=== PATIENT | female | born 1985 | race Caucasian/White ===

== ENCOUNTER 2017-09-11 09:59 | Emergency (ER) | payer OTHER, SELFPAY | END 2017-09-11 10:56 | disposition home or self-care (01) | PROVIDERS: Emergency Provider Nurse Practitioner; Family Provider Family Medicine; Visit Provider Nurse Practitioner | DX: J06.9 Acute upper respiratory infection, unspecified (principal); Z79.01 Long term (current) use of anticoagulants; Z86.718 Personal history of other venous thrombosis and embolism | CPT/HCPCS: 87804; 87880; 99201 ==

== ENCOUNTER → 2018-01-26 10:13 | Outpatient (CLI) | payer OTHER, SELFPAY ==
--- NOTE | 2018-01-26 10:18 | XR_ITS ---
XR tibia fibula RT 2V CLINICAL INDICATION: ITS.REASON: ELIZABETH FAN PAIN ORDERING PHYSICIAN: RASHAAD Guillaume PATIENT AGE: 32 years FINDINGS: No fracture or dislocation evident. No abnormal periosteal thickening/reaction. No radio opaque foreign bodies or soft tissue gas. IMPRESSION: Negative right tib-fib. Consider MRI for further evaluation for the workup of shinsplints/medial tibial stress syndrome
--- NOTE | 2018-01-26 10:18 | XR_ITS ---
XR tibia fibula LT 2V CLINICAL INDICATION: ITS.REASON: ELIZABETH FAN PAIN ORDERING PHYSICIAN: RASHAAD Guillaume PATIENT AGE: 32 years FINDINGS: No fracture or dislocation evident. No abnormal periosteal thickening/reaction. No radio opaque foreign bodies or soft tissue gas. Surgical clips are present along the medial upper and posterior aspect of the leg IMPRESSION: Negative left tib-fib. Consider MRI for further evaluation for the workup of shinsplints/medial tibial stress syndrome
== END ==
PROVIDERS: PCP Family Medicine; Visit Provider Physician Assistant
DX: M79.662 Pain in left lower leg (principal); M79.661 Pain in right lower leg
CPT/HCPCS: 73590

== ENCOUNTER → 2018-02-09 09:20 | Outpatient (CLI) | payer OTHER, SELFPAY ==
--- NOTE | 2018-02-09 09:26 | MR_ITS ---
MR lower leg LT wo con HISTORY: ITS.REASON: PAIN IN LEFT FAN ORDERING PHYSICIAN: Loyd Virgen MD PATIENT AGE: 33 years Comparison: 01/26/2018 TECHNIQUE: Standard multiplanar multiecho sequences are performed without contrast. FINDINGS: There is a thin area of increased T2 signal along the anteromedial aspect of the tibia consistent with a mild amount of periosteal edema. No abnormal bone marrow or cortical signal is evident. No soft tissue mass or abnormal fluid collection.. IMPRESSION: The findings are consistent with medial tibial stress syndrome grade 1 of the left tibia
--- NOTE | 2018-02-09 09:26 | MR_ITS ---
MR lower leg RT wo con HISTORY: Chronic right medial tibial pain. History of bilateral fasciotomy ITS.REASON: PAIN IN RIGHT FAN ORDERING PHYSICIAN: Loyd Virgen MD PATIENT AGE: 33 years Comparison: 01/26/2018 TECHNIQUE: Standard multiplanar multiecho sequences are performed without contrast. FINDINGS: There is a thin area of increased T2 signal along the anteromedial aspect of the tibia consistent with a mild amount of periosteal edema. No abnormal bone marrow or cortical signal is evident. No soft tissue mass or abnormal fluid collection.. IMPRESSION: The findings are consistent with medial tibial stress syndrome grade 1 of the right tibia
== END ==
PROVIDERS: Family Provider Family Medicine; PCP Family Medicine; Visit Provider Family Medicine
DX: M79.661 Pain in right lower leg (principal); M79.662 Pain in left lower leg
CPT/HCPCS: 73718

== ENCOUNTER → 2018-03-24 17:10 | Outpatient (CLI) | payer OTHER, SELFPAY ==
--- NOTE | 2018-03-24 17:16 | XR_ITS ---
XR abdomen min 2V HISTORY: ITS.REASON: FOLLOW UP STENT PLACEMENT 03/22 ORDERING PHYSICIAN: Referral Provider, PATIENT AGE: 33 years COMPARISON: None FINDINGS: There is a left ureteral stent in place in good position with the proximal aspect overlying the left upper quadrant in the region of the renal pelvis and the distal aspect overlying the region of the urinary bladder on the left. Previously there was a 5 mm stone in the left distal ureter not readily apparent. IMPRESSION: Interval removal of left ureteral stone with stent placement
== END ==
DX: N20.0 Calculus of kidney (principal)
CPT/HCPCS: 74019

== ENCOUNTER → 2018-10-20 07:50 | Outpatient (CLI) | payer OTHER, SELFPAY ==
--- NOTE | 2018-10-20 07:52 | US_ITS ---
US Arterial Ankle Brachial Ind History: ITS.REASON: claudication, rest pain ORDERING PHYSICIAN: Charles Chemea MD PATIENT AGE: 33 years TECHNIQUE: Segmental pressures obtained of both right and left leg. These are compared to brachial blood pressure to yield index at each level sampled including summary JOSEPH. The data sheets from the procedure are available in PACS FINDINGS Rest study only performed today No prior studies available for comparison. Blood pressures reported are in millimeters mercury. RIGHT LEG JOSEPH = 1.2. RIGHT LEG TBI=0.7 Brachial BP: 126 Thigh BP: 154 Calf BP: 141 Ankle PT: 155 Ankle DP : 141 Digit =89 LEFT LEG JOSEPH = 1.1 LEFT LEG TBI= 0.6 Brachial BPD: 120 Thigh BP: 154 Calf BP: 154 Ankle PT:145 Ankle DP: 143 Digit = 83 Pulses and waveforms: Normal IMPRESSION: The ABIs as reported above are within normal limits. Waveforms and pulses are also unremarkable. The TBI's are slightly low which may indicate small vessel disease
--- NOTE | 2018-10-20 07:52 | CA_ITS ---
PROCEDURE: 2-D M-mode and color Doppler study INDICATIONS FOR THE TEST: Chest pain+ COPD Heart Murmur Tobacco Smoking Palpitations Fatigue Syncope Edema+ Hypertension Diabetes Mellitus Rheumatic Fever SOB+RUSSO+Obesity Hyperlipidemia Family History HD+ Additional History PATIENT INFORMATION HEIGHT: 69 WEIGHT: 235 GENDER: Female B/P: 136/77 2-D/M-MODE INTERPRETATION: 2-D MEASUREMENTS OBSERVED VALUES IN CMS Right Ventricular Dimension (RVDd) 2.4 Interventricular Septum (Thickness)(IVsd) 0.7 Left Ventricular Internal Dimensions(LVIDd) 4.9 Left Ventricular Posterior Wall (Thickness)(LVPWd) 0.8 Aortic Root 2.7 Aortic Cusp Separation 2.1 Left Atrial Dimensions (LAD) 3.8 2D 1. Left atrium is normal size, left ventricle is normal size, there is no concentric left ventricular hypertrophy, visually estimated ejection fraction 55% with no regional wall motion abnormality. 2. The right atrium and right ventricle are normal size and contractility. 3. The aortic, mitral and tricuspid valvular grossly normal. 4. The pulmonic valve is poorly visualized. 5. No significant pericardial effusion noted. DOPPLER INTERROGATION: Doppler interrogation of the aortic, mitral and tricuspid valvular presence of mild mitral and tricuspid regurgitation, tricuspid regurgitation jet velocity is inadequate for calculation of the right ventricular systolic pressure, diastolic parameters are within normal range. CONCLUSION: 1. Normal left ventricular size, visually estimated ejection fraction 55% with no regional wall motion abnormality, [parameters are within normal range. 2. Mild mitral and tricuspid regurgitation 3. No significant pericardial effusion noted.
--- NOTE | 2018-10-20 07:52 | US_ITS ---
US abd. aorta screening HISTORY: ITS.REASON: History of aorta repair ORDERING PHYSICIAN: Charles Cheema MD PATIENT AGE: 33 years Comparison: None FINDINGS: The abdominal aorta has an unremarkable appearance. No evidence of aortic aneurysm. Common iliacs proximally are unremarkable. IMPRESSION: No evidence of abdominal aortic aneurysm
== END ==
PROVIDERS: PCP Family Medicine; Visit Provider Internal Medicine
DX: I73.9 Peripheral vascular disease, unspecified (principal); R06.09 Other forms of dyspnea; R07.9 Chest pain, unspecified; R60.9 Edema, unspecified; Z86.718 Personal history of other venous thrombosis and embolism
CPT/HCPCS: 76705; 93306; 93922

== ENCOUNTER → 2019-06-08 08:38 | Outpatient (CLI) | payer OTHER, SELFPAY ==
[2019-06-08 10:25] LABS: Free Thyroxine Index 1.8 ug/dL (5.93-13.13); T4 (Thyroxine) 4.9 ug/dl (4.7-13.3); Thyroid Stimulating Hormone 1.09 uIU/ml (0.358-3.740); Triiodothryronine (T3) Uptake 37 % (31-39)
[2019-06-12 10:10] LABS: Triiodothyronine (T3) Free 2.9 pg/mL (2.0-4.4)
== END ==
PROVIDERS: Visit Provider Nurse Practitioner Obstetrics & Gynecology
DX: R53.83 Other fatigue (principal)
CPT/HCPCS: 36415; 84436; 84443; 84479; 84481

== ENCOUNTER → 2019-07-23 13:35 | Outpatient (CLI) | payer OTHER, SELFPAY ==
[2019-07-23 15:14] LABS: Free Thyroxine Index 1.9 ug/dL (5.93-13.13); T4 (Thyroxine) 5.1 ug/dl (4.7-13.3); Thyroid Stimulating Hormone 0.89 uIU/ml (0.358-3.740); Triiodothryronine (T3) Uptake 38 % (31-39)
== END ==
PROVIDERS: Visit Provider Nurse Practitioner Obstetrics & Gynecology
DX: R94.6 Abnormal results of thyroid function studies (principal); R53.83 Other fatigue
CPT/HCPCS: 36415; 84436; 84443; 84479

== ENCOUNTER → 2019-10-15 13:28 | Outpatient (CLI) | payer OTHER, SELFPAY ==
[2019-10-15 14:03] LABS: Basophils % 0.4 % (0.1-2.0); Eosinophils # 0.1 K/mm3 (0.0-0.4); Eosinophils % 1.4 % (0.1-12.0); Hematocrit 39.3 % (37.0-47.0); Lymphocytes # 1.9 K/mm3 (0.7-4.5); Lymphocytes % 23.1 % (10-50); Mean Corpuscular HGB Conc 33.1 g/dL (31.8-35.4); Mean Corpuscular Hemoglobin 28.7 pg (27.0-31.2); Mean Corpuscular Volume 86.6 fl (81-99); Mean Platelet Volume 6.9 fl (7.4-10.4); Monocytes # 0.3 K/mm3 (0.1-1.0); Monocytes % 3.6 % (1.7-9.3); Neutrophils # 5.7 K/mm3 (1.8-7.8); Neutrophils % 71.5 % (37.0-80.0); Platelet Count 315 K/mm3 (142-424); Red Blood Count 4.54 M/mm3 (4.20-5.40); Red Cell Distribution Width 12.5 % (11.5-17.5)
[2019-10-15 15:07] LABS: Free Thyroxine Index 2.9 ug/dL (5.93-13.13); T4 (Thyroxine) 7.2 ug/dl (4.7-13.3); Thyroid Stimulating Hormone 0.52 uIU/ml (0.358-3.740); Triiodothryronine (T3) Uptake 40 % (31-39)
[2019-10-17 18:16] LABS: Vitamin B12 465 pg/mL (232-1245); Vitamin D 25 Hydroxy 28.9 ng/mL (30.0-100.0)
== END ==
PROVIDERS: Visit Provider Nurse Practitioner Obstetrics & Gynecology
DX: R53.82 Chronic fatigue, unspecified (principal); E55.9 Vitamin D deficiency, unspecified
CPT/HCPCS: 36415; 82607; 82652; 84436; 84443; 84479; 85025

== ENCOUNTER → 2019-10-18 07:53 | Outpatient (CLI) | payer OTHER, SELFPAY ==
[2019-10-18 08:45] LABS: Basophils % 0.4 % (0.1-2.0); Eosinophils # 0.1 K/mm3 (0.0-0.4); Eosinophils % 1.8 % (0.1-12.0); Hematocrit 41.6 % (37.0-47.0); Hemoglobin 13.8 g/dL (12.2-16.2); Lymphocytes # 1.8 K/mm3 (0.7-4.5); Lymphocytes % 28.4 % (10-50); Mean Corpuscular HGB Conc 33.3 g/dL (31.8-35.4); Mean Corpuscular Hemoglobin 29.5 pg (27.0-31.2); Mean Corpuscular Volume 88.7 fl (81-99); Mean Platelet Volume 7.4 fl (7.4-10.4); Monocytes # 0.2 K/mm3 (0.1-1.0); Monocytes % 3.8 % (1.7-9.3); Neutrophils # 4.1 K/mm3 (1.8-7.8); Neutrophils % 65.6 % (37.0-80.0); Platelet Count 326 K/mm3 (142-424); Red Blood Count 4.68 M/mm3 (4.20-5.40); Red Cell Distribution Width 12.7 % (11.5-17.5); White Blood Count 6.3 K/mm3 (4.8-10.8)
[2019-10-18 09:58] LABS: Alanine Aminotransferase 22 U/L (12-78); Albumin Level 3.8 gm/dL (3.4-5.0); Albumin/Globulin Ratio 1.3 (1.1-1.8); Alkaline Phosphatase 105 U/L (46-116); Anion Gap 15.5 mEq/L (5-15); Aspartate Amino Transferase 17 U/L (15-37); Bilirubin,Total 0.4 mg/dL (0.2-1.0); Blood Urea Nitrogen 17 mg/dL (7-18); Calcium 8.8 mg/dL (8.5-10.1); Carbon Dioxide 24 mmol/L (21.0-32.0); Chloride 105 mmol/L (98-107); Chol/HDL Ratio 4.2 (1-3.5); Cholesterol 150 mg/dL (140-200); Creatinine,Serum 1.08 mg/dL (0.55-1.02); Estimated Glomerular Filt Rate 57 ml/min (>60); GFR (African American) 69 ML/MIN (>60); Globulin 2.9 gm/dl (1.3-3.2); Glucose 104 mg/dL (74-106); HDL Cholesterol 36 mg/dL (29-89); LDL Cholesterol 100 mg/dL (0-130); Potassium 4.5 mmoL/L (3.5-5.1); Sodium 140 mmol/L (136-145); Total Protein,Serum 6.7 gm/dL (6.4-8.2); Triglycerides 68 mg/dL (30-200); VLDL Cholesterol 14 mg/dL (0-40)
== END ==
PROVIDERS: Visit Provider Student in an Organized Health Care Education/Training Program
DX: Z71.89 Other specified counseling (principal); R53.83 Other fatigue
CPT/HCPCS: 36415; 80053; 80061; 85025

== ENCOUNTER → 2019-11-22 09:27 | Outpatient (POV) | payer OTHER, SELFPAY ==
[2019-11-22 11:35] LABS: Chloride 102 mmol/L (98-107); Potassium 3.6 mmoL/L (3.5-5.1); Sodium 137 mmol/L (136-145)
[2019-11-22 11:37] LABS: Blood Urea Nitrogen 16 mg/dl (7-17); Creatine Kinase 49 U/L (30-135); Estimated Glomerular Filt Rate 46 ml/min (>60); GFR (African American) 56 ML/MIN (>60)
[2019-11-22 11:38] LABS: Anion Gap 14.6 mEq/L (5-15); Calcium 8.6 mg/dl (8.4-10.2); Carbon Dioxide 24 mmol/L (22.0-30.0); Glucose 86 mg/dl (74-100)
[2019-11-22 11:54] LABS: Free T4 (Free Thyroxine) 1.03 ng/dl (0.78-2.19)
[2019-11-22 12:07] LABS: Thyroid Stimulating Hormone 0.55 uIU/mL (0.465-4.68)
[2019-11-22 12:10] LABS: Erythrocyte Sedimentation Rate 11 mm/hr (0-20)
[2019-11-23 11:21] LABS: RA Latex Turbid. <10.0 IU/mL (0.0-13.9)
[2019-11-23 18:32] LABS: Antinuclear Antibodies, IFA Positive (.)
== END ==
PROVIDERS: Visit Provider Physician Assistant
DX: M25.50 Pain in unspecified joint (principal); E03.9 Hypothyroidism, unspecified; N28.9 Disorder of kidney and ureter, unspecified; M79.10 Myalgia, unspecified site
CPT/HCPCS: 36415; 80048; 82550; 83735; 84439; 84443; 84550; 85651; 86038; 86431

== ENCOUNTER → 2019-12-27 16:30 | Outpatient (CLI) | payer OTHER, SELFPAY ==
[2019-12-27 16:53] LABS: Anion Gap 11.9 mEq/L (5-15); Blood Urea Nitrogen 18 mg/dl (7-17); Calcium 9.9 mg/dl (8.4-10.2); Carbon Dioxide 26 mmol/L (22.0-30.0); Chloride 102 mmol/L (98-107); Estimated Glomerular Filt Rate 71 ml/min (>60); GFR (African American) 86 ML/MIN (>60); Glucose 91 mg/dl (74-100); Potassium 3.9 mmoL/L (3.5-5.1); Sodium 136 mmol/L (136-145)
== END ==
PROVIDERS: Visit Provider Physician Assistant
DX: N28.9 Disorder of kidney and ureter, unspecified (principal)
CPT/HCPCS: 36415; 80048

== ENCOUNTER → 2020-02-27 08:37 | Outpatient (CLI) | payer OTHER, SELFPAY ==
[2020-02-27 10:40] LABS: Thyroid Stimulating Hormone 0.93 uIU/mL (0.465-4.68)
[2020-02-28 08:14] LABS: Triiodothyronine (T3) Total 96 ng/dL (71-180)
[2020-02-28 10:01] LABS: Thyroid Peroxidase Antibodies 10 IU/mL (0-34)
== END ==
PROVIDERS: Visit Provider Internal Medicine Endocrinology, Diabetes & Metabolism
DX: E06.3 Autoimmune thyroiditis (principal)
CPT/HCPCS: 36415; 84439; 84443; 84480; 86376

== ENCOUNTER → 2020-03-04 07:57 | Outpatient (CLI) | payer OTHER, SELFPAY ==
--- NOTE | 2020-03-04 08:01 | CA_ITS ---
APPROVED REPORT Bilateral Lower Extremity Venous Study for Production Statistical Clerk: LIANNE Indications Lower Extremity Pain: Right Vein Imaging CFV (R): compressive, spontaneous, phasic, augmentation FEM (R): compressive, spontaneous, phasic, augmentation POP (R): compressive, spontaneous, phasic, augmentation PTV (R): Compressible GSV (R): Compressible Peroneals (R):Compressible GAS (R): Compressible Findings No evidence of DVT or superficial thrombophlebitis in the veins scanned of the right lower extremity. Reported to Shanae at [facility]'s office Conclusion No evidence of DVT or superficial thrombophlebitis in the veins scanned of the right lower extremity. Electronically signed by : William Colvin MD 03/04/2020 17:56:45
== END ==
PROVIDERS: PCP Family Medicine; Visit Provider Family Medicine
DX: M79.604 Pain in right leg (principal)
CPT/HCPCS: 93971

== ENCOUNTER → 2020-05-06 16:13 | Outpatient (POV) | payer OTHER, SELFPAY | PROVIDERS: PCP Family Medicine; Visit Provider Dermatology | DX: Z00.00 Encounter for general adult medical examination without abnormal findings (principal) ==

== ENCOUNTER → 2020-05-13 11:01 | Outpatient (CLI) | payer OTHER, SELFPAY ==
[2020-05-13 11:30] LABS: Basophils # 0.1 K/mm3 (0-0.2); Basophils % 0.8 % (0.1-2.0); Eosinophils # 0.3 K/mm3 (0.0-0.4); Eosinophils % 4.2 % (0.1-12.0); Hematocrit 40.7 % (37.0-47.0); Hemoglobin 13.7 g/dL (12.2-16.2); Lymphocytes # 1.8 K/mm3 (0.7-4.5); Lymphocytes % 26.7 % (10-50); Mean Corpuscular HGB Conc 33.7 g/dL (31.8-35.4); Mean Corpuscular Hemoglobin 29.8 pg (27.0-31.2); Mean Corpuscular Volume 88.4 fl (81-99); Mean Platelet Volume 6.7 fl (7.4-10.4); Monocytes # 0.2 K/mm3 (0.1-1.0); Neutrophils # 4.3 K/mm3 (1.8-7.8); Neutrophils % 65.3 % (37.0-80.0); Platelet Count 277 K/mm3 (142-424); Red Cell Distribution Width 12.5 % (11.5-17.5); White Blood Count 6.5 K/mm3 (4.8-10.8)
[2020-05-13 11:55] LABS: Erythrocyte Sedimentation Rate 18 mm/hr (0-20)
[2020-05-14 13:03] LABS: RA Latex Turbid. <10.0 IU/mL (0.0-13.9)
[2020-05-14 14:13] LABS: Sjogren's Anti-SS-A <0.2 AI (0.0-0.9)
[2020-05-14 15:30] LABS: IgG, Subclass 1 571 mg/dL (248-810); IgG, Subclass 2 339 mg/dL (130-555); IgG, Subclass 3 57 mg/dL (15-102); IgG, Subclass 4 36 mg/dL (2-96); Immunoglobulin G, Qn 962 mg/dL (586-1602)
[2020-05-14 22:52] LABS: Angiotensin Converting Enzyme 57 U/L (14-82); Antinuclear Antibodies, IFA Negative (.); Sjogren's Anti-SS-B <0.2 AI (0.0-0.9)
[2020-05-15 09:29] LABS: PTT-LA 43.5 sec (0.0-51.9); dRVVT 88.2 sec (0.0-47.0); dRVVT Confirm 1.4 ratio (0.8-1.2); dRVVT Mix 60.8 sec (0.0-47.0)
[2020-05-15 12:24] LABS: Lupus Reflex Interpretation Comment: (.)
== END ==
PROVIDERS: Visit Provider Internal Medicine Rheumatology
DX: M35.00 Sjogren syndrome, unspecified (principal); M25.50 Pain in unspecified joint; R76.8 Other specified abnormal immunological findings in serum; Z86.718 Personal history of other venous thrombosis and embolism
CPT/HCPCS: 36415; 82164; 82784; 82787; 85025; 85613; 85651; 86038; 86161; 86235; 86431

== ENCOUNTER → 2020-05-14 16:15 | Outpatient (CLI) | payer OTHER, SELFPAY ==
--- NOTE | 2020-05-14 16:17 | CT_ITS ---
PROCEDURE: CT ABDOMEN PELVIS WO/W CON CLINICAL INDICATION: Severe Pain Left flank pain with nausea vomiting and diarrhea COMPARISON: CT ABDPELWO CT abdomen pelvis wo con from 03/18/2018 TECHNIQUE: IV Contrast: 75ML OPTIRAY 350 Oral Contrast None Axial images obtained with sagittal and coronal reformats. All CT scans at the facility use one or more dose reduction, viz: automated exposure control, ma/kV adjustment per patient size (including targeted exams where dose is matched to indication, i.e. head), or iterative reconstruction technique. FINDINGS: LOWER THORAX: No acute finding ABDOMEN & PELVIS: There has been a prior cholecystectomy. The liver, spleen, adrenal glands, and pancreas have an unremarkable appearance. There is nonobstructing 2 mm stone in the mid aspect of the left kidney. No ureteral calculi. Prior appendectomy. No intestinal obstruction or free air. There is an IUD in place. No acute bony anomaly. IMPRESSION: No acute finding. Nonobstructing left nephrolithiasis. Dictated by: William Colvin MD 05/15/2020 08:53 William Colvin MD in [facility] 05/15/2020 08:53
== END ==
PROVIDERS: PCP Family Medicine; Visit Provider Nurse Practitioner Obstetrics & Gynecology
DX: R10.2 Pelvic and perineal pain (principal); R10.9 Unspecified abdominal pain
CPT/HCPCS: 74178; Q9967

== ENCOUNTER → 2020-05-19 17:10 | Outpatient (CLI) | payer OTHER, SELFPAY | PROVIDERS: Visit Provider Nurse Practitioner Obstetrics & Gynecology | DX: N39.0 Urinary tract infection, site not specified (principal) | CPT/HCPCS: 87086 ==

== ENCOUNTER → 2020-09-02 11:00 | Outpatient (CLI) | payer OTHER, SELFPAY ==
[2020-09-02 12:39] LABS: 25-OH Vitamin D, Total 79.1 ng/mL (30-100)
[2020-09-02 12:55] LABS: Thyroid Stimulating Hormone 1.05 uIU/mL (0.465-4.68)
[2020-09-03 09:49] LABS: Free T4 (Free Thyroxine) 0.81 ng/dl (0.78-2.19)
[2020-09-03 11:53] LABS: Triiodothyronine (T3) Total 109 ng/dL (71-180)
== END ==
PROVIDERS: Visit Provider Internal Medicine Endocrinology, Diabetes & Metabolism
DX: E03.9 Hypothyroidism, unspecified (principal); E55.9 Vitamin D deficiency, unspecified
CPT/HCPCS: 36415; 82306; 84436; 84439; 84443; 84480

== ENCOUNTER → 2020-09-09 11:33 | Outpatient (CLI) | payer OTHER, SELFPAY ==
[2020-09-12 15:29] LABS: Miscellaneous Test NEGATIVE
[2020-09-22 13:06] LABS: APTT 27.4 sec (.); Anti-Cardiolipin Antibody IgG <10 GPL (.); Anti-Cardiolipin Antibody IgM <10 MPL (.); Beta-2 Glycoprotein I Ab, IgA <10 SAU (.); Beta-2 Glycoprotein I Ab, IgG <10 SGU (.); Beta-2 Glycoprotein I Ab, IgM <10 SMU (.); Hexagonal Phase Phospholipid 3 sec (.); INR 1.1 ratio (.); Prothrombin Time 11.7 sec (.); Thrombin Time 16.4 sec (.)
== END ==
PROVIDERS: Visit Provider Internal Medicine Rheumatology
DX: D68.61 Antiphospholipid syndrome (principal)
CPT/HCPCS: 36415; 85597; 85598; 85610; 85613; 85670; 85730; 86146; 86147

== ENCOUNTER → 2021-04-15 15:53 | Outpatient (CLI) | payer OTHER, SELFPAY ==
--- NOTE | 2021-04-15 15:56 | CT_ITS ---
PROCEDURE: CT ABDOMEN PELVIS WO CON CLINICAL INDICATION: ABD PAIN, RT LOWER QUAD COMPARISON: CT CT ABDOMEN PELVIS WO/W CON from 05/14/2020 TECHNIQUE: Axial images obtained with sagittal and coronal reformats. All CT scans at the facility use one or more dose reduction, viz: automated exposure control, ma/kV adjustment per patient size (including targeted exams where dose is matched to indication, i.e. head), or iterative reconstruction technique. FINDINGS: Lower thorax: No acute finding ABDOMEN: Liver: No masses or biliary dilatation. Gallbladder: Nondistended. No radio opaque stones. Pancreas: No masses or peripancreatic fluid collections. Spleen: unremarkable Adrenals: unremarkable Kidneys/ureters: The kidneys are normal in size. Again noted is a small nonobstructing calculus midpole left kidney 3-4 mm in size. There is no obstructive uropathy of either kidney. ABDOMEN & PELVIS: Stomach bowel: Nondistended. No obvious mass or thickening. The small bowel appears normal. There has been a previous appendectomy. There is scattered stool and gas seen throughout the colon. Peritoneum: No abnormal fluid collections. No obvious inflammatory changes. No free air. There is mild diastasis recti mid abdomen. Lymph nodes: No enlarged lymph nodes apparent. Vasculature: No evidence of abdominal aortic aneurysm. No retroperitoneal hemorrhage evident. Bones: No acute fracture PELVIS: Reproductive: The uterus is normal in size with an IUD present. Bladder: Bladder is partially decompressed but otherwise appears normal, there is no free fluid in the pelvis. Appendix: Post appendectomy IMPRESSION: 1. Stable nonobstructing calculus midpole left kidney 1. Mild diastasis recti midline of the abdomen without evidence of ventral hernia. No other significant abnormality noted Dictated by: Dr. Marky Luis MD 04/15/2021 16:28 Dr. Marky Luis MD in [facility] 04/15/2021 16:28
== END ==
PROVIDERS: PCP Physician Assistant; Visit Provider Physician Assistant
DX: R10.31 Right lower quadrant pain (principal)
CPT/HCPCS: 74176

== ENCOUNTER → 2021-04-17 09:07 | Outpatient (CLI) | payer OTHER, SELFPAY ==
--- NOTE | 2021-04-17 09:11 | US_ITS ---
PROCEDURE: US TRANSVAGINAL CLINICAL INDICATION: PELVIC PAIN COMPARISON: US PTV US PELVIS-TRANSVAGINAL ONLY from 08/25/2015 FINDINGS: UTERUS: 8.1 cm x 5cmx 4cm. Homogeneous echotexture of the uterus is noted with. Posterior acoustic shadowing is noted at the endometrium, secondary to the presence of intrauterine device. Minor heterogeneous echotexture of the endometrium is noted. LEFT OVARY: 3cmxx1.7cm RIGHT OVARY: 4cmx 4xsi5za with a volume of 17.5ml. Right ovarian cyst is noted measuring 2.7 x 2 centimeters. Otherwise normal follicular pattern of the ovaries are noted with evidence of normal vascularity. IMPRESSION: Intrauterine device noted within the endometrium. Minor heterogeneous echotexture of the endometrium. Close follow-up is recommended. Dictated by: Malu Rapp 04/17/2021 13:16 Malu Rapp in [facility] 04/17/2021 13:16
== END ==
PROVIDERS: PCP Physician Assistant; Visit Provider Physician Assistant
DX: R10.2 Pelvic and perineal pain (principal)
CPT/HCPCS: 76830

== ENCOUNTER → 2021-06-25 15:17 | Outpatient (CLI) | payer OTHER, SELFPAY ==
--- NOTE | 2021-06-25 15:18 | MM_ITS ---
PROCEDURE INFORMATION: Exam: MG Bilateral Screening 3D Mammography Exam date and time: 06/25/2021 3:18 PM Age: 36 years old Clinical indication: Encounter for screening mammogram for malignant neoplasm of breast; Additional info: Baseline mammogram screening-family HX breast CA TECHNIQUE: Imaging protocol: Bilateral screening tomosynthesis and 2D mammography including computer-aided detection (CAD) when performed. COMPARISON: No relevant prior studies available. FINDINGS: MAMMOGRAPHY: Breast composition: The breast tissue is composed of scattered areas of fibroglandular density. Mass: 0.5 cm lobulated mass in the posterior third of the right upper outer quadrant. 0.5 cm partially visualized mass best seen on tomographic images in the posterior third of the right lateral breast only well seen in the craniocaudal projection. Architectural distortion: None. Calcifications: Calcifications in the posterior third of the right 9 o'clock axis Asymmetric density: None. Skin thickening: None. Axillary adenopathy: Both masses likely represent benign intramammary lymph nodes. IMPRESSION: 1. Patient to be recalled for spot compression views of the right breast in the CC, exaggerated lateral cc, MLO projections and right breast ultrasound for further evaluation of 2 probably benign right breast masses. A 90 degree lateral view of the right breast is also recommended. 2. Patient to be recalled for spot magnification views of the right breast in the CC and MLO projections for further evaluation of right breast calcifications. ASSESSMENT: BI-RADS Category 0: Incomplete- Need Additional Imaging Evaluation and/or Prior Mammograms for Comparison
== END ==
PROVIDERS: PCP Physician Assistant; Visit Provider Nurse Practitioner Obstetrics & Gynecology
DX: Z12.31 Encounter for screening mammogram for malignant neoplasm of breast (principal); Z80.3 Family history of malignant neoplasm of breast
CPT/HCPCS: 77063; 77067

== ENCOUNTER → 2021-07-20 13:58 | Outpatient (CLI) | payer OTHER, SELFPAY ==
--- NOTE | 2021-07-20 13:59 | US_ITS ---
PROCEDURE: US BREAST RT COMPLETE CLINICAL INDICATION: abnormal mammogram COMPARISON: No exams were available for comparison FINDINGS: Ultrasound scanning of the right breast with particular attention to the outer quadrant shows no abnormal cystic or solid lesion. There is no evidence of architectural distortion. There is a normal appearing node in the axilla. IMPRESSION: Unremarkable ultrasound right breast with no ultrasound correlation to the 2 benign-appearing nodular densities seen on the recent screening mammogram and follow-up spot views. Recommend the patient return for six-month follow-up right mammogram and ultrasound to evaluate for interval stability Dictated by: Dr. Marky Luis MD 07/24/2021 08:50 Dr. Marky Luis MD in [facility] 07/24/2021 08:50
--- NOTE | 2021-07-20 14:39 | MM_ITS ---
PROCEDURE: MM DIG MAMM DX UNILAT RT CAD Digital Breast Tomosynthesis Included CLINICAL INDICATION: ABNORMAL SCREENING COMPARISON: MG MM DIG SCREENING MAMM BI W/CAD from 06/25/2021 TECHNIQUE: Standard CC and MLO images and 3D Tomosynthesis was obtained. R2 CAD reviewed. FINDINGS: Additional views of the right breast show that the nodular lesions right breast described on the recent screening mammogram do not press out. Again there is no architectural distortion associated with with either lesion. There are few scattered benign-appearing microcalcifications in the right breast. Ultrasound performed the same date showed no ultrasound correlation to the 2 small nodular lesions. IMPRESSION: Benign-appearing nodular densities right breast without ultrasound correlation, recommend patient return for six-month follow-up right mammogram and ultrasound for continuing evaluation BI-RAD Category: 3 Probably Benign Finding Short Term Follow-up FOLLOW-UP: 6M 6Month Follow-up (A letter has been sent to the patient regarding results of the study.) Dictated by: Dr. Marky Luis MD 07/24/2021 08:47 Dr. Marky Luis MD in [facility] 07/24/2021 08:47
== END ==
PROVIDERS: PCP Physician Assistant; Visit Provider Nurse Practitioner Obstetrics & Gynecology
DX: R92.8 Other abnormal and inconclusive findings on diagnostic imaging of breast (principal)
CPT/HCPCS: 76641; 77061; 77065; G0279

== ENCOUNTER → 2021-08-05 10:39 | Outpatient (CLI) | payer OTHER, SELFPAY ==
[2021-08-05 10:44] LABS: Microscopic, Urine URINE MICROSCOPIC (MICROSCOPIC)
[2021-08-05 11:08] LABS: Appearance,Urine CLEAR (Clear); Bilirubin,Urine Negative (Negative); Blood, Urine 3+ (Negative); Color,Urine YELLOW (Yellow); Glucose,Urine (UA) Negative (Negative); Ketones,Urine Negative (Negative); Leukocyte Esterase,Urine Negative (Negative); Nitrate,Urine Negative (Negative); Protein,Urine Negative (Negative); Specific Gravity, Urine >= 1.030 (1.005-1.030); Urobilinogen,Urine 0.2 EU/dl (0.2)
[2021-08-05 11:20] LABS: RBC,Urine 20-50 #/hpf (0-3)
== END ==
PROVIDERS: Visit Provider Family Medicine
DX: R30.0 Dysuria (principal)
CPT/HCPCS: 81001; 87086

== ENCOUNTER → 2021-08-10 10:56 | Outpatient (CLI) | payer OTHER, SELFPAY ==
[2021-08-10 10:58] LABS: Microscopic, Urine URINE MICROSCOPIC (MICROSCOPIC)
[2021-08-10 11:28] LABS: Appearance,Urine CLEAR (Clear); Bilirubin,Urine Negative (Negative); Blood, Urine Negative (Negative); Color,Urine YELLOW (Yellow); Glucose,Urine (UA) Negative (Negative); Ketones,Urine Negative (Negative); Leukocyte Esterase,Urine TRACE (Negative); Nitrate,Urine Negative (Negative); Protein,Urine Negative (Negative)
[2021-08-10 12:22] LABS: Amorphous Sediment,Urine 1+ /lpf; Bacteria,Urine 1+ /lpf
== END ==
PROVIDERS: Physician Assistant; Visit Provider Orthopaedic Surgery
DX: M96.89 Other intraoperative and postprocedural complications and disorders of the musculoskeletal system (principal); M79.A21 Nontraumatic compartment syndrome of right lower extremity; M79.A22 Nontraumatic compartment syndrome of left lower extremity; R31.9 Hematuria, unspecified; Z11.52 Encounter for screening for COVID-19
CPT/HCPCS: 81001; C9803; U0003; U0005

== ENCOUNTER → 2021-08-21 13:07 | Outpatient (CLI) | payer OTHER, SELFPAY | PROVIDERS: Visit Provider Physician Assistant | DX: L03.116 Cellulitis of left lower limb (principal); B95.7 Other staphylococcus as the cause of diseases classified elsewhere | CPT/HCPCS: 87070; 87077; 87186; 87205 ==

== ENCOUNTER 2021-10-07 11:00 | Outpatient (RCR) | payer OTHER, SELFPAY | END 2021-10-07 11:05 | disposition home or self-care (01) | LOC: PT 11:00 | PROVIDERS: PCP Physician Assistant; Visit Provider Orthopaedic Surgery | DX: M79.A21 Nontraumatic compartment syndrome of right lower extremity (principal); M79.A22 Nontraumatic compartment syndrome of left lower extremity | CPT/HCPCS: 97010; 97110; 97140; 97163 ==

== ENCOUNTER 2022-08-24 09:46 | Emergency (ER) | payer BC, SELFPAY ==
[2022-08-24 09:47] VITALS: BP 141/81; PULSE 86; RESP 16; TEMP 36.8; O2SAT 99; BMI 35.9
--- NOTE | 2022-08-24 10:00 | HMH.EDGENADL ---
Discharge Plan Disposition Patient Disposition: Home, Self-Care Condition: Fair Prescriptions Prescriptions: New sulfamethoxazole-trimethoprim 800-160 mg tablet 1 tab PO Q12H Qty: 20 0RF phenazopyridine [Pyridium] 200 mg tablet 200 mg PO TID PRN (Reason: pain) Qty: 6 0RF hydrocodone-acetaminophen 5-325 mg tablet 1 tab PO Q6H PRN (Reason: pain, severe) Qty: 6 0RF No Action rivaroxaban [Xarelto] 20 mg tablet 20 mg PO ONCE multivitamin tablet 1 tab PO DAILY cholecalciferol (vitamin D3) 75 mcg (3,000 unit) tablet 75 mcg PO DAILY Referrals Follow up/Referrals: Kartik Russo MD [Primary Care Provider] - See instructions Activity Restrictions/Add. Instructions Additional Instructions/Restrictions: You have been evaluated for lower abdominal pain, diagnosed with a 2 mm left-sided kidney stone. You urine appears infected. Please take antibiotics as prescribed, Bactrim. Take ibuprofen for moderate pain. [place] for severe pain. Follow-up with your primary care doctor in 1 to 2 days for symptom recheck. Return to the emergency department at once for any new or worsening symptoms, pain, vomiting, other concerns. Clinical Impressions Clinical Impression: Renal stone, UTI (urinary tract infection) Instructions Patient Instructions: DI for Kidney Stones, DI for Urinary Tract Infection (UTI) Discharge ED Provider: Nelda House Adult HPI General Chief complaint: Abdominal Pain Stated complaint: Physician Referral, Abdominal/Pelvic pain Time Seen by Provider: 08/24/22 09:52 History of Present Illness HPI narrative: 37-year-old female presenting to the emergency department with suprapubic, pelvic pain. Symptoms started about 3 weeks ago. She had cramping lower abdominal pain. Located in the center. No radiation. Over the last 2 days the pain is gotten worse. Now described as spasms, bladder spasms. She possibly had dark urine, blood. No fevers, chills, nausea, vomiting. No vaginal bleeding or discharge. History of kidney stones. Also history of ovarian cysts. Has an IUD. . Denies concern for today. She has been taking Tylenol and Azo. Related Data Home Medications Medication Instructions Recorded Confirmed rivaroxaban 20 mg tablet (Xarelto) 20 mg PO ONCE UTI 12/05/17 08/24/22 multivitamin 1 tab PO DAILY 10/09/18 08/24/22 cholecalciferol (vitamin D3) 75 75 mcg PO DAILY 05/14/20 08/24/22 mcg (3,000 unit) tablet Previous Rx's Medication Instructions Recorded hydrocodone 5 mg-acetaminophen 325 1 tab PO Q6H PRN pain, severe #6 08/24/22 mg tablet tabs phenazopyridine 200 mg tablet 200 mg PO TID PRN pain 6 doses #6 08/24/22 (Pyridium) tabs sulfamethoxazole 800 1 tab PO Q12H #20 tabs 08/24/22 mg-trimethoprim 160 mg tablet Allergies Allergy/AdvReac Type Severity Reaction Status Date / Time cefazolin [CEFAZOLIN] Allergy Unknown Verified 08/24/22 08:51 ceftriaxone [CEFTRIAXONE] Allergy Unknown Verified 08/24/22 08:51 penicillin V [PENICILLIN V] Allergy Unknown Verified 08/24/22 08:51 Penicillins [PENICILLINS] Allergy Unknown Verified 08/24/22 08:51 PFSH PFSH Surgical History (Updated 08/24/22 @ 08:54 by SAM Palacios) H/O aortic valve repair History of fasciotomy Hx of appendectomy Hx of section Hx of cholecystectomy Social History Smoking Status: Never smoker alcohol intake: current substance use type: denies use current occupational status: employed Travel in the last 8 weeks: None ROS Obtained: Yes All systems reviewed & no additional complaints except as documented Constitutional Constitutional: Denies body ache, Denies chills, Denies fever(s) and Denies headache(s) ENT Ears, Nose, Mouth, and Throat: Denies headache(s) Cardiovascular Cardiovascular: Denies chest pain, Denies edema and Denies palpitations Gastrointestinal Gastrointestingal: Reports abdominal pain and cramping; Denies blo
--- NOTE | 2022-08-24 10:03 | CT_ITS ---
FINAL REPORT TECHNIQUE: Noncontrast exam CLINICAL HISTORY: flank pain, stone suspected, hx of stones COMPARISON: March 2021 FINDINGS: Abdomen: Lung bases are clear. Prior cholecystectomy. Liver, spleen, pancreas and adrenal glands have a normal CT appearance in their limited unenhanced state. Diastasis recti with presumed central abdominal wall hernia repair. Minimal right hydronephrosis and hydroureter secondary to a 2 mm right UVJ stone on image 115. Multiple nonobstructing left renal stones, largest up to 4 mm. No obvious renal mass is present. Pelvis: Appendix not identified. Retroverted uterus with an IUD. Bladder is unremarkable. No fluid collection or adenopathy is seen. IMPRESSION: 2 mm right UVJ stone causing mild obstruction. Left nephrolithiasis. Reviewed, Interpreted and Dictated by Loyd Rm MD Transcribed by Lincoln Villanueva Authenticated and [facility]
[2022-08-24 10:11] LABS: Microscopic, Urine URINE MICROSCOPIC (MICROSCOPIC)
[2022-08-24 10:13] LABS: Appearance,Urine SL CLOUDY (Clear); Basophils # 0.1 K/mm3 (0-0.2); Basophils % 0.8 % (0.1-2.0); Blood, Urine 3+ (Negative); Eosinophils # 0.2 K/mm3 (0.0-0.4); Eosinophils % 1.9 % (0.1-12.0); Glucose,Urine (UA) TRACE (Negative); Hematocrit 44.1 % (37.0-47.0); Ketones,Urine TRACE (Negative); Leukocyte Esterase,Urine 1+ (Negative); Lymphocytes # 2.2 K/mm3 (0.7-4.5); Lymphocytes % 26.2 % (10-50); Mean Corpuscular HGB Conc 31.8 g/dL (31.8-35.4); Mean Corpuscular Hemoglobin 29.1 pg (27.0-31.2); Mean Corpuscular Volume 91.5 fl (81-99); Mean Platelet Volume 7.1 fl (7.4-10.4); Monocytes # 0.3 K/mm3 (0.1-1.0); Monocytes % 3.7 % (1.7-9.3); Neutrophils # 5.7 K/mm3 (1.8-7.8); Neutrophils % 67.4 % (37.0-80.0); Nitrate,Urine POSITIVE (Negative); Platelet Count 408 K/mm3 (142-424); Protein,Urine 2+ (Negative); Red Blood Count 4.82 M/mm3 (4.20-5.40); Red Cell Distribution Width 12.9 % (11.5-17.5); White Blood Count 8.4 K/mm3 (4.8-10.8)
[2022-08-24 10:14] LABS: Urine Pregnancy, HCG Qual. Negative (Negative)
[2022-08-24 10:17] LABS: Bilirubin,Urine 2+ (Negative); Chloride 104 mmol/L (98-107); Color,Urine ORANGE (Yellow); Potassium 4.3 mmoL/L (3.5-5.1); Sodium 138 mmol/L (136-145)
[2022-08-24 10:19] LABS: Blood Urea Nitrogen 15 mg/dl (7-17); Creatinine Clearance Estimated 146 mL/min (50-200); Estimated Glomerular Filt Rate 70 ml/min (>60); GFR (African American) 84 ML/MIN (>60)
[2022-08-24 10:20] LABS: Alanine Aminotransferase 29 U/L (12-78); Albumin Level 4.6 g/dl (3.5-5.0); Albumin/Globulin Ratio 1.5 (1.1-1.8); Alkaline Phosphatase 123 U/L (38-126); Anion Gap 12.3 mEq/L (5-15); Aspartate Amino Transferase 32 U/L (14-36); Bilirubin,Total 0.2 mg/dl (0.2-1.3); Calcium 9.6 mg/dl (8.4-10.2); Carbon Dioxide 26 mmol/L (22.0-30.0); Globulin 3.1 g/dL (1.3-3.2); Glucose 94 mg/dl (74-100); Total Protein,Serum 7.7 g/dl (6.3-8.2)
--- NOTE | 2022-08-24 10:21 | PC.NURSE ---
pt to CT
[2022-08-24 10:26] LABS: Bacteria,Urine 1+ /lpf; RBC,Urine TNTC #/hpf (0-3)
--- NOTE | 2022-08-24 11:15 | PC.NURSE ---
contacted rad to check on status of CT result, spoke with Moshe, states the images are in lock states that means they should be reading it now.
--- NOTE | 2022-08-24 11:28 | PC.NURSE ---
assisted ER MD with pelvic exam at this time
[2022-08-24 11:35] VITALS: BP 138/73; PULSE 74; O2SAT 95
--- NOTE | 2022-08-24 11:41 | PC.NURSE ---
pt resting in bed, given warm blanket, call light within reach. pt states no needs at this time
[2022-08-24 12:06] VITALS: BP 135/78; PULSE 74; RESP 16; TEMP 36.8; O2SAT 95
== END 2022-08-24 12:06 | disposition home or self-care (01) ==
PROVIDERS: Emergency Provider Emergency Medicine; PCP Family Medicine
DX: N13.2 Hydronephrosis with renal and ureteral calculous obstruction (principal); R31.9 Hematuria, unspecified; Z79.01 Long term (current) use of anticoagulants; Z79.1 Long term (current) use of non-steroidal anti-inflammatories (NSAID); Z79.899 Other long term (current) drug therapy; Z88.0 Allergy status to penicillin; Z88.8 Allergy status to other drugs, medicaments and biological substances
CPT/HCPCS: 74176; 80053; 81001; 81025; 85025; 87086; 87210; 99285

== ENCOUNTER → 2023-02-11 17:44 | Outpatient (CLI) | payer BC, SELFPAY | PROVIDERS: PCP Family Medicine; Visit Provider Nurse Practitioner Family | DX: G47.30 Sleep apnea, unspecified (principal); G47.00 Insomnia, unspecified; G43.109 Migraine with aura, not intractable, without status migrainosus; R06.89 Other abnormalities of breathing; R06.83 Snoring; E66.9 Obesity, unspecified; Z68.36 Body mass index [BMI] 36.0-36.9, adult | CPT/HCPCS: G0399 ==

== ENCOUNTER → 2023-02-23 16:30 | Outpatient (CLI) | payer BC, SELFPAY ==
--- NOTE | 2023-02-23 | CA_ITS ---
FINAL REPORT TECHNIQUE: Ultrasound images of the deep venous system were obtained from the left groin to the calf veins. CLINICAL HISTORY: lt calf pain, hx- lt calf fasciotomy FINDINGS: The deep venous system is normally compressible. Normal flow is identified. IMPRESSION: No evidence of left lower extremity DVT. Reviewed, Interpreted and Dictated by Woody Hernandez MD Transcribed by Sue Gallegos Authenticated and [facility]
== END ==
PROVIDERS: PCP Family Medicine; Visit Provider Physician Assistant
DX: M79.605 Pain in left leg (principal)
CPT/HCPCS: 93971

== ENCOUNTER → 2023-02-25 07:08 | Outpatient (CLI) | payer BC, SELFPAY ==
[2023-02-25 08:45] LABS: Basophils % 0.1 % (0.1-2.0); Eosinophils # 0.1 K/mm3 (0.0-0.4); Eosinophils % 0.5 % (0.1-12.0); Hematocrit 46.1 % (37.0-47.0); Hemoglobin 14.6 g/dL (12.2-16.2); Lymphocytes # 1.1 K/mm3 (0.7-4.5); Lymphocytes % 6.7 % (10-50); Mean Corpuscular HGB Conc 31.7 g/dL (31.8-35.4); Mean Corpuscular Hemoglobin 28.8 pg (27.0-31.2); Mean Corpuscular Volume 90.8 fl (81-99); Mean Platelet Volume 7.9 fl (7.4-10.4); Monocytes # 0.3 K/mm3 (0.1-1.0); Monocytes % 1.6 % (1.7-9.3); Neutrophils # 14.5 K/mm3 (1.8-7.8); Neutrophils % 91.1 % (37.0-80.0); Platelet Count 425 K/mm3 (142-424); Red Blood Count 5.08 M/mm3 (4.20-5.40); Red Cell Distribution Width 13.1 % (11.5-17.5)
[2023-02-25 08:51] LABS: MANUAL DIFFERENTIAL MANUAL DIFFERENTIAL (MANUAL DIFF)
[2023-02-25 09:26] LABS: Chloride 101 mmol/L (98-107); Sodium 138 mmol/L (136-145)
[2023-02-25 09:27] LABS: Potassium 5.1 mmoL/L (3.5-5.1)
[2023-02-25 09:29] LABS: Alanine Aminotransferase 28 U/L (12-78); Albumin Level 4.5 g/dl (3.5-5.0); Albumin/Globulin Ratio 1.3 (1.1-1.8); Alkaline Phosphatase 98 U/L (38-126); Anion Gap 20.1 mEq/L (5-15); Aspartate Amino Transferase 26 U/L (14-36); Bilirubin,Total 0.3 mg/dl (0.2-1.3); Blood Urea Nitrogen 16 mg/dl (7-17); Carbon Dioxide 22 mmol/L (22.0-30.0); Estimated Glomerular Filt Rate 79 ml/min (>60); GFR (African American) 96 ML/MIN (>60); Globulin 3.4 g/dL (1.3-3.2); Total Protein,Serum 7.9 g/dl (6.3-8.2)
[2023-02-25 09:30] LABS: Cholesterol 220 mg/dl (140-200); Glucose 157 mg/dl (74-100); HDL Cholesterol 44 mg/dl (40-60); Triglycerides 117 mg/dl (30-150); VLDL Cholesterol 23 mg/dL (0-40)
[2023-02-25 09:42] LABS: Direct LDL Cholesterol 132.19 mg/dL (100-129)
[2023-02-25 09:46] LABS: 25-OH Vitamin D, Total 52.4 ng/mL (30-100)
[2023-02-25 09:47] LABS: Triiodothryronine (T3) Uptake 27 % (23.5-40.5)
[2023-02-25 09:48] LABS: Free Thyroxine Index 1.5 ug/dL (5.93-13.13); T4 (Thyroxine) 5.5 ug/dl (5.53-11.0)
[2023-02-25 10:01] LABS: Thyroid Stimulating Hormone 0.67 uIU/mL (0.465-4.68)
[2023-02-25 11:07] LABS: Lymphocytes % 13 % (10-50); Neutrophils % 87 % (42-76); Platelet Estimate Normal; RBC Morphology Normal; Total Cells Counted 100
[2023-02-26 11:14] LABS: Estradiol 92.6 pg/mL (.); FSH 2.3 mIU/mL (.); LH 4.5 mIU/mL (.)
== END ==
PROVIDERS: PCP Physician Assistant; Visit Provider Nurse Practitioner Obstetrics & Gynecology
DX: R53.83 Other fatigue (principal); E66.9 Obesity, unspecified; Z68.36 Body mass index [BMI] 36.0-36.9, adult
CPT/HCPCS: 36415; 80053; 80061; 82306; 82670; 83001; 83002; 84436; 84443; 84479; 85007; 85025

== ENCOUNTER 2023-03-20 12:10 | Emergency (ER) | payer BC, SELFPAY ==
[2023-03-20 12:20] VITALS: BP 134/79; PULSE 88; RESP 18; TEMP 36.7; O2SAT 97; BMI 36.1
[2023-03-20 12:22] LABS: Apearance,Urine Clear (Clear); Color,Urine Dark Yellow (Yellow); PH,Urine 5.5 (5.0-8.5)
[2023-03-20 12:23] LABS: Bilirubin,Urine Negative (Negative); Blood, Urine 1+ (Negative); Glucose,Urine (UA) Negative (Negative); Ketones,Urine Negative (Negative); Protein,Urine Trace (Negative); UTC Leukocyte Esterase,Urine Negative (Negative); UTC Nitrate,Urine Positive (Negative); Urobilinogen,Urine 0.2 EU/dl (0.2)
--- NOTE | 2023-03-20 12:27 | EXP.UTC ---
Discharge Plan Disposition Patient Disposition: Home, Self-Care Condition: Good Prescriptions Prescriptions: New sulfamethoxazole-trimethoprim [Bactrim DS] 800-160 mg tablet 1 tab PO BID Qty: 20 0RF phenazopyridine [Pyridium] 200 mg tablet 200 mg PO Q8H 2 Days Qty: 6 0RF No Action rivaroxaban [Xarelto] 20 mg tablet 20 mg PO DAILY amitriptyline 10 mg tablet 10 mg PO HS Qty: 30 2RF levothyroxine 25 mcg tablet 25 mcg PO DAILY Referrals Follow up/Referrals: Kartik Russo MD [Primary Care Provider] - See instructions Activity Restrictions/Add. Instructions Additional Instructions/Restrictions: *Increase fluids. Water not Soda or Tea *Start antibiotic immediately and be sure to take as ordered for the FULL length of time although you should start to see improvement over the next 48 hours *Pyridium as needed Remember this medication will turn your urine . This is normal but it will stain what ever it gets on *You should not use Pyridium for more than 48 hours. If so , follow up with your primary physician to review urine culture and ensure that antibiotic is adequate for infection *Be SURE to follow up anytime for new or worsening symptoms with your family doctor. AND in 48 hours for urine culture results with your family doctor, if you do not have a doctor then you may call back to the [facility] for urine culture results and further treatment. We do recommend that you choose and establish care with a Primary Care Physician. ?AND follow up with them ?in 10-14 days to repeat UA to ensure infection is resolved and blood no longer present *Be sure to let your PCP know that we sent urine cultures from the [facility] so they can follow up to ensure that you area the on the correct antibiotic Call your doctor office and make appointment for 48 hours (2 days from today) ?to follow up and get the results of your urine culture and further treatment Clinical Impressions Clinical Impression: UTI (urinary tract infection) Instructions Patient Instructions: DI for Urinary Tract Infection (UTI), Urinary Tract Infection Discharge ED Provider: Madeleine Nichols [facility] [place] HPI General Stated complaint: bladder spasms,pain and frequest urinating Mode of Arrival: Ambulatory Source of Information: Patient Limitations: No Limitations Time Seen by Provider: 03/20/23 12:27 Description of Symptoms (Recalled from Triage Doc. by RN): PATIENT C/O BLADDER SPASMS, PELVIC PAIN/PRESSURE, AND SOME HEMATURIA X 3 DAYS HEENT Symptoms (Recalled from RN notes): No Resp Symptoms (Recalled from RN notes): No Skin Symptoms (Recalled from RN notes): No MS Symptoms (Recalled from RN notes): No Functional Status (Recalled from RN notes): WNL History of Present Illness Provider Complaint: Patient states that she has been having burning, pressure and spasms with urination for the last several days States that she did notice some blood in her urine earlier in the week States that she feels like she may have a UTI States that she has had Kidney stones in the past but this doesnt feel like it did then States that she has had frequency and urgency like she has had in the past with UTI Related Data Home Medications Medication Instructions Recorded Confirmed rivaroxaban 20 mg tablet (Xarelto) 20 mg PO DAILY Blood thinner 12/05/17 03/20/23 levothyroxine 25 mcg tablet 25 mcg PO DAILY Supplement 03/20/23 03/20/23 Previous Rx's Medication Instructions Recorded amitriptyline 10 mg tablet 10 mg PO HS chronic migraine #30 01/31/23 tabs phenazopyridine 200 mg tablet 200 mg PO Q8H pain 2 days #6 tabs 03/20/23 (Pyridium) sulfamethoxazole 800 1 tab PO BID #20 tabs 03/20/23 mg-trimethoprim 160 mg tablet (Bactrim DS) Allergies Allergy/AdvReac Type Severity Reaction Status Date / Time cefazolin [CEFAZOLIN] Allergy Unknown Verified 02/24/23 14:48 ceftriaxone [CEFTRIAXONE] Allergy Unknown Verified 02/24/23 14:48 penicillin V [PENICILLIN V] Allergy Unknown
[2023-03-20 12:28] VITALS: BP 134/79; PULSE 88; RESP 18; TEMP 36.7; O2SAT 97
== END 2023-03-20 12:41 | disposition home or self-care (01) ==
PROVIDERS: Emergency Provider Nurse Practitioner; PCP Family Medicine
DX: N39.0 Urinary tract infection, site not specified (principal); Z87.442 Personal history of urinary calculi
CPT/HCPCS: 81003; 87086; 99204; 99212; G0463

== ENCOUNTER → 2023-04-25 09:24 | Outpatient (CLI) | payer BC, SELFPAY | PROVIDERS: PCP Family Medicine; Visit Provider Nurse Practitioner Family | DX: I49.9 Cardiac arrhythmia, unspecified (principal); G47.33 Obstructive sleep apnea (adult) (pediatric); Z86.718 Personal history of other venous thrombosis and embolism | CPT/HCPCS: 93270 ==

== ENCOUNTER → 2023-06-20 07:51 | Outpatient (CLI) | payer BC, SELFPAY ==
--- NOTE | 2023-06-20 07:56 | CA_ITS ---
APPROVED REPORT EXAM: Comprehensive 2D, Doppler, and color-flow Echocardiogram Router Operator: Josselyn Redding CRT Ht: 5 ft 9 in Wt: 237lbs BSA: 2.22 BP: 123/63 mmHg Indications: AV REPAIR 2001, HX of dvts, SVT on home sleep study 2D Dimensions LVOT 1.82 cm (M/F) 1.5-2.5 LA Volume 36.30 mL LA Volume Index 16.00 mL/m2 (M/F) 16-34 M-Mode Dimensions RVDd 2.79 cm (0.9-2.6) LA Diam 3.44 cm (1.9-4.0) LVDd 4.79 cm (3.5-5.7) Ao Diam 3.16 cm (2.0-3.7) LVDs 2.97 cm (3.5-5.7) IVSd 1.04 cm (0.6-1.1) PWd 0.54 cm (0.6-1.1) EF (Teich) 68.00% FS 38.00% EDV (Teich) 107.00 mL TAPSE 2.14 (<1.7) ESV (Teich) 34.20 mL LV Diastology E Decel Time 250.00 (160-240 msec) E/A Ratio 1.48 MED E' 11.00 (< 7 cm/sec) MED A' 12.10 cm/s E'/MED E' Ratio 7.85 (>14) LAT E' 15.20 (<10 cm/sec) LAT A' 11.50 cm/s E/LAT E' Ratio 5.68 (>14) Aortic Valve LVOT Max 140.00 (70-110 cm/s) LVOT VTI 28.53 cm AoV Peak Ricki. 149.00 (50-130 cm/s) AO Peak GR. 8.80 mmHg AO Mean GR. 4.90 (<5 mmHg) AO VTI 29.46 (18-25 cm) GLENN (VTI) 2.52 (2.5-4.5 cm2) Mitral Valve MV A Velocity 58.00 (40-130 cm/s) E/A Ratio 1.48 MV Decel. Time 250.00 (160-240 ms) Pulmonary Valve PV Peak Velocity 110.00 (50-150 cm/s) Tricuspid Valve TR P. Velocity 172.00 cm/s RAP Estimate 10.00 mmHg RVSP 21.80 mmHg Left Ventricle The left ventricle is normal size. The left ventricular systolic function is normal. The left ventricular ejection fraction is within the normal range. There is normal left ventricular wall thickness. There is normal LV segmental wall motion. The left ventricular diastolic function is normal. LVEF is 55%. Right Ventricle The right ventricle is normal size. The right ventricular systolic function is normal. Atria The left atrium size is normal. The right atrium size is normal. There is no Doppler evidence of interatrial shunt. Aortic Valve The aortic valve is normal in structure. There is no aortic valvular stenosis. No aortic regurgitation is present. Mitral Valve The mitral valve is normal in structure. Trace mitral valve regurgitation. Tricuspid Valve The tricuspid valve leaflets are thin and pliable. Trace tricuspid regurgitation. RVSP is normal. Pulmonic Valve The pulmonary valve is normal in structure. Trace pulmonic regurgitation. Great Vessels The aortic root is normal in size. The ascending aorta is normal in size. IVC is normal in size and collapses >50% with inspiration. Pericardium There is no pericardial effusion. Other Information Study Quality: Adequate Conclusion Normal biventricular systolic function. There is no significant valvular regurgitation or stenosis. Electronically signed by : Sierra Palomares MD 06/21/2023 18:44:25
== END ==
PROVIDERS: PCP Family Medicine; Visit Provider Nurse Practitioner Family
DX: I49.9 Cardiac arrhythmia, unspecified (principal); G47.33 Obstructive sleep apnea (adult) (pediatric); Z86.718 Personal history of other venous thrombosis and embolism
CPT/HCPCS: 93306

== ENCOUNTER → 2023-09-02 06:14 | Outpatient (CLI) | payer BC, SELFPAY ==
--- NOTE | 2023-09-02 06:27 | CT_ITS ---
FINAL REPORT TECHNIQUE: Axial images through the abdomen and pelvis were performed without contrast. This study was performed with techniques to keep radiation doses as low as reasonably achievable, (ALARA). Individualized dose reduction techniques using automated exposure control or adjustment of mA and/or kV according to the patient's size were employed. CLINICAL HISTORY: HEMATURIA COMPARISON: 08/24/2022 FINDINGS: ABDOMEN: The lung bases are clear. There are postoperative changes in the bilateral axilla. The heart size is normal. Limited images of the liver are unremarkable. The patient is status post cholecystectomy. The spleen is normal. No adrenal mass is identified. The aorta is normal in caliber. There is no significant free fluid or adenopathy. There are multiple nonobstructing left renal stones measuring up to 4 mm. There is no left hydronephrosis. There is mild right hydronephrosis and hydroureter. PELVIS: The appendix is not identified. There is a 2 mm right UVJ stone. An IUD seen in the uterus. The urinary bladder is unremarkable. There is no significant free fluid or adenopathy. IMPRESSION: Right hydronephrosis and hydroureter secondary to a 2 mm UVJ stone. Left nephrolithiasis. Reviewed, Interpreted and Dictated by Mario Cedillo III, MD Transcribed by Sue Gallegos Authenticated and [facility]
== END ==
PROVIDERS: PCP Family Medicine; Visit Provider Physician Assistant
DX: R31.9 Hematuria, unspecified (principal)
CPT/HCPCS: 74176

== ENCOUNTER 2023-12-10 09:31 | Outpatient (CLI) | payer BC, SELFPAY ==
[2023-12-10 09:56] LABS: Basophils # 0.1 K/mm3 (0-0.2); Basophils % 1.1 % (0.1-2.0); Eosinophils # 0.1 K/mm3 (0.0-0.4); Eosinophils % 1.9 % (0.1-12.0); Hematocrit 41.5 % (37.0-47.0); Hemoglobin 13.6 g/dL (12.2-16.2); Lymphocytes # 1.7 K/mm3 (0.7-4.5); Lymphocytes % 27.3 % (10-50); Mean Corpuscular HGB Conc 32.9 g/dL (31.8-35.4); Mean Corpuscular Volume 94.1 fl (81-99); Mean Platelet Volume 7.5 fl (7.4-10.4); Monocytes # 0.3 K/mm3 (0.1-1.0); Neutrophils % 64.8 % (37.0-80.0); Platelet Count 330 K/mm3 (142-424); Red Cell Distribution Width 13.4 % (11.5-17.5); White Blood Count 6.1 K/mm3 (4.8-10.8)
[2023-12-10 10:06] LABS: Hemoglobin A1C 5.2 % (4.0-6.0)
[2023-12-10 10:20] LABS: Alanine Aminotransferase 24 U/L (12-78); Albumin Level 4.2 g/dl (3.5-5.0); Albumin/Globulin Ratio 1.6 (1.1-1.8); Alkaline Phosphatase 87 U/L (38-126); Anion Gap 11.3 mEq/L (5-15); Aspartate Amino Transferase 28 U/L (14-36); Bilirubin,Total 0.5 mg/dl (0.2-1.3); Blood Urea Nitrogen 14 mg/dl (7-17); Calcium 9.1 mg/dl (8.4-10.2); Carbon Dioxide 24 mmol/L (22.0-30.0); Chloride 108 mmol/L (98-107); Chol/HDL Ratio 4.9 (1-3.5); Cholesterol 151 mg/dl (140-200); Estimated Glomerular Filt Rate 69 ml/min (>60); GFR (African American) 84 ML/MIN (>60); Globulin 2.7 g/dL (1.3-3.2); Glucose 102 mg/dl (74-100); HDL Cholesterol 31 mg/dl (40-60); Potassium 4.3 mmoL/L (3.5-5.1); Sodium 139 mmol/L (136-145); Total Protein,Serum 6.9 g/dl (6.3-8.2); Triglycerides 129 mg/dl (30-150); VLDL Cholesterol 26 mg/dL (0-40)
[2023-12-10 10:32] LABS: Direct LDL Cholesterol 90.71 mg/dL (100-129)
[2023-12-10 10:37] LABS: Free T4 (Free Thyroxine) 0.67 ng/dl (0.78-2.19)
[2023-12-10 10:38] LABS: 25-OH Vitamin D, Total 63.4 ng/mL (30-100)
[2023-12-10 10:51] LABS: Thyroid Stimulating Hormone 0.84 uIU/mL (0.465-4.68)
[2023-12-10 11:10] LABS: Vitamin B12 794 pg/mL (239-931)
[2023-12-11 08:14] LABS: FSH 2.3 mIU/mL (.); LH 3.5 mIU/mL (.); Progesterone 6.1 ng/mL (.)
[2023-12-15 14:13] LABS: Estrogen 283 pg/mL (.)
== END 2023-12-10 23:59 ==
LOC: LAB 09:32
PROVIDERS: PCP Physician Assistant; Visit Provider Physician Assistant
DX: R73.01 Impaired fasting glucose (principal); R61 Generalized hyperhidrosis; E03.9 Hypothyroidism, unspecified; R53.83 Other fatigue; E55.9 Vitamin D deficiency, unspecified; Z13.220 Encounter for screening for lipoid disorders; Z79.899 Other long term (current) drug therapy
CPT/HCPCS: 36415; 80053; 80061; 82306; 82607; 82672; 83001; 83002; 83036; 84144; 84439; 84443; 85025

== ENCOUNTER 2024-02-14 07:21 | Outpatient (CLI) | payer BC, SELFPAY ==
--- NOTE | 2024-02-14 07:28 | US_ITS ---
FINAL REPORT TECHNIQUE: Limited sonographic images of the thyroid. CLINICAL HISTORY: HYPOTHYROIDISM,DYSPHAGIA FINDINGS: The right lobe of the thyroid measures 4.8 x 1.3 x 1.3 cm. There is a solid, hypoechoic nodule measuring 9 mm in the medial right lower pole consistent with TI-RADS category 4. The left lobe of the thyroid measures 4.6 x 1.1 x 1.3 cm. The isthmus measures 3 mm. IMPRESSION: Right thyroid lobe nodule. No follow-up is required as per TI-RADS criteria. Reviewed, Interpreted and Dictated by Woody Hernandez MD Transcribed by Sue Gallegos Authenticated and [facility]
[2024-02-14 09:20] LABS: Free T4 (Free Thyroxine) 0.91 ng/dl (0.78-2.19)
[2024-02-14 09:34] LABS: Thyroid Stimulating Hormone 0.95 uIU/mL (0.465-4.68)
== END 2024-02-14 23:59 | disposition home or self-care (01) ==
LOC: RAD 07:22
PROVIDERS: Physician Assistant; PCP Family Medicine; Visit Provider Family Medicine
DX: E03.9 Hypothyroidism, unspecified (principal); R13.10 Dysphagia, unspecified
CPT/HCPCS: 36415; 76536; 84439; 84443

== ENCOUNTER 2024-07-01 11:49 | Emergency (ER) | payer BC, SELFPAY ==
--- NOTE | 2024-07-01 12:02 | ED_ITS ---
Discharge Plan Disposition Patient Disposition: Home, Self-Care Condition: Good Prescriptions Prescriptions: New phenazopyridine [Pyridium] 200 mg tablet 200 mg PO Q8H 2 Days Qty: 6 0RF ciprofloxacin HCl [Cipro] 500 mg tablet 500 mg PO BID 7 Days Qty: 14 0RF No Action amitriptyline 25 mg tablet 25 mg PO DAILY Patient Comments: TAKE ONE TABLET BY MOUTH AT BEDTIME levothyroxine 50 mcg tablet 50 mcg PO DAILY Patient Comments: TAKE ONE TABLET BY MOUTH EVERY DAY IN THE MORNING ON EMPTY STOMACH pantoprazole 40 mg tablet,delayed release (DR/EC) 40 mg PO DAILY Patient Comments: TAKE 1 TABLET BY MOUTH ONCE DAILY Xarelto 20 mg tablet 20 mg PO DAILY Patient Comments: TAKE ONE TABLET BY MOUTH ONCE DAILY IN THE EVENING Wegovy 1.7 mg/0.75 mL pen injector 1.7 mg SQ WEEKLY Patient Comments: INJECT 1 SYRINGE SUBCUTANEOUSLY ONCE A WEEK Referrals Follow up/Referrals: Kartik Russo MD [Primary Care Provider] - See instructions Activity Restrictions/Add. Instructions Additional Instructions/Restrictions: Drink plenty of fluids. Take tylenol or ibuprofen for pain or fever. Take the medications as directed. Follow up with your regular doctor. GO TO THE ER FOR ANY WORSENING SYMPTOMS The pyridium will make your urine turn orange, this is an expected side effect. It will stain your clothes if it comes into contact with them. We will culture the urine. That will tell what bacteria is causing your infection and which antibiotics will treat it best.This test takes 3 days to complete. Clinical Impressions Clinical Impression: UTI (urinary tract infection), Hematuria Stand Alone Forms Stand Alone Forms: Work/School Release Instructions Patient Instructions: Urine Culture, DI for Urinary Tract Infection (UTI), Phenazopyridine, Ciprofloxacin Print Language Print Language: Urdu Discharge ED Provider: Samy Sanderson [facility] General Stated complaint: blood in urine Time Seen by Provider: 07/01/24 12:02 History of Present Illness Provider Complaint: She states that for the past 2 days she has had mild low back pain, urinary frequency, and hematuria. She has had uti's and a kidney sto ne in the past. She states that when she had the kidney stone her pain was worse than it has been with this episode. She has a history of dvt, so she take xarelto. In the past she has had hematuria when she had the kidney stone and when she had a uti. Related Data Home Medications ?Medication ?Instructions ?Recorded ?Confirmed amitriptyline 25 mg tablet 25 mg PO DAILY 07/01/24 07/01/24 levothyroxine 50 mcg tablet 50 mcg PO DAILY 07/01/24 07/01/24 pantoprazole 40 mg tablet,delayed 40 mg PO DAILY 07/01/24 07/01/24 release rivaroxaban 20 mg tablet (Xarelto) 20 mg PO DAILY 07/01/24 07/01/24 semaglutide (weight loss) 1.7 1.7 mg SQ WEEKLY 07/01/24 07/01/24 mg/0.75 mL subcutaneous pen injector (Wegovy) Previous Rx's ?Medication ?Instructions ?Recorded ciprofloxacin HCl 500 mg tablet 500 mg PO BID 7 days #14 tabs 07/01/24 (Cipro) phenazopyridine 200 mg tablet 200 mg PO Q8H 2 days #6 tabs 07/01/24 (Pyridium) Allergies Allergy/AdvReac Type Severity Reaction Status Date / Time cefazolin [CEFAZOLIN] Allergy Unknown Verified 10/24/23 15:41 ceftriaxone [CEFTRIAXONE] Allergy Unknown Verified 10/24/23 15:41 penicillin V [PENICILLIN V] Allergy Unknown Verified 10/24/23 15:41 Penicillins [PENICILLINS] Allergy Unknown Verified 10/24/23 15:41 PFSH PFS Disclaimer: The information contained in this section may have been updated after the patient was seen, as this information can be updated by other users. Medical History Urinary tract infection NICK (obstructive sleep apnea) Mild NICK, did not meet CPAP compliance although denies intolerance, waiting to receive oral appliance through dentistry Deep vein thrombosis History of migraine History of kidney stones Surgical History History of fasciotomy Hx of section Hx of appendectomy Hx of cholecystectomy H/O aortic valve repair Family History Other Aneurysm Cancer Dementia Hypertension Stroke Social History Smoking Status: Never smoker alcohol intake: current alcohol intake frequency: holidays/special occasions only substance use type: denies use current occupational status: employed Travel in the last 8 weeks: None ROS Obtained: Yes All systems reviewed & no additional complaints except as documented Constitutional Constitutional: Reports system reviewed and no additional complaints, except as documented, Denies chills and Denies fever(s) Eyes Eyes: Denies eye discharge ENT Ears, Nose, Mouth, and Throat: Denies dysphagia, Denies sore throat and Denies throat swelling Cardiovascular Cardiovascular: Denies chest pain and Denies dyspnea Respiratory Respiratory: Denies chest congestion, Denies cough and Denies dyspnea Gastrointestinal Gastrointestingal: Denies abdominal pain, constipation, diarrhea, dysphagia, nausea or vomiting Genitourinary Female Genitourinary: Reports as per HPI, Reports dysuria, Reports hematuria, Reports urinary frequency, Denies urinary incontinence, Reports urinary hesitancy and Reports urinary urgency Musculoskeletal Musculoskeletal: Denies arthralgias and Reports back pain Integumentary/Breasts Skin/Breast: Denies rash Neurologic Neurologic: Denies paresthesias Allergic/Immunologic Allergic/Immunologic: Denies throat swelling Physical Exam General General appearance: alert and in no apparent distress Head Head exam: atraumatic and normocephalic Eye Eye exam: Present normal appearance, PERRL and EOMI ENT ENT exam: Present normal exam, mucous membranes moist, TM's normal bilaterally and normal external ear exam Neck Neck exam: Present normal inspection, full ROM and trachea midline; Absent tend erness, meningismus or lymphadenopathy Chest Chest inspection: Present normal inspection and symmetric chest wall rise; Absent tenderness Respiratory Respiratory exam: Present normal lung sounds bilaterally; Absent respiratory distress, wheezes or stridor Cardiovascular Cardiovascular exam: Present regular rate, normal rhythm and normal heart sounds Abdominal Exam Abdominal exam: Present soft and normal bowel sounds; Absent distention, tenderness, guarding, rebound, rigidity, incision, psoas sign, obturator sign, heel tap sign, Paige's sign, Rovsing's sign or tenderness at McBurney's Point Extremities Exam Extremities exam: Present normal inspection, full ROM and normal capillary refill; Absent tenderness, edema, joint swelling, calf tenderness or cyanosis Back Exam Back exam: Present normal inspection and full ROM; Absent tenderness, CVA tenderness (R) or CVA tenderness (L) Neurological Exam Neurological exam: Present alert, oriented X3 and normal gait Psychiatric Psychiatric exam: Present normal affect and normal mood Skin Skin exam: Present warm, dry, intact and normal color Lymphatic Lymphatic Findings: no adenopathy Medical Decision Making Medical Records Medical records reviewed: No I reviewed the patient's medical records. Screening: Per USPSTF and CDC recommendations, given the prevalence of disease in our region, it is our hospital?s policy to screen for HIV and viral Hepatitis for all patients aged 18 and over and those with ongoing risk factors. Remi Inquiry Pt receiving controlled substance: No Lab Data Lab results reviewed: Yes I reviewed the patient's lab results. Medical Decision Narrative: She refused transfer to the er for further evaluation for kidney stone.
[2024-07-01 12:04] VITALS: BP 144/77; PULSE 92; RESP 20; TEMP 36.8; O2SAT 97; BMI 27.7
[2024-07-01 12:12] LABS: Microscopic, Urine URINE MICROSCOPIC (MICROSCOPIC)
[2024-07-01 12:14] LABS: Appearance,Urine CLOUDY (Clear); Bilirubin,Urine Negative (Negative); Blood, Urine 3+ (Negative); Color,Urine RED (Yellow); Glucose,Urine (UA) TRACE (Negative); Ketones,Urine TRACE (Negative); Leukocyte Esterase,Urine 2+ (Negative); Nitrate,Urine POSITIVE (Negative); PH,Urine 6.5 (5.0-8.5); Protein,Urine 3+ (Negative); Specific Gravity, Urine 1.025 (1.005-1.030)
[2024-07-01 12:31] LABS: Bacteria,Urine 1+ /lpf; RBC,Urine TNTC #/hpf (0-3); WBC,Urine 20-50 #/hpf (0-3)
[2024-07-01 12:50] VITALS: BP 144/77; PULSE 91; RESP 20; TEMP 36.8
== END 2024-07-01 12:51 | disposition home or self-care (01) ==
PROVIDERS: Emergency Provider Nurse Practitioner Family; PCP Family Medicine
DX: N30.01 Acute cystitis with hematuria (principal)
CPT/HCPCS: 81001; 87086; 99213; G0381

== ENCOUNTER 2024-07-25 09:14 | Emergency (ER) | payer BC, SELFPAY ==
[2024-07-25 09:14] VITALS: BP 124/88; PULSE 86; RESP 18; TEMP 36.7; O2SAT 100; BMI 28.8
--- NOTE | 2024-07-25 09:15 | ECG_ITS ---
APPROVED REPORT Exam: Resting ECG HR:88 bpm ECG Measurements Heart Rate 88 AXES SD 148 P 68 QRSd 92 QRS 85 QT 353 T 62 QTc 398 Conclusion SINUS RHYTHM WITH SINUS ARRHYTHMIA NONSPECIFIC T-WAVE ABNORMALITY BORDERLINE ECG UNCONFIRMED REPORT Electronically signed by : RANDOLPH MCCLURE, 07/26/2024 06:49:20
[2024-07-25 09:27] LABS: Microscopic, Urine URINE MICROSCOPIC (MICROSCOPIC)
[2024-07-25 09:27] LABS: Basophils # 0.1 K/mm3 (0-0.2); Eosinophils # 0.2 K/mm3 (0.0-0.4); Eosinophils % 3.3 % (0.1-12.0); Hematocrit 42.1 % (37.0-47.0); Hemoglobin 14.3 g/dL (12.2-16.2); Lymphocytes # 2.2 K/mm3 (0.7-4.5); Lymphocytes % 32.7 % (10-50); Mean Corpuscular HGB Conc 34.1 g/dL (31.8-35.4); Mean Corpuscular Hemoglobin 29.7 pg (27.0-31.2); Mean Corpuscular Volume 87.2 fl (81-99); Mean Platelet Volume 6.7 fl (7.4-10.4); Monocytes # 0.3 K/mm3 (0.1-1.0); Monocytes % 4.5 % (1.7-9.3); Neutrophils # 3.9 K/mm3 (1.8-7.8); Neutrophils % 58.5 % (37.0-80.0); Platelet Count 362 K/mm3 (142-424); Red Blood Count 4.83 M/mm3 (4.20-5.40); Red Cell Distribution Width 13.2 % (11.5-17.5); White Blood Count 6.6 K/mm3 (4.8-10.8)
[2024-07-25 09:31] LABS: Appearance,Urine CLEAR (Clear); Bilirubin,Urine Negative (Negative); Blood, Urine Negative (Negative); Color,Urine YELLOW (Yellow); Glucose,Urine (UA) Negative (Negative); Ketones,Urine Negative (Negative); Leukocyte Esterase,Urine Negative (Negative); Nitrate,Urine Negative (Negative); PH,Urine 6.5 (5.0-8.5); Protein,Urine Negative (Negative); Specific Gravity, Urine 1.025 (1.005-1.030); Urobilinogen,Urine 0.2 EU/dl (0.2)
--- NOTE | 2024-07-25 09:33 | PC.NURSE ---
DR GREGORIO AT BEDSIDE
[2024-07-25 09:38] LABS: Albumin Level 4.5 g/dl (3.5-5.0); Chloride 102 mmol/L (98-107); Sodium 139 mmol/L (136-145)
[2024-07-25 09:39] LABS: Potassium 3.9 mmoL/L (3.5-5.1)
[2024-07-25 09:41] LABS: Alanine Aminotransferase 154 U/L (12-78); Albumin/Globulin Ratio 1.5 (1.1-1.8); Alkaline Phosphatase 108 U/L (38-126); Anion Gap 10.9 mEq/L (5-15); Aspartate Amino Transferase 80 U/L (14-36); Bilirubin,Total 0.7 mg/dl (0.2-1.3); Blood Urea Nitrogen 14 mg/dl (7-17); Carbon Dioxide 30 mmol/L (22.0-30.0); Creatinine Clearance Estimated 86 mL/min (50-200); Estimated Glomerular Filt Rate 50 ml/min (>60); GFR (African American) 60 ML/MIN (>60); Globulin 3.1 g/dL (1.3-3.2); Lactic Acid 0.8 mmol/L (0.7-2.1); Lipase 85 U/L (23-300); Total Protein,Serum 7.6 g/dl (6.3-8.2)
[2024-07-25 09:42] LABS: Calcium 9.4 mg/dl (8.4-10.2); Glucose 109 mg/dl (74-100)
[2024-07-25 10:00] VITALS: BP 118/70; PULSE 86; RESP 12; O2SAT 96
--- NOTE | 2024-07-25 10:03 | HMH.EDGENADL ---
Discharge Plan Disposition Patient Disposition: Home, Self-Care Chief Complaint: PAIN Prescriptions Prescriptions: No Action Nurtec ODT 75 mg tablet,disintegrating 75 mg PO PRN tramadol 50 mg tablet 50 mg PO PRN Patient Comments: TAKE 1 TABLET BY MOUTH EVERY 6 HOURS NEEDED FOR MODERATE PAIN 4-6 PAIN SCALE ondansetron 4 mg tablet,disintegrating 4 mg PO PRN Patient Comments: DISSOLVE 1 TABLET IN MOUTH EVERY 6 TO 8 HOURS NEEDED tamsulosin 0.4 mg capsule PO Patient Comments: TAKE 1 CAPSULE BY MOUTH EVERY 24 HOURS amitriptyline 25 mg tablet 25 mg PO DAILY Patient Comments: TAKE ONE TABLET BY MOUTH AT BEDTIME levothyroxine 50 mcg tablet 50 mcg PO DAILY Patient Comments: TAKE ONE TABLET BY MOUTH EVERY DAY IN THE MORNING ON EMPTY STOMACH pantoprazole 40 mg tablet,delayed release (DR/EC) 40 mg PO DAILY Patient Comments: TAKE 1 TABLET BY MOUTH ONCE DAILY Xarelto 20 mg tablet 20 mg PO DAILY Patient Comments: TAKE ONE TABLET BY MOUTH ONCE DAILY IN THE EVENING Referrals Follow up/Referrals: Kartik Russo MD [Primary Care Provider] - See instructions Activity Restrictions/Add. Instructions Additional Instructions/Restrictions: Call your family doctor to establish care for this visit to the emergency department and schedule follow-up within 48 hours to ensure improvement. If you have any worsening of your condition or any other concerning signs or symptoms, return to the emergency department or your primary care doctor for further evaluation. Clinical Impressions Clinical Impression: Chest pain, Renal colic Print Language Print Language: Filipino Discharge ED Provider: Denilson Altman General Adult HPI General Chief complaint: PAIN Stated complaint: Chest Pain Time Seen by Provider: 07/25/24 09:20 Mode of Arrival: Ambulatory Source of Information: Patient Limitations: No Limitations Description of Symptoms (Recalled from ER Triage Doc. by RN): PT SENT FROM NEUROLOGY CLINIC FOR EVALUATION OF CHEST PAIN. PT REPORTS ONGOING LEFT SHOULDER AND BACK PAIN. PT RECENTLY TREATED FOR HYDRONEPHROSIS WITH STENT AND STONE REMOVAL. PT HAS HAD CONTINUED PAIN. PT DENIES URINARY SYMPTOMS, POSSIBLY INCOMPLETE EMPTYING OF BLADDER. PT UNSURE IF ANY FEVERS History of Present Illness HPI narrative: Please note that above description of symptoms, in this electronic medical record under categorization of recalled from ER triage doctor by RN are reflective of an initial nursing assessment, however, is not reflective of my full history and physical exam that was personally taken and clarified. Consequentially, this preceding description of symptoms, which may include the patient's categorized chief complaint in the EMR, do not reflect my personal clinical impression, and the ultimate description of history of present illness and patient stated complaints should be deferred to this section of the note. Unless stated otherwise or congruent with this section of the note, additional signs, symptoms, or incongruence should be interpreted as inaccurate with my clinical impression. Related Data Home Medications ?Medication ?Instructions ?Recorded ?Confirmed amitriptyline 25 mg tablet 25 mg PO DAILY 07/01/24 07/25/24 levothyroxine 50 mcg tablet 50 mcg PO DAILY 07/01/24 07/25/24 pantoprazole 40 mg tablet,delayed 40 mg PO DAILY 07/01/24 07/25/24 release rivaroxaban 20 mg tablet (Xarelto) 20 mg PO DAILY 07/01/24 07/25/24 ondansetron 4 mg disintegrating 4 mg PO PRN 07/11/24 07/25/24 tablet rimegepant 75 mg disintegrating 75 mg PO PRN 07/11/24 07/25/24 tablet (Nurtec ODT) tamsulosin 0.4 mg capsule mg PO 07/11/24 07/25/24 tramadol 50 mg tablet 50 mg PO PRN 07/11/24 07/25/24 Allergies Allergy/AdvReac Type Severity Reaction Status Date / Time cefazolin [CEFAZOLIN] Allergy Unknown Verified 07/25/24 08:31 ceftriaxone [CEFTRIAXONE] Allergy Unknown Verified 07/25/24 08:31 penicillin V [PENICILLIN V] Allergy Unknown Verified 07/25/24 08:31 Penicillins [PENICILLINS] Allergy Unknown Verified 07/25/24 08:31 [facility] Disclaimer: The information contained in this section may have been updated after the patient was seen, as this information can be updated by other users. Medical History (Updated 07/25/24 @ 11:00 by Denilson Altman MD) Hemorrhagic cyst of left ovary Ureteral stent present Abdominal pain Urinary tract infection NICK (obstructive sleep apnea) Deep vein thrombosis History of migraine History of kidney stones Surgical History History of fasciotomy Hx of section Hx of appendectomy Hx of cholecystectomy H/O aortic valve repair Family History Other Aneurysm Cancer Dementia Hypertension Stroke Social History Smoking Status: Never smoker alcohol intake: current alcohol intake frequency: holidays/special occasions only substance use type: denies use current occupational status: employed Travel in the last 8 weeks: None Other Medical History Have you received the Flu Vaccine for this season: No Have you received the Pneumonia Vaccine: No ROS Obtained: Yes All systems reviewed & no additional complaints except as documented Physical Exam General General appearance: alert Head Head exam: atraumatic and normocephalic Eye Eye exam: Present normal appearance, PERRL and EOMI Neck Neck exam: Present normal inspection, full ROM and trachea midline Respiratory Respiratory exam: Absent respiratory distress, wheezes, stridor, accessory muscle use or prolonged expiratory phase Cardiovascular Cardiovascular exam: Present regular rate, normal rhythm, normal heart sounds and other (Pulses equal symmetric in upper and lower extremities) Abdominal Exam Abdominal exam: Present soft; Absent distention, tenderness or pulsatile mass Extremities Exam Extremities exam: Absent edema Neurological Exam Neurological exam: Present alert, oriented X3 and CN II-XII intact; Absent motor sensory deficit Skin Skin exam: Present warm and dry; Absent diaphoresis or erythema Medical Decision Making Medical Records Medical records reviewed: Yes I reviewed the patient's medical records. Screening: Per USPSTF and CDC recommendations, given the prevalence of disease in our region, it is our hospital?s policy to screen for HIV and viral Hepatitis for all patients aged 18 and over and those with ongoing risk factors. Remi Inquiry Pt receiving controlled substance: No Remi was queried for this patient: No Vital Signs: 07/25/24 09:14 07/25/24 10:00 Temperature 98.0 F Temperature Source Oral Pulse Rate 86 Pulse Rate [Apical] 86 Respiratory Rate 18 12 Blood Pressure 118/70 Blood Pressure [Right Arm] 124/88 Blood Pressure Mean [Right Arm] 100 Blood Pressure Source [Right Arm] Automatic Cuff Blood Pressure Position [Right Arm] Sitting 02 Sat by Pulse Oximetry 100 96 Oxygen Delivery Method Room Air Lab Data Lab Results 07/25/24 09:18: WBC 6.6, RBC 4.83, Hgb 14.3, Hct 42.1, MCV 87.2, MCH 29.7, MCHC 34.1, RDW 13.2, Plt Count 362, MPV 6.7 L, Neut % (Auto) 58.5, Lymph % (Auto) 32.7, [place] % (Auto) 4.5, Eos % (Auto) 3.3, Baso % (Auto) 1.0, Neut # (Auto) 3.9, Lymph # (Auto) 2.2, [place] # (Auto) 0.3, Eos # (Auto) 0.2, Baso # (Auto) 0.1, Sodium 139, Potassium 3.9, Chloride 102, Carbon Dioxide 30, Anion Gap 10.9, BUN 14, Creatinine 1.20 H, Estimated Creat Clear 86, Estimated GFR 50 L, Est GFR ( Amer) 60, Glucose 109 H, Lactate 0.8, Calcium 9.4, Total Bilirubin 0.7, AST 80 H, ALT 154 H, Alkaline Phosphatase 108, Troponin I < 0.01, Total Protein 7.6, Albumin 4.5, Globulin 3.1, Albumin/Globulin Ratio 1.5, Lipase 85 07/25/24 09:25: Urine Color Yellow, Urine Appearance Clear, Urine pH 6.5, Ur Specific [place] 1.025, Urine Protein Negative, Urine Glucose (UA) Negative, Urine Ketones Negative, Urine Blood Negative, Urine Nitrate Negative, Urine Bilirubin Negative, Urine Urobilinogen 0.2, Ur Leukocyte Esterase Negative, Urine RBC None, Urine WBC Occasional, Ur Squamous Epith Cells 3-5, Urine Bacteria 1+ 07/25/24 09:18 07/25/24 09:18 Orders (Tests/Meds): ED MEDICATIONS Discontinued Medications Generic Name Dose Route Start Last Admin Trade Name Aliyah PRN Reason Stop Dose Admin Ketorolac Tromethamine 15 mg 07/25/24 09:38 07/25/24 10:10 Ketorolac 30mg/Ml Vial IV 07/25/24 09:39 15 mg ONCE ONE Administration ORDERS Category Date Time Status CXR --portable [XR chest portable] Stat Exams 07/25/24 10:07 Completed POCUS Point of Care (ER Only) Stat Exams 07/25/24 09:38 Completed CBC w/Auto Diff [Complete Blood Count Auto Diff] Stat Lab 07/25/24 09:18 Completed CMP [Comprehensive Metabolic Panel] Stat Lab 07/25/24 09:18 Completed HIV (1&2) Antibody Rapid Stat Lab 07/25/24 09:18 Received Hep C Ab with Reflex to RNA Stat Lab 07/25/24 09:18 Received Lactic Acid Stat Lab 07/25/24 09:18 Completed Lipase Stat Lab 07/25/24 09:18 Completed Trop I [Troponin I] Stat Lab 07/25/24 09:18 Completed Troponin I Q3H Lab 07/25/24 12:30 Ordered Troponin I Q3H Lab 07/25/24 15:30 Ordered UA [Urinalysis and Microscopic] Stat Lab 07/25/24 09:25 Completed Medical Decision Narrative: 39-year-old female 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 Patient states that she recently went through process of numerous kidney stones being stented. Was seen at [facility] for all of this. Stents were placed over a week ago, removed Friday 07/20, states she has been feeling all right since then. Today, she is being seen by neurologist for migraine disorder. Was complaining of left upper outer chest wall pain that radiates around/through to her left shoulder and shoulder blade, as well as left flank pain. Does not radiate down the extremity, no jaw tenderness, tingling, symptoms, substernal chest pain, shortness of breath, nausea, vomiting, sick contacts, sick symptoms, cough, or any other concerns. Patient thinks this is probably related to referred pain given persistent hydronephrosis in the setting of stent removal. Came in for further evaluation. Has been intermittently taking her opiate pain medication at home for severe pain refractory to NSAIDs and acetaminophen history was obtained via conversation with patient. On arrival, patient hemodynamically stable, alert, oriented x4, appropriate, GCS 15, moving all extremities spontaneously, pupils equal and reactive to light. Full physical exam performed and significant for very well-appearing female no acute distress. No tensive, nontachycardic. Abdomen soft, nontender, nondistended. Cardiopulmonary exam within normal limits. No murmurs gallops rubs. No lower extremity edema. Pulses equal and symmetric. Differential includes referred pain, hydronephrosis, perinephric abscess, nephrolithiasis, renal colic, ACS, KS, less likely to be dissection, PE, pneumothorax, among others. Patient placed on continuous cardiac monitoring and continuous pulse ox with initial blood pressure 124/88, heart rate 86, saturation under percent on room air. Independent interpretation of EKG shows sinus rhythm 88 beats a minute without ST or T wave changes concerning for acute ischemia. [place] 148, QRS 92, QTc 398. Normal axis. Patient was given Toradol IV for symptomatic management and correction of underlying abnormalities. Workup independently interpreted and significant for nonactionable CBC. Chemistry with mild JESSICA creatinine 1.2, normal BUN. Kidney function normal, troponin negative. Lipase negative. Urinalysis without concern for UTI, no evidence of blood. On independent interpretation of imaging, no pneumothorax or other acute intrathoracic process. See radiology read for full review of final results. Heart score 0. On reevaluation, patient states the Toradol helped moderatelyns. Bedside [id number] ultrasound was performed, no evidence of hydronephrosis or obvious large occlusive stone. Normal-appearing kidney. CT scan of the abdomen and pelvis was discussed with patient. After shared decision-making, patient opted out of CT scan and I feel this is reasonable given largely normal workup and close follow-up with her family doctor as well as urology over the next couple days. Patient presentation, workup, history, this most likely represents left-sided chest pain, renal colic in the setting of recent stenting. Equipment Driver disclaimer Much of this encounter note is an electronic shuttle inspector spoken language to printed text. Electronic shuttle inspector of the spoken language may permit errors. Although I have reviewed the note, some errors may still exist. Procedures Limited Ultrasound Indication:: Limited renal ultrasound Indication: A focused ultrasound of the kidneys was performed to evaluate for hydronephrosis and nephrolithiasis. The ultrasound was performed with the following indications, as noted in the H&P: Left-sided chest/shoulder pain, left renal colic Identified structures: Left kidney Findings: Normal left kidney, nonocclusive left renal stone Impression: Normal left kidney without evidence of hydronephrosis. Small intrarenal left calculus Images were saved to permanent archive The study was technically adequate CPT: 02047-29 This study was performed by me, and I personally interpreted all images/videos. Based on my clinical judgement, these images were adequateand did not necessitate further imaging. Critical Care Critical Care Time Critical Care Time: No
--- NOTE | 2024-07-25 10:07 | XR_ITS ---
PROCEDURE INFORMATION: Exam: XR Chest Exam date and time: 07/25/2024 10:14 AM Age: 39 years old Clinical indication: Pain; Left-sided; Additional info: L sided cp TECHNIQUE: Imaging protocol: Radiologic exam of the chest. Views: 1 view. COMPARISON: CT ABDOMEN PELVIS WO CON 09/02/2023 6:28 AM FINDINGS: Tubes, catheters and devices: Surgical clips overlie the right abdomen. Lungs: The lungs appear clear. Pleural spaces: No pleural effusion. No pneumothorax. Heart/Mediastinum: Mediastinum and lj appear unremarkable. Bones/joints: No acute bony abnormality identified. IMPRESSION: No evidence for acute abnormality identified in the chest.
[2024-07-25] MEDS: KETOROLAC 30MG/ML VIAL 15 MG IV (10:10)
[2024-07-25 10:11] LABS: Troponin I < 0.01 ng/ml (0.00-0.034)
--- NOTE | 2024-07-25 10:20 | PC.NURSE ---
XR AT BEDSIDE
[2024-07-25 10:27] LABS: Bacteria,Urine 1+ /lpf; WBC,Urine Occasional #/hpf (0-3)
[2024-07-25 11:06] VITALS: BP 126/74; PULSE 84; RESP 18; TEMP 36.7; O2SAT 99
[2024-07-25 15:55] LABS: HIV (1&2) Antibody Rapid NONREACTIVE (NONREACTIVE)
[2024-07-26 06:14] LABS: HCV Ab Non Reactive (Non Reactive)
== END 2024-07-25 11:08 | disposition home or self-care (01) ==
PROVIDERS: Emergency Provider Emergency Medicine; PCP Family Medicine
DX: N23 Unspecified renal colic (principal); R07.9 Chest pain, unspecified; M25.512 Pain in left shoulder; M54.9 Dorsalgia, unspecified
CPT/HCPCS: 71045; 80053; 81001; 83605; 83690; 84484; 85025; 86803; 87040; 87389; 93005; 96374; 99284; J1885

== ENCOUNTER 2025-03-08 08:39 | Outpatient (CLI) | payer BC, SELFPAY ==
--- OUTSIDE RECORDS SUMMARY | 2024-10-31 10:15 | XMS_ITS ---
Author Organization [facility] Address [address] [place] [id number] Care Team Providers Care Radio Division Officer Name Role Phone RafaelaKartik Primary Care Provider [phone] Titus Virgen Unavailable [phone] Lisa Wagner Unavailable [phone] Allergies Allergen (clinical drug ingredient) Drug/Non Drug [...] mg TAKE ONE TABLET BY MOUTH AT BEDTIME for 30 Active Vitamin D3 50 MCG (1999 UT) as directed orally once a day for 30 day(s) Not-Taking Pantoprazole Sodium 40 MG 1 tablet Orall y Once a day for 30 day(s) Active Promethazine HCl 25 MG 1 tablet Orally e very 6 hrs, prn 10/31/2024 Active Tamsulosin HCl 0.4 mg TAKE ONE CAPSULE B Y MOUTH EVERY DAY for 30 Not-Takin g Wegovy 1.7 MG/0.75ML 0.75 mL Subcutaneou s for 30 day(s) Not-Taking Xarelto 20 mg TAKE ONE TABLET BY MOUTH ONCE DAILY IN THE EVENING for 90 Active Levothyroxine Sodium 50 mcg TAKE ONE TABLET BY MOUTH EVERY DAY IN THE MORNING ON EMPTY STOMACH for 90 days Active Vital Signs Blood pressure systolic 120 mm Hg 10/31/19 25 Blood pressure diastolic 80 mm Hg 025 Heart Rate 85 /min 10/31/2024 Height 68 in 10/31/2024 Weight 208.2 lbs 10/31/2024 BMI 31.65 kg/m2 10/31/2024 Encounters Encounter Location Date Provider Diagnosis [facility] [address] [facility] [address] [place] [address], [place] [id number] 10/31/2024 Lisa Wagner Gastroenteritis K52. 9 Assessments [...] * Manisha ARROYO RDOB:[birth year] (40 yo F)Acc No.[id number]:10/31/2024 Progress Notes Patient: Manisha MANDUJANO Provider: RASHAAD Mccullough :1985 A ge:39 Y S ex:Female Date:10/31/2024 Address:[address] [place], [place] [address] [id number] Pcp:Kartik Russo Subjective: * Chief Complaints: * [...] 2001, 08/11/2009, 06/29/2012, Kidney Stone Removal - [place] 02/2018, EGD and Esopogeal Stretching 03/06/2024. * Hospitalization/Major Diagno stic Procedure: P neumonia , Appendicitis , Shoulder 02/03/2011, RT Leg Pain- [facility] ER 11/03/2014, LT Knee Abcess- [facility] 08/25-08/26, [facility] ER - Hematuria 07/01/2024. * Family [...] Subcutaneous , Not-Taking Vitamin D3 50 MCG (2000 UT) Tablet as directed orally once a day , Not-Taking Tamsulosin HCl 0.4 mg Capsule TAKE ONE CAPSULE BY MOUTH EVERY DAY , Medication List reviewed and reconciled with the patient * Allergies: P enicillins, Tape, Cephalosporins, Vancomycin. Objective: * Vitals: W t:208.2, Temp:98.6, BP:120/80, HR:85, Nurse:BANDAR, Ht: 68, BMI:31.65. * Examination: G astroenterology: General Appearance: p leasant, NAD. Oral cavity: mucous membranes dry. Heart sounds: r egular, normal S1 S2, no murmurs. Lungs: c lear, no rales or wheezes. Abdomen: B S present, soft, nontender, no guarding [...] Procedure Codes: 3 6416 CAPILLARY BLOOD DRAW, 08484 CBC WITH AUTO DIFF, 17857 Flu Test- Nasal Swab, Modifiers: QW , 3074F SYST BP LT 130 MM HG, 3078F DIAST BP < 80 MM HG * Follow Up: p rn * Billing Information: * Visit Code: 54782 Office Visit, Est Pt., Level 3. * Procedure Codes: 36074 CAPILLARY BLOOD DRAW. 38028 CBC WITH AUTO DIFF. 16921 Flu Test- Nasal Swab. Modifiers: QW 3074F SYST BP LT 130 MM HG. 3078F DIAST BP < 80 MM HG. * Electronic signature of RASHAAD Mosley on 03/08/2025 at 08:41 AM EDT Sign off status: Pending * Provider: RASHAAD Mccullough Date: 0 10/31/2024 Generated for Helene quispe/Simran/eTransmitting on: 0 03/08/2025 08:41 AM EDT History and Physical Notes * HPI [...]
--- OUTSIDE RECORDS SUMMARY | 2025-02-20 12:00 | XMS_ITS ---
Author Organization [facility] Address [address] [facility] [address] [place] [phone] Care Team Providers Care Behavioral Services Tech Name Role Phone Kartik Russo Primary Care Provider Titus Virgen Unavailable [phone] Allergies Allergen (clinical drug ingredient) Drug/Non Drug [...] Normal Performing Lab: Notes/Report: Test performed by [facility] [address] [place] [address] , [address], [place] [address] Mohit Hendrix MD, Salesperson Parts CLIA: [id number] Thyroxine Free (free T4) 1.27 0.86-1.76 ng/dL P-TSH Reviewed date:02/22/2025 09:46:57 AM Interpretation: Normal Performing Lab: Notes/Report: Test performed by [facility] [address] [place] [address] , [address], [place] [address] Mohit Hendrix MD, Salesperson Parts CLIA: [id number] TSH 0.86 0.43-5.25 mU/L P-Vitamin D 25-Hydroxy Reviewed date:02/22/2025 09:46:57 AM Interpretation:25.8 Performing Lab: Notes/Report: Test performed by [facility] [address] [place] [address] , [address], [place] [address] Mohit Hendrix MD, Salesperson [employer] CLIA: [id number] Vitamin D 25-Hydroxy 25.8 30.0-100.0 ng/mL Interpretation [...] BY M OUTH ONCE DAILY IN THE EVENING for 90 Active Zithromax Z-Jose Antonio 250 MG as directed Orall y once daily for 5 days 02/20/2025 Active Clindamycin HCl 300 MG 1 capsule Orally every 12 hrs for 7 days 02/20/2025 Active Amitriptyline HCl 25 mg TAKE ONE TABLET BY MOUTH EVERY DAY AT BEDTIME for 30 Active Levothyroxine Sodium 50 mcg TAKE ONE TAB LET BY MOUTH EVERY MORNING ON an EMPTY stomach for 30 Active Vital Signs Blood pressure systolic 120 mm Hg 02/21/20 25 Blood pressure diastolic 82 mm Hg 025 Heart Rate 105 /min 02/20/2025 Height 68 in 02/20/2025 Weight 207 lbs 02/20/2025 BMI 31.47 kg/m2 02/20/2025 Encounters Encounter Location Date Provider Diagnosis [facility] [address] [place] [phone] 02/20/2025 Kartik Russo Acute URI J06.9 ; [...] 250 MG as directed Orall y once daily for 5 days 02/20/2025 Clindamycin HCl 300 MG 1 capsule Orally every 12 hrs for 7 days 02/20/2025 Next Appt Details Follow Up: via phone to repo rt progress, Reason: Progress Notes * Manisha ARROYO RDOB:[birth year] (40 yo F)Acc No.[id number]:02/20/2025 Progress Notes Patient: Manisha MANDUJANO Provider: Neisha Russo M.D. :1985 A ge:40 Y S ex:Female Date:02/20/2025 Address:[address] [place], [place] [id number] Subjective: * Chief Complaints: * 1 . [...] 2001, 08/11/2009, 06/29/2012, Kidney Stone Removal - [place] 02/2018, EGD and Esopogeal Stretching 03/06/2024. * Hospitalization/Major Diagno stic Procedure: P neumonia , Appendicitis , Shoulder 02/03/2011, RT Leg Pain- [facility] ER 11/03/2014, LT Knee Abcess- [facility] 08/25-08/26, [facility] ER - Hematuria 07/01/2024. * [...] Examination: E NT/Respiratory: General Appearance: N AD. Oral cavity : e rythema without exudate on pharynx. Neck : S hotty, nontender adenopathy. Heart : R RR, normal S1 S2. Lungs: c lear to auscultation bilaterally. Skin : l eft axilla has a 3 [...] v ia phone to report progress * Billing Information: * Visit Code: 14991 Office Visit, Est Pt., Level 4. * Procedure Codes: 13132 CBC WITH AUTO DIFF. G8950 PREHTN/HTN BP DOC INDCD F/U DOC. G8752 MOST RECENT SYSTOLIC BP < 140MM HG. G8754 MOST RECENT DIASTOLIC BP < 90MM HG. * Electronic signature of Yudy Russo MD on 03/08/2025 at 08:42 AM EDT Sign off status: Pending * Provider: Neisha Russo M.D. Date: 0 02/20/2025 Generated for Helene quispe/Raveng/eTransmitting on: 0 03/08/2025 08:42 AM EDT History and Physical Notes * [...]
--- OUTSIDE RECORDS SUMMARY | 2025-02-26 06:30 | XMS_ITS ---
Author Organization [facility] Address [address] [place] [id number] Care Team Providers Care Brush Loader And Handle Attacher Name Role Phone RafaelaKartik Primary Care Provider Titus Virgen Unavailable [phone] Harleen Collazo Unavailable [phone] Allergies Allergen (clinical drug ingredient) Drug/Non Drug Allergy documented on EMR Reaction Allergy Type Onset Date Status Medicinal cephalosporin and acting as antibacterial agent (FN) Cephalosporins Unknown Drug Allergy Active Substance with penicillin structure and antibacterial mechanism of action (substance) Penicillins Unknown Drug Allergy Active Tape Unknown Allergy Active vancomycin Vancomycin Unknown Drug Allergy Activ e Results Component Value Reference Range Notes CBC Fingerstick (in house) Reviewed date:02/27/2025 07:01:52 AM Interpretation: Performing Lab: Notes/Report: wbc 8.5 3.5 - 10 lym 24.3% 15 - 50 mid 5.9% 2 - 15 gran 69.8% 35 - 80 rbc 4.73 3.5 - 5.5 hgb 13.7 11.5 - 16.5 hct 40.1 35 - 55 mcv 84.9 75 - 100 mch 29.0 25 - 35 mchc 34.2 31 - 38 plat 264 100 - 400 REASON FOR VISIT still not any better Medications Medication SIG (Take, Route, Frequency, Duration) Notes Start Date End Date Status Amitriptyline HCl 25 mg TAKE ONE TABLET BY MOUTH EVERY DAY AT BEDTIME for 30 Active Levothyroxine Sodium 50 mcg TAKE ONE TAB LET BY MOUTH EVERY MORNING ON an EMPTY stomach for 30 Active Doxycycline Hyclate 100 MG 1 tablet Oral ly twice a day for 10 days 02/26/2025 Active Clindamycin HCl 300 MG 1 capsule Orally every 12 hrs for 7 days 02/20/2025 Active Xarelto 20 mg TAKE ONE TABLET BY M OUTH ONCE DAILY IN THE EVENING for 90 Active Problems Problem Type SNOMED Code ICD Code Onset Dates Problem Status W/U Status Risk Notes Problem Thyroid nodule (805629841) Thyroid nodule (E04.1) Active confirmed Vital Signs Blood pressure systolic 102 mm Hg 02/27/20 25 Blood pressure diastolic 80 mm Hg 025 Heart Rate 93 /min 02/26/2025 Height 68 in 02/26/2025 Weight 199.2 lbs 02/26/2025 BMI 30.28 kg/m2 02/26/2025 Encounters Encounter Location Date Provider Diagnosis [facility] [address] [place], [place] [id number] 02/26/2025 Harleen Collazo Acute pansinusitis, unspecified J01.40 and Thyroid nodule E04.1 Assessments Encounter Date Diagnosis (ICD Code) Assessment Notes Treatment Notes Treatment Clinical Notes Section Notes 02/26/2025 Acute pansinusitis, unspecified (ICD-10 - J01.40) Failed zpack x2, on Clindamycin for nodule in L axilla and has 2 days left. Symptoms persist so we will try Doxycyline x10 days. Instructed to get some ZyrtecD or ClaritinD to help dry things up and Flonase. If this does not work may need ENT referral 02/26/2025 Thyroid nodule (ICD-10 - E04.1) scheduling another thyroid ultrasound to monitor the nodule. Plan Of Treatment Medication Medication Name Sig Start Date Stop Date Notes Doxycycline Hyclate 100 MG 1 tablet Oral ly twice a day for 10 days 02/26/2025 Treatment Notes Assessment Notes Acute pansinusitis, unspecified Failed z pack x2, on Clindamycin for nodule in L axilla and has 2 days left. Symptoms persist so we will try Doxycyline x10 days. Instructed to get some ZyrtecD or ClaritinD to help dry things up and Flonase. If this does not work may need ENT referral Thyroid nodule scheduling another t hyroid ultrasound to monitor the nodule. Pending Test Test Name Order Date ultrasound : thyroid 02/26/2025 Next Appt Details Follow Up: prn, Reason: Progress Notes * Manisha ARROYO RDOB:[birth year] (40 yo F)Acc No.[id number]:02/26/2025 Progress Notes Patient: Manisha MANDUJANO Provider: JACI Strong :1985 A ge:40 Y S ex:Female Date:02/26/2025 Address:[facility] [address] [id number] Pcp:Kartik Russo Subjective: * Chief Complaints: * 1 . Still not any better. * HPI: E NT/respiratory: 40 year old female presents with c/o sore throat. c/o cough T he pt is here today with c/o continued cough, sore throat, sinus drainage and pressure. Pt states she saw Dr Russo on Tuesday and has finshed and will finish the clindamycin tomorrow. Pt states she is not feeling much better. c/o facial pain/pressure. Denies : Fever. H PI: The left axilla nodule has decreased in size; it is no longer tender. * ROS: D ERMATOLOGY: no R jules. [...] 2001, 08/11/2009, 06/29/2012, Kidney Stone Removal - [place] 02/2018, EGD and Esopogeal Stretching 03/06/2024. * Hospitalization/Major Diagno stic Procedure: P neumonia , Appendicitis , Shoulder 02/03/2011, RT Leg Pain- [facility] 11/03/2014, LT Knee Abcess- [facility] 08/25-08/26, [facility] - Hematuria 07/01/2024. * Family [...] EVERY MORNING ON an EMPTY stomach , Taking Clindamycin HCl 300 MG Capsule 1 capsule Orally every 12 hrs , Discontinued Zithromax Z-Jose Antonio 250 MG Tablet as directed Orally once daily * Allergies: P enicillins, Tape, Cephalosporins, Vancomycin. Objective: * Vitals: W t: 199.2, Temp: 98.2, BP: 102/80, HR: 93, Nurse: BANDAR, Ht: 68, BMI:30.28. * Examination: E NT/Respiratory: General Appearance: a lert, NAD. Eyes: P ERRLA, sclera clear. Ears: L TM red. Nose : c ongested. Sinuses : t oleg maxillary sinuses bilaterally, frontal sinuses tender. Oral cavity : e rythema. Neck : n o cervical lymphadenopathy. G eneral Examination: General Appearance: a lert, pleasant. Heart: R RR. Lungs: c lear to auscultation, normal. Neurologic Exam: a lert and oriented. Peripheral pulses: n ormal (2+) bilaterally. ? E ndocrinology: Neck, Thyroid : n o lymphadenopathy. Thyroid exam: n o enlargement. n odule Left axilla, pt notes it is smaller than before. Assessment: * Assessment: 1. A cute pansinusitis, unspecified - J01.40 (Primary) 2 . T hyroid nodule - E04.1 Plan: * Treatment: 2. T hyroid nodule I maging: ultrasound : thyroid Notes: scheduling another thyroid ultrasound to monitor the nodule.?? * Labs: * L ab: CBC Fingerstick (in house) (Collection Date & Time - 02/26/2025) Value Reference Range w bc 8.5 3.5 - 10 * l ym 24.3% 15 - 50 * m id 5.9% 2 - 15 * g ran 69.8% 35 - 80 * r bc 4.73 3.5 - 5.5 * h gb 13.7 11.5 - 16.5 * h ct 40.1 35 - 55 * m cv 84.9 75 - 100 * m ch 29.0 25 - 35 * m chc 34.2 31 - 38 * p lat 264 100 - 400 * Rochelle Piedra 02/26/2025 11:50:0 6 AM EDT > Provider reviewed results while patient in office.Harleen Collazo 02/27/2025 07:01:48 AM EDT > * Procedure Codes: 3 6416 CAPILLARY BLOOD DRAW, 63509 CBC WITH AUTO DIFF * Follow Up: p rn * Billing Information: * Visit Code: 36901 Office Visit, Est Pt., Level 3. * Procedure Codes: 95270 CAPILLARY BLOOD DRAW. 41456 CBC WITH AUTO DIFF. * Electronic signature of Bijal Collazo APRN on 03/08/2025 at 08:42 AM EDT Sign off status: Pending * Provider: JACI Strong Date: 0 02/26/2025 Generated for Helene quispe/Simran/Latonya on: 0 03/08/2025 08:42 AM EDT History and Physical Notes * HPI (History of Present Illness) Category Sub-Category Detail Notes Category Not es ENT/respiratory sore throat facial pain/pressure cough The pt is here today with c/o continued cough, sore throat, sinus drainage and pressure. Pt states she saw Dr Russo on Tuesday and has finshed and will finish the clindamycin tomorrow. Pt states she is not feeling much better Fever Examination Category Sub-Category Detail Notes Category Not es ENT/Respiratory Oral cavity : erythema Sinuses : tender maxillary sin uses bilaterally, frontal sinuses tender Ears: L TM red Neck : no cervical lymphade nopathy General Appearance: alert, NAD Nose : congested Eyes: PERRLA, sclera clear General Examination Heart: RRR Lungs: clear to auscultatio n, normal General Appearance: alert, pleasant Neurologic Exam: alert and oriented Peripheral pulses: normal (2+) bilatera lly Endocrinology Neck, Thyroid : no lymphadenopathy nodu le Left axilla, pt notes it is smaller than before Thyroid exam: no enlargement
--- OUTSIDE RECORDS SUMMARY | 2025-03-08 08:42 | XMS_ITS | Data Portability ---
Author Organization [facility] [place] & CAITLYN Mckeon ADMIN Address [address] [place] [id number] Care Team Providers Care Print Line Operator Name Role Phone AMBER BLACK Primary Care Provider [phone] Assessment Encounter Date Assessment Date Assessment LastModified by Organization Details LastModified Time 03/22/2024 03/22/2024 39-year-old female with recent dysphagia, found to have an esophageal stricture on EGD. Her symptoms resolved with dilation and initiation of a daily PPI. -Continue PPI. Plan for repeat dilation as needed. f/u 6 months. Not available 03/23/2024 14:00:16 Plan of Treatment Reminders Order Date Submit Date Provider Last Modified By Organization Details Last Modified Time Details Appointments None recorded. Lab urinalysis, dipstick [address] [facility], [address] [facility] [address], [place], [address], 4 11:34:55 CMP, serum or plasma 2023 024 [facility] (Registration ), [address] [facility], [place], [address], 12:03:56 urinalysis, dipstick [address] [facility], [address] [facility] [address], [place], [address], 09:07:25 culture, urine 2023 024 [email or web address] [facility], [address] [place], [place] [address], [place], [address], 4 09:17:00 culture, urine + sensitivity 2023 024 [email or web address] Not available 08:49:47 urinalysis, dipstick 2023 [email or web address] [facility] [address] [facility], [place], [address], 13:43:43 culture, urine 2023 024 [email or web address] [place] [address], [address] [facility], [place], [address], 08:49:47 Referral None recorded. Procedures None recorded. Surgeries ureteroscop y with stone basket extraction, holmium laser fragmentati on (SURG) 2023 024 [email or web address] Not available 09:30:12 cystoscopy, with insertion of ureteral stent (SURG) 2023 024 [email or web address] Not available 14:14:41 Imaging US, renal 2023 024 [email or web address] [facility], [address] [facility], [place], [address], 4 14:38:34 Medication Orders None recorded. Patient TargetsNo targets recorded. Patient InstructionsNo instructions recorded. Reason for Referral None Reported. Results Created Date Observation Date Name Description Value Unit Range Abnormal Flag Note LastModifiedBy Organization Detail LastModifiedTime 03/06/2003/15/2024 PATHO LOGY SPECI MEN pathology specimen SEE SINDY LEE Not Available [facility] ([facility]) [address] [facility] [facility], [place], [address], 03/15/2024 16:25:45 07/05/2007/05/2024 urina lysis , dipst ick Leukocytes (reference range) large Not Available [facility] [place] [address], [place], [address], 07/05/2024 13:30:27 07/05/20 24 07/05/2024 urina lysis , dipst ick Nitrite (reference range:) positi ve Not Available [place] [address] [address], [place], [address], 07/05/2024 13:30:27 07/05/20 24 07/05/2024 urina lysis , dipst ick Protein (reference range) 300 Not Available [place] [address] [address] [facility], [place], [address], 07/05/2024 13:30:27 07/05/20 24 07/05/2024 urina lysis , dipst ick pH (reference range 5-8.5) 5.0 Not Available [facility] [place] [address], [place], [address], 07/05/2024 13:30:27 07/05/20 24 07/05/2024 urina lysis , dipst ick Blood (reference range:) large Not Available [place] [address] [address] [facility], [place], [address], 07/05/2024 13:30:27 07/05/20 24 07/05/2024 urina lysis , dipst ick Specific [place] (reference range) 1.020 Not Available [place] [address] [address] [facility], [place], [address], 07/05/2024 13:30:27 07/05/20 24 07/05/2024 urina lysis , dipst ick Ketone (reference range) trace Not Available [place] [address] [address] [facility], [place], [address], 07/05/2024 13:30:27 07/05/2007/05/2024 urina lysis , dipst ick Glucose (reference range) 250 Not Available [place] [address] [address] [facility], [place], [address], 07/05/2024 13:30:27 07/05/2007/05/2024 urina lysis , dipst ick Color (reference range: yellow-brown ) Red Not Available [place] [address] [address] [facility], [place], [address], 07/05/2024 13:30:27 07/19/2007/19/2024 urina lysis , dipst ick Leukocytes (reference range) negati ve Not Available [place] [address] [address] [facility], [place], [address], 07/19/2024 08:59:55 07/19/2007/19/2024 urina lysis , dipst ick Nitrite (reference range:) negati ve Not Available [place] [address] [address] [facility], [place], [address], 07/19/2024 08:59:55 07/19/2007/19/2024 urina lysis , dipst ick Protein (reference range) 30 Not Available [place] [address] [address] [facility], [place], [address], 07/19/2024 08:59:55 07/19/2007/19/2024 urina lysis , dipst ick pH (reference range 5-8.5) 6.0 Not Available [place] [address] [address] [facility], [place], [address], 07/19/2024 08:59:55 07/19/2007/19/2024 urina lysis , dipst ick Blood (reference range:) large Not Available [place] [address] [address] [facility], [place], [address], 07/19/2024 08:59:55 07/19/2007/19/2024 urina lysis , dipst ick Specific [place] (reference range) 1.030 Not Available [place] [address] [address] [facility], [place], [address], 07/19/2024 08:59:55 07/19/2007/19/2024 urina lysis , dipst ick Ketone (reference range) negati ve Not Available [place] [address] [address] [facility], [place], [address], 07/19/2024 08:59:55 07/19/2007/19/2024 urina lysis , dipst ick Glucose (reference range) negati ve Not Available [place] [address] [address] [facility], [place], [address], 07/19/2024 08:59:55 07/19/2007/19/2024 urina lysis , dipst ick Color (reference range: yellow-brown ) Brown Not Available [place] [address] [address] [facility], [place], [address], 07/19/2024 08:59:55 07/20/2007/26/2024 CALCU JESSICA UR (STON E LIGIA SIS) source Commen t . Left Urete r Not Available [facility] ([facility]) [address] [place], [address], 07/26/2024 17:11:18 07/20/2007/26/2024 CALCU JESSICA UR (STON E LIGIA SIS) color Brown Not Available [facility] ([facility]) [address] [facility], [place], [address], 07/26/2024 17:11:18 07/20/20 24 07/26/2024 CALCU LI, UR (STON E LIGIA SIS) size 3x3 mm Multi ple piece s recei darien. Dimen sions of the large st piece repor alli. Not Available [facility] ([facility]) [address] [facility], [place], [address], 07/26/2024 17:11:18 07/20/20 24 07/26/2024 CALCU LI, UR (STON E LIGIA SIS) weight 16 mg Not Available [facility] ([facility]) [address] [facility] [facility], [place], [address], 07/26/2024 17:11:18 07/20/2007/26/2024 CALCU LI, UR (STON E LIGIA SIS) composition Commkerri t Traci Perce ntage (Repr esent s the % compo sitio n) Not Available [facility] ([facility]) [address] [facility], [place], [address], 07/26/2024 17:11:18 07/20/20 24 07/26/2024 CALCU LI, UR (STON E LIGIA SIS) Ca oxalate dihydrate 20 % Not Available [facility] ([facility]) [address] [facility] [facility], [place], [address], 07/26/2024 17:11:18 07/20/20 24 07/26/2024 CALCU LI, UR (STON E LIGIA SIS) Ca oxalate monohydrate 80 % Not Available [facility] ([facility]) [address] [facility] [facility], [place], [address], 07/26/2024 17:11:18 07/20/20 24 07/26/2024 CALCU LI, UR (STON E LIGIA SIS) comment: Cristiane Aviles Physi prachi quest ions regar ding Calcu li Ligia sis conta ct [facility] rp at: [phone]. Not Available [facility] ([facility]) [address] , [place], [address], 07/26/2024 17:11:18 07/20/2007/26/2024 MORIAH PECK (STON E LIGIA SIS) please note: Cristiane mota . Sultana naranjo repor t will follo w via compu ter, mail or couri er suleiman aguilar. Not Available [facility] ([facility]) [address], [place], [address], 07/26/2024 17:11:18 07/20/2007/26/2024 MORIAH PECK (STON E LIGIA SIS) photo Cristiane mota . Photo graph will follo w under a separ ate cover Not Available [facility] ([facility]) [address], [place], [address], 07/26/2024 17:11:18 07/20/2007/26/2024 MORIAH PECK (STON E LIGIA SIS) pdf image . Perfo rmed at: [facility] [address] [place] [id number] Lab Direc tor: Anayeli valerio PhD, Phone : [phone] Not Available [facility] ([facility]) [address] , [place], [address], 07/26/2024 17:11:18 07/20/2007/26/2024 MORIAH PECK (STON E LIGIA SIS) disclaimer: Cristiane mota . This test was devel oped and its perfo rmanc e agustina cteri stics deter mined by [facility] rp. It has not been clear ed or appro darien by the Food and Drug Admin istra tion. Not Available [facility] ([facility]) [address], [place], [address], 07/26/2024 17:11:18 07/27/2007/27/2024 COMP METAB OLIC PANEL sodium 141 mmol/ L 136-14 5 Not Available [facility] ([facility]) [address] , [place], [address], 07/27/2024 12:03:56 07/27/20 24 07/27/2024 COMP METAB OLIC PANEL potassium 4.5 mmol/ L 3.6-5. 0 Not Available [facility] ([facility]) [address] , [place], [address], 07/27/2024 12:03:56 07/27/2007/27/2024 COMP METAB OLIC PANEL chloride 104 mmol/ L 98-107 Not Available [facility] ([facility]) [address] , [place], [address], 07/27/2024 12:03:56 07/27/20 24 07/27/2024 COMP METAB OLIC PANEL carbon dioxide 29.6 mmol/ L 21.0-3 2.0 Not Available [facility] ([facility]) [address] [place], [address], 07/27/2024 12:03:56 07/27/20 24 07/27/2024 COMP METAB OLIC PANEL anion gap 11.9 Not Available [facility] ([facility]) [address] [place], [address], 07/27/2024 12:03:56 07/27/20 24 07/27/2024 COMP METAB OLIC PANEL glucose 106 mg/dL 70-120 Not Available [facility] ([facility]) [address] [place], [address], 07/27/2024 12:03:56 07/27/20 24 07/27/2024 COMP METAB OLIC PANEL BUN 12 mg/dL 7-18 Not Available [facility] ([facility]) [address] [place], [address], 07/27/2024 12:03:56 07/27/20 24 07/27/2024 COMP METAB OLIC PANEL creatinine 0.9 mg/dL 0.6-1. 3 Not Available [facility] ([facility]) [address], [place], [address], 07/27/2024 12:03:56 07/27/20 24 07/27/2024 COMP METAB OLIC PANEL glomerular filtration rate 82 mlper min 60- GFR LIMIT ATION : The eGFR equat ion CKD-E PI 2020 is not appli cable for pedia tric patie nts or great er than 90 years of age. The follo wing condi tions may alter the GFR resul t: extre mes in body size, malnu triti on or obesi ty, skele seema muscl e disea se, parap legia or quadr ipleg ia, veget preethi diet or rapid ly sumner ing kiney funct ion. Not Available [facility] ([facility]) [address], [place], [address], 07/27/2024 12:03:56 07/27/20 24 07/27/2024 COMP METAB OLIC PANEL total protein 7.8 g/dL 6.4-8. 2 Not Available [facility] ([facility]) [address], [place], [address], 07/27/2024 12:03:56 07/27/20 24 07/27/2024 COMP METAB OLIC PANEL albumin 3.7 g/dL 3.4-5. 0 Not Available [facility] ([facility]) [address], [place], [address], 07/27/2024 12:03:56 07/27/20 24 07/27/2024 COMP METAB OLIC PANEL globulin 4.1 Not Available [facility] ([facility]) [address], [place], [address], 07/27/2024 12:03:56 11/01/07/27/2024 COMP METAB OLIC PANEL alb/glob ratio 0.9 0.7-2 Not Available [facility] ([facility]) [address], [place], [address], 07/27/2024 12:03:56 07/27/20 24 07/27/2024 COMP METAB OLIC PANEL calcium 9.6 mg/dL 8.5-10 .5 Not Available [facility] ([facility]) [address] , [place], [address], 07/27/2024 12:03:56 07/27/20 24 07/27/2024 COMP METAB OLIC PANEL bilirubin total 0.50 mg/dL 0.10-1 .00 Not Available [facility] ([facility]) [address], [place], [address], 07/27/2024 12:03:56 07/27/20 24 07/27/2024 COMP METAB OLIC PANEL AST (SGOT) 34 U/L 0-37 Not Available [facility] ([facility]) [address] , [place], [address], 07/27/2024 12:03:56 07/27/20 24 07/27/2024 COMP METAB OLIC PANEL ALT (SGPT) 114 U/L 0-65 high Not Available [facility] ([facility]) [address] , [place], [address], 07/27/2024 12:03:56 07/27/2007/27/2024 COMP METAB OLIC PANEL alk phosphatase 111 U/L 46-116 Not Available [facility] ([facility]) [address] , [place], [address], 07/27/2024 12:03:56 07/27/20 24 07/27/2024 urina lysis , dipst ick Leukocytes (reference range) negati ve Not Available [facility] [address], [place], [address], 07/27/2024 10:17:05 07/27/20 24 07/27/2024 urina lysis , dipst ick Nitrite (reference range:) negati ve Not Available [place] [address] [address] [facility] [address], [place], [address], 07/27/2024 10:17:05 07/27/20 24 07/27/2024 urina lysis , dipst ick Protein (reference range) negati ve Not Available [place] [address] [address] [facility] [address], [place], [address], 07/27/2024 10:17:05 07/27/20 24 07/27/2024 urina lysis , dipst ick pH (reference range 5-8.5) 5.0 Not Available [facility] [address] [address] [facility], [place], [address], 07/27/2024 10:17:05 07/27/20 24 07/27/2024 urina lysis , dipst ick Blood (reference range:) negati ve Not Available [place] [address] [address] [facility] [address], [place], [address], 07/27/2024 10:17:05 07/27/20 24 07/27/2024 urina lysis , dipst ick Specific [place] (reference range) 1.000 Not Available [facility] [place] [address] [address] [facility] [facility], [place], [address], 07/27/2024 10:17:05 07/27/20 24 07/27/2024 urina lysis , dipst ick Ketone (reference range) negati ve Not Available [place] [address] [address] [facility] [facility] [address], [place], [address], 07/27/2024 10:17:05 07/27/20 24 07/27/2024 urina lysis , dipst ick Bilirubin (reference range) negati ve Not Available [place] [address] [address] [facility] [facility] [address], [place], [address], 07/27/2024 10:17:05 07/27/20 24 07/27/2024 urina lysis , dipst ick Glucose (reference range) negati ve Not Available [place] [address] [address] [facility] [address], [place], [address], 07/27/2024 10:17:05 07/27/20 24 07/27/2024 urina lysis , dipst ick Color (reference range: yellow-brown ) Yellow Not Available [facility] [address] [address] [facility], [place], [address], 07/27/2024 10:17:05 07/09/20 24 07/06/2024 fluor o less than 1 HR [facility] Hospit al [address] [place] [address] Phone: Fax: Name: ROSITA VALDOVINOS Exam Date: 2023 : [birth year] Age 39 years Gender : F Access ion: [id number] 1562 Physic jagjit: WILLIAM JOHNSON Facili ty: [facility] Facili ty HSV: Outpat ient Exam: FLUORO LESS THAN 1 HR EXAMIN ATION: FL LESS THAN 1 HOUR HISTOR Y: Female , 39 years old. ft=5.1 s. TECHNI QUE: 1 images . Fluoro scopy Time: 5.1 second s. Peak skin dose (PSD): 1.73 mGy. COMPAR TATE: None. FINDIN GS: Single view of the left abdome n left ureter al stent in place. IMPRES BOSSMAN: No unexpe cted findin gs. Please see clinic jagjit's report for full proced ure detail s. Electr onical ly signed by:Angi mota MD06/26 02:36 AM EDT RP Workst ation: [id number] Dictat ed By: Shahab Duke rd Transc ribed By: Transc ribed On: 2023 3:04 PM Electr onical ly signed by: Shahab Duke rd 2023 Thank you for referr ROSITA Wilcox R to [facility] al. Legall y authen ticate d by MAMIE MANNING RD S 2023-09 15:04: 36 CC'ed Logic: Orderi ng Provid er: ART WILLIAM Attend ing Provid er: ART WILLIAM Admitt ing Provid er: ART WILLIAM [email or web address] [facility] [address] [place] [address], [address], 07/09/2024 08:54:48 07/23/20 24 07/20/2024 fluor o less than 1 HR [facility] [address] [place] [address] Phone: Fax: Name: ROSITA VALDOVINOS Exam Date: 2023 : [birth year] Age 39 years Gender : F Access ion: [id number] 1562 Physic jagjit: WILLIAM JOHNSON Facili ty: [facility] Facili ty HSV: Outpat ient Exam: FLUORO LESS THAN 1 HR EXAM DESCRI PTION: FLUORO LESS THAN 1 HR CLINIC AL HISTOR Y: 39 years Female , intra op COMPAR TATE: None. FINDIN GS: Spot intrao perati ve view of the abdome n demons trates an IUD in place. Accumu lative radiat ion dose of 0.54 mGy. IMPRES BOSSMAN: Intrao perati ve view. Electr onical ly signed by:Zelalem Ulrich MD06/27 01:06 PM EDT RP Workst ation: [id number] Dictat ed By: Jaden Ulrich Transc ribed By: Transc ribed On: 2023 5:08 PM Electr onical ly signed by: Jaden Ulrich 2023 Thank you for referr umair PAT ON, HEATVALERIA R to [facility] Hospit al. Legall y authen ticate d by DEBBIE Etienne 2023-09 17:08: 54 CC'ed Logic: Orderi ng Provid er: ALEX THOMAS Attend ing Provid er: ALEX THOMAS Admitt ing Provid er: ALEX THOMAS [email or web address] [facility] [address] [facility], [place], [address], 07/23/2024 16:38:53 07/27/20 24 07/27/2024 renal ,bila teral US [facility] it Hospit al [address] [place] [address] Phone: Fax: Name: ROSITA VALDOVINOS R Exam Date: 024 : [birth year] Age 39 years Gender : F Access ion: [id number] 1562 Physic jagjit: WILLIAM JOHNSON Facili ty: [facility] Facili ty HSV: Outpat ient Exam: RENAL, BILATE RAL US EXAMIN ATION: RENAL, BILATE RAL US CLINIC AL INDICA TION: Female , 39 years old. abd pain TECHNI QUE: Bilate ral renal ultras ound was perfor med with graysc maciel and color duplex Dopple r imagin g. COMPAR TATE: CT abdome n and pelvis 2023 FINDIN GS: KIDNEY : There is normal renal cortic al echoge nicity .The right kidney measur es 11 cm. The left kidney measur es 11 cm. No suspic ious renal mass noted. There is echoge jennifer focus upper pole right kidney which most likely is a interl obar vessel . There is 3 mm echoge jennifer left renal calcul us. There is new mild right pelvic caliec tasis. The left hydron ephros is has resolv ed when compar ed to CT. There is no left hydron ephros is. . IMPRES BOSSMAN: Left nephro lithia sis no hydron ephros is New mild right pelvoc aliect asis Electr onical ly signed by:Rigo Wick MD09/2023 02:00 PM EDT RP Workst ation: [id number] Dictat ed By: Maynor Wick Transc ribed By: Transc ribed On: 1:31 PM Electr onical ly signed by: Maynor Wick Thank you for referr umair PAT ON, HEATHE R to [facility] Hospit al. Legall y authen ticate d by LAYLA LUCAS 2023-09 13:31: 56 CC'ed Logic: Orderi ng Provid er: ALEX THOMAS Attend ing Provid er: ALEX THOMAS Referr ing Provid er: ALEX THOMAS Admitt ing Provid er: ALEX THOMAS [email or web address] [facility] [address] , [place], [address], 07/30/2024 10:08:31 Result Notes None recorded. Problems Name Problem SNOMED Code Status Onset Date Resolution Date Notes Provider Name and Address Organization Details Recorded Time Left flank pain 394952758 Active 2023 WILLIAM JOHNSON MD [address], [place], [address] , [place] - [facility] [place] 4 11:08:49 Abdominal pain 50738319 Active 2023 WILLIAM JOHNSON MD [address] , [place], [address] , [place] [facility] [place] 4 11:09:01 Liver enzymes level above reference range 256299836 Active 2023 WILLIAM JOHNSON MD [address] , [place], [address] , [place] [facility] [place] 4 11:34:54 Stricture of esophagus 55593102 Active 2023 Mundo Sánchez PA-C [address], [place], [address] , [place] [facility] [place] 4 09:21:55 Gastroesophag eal reflux disease without esophagitis 241105549 Active 2023 Mundo Sánchez PA-C [address], [place], [address] , [place] [facility] [place] 4 09:21:59 Dysphagia 91884692 Active 2023 Mundo Sánchez PA-C [address], [place], [address] , [place] [facility] [place] 4 09:23:54 Ureteric stone 34113851 Active 2023 WILLIAM JOHNSON MD [address], [place], [address] , [place] [facility] [place] 13:29:25 Abnormal urinalysis 049921627 Active 2023 WILLIAM JOHNSON MD [address] , [place], [address] , [place] [facility] [place] 13:29:35 Problem Notes None recorded. Procedures Surgical History None recorded. Imaging Results None recorded. Procedure Notes Documentation Provider Name and Address Organization Details Recorded Time Operative/Procedure Note [facility] Name Manisha Gallagher Date of Service 1453 [id number] ([id number]) Attending ALEX RADER Admitted [id number] Discharged Primary MIRA CLARK - Pre-Procedure Diagnosis Left ureteral stone, UTI Post- Procedure Diagnosis same Procedure / Surgery None 1. Cystoscopy ( CPT 64375) 2. Left ureteral stent placement ( CPT 89368) 3. Fluoroscopy time less than 1 hour with intraoperative interpretation ( CPT 25629) Anesthesia Type General anesthesia Estimated Blood Loss none Complications None Procedure Description / Findings after informed consent was obtained from the patient, she was taken the operating room where she was placed in a comfortable supine position on the procedure table. Time-out was performed confirming correct patient, correct procedure, and correct operative site. General anesthesia was induced and preoperative IV antibiotics were administered. She was then placed in dorsal lithotomy position and genitals were prepped and draped in the usual sterile fashion. We began the procedure by inserting the rigid cystoscope into the bladder and performing a careful and thorough inspection of the entire bladder mucosa (CPT 98116). No abnormalities were noted. At this time we identified the left ureteral orifice. A sensor tip guidewire was then advanced in a retrograde fashion under fluoroscopic guidance to the left kidney ( CPT 64013). Once the wire was then position, we advanced a 6 [place] by 24 cm double-J ureteral stent over the wire ( CPT 57480). The wire was then withdrawn and we visualized the proximal coil in the left renal pelvis with the distal coil directly visualized in the bladder lumen. The bladder was then drained through the cystoscope sheath and viscous lidocaine 2% gel was instilled in urethra. At this point the procedure was terminated, the patient was awoken and transferred to the PACU in stable condition. Specimens None Tubes/Drains None Implants Left ureteral stent Disposition of Patient stable to PACU 1 of 2 Operative/Procedure Note [facility] Name Manisha Gallagher Date of Service 145 [id number] ([id number]) Attending ALEX RADER Admitted [id number] Discharged Primary MIRA CLARK - Electronically signed by LAEX RADER on 1455 2 of 2 CC'ed Logic: Ordering Provider: ALEX THOMAS Attending Provider: ALEX THOMAS Admitting Provider: PETER Robertson [facility] & [place] 07/12/2024 13:42:16 Medical Equipment None Reported. Allergies Allergen ID Allergen Name Allergen Category Reaction Reaction Severity Criticality Documentation Date Start Date Code Code System Note Provider Name and Address Organization Details Recorded Time 122855 Product containin g penicilli n (product) medicatio n Not available Not available Not available 03/22/2024 15060 8001 SNOMED Tracey PETER Roca [facility] & [place] 08:35:46 Medications Name Sig Start Date Stop Date Status Note LastModified by Organization Details LastModified Time hydrocodone 5 mg-acetamino phen 325 mg tablet TAKE 1 TABLET BY MOUTH EVERY 6 HOURS NEEDED FOR PAIN active Not Available Not Available No t Available ondansetron HCl 4 mg tablet active Not Available Not Available Not Available ciprofloxaci n 500 mg tablet TAKE 1 TABLET BY MOUTH TWICE DAILY FOR 7 DAYS active Not Available Not Available No t Available sulfamethoxa zole 800 mg-trimethop rim 160 mg tablet TAKE 1 TABLET BY MOUTH TWICE DAILY active Not Available Not Available No t Available tramadol 50 mg tablet TAKE 1 TABLET BY MOUTH EVERY 6 HOURS NEEDED FOR MODERATE PAIN (4-6) active Not Available Not Available N ot Available ketorolac 10 mg tablet TAKE 1 TABLET BY MOUTH EVERY 4 HOURS NEEDED NOT TO EXCEED 4 TABLETS IN 24 HOURS FOR UP TO 5 DAYS TOTAL USE active Not Available Not Available No t Available oxycodone-ac etaminophen 5 mg-325 mg tablet TAKE 1 TABLET BY MOUTH EVERY 4 HOURS NEEDED FOR PAIN active Not Available Not Available No t Available amitriptylin e 25 mg tablet TAKE ONE TABLET BY MOUTH AT BEDTIME active Not Available Not Available No t Available tamsulosin 0.4 mg capsule TAKE 1 CAPSULE BY MOUTH EVERY 24 HOURS active Not Available Not Available No t Available levothyroxin e 50 mcg tablet TAKE ONE TABLET BY MOUTH EVERY DAY IN THE MORNING ON EMPTY STOMACH active Not Available Not Available No t Available pantoprazole 40 mg tablet,delay ed release Take 1 tablet by mouth once daily active Not Available Not Available No t Available ondansetron 4 mg disintegrati ng tablet DISSOLVE 1 TABLET IN MOUTH EVERY 6 TO 8 HOURS NEEDED active Not Available Not Available No t Available Xarelto 20 mg tablet TAKE ONE TABLET BY MOUTH ONCE DAILY IN THE EVENING active Not Available Not Available Not Available [facility] ODT 75 mg disintegrati ng tablet DISSOLVE ONE TABLET UNDER THE TONGUE NEEDED FOR MIGRAINE HEADACHE; MAX DOSE 75MG IN 24 HOURS active Not Available Not Available No t Available Wegovy 1.7 mg/0.75 mL subcutaneous pen injector INJECT 1 SYRINGE SUBCUTANEOU SLY ONCE A WEEK active Not Available Not Available No t Available Vitals Date Recorded Body weight Body mass index (BMI) Body height Body temperature Oxygen saturation Oxygen saturation in Arterial blood by Pulse oximetry Heart rate Heart rate Systolic blood pressure Diastolic blood pressure Provider Name and Address Organization Details Last Updated DateTime 4 34716.4 g 29.5 kg/m2 175.26 cm 97.9 [degF] 98 % 98 % 84 /min 76 /min 122 mm[Hg] 62 mm[Hg] Tracey Fofana MD - NT [facility] & [place] 4 08:35:52 Date Recorded Body height Body mass index (BMI) Body weight Oxygen saturation Oxygen saturation in Arterial blood by Pulse oximetry Heart rate Systolic blood pressure Diastolic blood pressure Provider Name and Address Organization Details Last Updated DateTime 4 175.26 cm 29.3 kg/m2 80369.7 3 g 98 % 98 % 97 /min 130 mm[Hg] 71 mm[Hg] [facility] [place] 4 13:30:12 Date Recorded Body height Body mass index (BMI) Body weight Oxygen saturation Oxygen saturation in Arterial blood by Pulse oximetry Heart rate Systolic blood pressure Diastolic blood pressure Provider Name and Address Organization Details Last Updated DateTime 4 175.26 cm 29.4 kg/m2 44388.8 8 g 96.98 % 96.98 % 116 /min 135 mm[Hg] 75 mm[Hg] [facility] [place] 4 08:59:43 Date Recorded Body height Body mass index (BMI) Body weight Oxygen saturation Oxygen saturation in Arterial blood by Pulse oximetry Heart rate Systolic blood pressure Diastolic blood pressure Provider Name and Address Organization Details Last Updated DateTime 4 175.26 cm 29.4 kg/m2 18848.8 8 g 99 % 99 % 75 /min 105 mm[Hg] 75 mm[Hg] [facility] [place] [place] 4 10:16:33 Social History None recorded. 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 Family History Nothing Reported. Medical History No medical history recorded. Gynecological HistoryNo gynecological history recorded. Obstetrics History GPAL:G 0 P 0 0 0 0 Past Encounters Encounter ID Performer Location Encounter Start Date Encounter Closed Date Diagnosis/Indication Diagnosis SNOMED-CT Code Diagnosis ICD10 Code Diagnosis Note [id number] Mundo Sánchez PA-C [facility] [address] [place] [address] 03/22/2024 08:15:29 03/22/2024 11:05:00 Stricture of esophagus 22541879 K22.2 Gastroesop hageal reflux disease without esophagitis 044439448 K21.9 Dysphagia 67958399 R13.1 0 [id number] WILLIAM JOHNSON MD [facility] Urology-1 00 [address] [facility] [address] [place] [address] 07/05/2024 13:04:46 07/05/2024 13:47:43 Ureteric stone 02038686 N20.1 In the setting of nitrite positive urine with an obstructin g distal stone, I have recommende d cystoscopy with left stent placement for decompress ion of the obstructed system. I explained that stone manipulati on in the setting of likely infection increases the risk of morbidity and mortality. I reviewed surgery in depth as well as its risks of bleeding, infection, inability to place the stent in a retrograde fashion, and the risk of anesthesia . we would wait approximat brandon 2 weeks after stent placement and clearance of any current infection before proceeding with definitive stone management (left ureterosco py with laser lithotrips y and stent placement) [facility] Abnormal urinalysis 1672 91167 R82.90 patient is currently on Cipro but urine remains nitrite positive with leukocytes and blood. We will check culture today, Though this may be false negative due to current antibiotic therapy. [id number] WILL[facility] [address] [facility] [address] [place] [address] 07/19/2024 08:21:09 07/19/2024 09:09:33 Ureteric stone 25755674 N20.1 I reviewed the procedure in depth with the patient today including the risks of surgery. These included, but are not limited to: Bleeding, infection, injury to the tract, inability to reach the stone, and the potential for the necessity of staged procedures . I explained the temporary nature of the stent. Failure to exchange or remove the stent when indicated could lead to infection, urosepsis, stent encrustati on, kidney injury, loss of kidney, and even . [id number] WILLIAM JOHNSON MD [facility] [address] [facility] [address] [place] [address] 07/27/2024 09:49:21 07/27/2024 11:10:19 Left flank pain 266033954 R10.9 Hydronephr osis noted in the ER on the same day as the stent was removed ( 07/20/2024 ), which would be expected. Patient reports she presented to an outside hospital on 07/25/2024 and at bed side ultrasound reportedly showed no hydronephr osis. Without this documentat ion, it would be prudent to check a stat renal ultrasound today. I have personally reached out to the head of radiology and confirmed that this will be done at 1:00 p.m.. I will follow up on this study and contact the patient. Liver enzy mes level above reference range 185675276 R74.01 Patient had notable creatinine of 1.5 on 07/20/2024 . Liver enzymes were elevated as well. We will repeat CMP today. Health Concerns Section Related Observation LastModified by Organization Detai ls LastModified Time None Recorded Concern Status LastModified by Organization Details LastModified Time None Recorded Advance Directives Directive None Recorded Payers Insurance Date Sequence Insurance Name Policy Number Policy Lamar Covered Member ID Lamar Member ID Guarantor Name 09/08/2024 1 [id number] [id number] John Gallagher [id number] Manisha Gallagher Notes Date Note Type Note Provider Name and Address Organization Details Recorded Time 4 text/html Ms. Gallagher presents to the office today for procedure follow-up. She underwent EGD by Dr. Spicer on 03/06/24 in evaluation of dysphagia. She was noted to have a distal esophageal stricture, which was dilated. Pathology was c/w reflux related changes of the distal esophagus, mild chronic inactive gastritis. She was started on Pantoprazole 40 mg p.o. once daily. She is feeling well at this time and reports resolution of dysphagia. Mundo Sánchez PA-C [address], [place], [address], [facility] - [place] & [place] 03/23/2024 14:00:32 4 text/html 07/05/24 39-year-old female referred by Dr. Amber black for gross hematuria and left flank pain. CT scan performed on 07/03/2024 showed a5 mm stone at the left UVJwith moderate left hydronephrosis. She also had a nonobstructing stone in the left kidney measuring up to 2 mm. Patient was seen at urgent Care on 07/01/2024 at which timeurine was nitrite positivewith leukocytes. She was experiencing gross hematuria at that time. She was started on Cipro which she was still taking. Urine culture on that date showed no growth however. Patientdenies fevers She is continuing to have left flank pain as of today and has not yet passed the stone to her knowledge. She does report a past history of5 prior stoneswith [address] Cornejo in [place] approximately 5 years ago. Patient has not had a metabolic evaluation that she is aware of. Finally, patient is on chronicXarelto therapy for history of DVTs. 07/03/24 CT ([facility]): IMPRESSION:1. 5 mm obstructing calculus at the left vesicoureteral junction resulting in moderate left hydroureteronephrosis.2. Nonobstructive left renal stones measuring up to 2 mm.3. Asymmetrically enlarged appearance of the right ovary with multiple internal cystic lesions which may representfollicular activity. Recommend further evaluation with pelvic ultrasound for better characterization. WILLIAM JOHNSON MD [address] [facility], [place], [address], [facility] [place] & [place] 07/05/2024 13:44:29 4 text/html 07/19/24 Patient returns for follow up. She underwent cystoscopy withleftstent placement on 07/06/2024 due to a 5 mm stone at the left UVJ in the setting of UTI. patient denies dysuria but has had poor tolerance of the indwelling stent. ---------07/05/[age]-year -old female referred by Dr. Amber black for gross hematuria and left flank pain. CT scan performed on 07/03/2024 showed a 5 mm stone at the left UVJ with moderate left hydronephrosis. She also had a nonobstructing stone in the left kidney measuring up to 2 mm.Patient was seen at urgent Care on 07/01/2024 at which time urine was nitrite positive with leukocytes. She was experiencing gross hematuria at that time. She was started on Cipro which she was still taking. Urine culture on that date showed no growth however. Patient denies feversShe is continuing to have left flank pain as of today and has not yet passed the stone to her knowledge. She does report a past history of 5 prior stones with [address] Cornejo in [place] approximately 5 years ago. 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 07/06/24 L stent [id number]/08/24 CT ([facility]): IMPRESSION:1. 5 mm obstructing calculus at the left vesicoureteral junction resulting in moderate left hydroureteronephrosis.2. Nonobstructive left renal stones measuring up to 2 mm.3. Asymmetrically enlarged appearance of the right ovary with multiple internal cystic lesions which may representfollicular activity. Recommend further evaluation with pelvic ultrasound for better characterization. WILLIAM JOHNSON MD [address] [facility], [place], [address], [facility] 07/19/2024 09:07:43 4 text/plai n Operative/Procedure Note [facility] Name Manisha Gallagher Date of Service 1327 [id number] (F) Attending ALEX Payton BEATRICEY Admitted [id number] Discharged Primary MIRA CLARK - Pre-Procedure Diagnosis Ureteric stone Post- Procedure Diagnosis Ureteric stone Procedure / Surgery None 1. Cystoscopy with left stent removal ( CPT 99530) 2. Left ureteroscopy with stone basket ( CPT 57292) 3. Fluoroscopy time less than 1 hour with intraoperative interpretation ( CPT 58202) Anesthesia Type General anesthesia Estimated Blood Loss none Complications None Procedure Description / Findings after informed consent was obtained from the patient, she was taken to the operating room where she was placed in a comfortable supine position on the procedure table. Time-out was performed confirming correct patient, correct procedure, and correct operative site. General anesthesia was induced and preoperative IV antibiotics were administered. She was then placed in dorsal lithotomy position and genitals were prepped and draped in the usual sterile fashion. We inserted the rigid cystoscope in the bladder and visualized left ureteral stent. This was grasped and brought out fully intact under fluoroscopic guidance ( CPT 19663, CPT 01142). We then advanced a sensor tip guidewire under fluoroscopic guidance up to the left kidney. Once this was then position, we introduced the semi-rigid ureteroscope into the distal left ureter. As we advanced the scope to a level just distal to the iliac vessels, we encountered a small stone fragment. This was grasped with a ZeroTip Nitinol basket and passed off the field ( CPT 31958). At this time, we switched out the semi-rigid ureteroscope for the flexible ureteroscope. This was advanced in the left ureter and guided up to the kidney. We then performed a careful thorough inspection of each calyx. We identified a 2-3 mm stone fixed to a lower pole papilla. This was grasped with a ZeroTip Nitinol basket as well and brought out fully intact. The left ureter was widely patent due to the previous indwelling stent and therefore the decision was made not to replace the stent. The bladder was drained through the cystoscope sheath and viscous lidocaine 2% gel was instilled in urethra. At this point the procedure was terminated, the patient was awoken and transferred to the PACU in stable condition. Specimens Left ureteral stone Tubes/Drains None Implants None 1 of 2 Operative/Procedure Note [facility] Name Manisha Gallagher Date of Service 1327 [id number] (F) Attending ALEX RADER Admitted [id number] Discharged Primary MIRA AMBER - Disposition of Patient stable to PACU Electronically signed by ALEX RADER on 1330 2 of 2 CC'ed Logic: Ordering Provider: ALEX THOMAS Attending Provider: ALEX THOMAS Admitting Provider: ALEX Durant NP, [address] , [place], [address], [facility] [place] 07/23/2024 16:41:55 4 text/html 07/27/24 Patient returns for follow up. She underwent left ureteroscopy with laser lithotripsy and stent removal on 07/20/24 for left UVJ stone. She previously had the stent placed on 07/06/2024 as she had presented at that time width UTI. She returned to the ED on the evening of 07/20/2024 with complaints of ongoing pain. CT scan showed persistent hydronephrosis though the stone was no longer present. No other abnormalities were seen within the abdomen or pelvis. Lab work during that visit showed creatinine of 1.5 with elevated LFTs. Urinalysis was nitrite negative. Patient states that she returned to the ER at [facility] on 07/25/2024 and states that they did a bedside ultrasound and told her that the left kidney looked okay . She was able to pull up the records on her phone in office today, but there was no indication/documentation that an ultrasound was performed. She is still complaining of 4/10 pain. She denies fevers or dysuria. 1 Patient returns for follow up. She underwent cystoscopy with left stent placement on 07/06/2024 due to a 5 mm stone at the left UVJ in the setting of UTI.patient denies dysuria but has had poor tolerance of the indwelling stent. ---------07/05/2439-year -old female referred by Dr. Amber Black for gross hematuria and left flank pain. CT scan performed on 07/03/2024 showed a 5 mm stone at the left UVJ with moderate left hydronephrosis. She also had a non-obstructing stone in the left kidney measuring up to 2 mm.Patient was seen at urgent Care on 07/01/2024 at which time urine was nitrite positive with leukocytes. She was experiencing gross hematuria at that time. She was started on Cipro which she was still taking. Urine culture on that date showed no growth however. Patient denies feversShe is continuing to have left flank pain as of today and has not yet passed the stone to her knowledge. She does report a past history of 5 prior stones with [address] Cornejo in [place] approximately 5 years ago. 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 07/20/24:lactate 3.7, Cr 1.5, GFR 45, WBC 10.7, UA nitrite negative, AST 117, ALT 172, Alk phos [id number]/20/24 CT ([facility] ED): Previously described calculus at the left ureterovesical junction is no longer seen. However, there is no significant change in the moderate left hydronephrosis and hydroureter. No new ureteral calculus. No new intra-abdominal abnormality. 07/20/24 L URS, laser, stent uknjvmz33/11/24 L stent gdcaytfsl21/08/24 CT ([facility]): IMPRESSION:1. 5 mm obstructing calculus at the left vesicoureteral junction resulting in moderate left hydroureteronephrosis.2. Nonobstructive left renal stones measuring up to 2 mm.3. Asymmetrically enlarged appearance of the right ovary with multiple internal cystic lesions which may representfollicular activity. Recommend further evaluation with pelvic ultrasound for better characterization. WILLIAM JOHNSON MD [address], [place], [address], [facility] [place] & [place] 07/27/2024 11:35:28 OBGyn Episode No OBEpisode recorded.
--- OUTSIDE RECORDS SUMMARY | 2025-03-08 08:42 | XMS_ITS | Clinical Summary ---
Author Organization [facility] Address [address] [place] [address] Care Team Providers Care Waiter/Waitress Cafeteria Name Role Phone Kartik Russo MD Primary Care Provider + [phone] Allergies Active Allergy Reactions Criticality Noted Date Comments Ceftriaxone Unknown - Patient st ates they do not know rxn details,Hives Medium 03/22/2018 Penicillins Unknown - Patient st ates they do not know rxn details,Hives Medium 03/22/2018 Medications rivaroxaban (Xarelto) 20 MG tablet Xarelto 20 mg tablet 07/06/2018 Active thyroid ([place]) 30 MG tablet Take 30 mg by mouth 1 (one) time each day. Active cholecalciferol (Vitamin D-3) 25 MCG (1000 UT) capsule Take 2,000 Units by mouth. Active thyroid ([employer] Thyroid) 30 MG tablet Take 30 mg by mouth 1 (one) time each day. 09/02/2020 Active enoxaparin (Lovenox) 30 MG/0.3ML solution Inject 30 mg under the skin 2 (two) times a day. Active zinc gluconate 50 MG tablet Take 50 mg by mouth 1 (one) time each day. Active ascorbic acid (vitamin C) 100 MG tablet Take 100 mg by mouth 1 (one) time each day. Active oxyCODONE (Roxicodone) 5 MG immediate release tablet Take 1 tablet (5 mg total) by mouth every 6 (six) hours if needed for severe pain. 25 tablet 08/13/2021 Active methocarbamol (Robaxin) 500 MG tablet Take 1 tablet (500 mg total) by mouth 4 (four) times a day. 120 tablet 08/28/2021 Active amitriptyline (Elavil) 10 MG tablet 2 tablets (20 mg). 08/22/2023 Active ciprofloxacin (Cipro) 500 MG tablet TAKE ONE TABLET BY MOUTH EVERY TWELVE HOURS -- FINISH ALL MEDICINE -- 09/01/2023 Active levothyroxine (Synthroid, Levoxyl) 25 MCG tablet Take 20 mcg by mouth 1 (one) time each day. 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 03/13/2021 [place] injury 07/06/2018 Stress reaction of tibia 07/06/2018 Family History Medical History Relation Name Comments Hypertension Father Conversions - Other Mother Prediabe arleen Relation Name Status Comments Father Mother Social History Tobacco Use Types Packs/Day Years Used Date Smoking Tobacco: Never Smokeless Tobacco: Never PHQ-2 Answer Date Recorded Patient Health Questionnaire-2 Score 0 12/03/2022 PHQ-2A Answer Date Recorded Patient Health Questionnaire-2 Score 0 12/03/2022 Comments No Sex and Gender Information Value Date Recorded Sex Assigned at Not on file Legal Sex Female 7:36 PM EDT Gender Identity Not on file Sexual Orientation Not on file Last Filed Vital Signs Vital Sign Reading Time Taken Comments Blood Pressure 116/75 12/07/2023 11:44 AM EDT Pulse 86 12/07/2023 11:44 AM EDT Temperature 36.8 C (98.2 F) 12/07/2023 11:44 AM EDT Respiratory Rate 17 08/13/2021 1:20 PM EST Oxygen Saturation 97% 12/07/2023 11:44 AM EDT Inhaled Oxygen Concentration - - Weight 97 kg (213 lb 12.8 oz) 12/07/2023 11:44 A M EDT Height 175.3 cm (5' 9 ) 12/07/2023 11:44 AM EDT Body Mass Index 31.57 12/07/2023 11:44 AM EDT Plan of Treatment Health Maintenance Due Date Last Done Comments Dental Oral Exam 1983 Dental Prophylaxis 1983 Dental X-Ray: Bitewings 1983 Dental X-Ray: Full Mouth 1983 [facility]-HIV Screening 1983 [facility]-Hepatitis C Screening 1983 [facility]-/Child/Adol SDOH Screenings 1983 [facility]-Varicella Vaccines (1 of 2 - 13+ 2-dose series) 01/31/1996 HPV Vaccines (1 - 3-dose series) 1998 [facility]- SDOH Screenings 2001 [facility]-Adult SDOH Screenings 2001 [facility]-DTaP,Tdap,and Td Vaccines (1 - Tdap) 2002 [facility]-Hepatitis B Vaccines (1 of 3 - 19+ 3-dose series) 2002 [facility]-Pap Smear 01/31/2004 [facility]-Cervical Cancer Screening 2013 [facility]-HPV/Cotest 2013 [facility]-Depression Screening 12/04/2023 12/03/2022 [id number] Vaccine (1 - 2023- season) 2024 [facility]-Influenza Vaccine (Season Ended) 2025 [facility]-Zoster Vaccines (1 of 2) 2033 [facility]-Obesity Intervention Completed 024, 11/18/2023, 09/05/2023, Additional history exists [facility]-HIB Vaccines Aged Out No longer e ligible based on patient's age to complete this topic [facility]-Hepatitis A Vaccines Aged Out No longer eligible based on patient's age to complete this topic [facility]-IPV Vaccines Aged Out No longer e ligible based on patient's age to complete this topic [facility]-Pneumococcal Vaccine: Pediatrics (0 to 5 Years) and At-Risk Patients (6 to 49 Years) Aged Out No longer eligible based on patient's age to complete this topic [facility]-Rotavirus Vaccines Aged Out No lo nger eligible based on patient's age to complete this topic Additional Health Concerns Infection Onset Date Last Indicated MRSA 02/14/2021 02/14/2021 Insurance ANTHEM Care Teams Waiter/Waitress Cafeteria Relationship Specialty Start Date End Date Kartik Russo MD [address] [facility] [address] [place] [address] PCP - General 02/06/21
--- OUTSIDE RECORDS SUMMARY | 2025-03-08 08:42 | XMS_ITS | Data Portability ---
Author Organization [facility] GABRIELA Jesus [place] [facility] Address [address] [place] [address] Care Team Providers Care Operations Specialists Name Role Phone AMBER MEYERS Primary Care Provider Assessment Encounter Date Assessment Date Assessment LastModified by Organization Details LastModified Time 09/23/2022 09/23/2022 37-year-old female with history of urolithiasis and UTI. Her first stone episode occurred in 2008 shortly after giving to her son. She had another stone episode in 2018. She underwent left ureteroscopy and stone extraction with Dr. Michael. Most recently, 09/2021 she had acute flank pain and gross hematuria for [address] scan from the ER showed a 2 mm stone at the right UVJ with mild hydronephrosis and hydroureter as well as multiple non obstructing left renal stones with the largest measuring 4 mm. She was able to pass the right ureteral stone one week later. She is feeling well currently. I recommend KUB for evaluation of non-obstructing renal stones. We discussed that depending on KUB results a left ESWL could be considered if she wants to be proactive. We will discuss further once results are received. Plan: Check KUB. Follow-up in one year. [email or web address] Not available 09/23/2022 11:01:40 Plan of Treatment Reminders Order Date Submit Date Provider Last Modified By Organization Details Last Modified Time Details Appointments None recorded. Lab urinalysis, microscopic 2021 022 [facility], [address] [place] [address], [address], 14:48:53 urinalysis, dipstick 2021 022 evickers Not available 10:59:41 culture, urine 2017 018 [facility], [address] [place], [address], 8 08:51:18 urinalysis panel, auto 2017 018 [facility], [address] [facility], [place], [address], 8 12:53:16 urinalysis, dipstick, auto 2017 018 [facility], [address] [facility], [place], [address], 8 12:55:42 urinalysis, dipstick, auto 2017 018 [facility], [address] [facility], [place], [address], 8 12:54:48 Referral None recorded. Procedures None recorded. Surgeries None recorded. Imaging XR, abdomen, 1 view 2021 022 [email or web address] 3 [facility], [address] [place], [address], 2 16:29:19 XR, abdomen, 1 view 2017 018 [facility], [address] [facility], [place], [address], 8 12:10:09 Medication Orders Bactrim DS 800 mg-160 mg tablet 2017 018 [facility], [address] [place] [address] [address] [address], [place], [place], [id number], 8 11:35:18 Percocet 5 mg-325 mg tablet 2017 018 [facility], [address] [place] [address] [place], [id number], 8 10:17:09 Patient TargetsNo targets recorded. Patient Instructions Encounter Date Encounter Id Patient Instructions Last Modified By Organization Details Last Modified Time 03/21/2018 [id number] kidney stone: care instructions Not available 03/21/2018 12:54:48 I offered both MET and operative extraction via ureteroscopy with basket or laser and stent insertion . She understands and agrees to proceed. Not available 03/21/2018 12:54:19 03/27/2018 [id number] kidney stone: care instructions Not available 03/27/2018 12:55:42 04/28/2018 [id number] eating healthy foods: care instructions Not available 04/28/2018 12:53:16 kidney stone: care instructions Not available 04/28/2018 12:53:16 learning about diet for kidney stone prevention Not available 04/28/2018 12:53:16 high blood pressure: care instructions Not available 04/28/2018 12:53:16 Not available 2017 16:49:18 Possibly her symptoms are from a mild UTI. Not available 04/28/2018 16:49:30 Reason for Referral None Reported. Results Created Date Observation Date Name Description Value Unit Range Abnormal Flag Note LastModifiedBy Organization Detail LastModifiedTime 04/28/20 18 04/28/2018 urina lysis panel , auto Unknown Analyte Clean Catch Not Available [facility] [address], [place], [address], 04/28/2018 10:19:36 04/28/20 18 04/28/2018 urina lysis panel , auto Unknown Analyte Yellow Not Available [facility] [address], [place], [address], 04/28/2018 10:19:36 04/28/20 18 04/28/2018 urina lysis panel , auto Unknown Analyte Slight ly Hazy Not Available [facility] [address] [facility], [place], [address], 04/28/2018 10:19:36 04/28/20 18 04/28/2018 urina lysis panel , auto Unknown Analyte 1.005 Not Available [facility] [address] [facility], [place], [address], 04/28/2018 10:19:36 04/28/20 18 04/28/2018 urina lysis panel , auto Unknown Analyte 6.0 Not Available [facility] [address] [facility], [place], [address], 04/28/2018 10:19:36 04/28/20 18 04/28/2018 urina lysis panel , auto Unknown Analyte 75 Omayra/ul (+) Not Available [facility] [address] [facility], [place], [address], 04/28/2018 10:19:36 04/28/20 18 04/28/2018 urina lysis panel , auto Unknown Analyte Negati ve Not Available [facility] [address] [place], [address], 04/28/2018 10:19:36 04/28/20 18 04/28/2018 urina lysis panel , auto Unknown Analyte Negati ve Not Available [facility] [address] [place], [address], 04/28/2018 10:19:36 04/28/20 18 04/28/2018 urina lysis panel , auto Unknown Analyte Normal Not Available [facility] [address] [place], [address], 04/28/2018 10:19:36 04/28/20 18 04/28/2018 urina lysis panel , auto Unknown Analyte Negati ve Not Available [facility] [address] [facility], [place], [address], 04/28/2018 10:19:36 04/28/20 18 04/28/2018 urina lysis panel , auto Unknown Analyte Normal Not Available [facility] [address] [facility], [place], [address], 04/28/2018 10:19:36 04/28/20 18 04/28/2018 urina lysis panel , auto Unknown Analyte Negati ve Not Available [facility] [address] [facility], [place], [address], 04/28/2018 10:19:36 04/28/20 18 04/28/2018 urina lysis panel , auto Unknown Analyte 250 Daniel/ul Not Available [facility] [address] [facility], [place], [address], 04/28/2018 10:19:36 04/28/20 18 04/28/2018 urina lysis panel , auto Unknown Analyte Automa alli Not Available [facility] [address] [place], [address], 04/28/2018 10:19:36 04/28/20 18 04/28/2018 urina lysis panel , auto Unknown Analyte Occ Not Available [facility] [address] [place], [address], 04/28/2018 10:19:36 04/28/20 18 04/28/2018 urina lysis panel , auto Unknown Analyte TNTC Not Available [facility] [address] [place], [address], 04/28/2018 10:19:36 04/28/20 18 04/28/2018 urina lysis panel , auto Unknown Analyte 0 - 5 Not Available [facility] [address] [facility], [place], [address], 04/28/2018 10:19:36 04/28/20 18 04/28/2018 urina lysis panel , auto Unknown Analyte 1+ Not Available [facility] [address] [place], [address], 04/28/2018 10:19:36 03/27/20 18 03/27/2018 urina lysis , dipst ick, auto Unknown Analyte Yellow Not Available [facility] [address], [place], [address], 03/27/2018 09:59:04 03/27/20 18 03/27/2018 urina lysis , dipst ick, auto Unknown Analyte Clear Not Available [facility] [address], [address], 03/27/2018 09:59:04 03/27/20 18 03/27/2018 urina lysis , dipst ick, auto Unknown Analyte 1.020 Not Available [facility] [address] [place] [address], [place], [address], 03/27/2018 09:59:04 03/27/20 18 03/27/2018 urina lysis , dipst ick, auto Unknown Analyte 5.0 Not Available [facility] [address] [place], [address], 03/27/2018 09:59:04 03/27/20 18 03/27/2018 urina lysis , dipst ick, auto Unknown Analyte 75 Omayra/ul (+) Not Available [facility] [address] [place], [address], 03/27/2018 09:59:04 03/27/20 18 03/27/2018 urina lysis , dipst ick, auto Unknown Analyte Negati ve Not Available [facility] [address] [facility], [place], [address], 03/27/2018 09:59:04 03/27/20 18 03/27/2018 urina lysis , dipst ick, auto Unknown Analyte 100 mg/dl (++) Not Available [facility] [address] [facility], [place], [address], 03/27/2018 09:59:04 03/27/20 18 03/27/2018 urina lysis , dipst ick, auto Unknown Analyte Normal Not Available [facility] [address] [facility], [place], [address], 03/27/2018 09:59:04 03/27/20 18 03/27/2018 urina lysis , dipst ick, auto Unknown Analyte Negati ve Not Available [facility] [address] [facility], [place], [address], 03/27/2018 09:59:04 03/27/20 18 03/27/2018 urina lysis , dipst ick, auto Unknown Analyte Normal Not Available [facility] [address] [place], [address], 03/27/2018 09:59:04 03/27/20 18 03/27/2018 urina lysis , dipst ick, auto Unknown Analyte Negati ve Not Available [facility] [address] [facility], [place], [address], 03/27/2018 09:59:04 03/27/20 18 03/27/2018 urina lysis , dipst ick, auto Unknown Analyte 250 Daniel/ul Not Available [facility] [address] [place], [address], 03/27/2018 09:59:04 03/27/20 18 03/27/2018 urina lysis , dipst ick, auto Unknown Analyte Clean Catch Not Available [facility] [address] [place], [address], 03/27/2018 09:59:04 03/27/20 18 03/27/2018 urina lysis , dipst ick, auto Unknown Analyte Automa alli Not Available [facility] [address] [facility], [place], [address], 03/27/2018 09:59:04 03/21/20 18 03/21/2018 urina lysis , dipst ick, auto Unknown Analyte Yellow Not Available [facility] [address] [place], [address], 03/21/2018 09:54:32 03/21/20 18 03/21/2018 urina lysis , dipst ick, auto Unknown Analyte Clear Not Available [facility] [address] [place], [address], 03/21/2018 09:54:32 03/21/20 18 03/21/2018 urina lysis , dipst ick, auto Unknown Analyte 1.020 Not Available [facility] [address] [place], [address], 03/21/2018 09:54:32 03/21/20 18 03/21/2018 urina lysis , dipst ick, auto Unknown Analyte 5.0 Not Available [facility] [address] [place], [address], 03/21/2018 09:54:32 03/21/20 18 03/21/2018 urina lysis , dipst ick, auto Unknown Analyte Negati ve Not Available [facility] [address] [place], [address], 03/21/2018 09:54:32 03/21/20 18 03/21/2018 urina lysis , dipst ick, auto Unknown Analyte Negati ve Not Available [facility] [address] [facility], [place], [address], 03/21/2018 09:54:32 03/21/20 18 03/21/2018 urina lysis , dipst ick, auto Unknown Analyte Negtiv e Not Available [facility] [address] [place], [address], 03/21/2018 09:54:32 03/21/20 18 03/21/2018 urina lysis , dipst ick, auto Unknown Analyte Normal Not Available [facility] [address] [place], [address], 03/21/2018 09:54:32 03/21/20 18 03/21/2018 urina lysis , dipst ick, auto Unknown Analyte Negati ve Not Available [facility] [address] [facility], [place], [address], 03/21/2018 09:54:32 03/21/20 18 03/21/2018 urina lysis , dipst ick, auto Unknown Analyte Normal Not Available [facility] [address] [place], [address], 03/21/2018 09:54:32 03/21/20 18 03/21/2018 urina lysis , dipst ick, auto Unknown Analyte 1 mg/dl (+) Not Available [facility] [address] [place], [address], 03/21/2018 09:54:32 03/21/20 18 03/21/2018 urina lysis , dipst ick, auto Unknown Analyte 50 Daniel/ul Not Available [facility] [address] [facility] [place], [address], 03/21/2018 09:54:32 03/21/20 18 03/21/2018 urina lysis , dipst ick, auto Unknown Analyte Clean Catch Not Available [facility] [address] [facility], [place], [address], 03/21/2018 09:54:32 03/21/20 18 03/21/2018 urina lysis , dipst ick, auto Unknown Analyte Automa alli Not Available [facility] [address] [facility], [place], [address], 03/21/2018 09:54:32 04/28/20 18 04/28/2018 cultu re, urine results Sourc e: CCUR Colle cted: 04/28 12:30 Site: Recei darien : 04/28 13:05 URINE SCREE N(CUL TURE) FINAL 05/01 11:20 04/29 ISOLA TE #1 COLON Y COUNT : 1,000 CFU/M Yeast . 05/01 COLON Y COUNT : 10,00 0 - 100,0 00 CFU/M L Three or more isola sergo; mixed skin dani . ISOLA TE #1 Yeast ISOLA SERGO AND SENSI TIVIT Y RESUL TS Corona te 01 Yeast speci es Not Available [facility] [address] [place] [address], [address], 05/01/2018 11:20:52 09/23/20 22 09/23/2022 UA MICRO SCOPI C, CULTU RE IF INDIC ATED WBC, urine 5-10 0-5/hp f abnormal Not Available [facility] [place], [address], 09/23/2022 14:48:53 09/23/20 22 09/23/2022 UA MICRO SCOPI C, CULTU RE IF INDIC ATED squamous epi. cells 0-5 0-5/hp f normal Not Available [facility] [address] [place] [address], [address], 09/23/2022 14:48:53 09/23/20 22 09/23/2022 UA MICRO SCOPI C, CULTU RE IF INDIC ATED bacteria 1+ /hpf abnormal Not Available [facility] [address] [place] [address], [address], 09/23/2022 14:48:53 09/23/20 22 09/23/2022 UA MICRO SCOPI C, CULTU RE IF INDIC ATED crystals Trace negati ve normal Calci um Oxala te Not Available [facility] [address] [place] [address], [address], 09/23/2022 14:48:53 09/23/20 22 09/23/2022 UA MICRO SCOPI C, CULTU RE IF INDIC ATED reflex culture see below normal UA resul ts do not meet cultu re crite dimitri. Not Available [facility] [address] [place] [address], [address], 09/23/2022 14:48:53 09/23/20 22 09/23/2022 urina lysis , dipst ick Unknown Analyte Yellow Not Available [facility] [address] [place] [address], [address], 09/23/2022 10:25:05 09/23/20 22 09/23/2022 urina lysis , dipst ick Unknown Analyte Clear Not Available [facility] [place] [address] [place] [address], [address], 09/23/2022 10:25:05 09/23/20 22 09/23/2022 urina lysis , dipst ick Unknown Analyte 1.020 Not Available [facility] [address] [place] [address], [address], 09/23/2022 10:25:05 09/23/20 22 09/23/2022 urina lysis , dipst ick Unknown Analyte 5.0 Not Available [facility] [address] [place], [address], 09/23/2022 10:25:05 09/23/20 22 09/23/2022 urina lysis , dipst ick Unknown Analyte 500 Omayra/ul (++) Not Available [facility] [address] [place] [address], [address], 09/23/2022 10:25:05 09/23/20 22 09/23/2022 urina lysis , dipst ick Unknown Analyte Negati ve Not Available [facility] [address] [place] [address], [address], 09/23/2022 10:25:05 09/23/20 22 09/23/2022 urina lysis , dipst ick Unknown Analyte Trace Not Available [facility] [address], [address], 09/23/2022 10:25:05 09/23/20 22 09/23/2022 urina lysis , dipst ick Unknown Analyte Normal Not Available [facility] [address], [address], 09/23/2022 10:25:05 09/23/20 22 09/23/2022 urina lysis , dipst ick Unknown Analyte Negati ve Not Available [facility] [address], [address], 09/23/2022 10:25:05 09/23/20 22 09/23/2022 urina lysis , dipst ick Unknown Analyte Normal Not Available [facility] [address], [address], 09/23/2022 10:25:05 09/23/20 22 09/23/2022 urina lysis , dipst ick Unknown Analyte Negati ve Not Available [facility] [address], [address], 09/23/2022 10:25:05 09/23/20 22 09/23/2022 urina lysis , dipst ick Unknown Analyte 50 Daniel/ul Not Available [facility] [address] [place] [address], [address], 09/23/2022 10:25:05 09/23/20 22 09/23/2022 urina lysis , dipst ick Unknown Analyte Clean Catch Not Available [facility] [address] [place], [address], 09/23/2022 10:25:05 09/23/20 22 09/23/2022 urina lysis , dipst ick Unknown Analyte Visual Not Available [facility] [address] [place], [address], 09/23/2022 10:25:05 03/22/20 18 03/22/2018 fluor oscop y (PROC ) No observ ation record ed. [email or web address] Alma Michael MD [address] [facility], [place], [address], 03/23/2018 08:35:30 03/23/20 18 03/18/2018 CT, abdom en + pelvi s, w/o contr ast No observ ation record ed. BARCODE Not Available 2017 11:45:34 03/25/20 18 03/24/2018 XR, abdom en No observ ation record ed. [email or web address] Not Available 2017 06:46:28 04/28/20 18 04/28/2018 XR, abdom en [facility] [address] [place] [address] Patien t Name: ROSITA PAT ON Patien t : [birth year] Patien t Orderi ng Provid er: ALEXANDRE MICHAEL EXAM DATE: 2017 EXAM: XR CU ABDOME N [facility] INFORM ATION: Abdomi nal pain. Urolit hiasis IMAGES PROVID ED: KUB AP radiog raphic images of the abdome n. COMPAR TATE: None. FINDIN GS: No abnorm al intest inal gas patter n. No abnorm al calcif icatio ns are seen. No radiog raphic eviden ce of free intrap eriton eal air. IMPRES BOSSMAN: Normal x-ray abdome n KUB. Interp reted By: Brian Vazquez MD Electr onical ly Signed By: Brian Vazquez MD on 04/28/20 18 12:05 PM [facility] [address] [place], [address], 04/28/2018 17:45:05 09/23/20 22 09/23/2022 XR, abdom en, [address] [address] Patien t Name: ROSITA PAT ON Patien t : [birth year] Patien t Orderi ng Provid er: SHERLY Payton EXAM DATE: 2021 EXAM: XR ABDOME N [facility] INFORM ATION: Histor y of urinar y tract stones . IMAGES PROVID ED: KUB AP radiog raphic images of the abdome n. COMPAR TATE: 018 FINDIN GS AND IMPRES BOSSMAN: No stones or calcif icatio ns are seen in the expect ed locati on of the kidney s, ureter s or urinar y bladde r. IUD is seen in the pelvis . No other signif icant abnorm ality. Interp reted By: Dottie Alvarenga MD Electr onical ly Signed By: Dottie Alvarenga MD on 2021 12:20 PM [email or web address] [facility] [address] [place] [address], [address], 09/24/2022 17:10:45 Result Notes Documentation Provider Name and Address Organization Details Recorded Time Xr, Abdomen : [facility] [address] [place] [address] Patient Name: PADMA GALLAGHER Patient : 1985 Patient Ordering Provider: ALMA MICHAEL EXAM DATE: 04/28/2018 EXAM: XR CU ABDOMEN KUB CLINICAL INFORMATION: Abdominal pain. Urolithiasis IMAGES PROVIDED: KUB AP radiographic images of the abdomen. COMPARISON: None. FINDINGS: No abnormal intestinal gas pattern. No abnormal calcifications are seen. No radiographic evidence of free intraperitoneal air. IMPRESSION: Normal x-ray abdomen KUB. Interpreted By: Brian Vazquez MD MICHAEL MD [address] [place] [address], [address] 04/28/2018 17:45:05 Xr, Abdomen, 1 View : [place] [address] Patient Name: PADMA GALLAGHER Patient : 1985 Patient Ordering Provider: BERNARDINO BLACKMON EXAM DATE: 09/23/2022 EXAM: XR ABDOMEN KUB CLINICAL INFORMATION: History of urinary tract stones. IMAGES PROVIDED: KUB AP radiographic images of the abdomen. COMPARISON: 05/15/2018 FINDINGS AND IMPRESSION: No stones or calcifications are seen in the expected location of the kidneys, ureters or urinary bladder. IUD is seen in the pelvis. No other significant abnormality. Interpreted By: Vince Al[facility]renga [facility] 09/[facility] 17:10:45 Problems No Known Problems Procedures Surgical History Date Name Laterality Status Provider Name and Address Organization Details Recorded Time 03/22/20 18 Other completed ALMA MICHAEL MD [address] [place] [address], [address], [facility] 03/27/2018 12:54:47 Cholecystectomy completed [facility] 03/21/2018 09:56:03 Appendectomy completed [facility] 03/21/2018 09:56:07 Heart Surgery completed [facility] 03/21/2018 09:56:20 delivery completed CARINA MICHAEL MD [address] [place] [address], [address], [facility] 03/21/2018 12:51:52 Imaging Results None recorded. Procedure Notes None recorded. Medical Equipment None Reported. Allergies Allergen ID Allergen Name Allergen Category Reaction Reaction Severity Criticality Documentation Date Start Date Code Code System Note Provider Name and Address Organization Details Recorded Time 335801 Rocephin medicatio n Not available Not available Not available 03/21/2018 9449 RxNorm [facility] 8 09:54:33 427533 Product containin g penicilli n (product) medicatio n Not available Not available Not available 03/21/2018 60578 8001 SNOMED [facility] 8 09:54:38 Medications Name Sig Start Date Stop Date Status Note LastModified by Organization Details LastModified Time azithromyci n 250 mg tablet 03/21 completed Not Available Not Available Not Available hydrocodone 5 mg-acetamin ophen 325 mg tablet TAKE ONE TABLET BY MOUTH EVERY 6 HOURS NEEDED FOR SEVERE pain MAY CAUSE DROWSINES S active Not Available Not Available No t Available phenazopyri dine 200 mg tablet TAKE ONE TABLET BY MOUTH THREE TIMES DAILY NEEDED FOR urinary pain active Not Available Not Available No t Available levofloxaci n 250 mg tablet 04/28 completed Not Available Not Available Not Available sulfamethox azole 800 mg-trimetho prim 160 mg tablet TAKE ONE TABLET BY MOUTH EVERY TWELVE HOURS -- FINISH ALL MEDICINE -- active Not Available Not Available No t Available oxycodone-a cetaminophe n 5 mg-325 mg tablet Take 1 tablet every 6 hours by oral route. 04/28 completed Not Available Not Available Not Available tamsulosin 0.4 mg capsule TAKE ONE CAPSULE BY MOUTH EVERY DAY active Not Available Not Available No t Available phenazopyri dine 100 mg tablet TAKE ONE TABLET BY MOUTH THREE TIMES DAILY NEEDED FOR PAIN active Not Available Not Available No t Available levofloxaci n 500 mg tablet TAKE ONE TABLET BY MOUTH EVERY DAY FOR 10 DAYS -- FINISH ALL MEDICINE -- active Not Available Not Available No t Available methylpredn isolone 4 mg tablets in a dose pack 03/21 completed Not Available Not Available Not Available bromphenira mine-pseudo ephedrine-D M 2 mg-30 mg-10 mg/5 mL oral syrup active Not Available Not Available Not Available ondansetron 4 mg disintegrat ing tablet 04/28 completed Not Available Not Available Not Available fluticasone propionate 50 mcg/actuati on nasal spray,suspe nsion 03/21 completed Not Available Not Available Not Available nitrofurant oin monohydrate /macrocryst als 100 mg capsule TAKE ONE CAPSULE BY MOUTH TWICE DAILY -- FINISH ALL MEDICINE -- active Not Available Not Available No t Available Xarelto 20 mg tablet TAKE ONE TABLET BY MOUTH ONCE DAILY IN THE EVENING active Not Available Not Available No t Available Linzess 290 mcg capsule active Not Available Not Available Not Available Vitals Date Recorded Body height Body mass index (BMI) Body weight Provider Name and Address Organization Details Last Updated DateTime 03/21/2018 175.26 cm 32.9 kg/m2 736597.1 g [facility] 03/21/2018 09:54:13 Date Recorded Body height Body mass index (BMI) Body weight Systolic blood pressure Diastolic blood pressure Provider Name and Address Organization Details Last Updated DateTime 03/27/2018 175.26 cm 32.9 kg/m2 171087.1 g 120 mm[Hg] 82 mm[Hg] [facility] 8 09:54:06 Date Recorded Body height Body mass index (BMI) Body weight Systolic blood pressure Diastolic blood pressure Provider Name and Address Organization Details Last Updated DateTime 04/28/2018 175.26 cm 32.5 kg/m2 49754.32 g 110 mm[Hg] 85 mm[Hg] [facility] 8 10:16:53 Social History Question Answer Notes LastModified by Organizat ion Details LastModified Time Tobacco Smoking Status Never Smoker [facility] 03/21/2018 09:55:38 Marital Status [email or web address] Informatio n not available 03/21/2018 What Was The Date Of Your Most Recent Tobacco Screening? 04/28/2018 Information n ot available 11/13/2019 Sex: Unknown Functional Status Question Answer Note LastModified by Organizat ion Details LastModified Time What is your level of alcohol consumption? 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 Family History Relationship Description Onset Age of this Age Resolved Age Notes LastModified by Organization Details LastModified Time Mother Diabetes mellitus [email or web address] Not available 2017 09:55:27 Medical History Condition Response Allergies/Hayfever Y Anemia Y Kidney Stones Y Heart Arrhythmia Gynecological HistoryNo gynecological history recorded. Obstetrics History GPAL:G 2 P 2 0 0 0 Type Value Full Term 2 Total 2 Past Encounters Encounter ID Performer Location Encounter Start Date Encounter Closed Date Diagnosis/Indication Diagnosis SNOMED-CT Code Diagnosis ICD10 Code Diagnosis Note [id number] ALMA MICHAEL MD UROLOGY [facility] [address] [place] [address] 03/21/2018 09:16:04 03/21/2018 15:04:44 Ureteric stone 69203664 N20.1 [id number] ALMA MICHAEL MD UROLOGY [facility] [address] [place] [address] 03/27/2018 09:25:17 03/27/2018 14:05:17 Ureteric stone 04817382 N20.1 doing well post-op [id number] ALMA MICHAEL MD UROLOGY [facility] [address] [place] [id number] 04/28/2018 09:10:48 04/30/2018 17:44:54 Kidney stone 41305445 N20.0 tiny. Acute urin avinash tract infection 390997142 N39.0 [id number] BERNARDINO BLACKMON APRN UROLOGY [facility] [address] [place] [address] 09/23/2022 09:37:37 09/23/2022 16:29:19 Kidney stone 32640525 N20.0 History of urinary tract infection 2887906459 107 Z87.440 Leukocytes in urine 2757 [address]4431 R82.79 Health Concerns Section Related Observation LastModified by Organization Detai ls LastModified Time None Recorded Concern Status LastModified by Organization Details LastModified Time None Recorded Advance Directives Directive None Recorded Payers Insurance Date Sequence Insurance Name Policy Number Policy Lamar Covered Member ID Lamar Member ID Guarantor Name 09/23/2022 1 [facility] [facility] [id number] John Gallagher [id number] Padma Gallagher 09/22/2022 1 [employer] [id number] Padma Gallagher [id number] Padma Gallagher 09/22/2022 1 [facility] [id number] Padma Gallagher [id number] Padma Gallagher Notes Date Note Type Note Provider Name and Address Organization Details Recorded Time 03/21/2018 text/html Padma is a 33 yo new female who presents today s/p ER visit at [facility] for kidney stones. Her pain started 6 days ago, last Tuesday in the left flank , hematuria, n/v, and fever. She initially was seen by her ironer hand who prescribed macrobid. Then 3 days ago her pain increased and she trini to the [facility] ER, where a CT scan showed 5mm stone in the distal UVJ with high grade obstruction. She continues with pain and discomfort. She has no other complaints or concerns today. ALMA MICHAEL MD [address] [place] [address], [phone], [facility] 03/21/2018 12:55:03 03/27/2018 text/html 33 y/o female he re today for a f/u after having cystoscopy with left ureteroscopy, laser lithotripsy, basket stone extraction, and stent insertion 03/22/18. She denies any current gross hematuria. She did mention she has had an intermittent low grade fever. She denies any other urinary complaints/concerns today. ALMA MICHAEL MD [address] [place] [address], [phone], [facility] 03/27/2018 12:56:11 04/28/2018 text/html Padma is a 33 yo female who returns after one month s/p left ureteroscopic laser lithotripsy with basket extraction in February. She has had no further passage of stone fragments and no flank pain. She continues to complain of bladder spasm/discomfort, occasional dysuria and constant urge to void. Symptoms are worse with physical exertion, exercise and sexual activity. She gets transient relief with pyridium. She also has intermittent gross hematuria. ALMA MICHAEL MD [address] [place] [address], [phone], [facility] 04/28/2018 16:49:50 09/23/2022 text/html 37 year old laura peace with history of kidney stones. She has a history of urolithiasis. She passed her first stone in 2008 after giving . She was seen by Dr. Michael in 2017 and underwent a left ureteroscopy and stone extraction. In 07/2022, she had 2 weeks of gross hematuria and right flank pain. She went to the ER at [facility] on 08/24/22. A CT scan showed a 2 mm stone at the right UVJ with mild hydronephrosis and hydroureter as well as multiple non obstructing left renal stones with the largest measuring 4 mm. She was able to pass the right ureteral stone one week later. She denies any flank pain or dysuria today. She has some urgency occasionally. She denies frequency. She has occasional stress incontinence. She has never been a smoker. BERNARDINO BLACKMON, DITCH INSPECTOR [address] [place], [address], [facility] 09/23/2022 11:02:41 OBGyn Episode No OBEpisode recorded.
--- OUTSIDE RECORDS SUMMARY | 2025-03-08 08:42 | XMS_ITS | Patient Health Record ---
[facility] [address] [facility] [address] [place] [id number] Care Team Providers Care Squeak Rattle And Leak Repairer Name Role Phone Kartik Russo Primary Care Provider Titus Virgen Unavailable [phone] Sofi Reddy Unavailable [phone] Harleen Collazo Unavailable [phone] Lisa Wagner Unavailable [phone] Allergies Allergen (clinical drug ingredient) Drug/Non Drug [...] - 38 plat 266 100 - 400 CBC Venipuncture (in house) Reviewed date:02/20/2025 05:05:13 [...] Normal Performing Lab: Notes/Report: Test performed by [facility] [address] [place] [address] , [address], [place] [address] Mohit Hendrix MD, [employer] CLIA: [id number] Thyroxine Free (free T4) 1.27 0.86-1.76 ng/dL P-TSH Reviewed date:02/22/2025 09:46:57 AM Interpretation: Normal Performing Lab: Notes/Report: Test performed by [facility] [address] , [address], [place] [address] Moiht Hendrix MD, [employer] CLIA: [id number] TSH 0.86 0.43-5.25 mU/L P-Vitamin D 25-Hydroxy Reviewed date:02/22/2025 09:46:57 AM Interpretation:25.8 Performing Lab: Notes/Report: Test performed by [facility] [address] , [place] [address] Mohit Hendrix MD, [employer] CLIA: [id number] Vitamin D 25-Hydroxy 25.8 30.0-100.0 ng/mL Interpretation of Vitamin D 25 OH: < 20 ng/mL - Deficiency 20 - 29 ng/mL - Insufficiency 30 - 100 ng/mL - Sufficiency > 100 ng/mL - Super-therapeutic- toxicity may occur above this level. Clinical correlation required. CBC Fingerstick (in house) Reviewed date:02/27/2025 07:01:52 [...] - 38 plat 264 100 - 400 TEN-UTI panel Reviewed date:05/03/2024 12:15:10 PM Interpretation:Negative Performing Lab: Notes/Report: Negative Urinalysis - Inhouse Reviewed date:04/26/2024 04:45:41 PM Interpretation: Performing Lab: Notes/Report: Color/Clarity straw Leuk neg Nitrite neg Urobili 16 Protein neg pH 6.0 Blood 3+ Sp. Gr. >=1.030 Ketone neg Bili 1+ Gluc neg Mammogram Reviewed date:09/28/2024 07:55:55 AM Interpretation: Performing Lab: Notes/Report: Urinalysis - Inhouse Reviewed date:07/26/2024 02:47:48 PM Interpretation: Performing Lab: Notes/Report: Color/Clarity yellow Leuk neg Nitrite neg Urobili 3.2 Protein neg pH 7 Blood neg Sp. Gr. 1.015 Ketone neg Bili neg Gluc neg Urinalysis - Inhouse Reviewed date:08/01/2024 12:56:24 PM Interpretation: Performing Lab: Notes/Report: Color/Clarity malika/cloudy Leuk Neg Nitrite Neg Urobili 3.2 Protein Trace pH 6.0 Blood Trace-intact Sp. Gr. 1.025 Ketone Trace Bili 1+ Gluc Neg CBC Venipuncture (in house) Reviewed date:08/01/2024 12:56:38 PM Interpretation: Performing Lab: Notes/Report: wbc 7.5 3.5 - 10 lymph 22.1% 15 - 50 mid 6.3% 2 - 15 gran 71.6% 35 - 80 rbc 4.43 3.5 - 5.5 hgb 12.9 11.5 - 16.5 hct 38.8 35 - 55 mcv 87.7 75 - 100 mch 29.2 25 - 35 mchc 33.3 31 - 38 platlet 354 100 - 400 P-Comprehensive Metabolic Pa veronica (CMP) Reviewed date:08/09/2024 09:07:30 AM Interpretation: Performing Lab: Notes/Report: Test performed by [facility] [facility] [employer] [address] [place] [address] , [address], [place] [address] Mohit Hendrix MD, [employer] CLIA: [id number] Sodium 138 135-145 mmol/L Potassium 4.3 3.5-5.3 mmol/L Chloride 103 97-108 mmol/L CO2 25 22-32 mmol/L Glucose 82 65-99 mg/dL BUN 10 6-20 mg/dL Creatinine 0.90 0.50-1.00 mg/dL Calcium 9.5 8.6-10.4 mg/dL eGFR by Creatinine 82 >59 mL/min/1.73m2 Protein 6.9 6.0-8.3 g/dL Albumin 4.4 3.5-5.3 g/dL Alkaline Phosphatase 99 35-121 IU/L ALT (SGPT) 30 <5-47 IU/L AST (SGOT) 17 <5-40 IU/L Bilirubin, Total 0.4 <0.2-1.2 mg/dL A/G Ratio 1.8 1.1-2.5 P-Culture, Urine Reviewed date:08/03/2024 10:06:52 AM Interpretation: Performing Lab: Notes/Report: Test performed by [facility] [address] [place] [address] , [place] [address] Mohit Hendrix MD, [employer] CLIA: [id number] Specimen Source Urine - Void Culture, Urine See Below Final Report : No growth Urinalysis - Inhouse Reviewed date:07/13/2024 04:38:53 PM Interpretation: Performing Lab: Notes/Report: Leuk neg Nitrite neg Urobili 3.2 Protein 1+ pH 7.0 Blood 3+ Sp. Gr. 1.025 Ketone neg Bili neg Gluc neg P-Culture, Urine Reviewed date:07/16/2024 10:26:27 AM Interpretation:No growth Performing Lab: Notes/Report: Test performed by [facility] [address] [place] [address] , [place] [address] Mohit Hendrix MD, [employer] CLIA: [id number] Specimen Source Urine - Void Culture, Urine See Below Final Report : No growth Medications Medication SIG (Take, Route, Frequency, Duration) Notes Start Date End Date Status Amitriptyline HCl 25 mg TAKE ONE TABLET BY MOUTH EVERY DAY AT BEDTIME for 30 Active Levothyroxine Sodium 50 mcg TAKE ONE TAB LET BY MOUTH EVERY MORNING ON an EMPTY stomach for 30 Active Xarelto 20 mg TAKE ONE TABLET BY M OUTH ONCE DAILY IN THE EVENING for 90 Active Doxycycline Hyclate 100 MG 1 tablet Oral ly twice a day for 10 days 02/26/2025 Active Clindamycin HCl 300 MG 1 capsule Orally every 12 hrs for 7 days 02/20/2025 Active Immunizations Vaccine Route Administration Date Status Comme nts Hepatitis A (adult) IM Intramuscular 09/15/2018 Administer ed Problems Problem Type SNOMED Code ICD Code Onset Dates Problem Status W/U Status Risk Notes Problem 46000766 Vitamin D deficiency (E55.9) Active confirmed Problem Dysphagia (R13.10) Active confirmed Problem Thyroid nodule (718866906) Thyroid nodule (E04.1) Active confirmed Problem 698132023 Acquired hypothyroidism (E03.9) Active confirmed Problem 559501673 Non morbid obesity, unspecified obesity type (E66.9) Active confirmed Problem 66282292 Kidney stone on right side (N20.0) Active confirmed Problem 60879701 Renal stone (N20.0) Active confirmed Problem 833089171 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) Active confirmed Problem 647439737 Intractable migraine without status migrainosus, unspecified migraine type (G43.919) Active confirmed Problem 112214182 History of deep vein thrombosis (DVT) of lower extremity (Z86.718) Active confirmed Problem 11972565 Facial paresthes ia (R20.2) Active confirmed Vital Signs Heart Rate 93 /min 02/26/2025 Blood pressure diastolic 80 mm Hg 02/26/2025 Height 68 in 02/26/2025 Blood pressure systolic 102 mm Hg 02/26/2025 Weight 199.2 lbs 02/26/2025 BMI 30.28 kg/m2 02/26/2025 Encounters Encounter Location Date Provider Diagnosis [facility] [address] [facility] [address] [facility] [address] [place], [place] [id number] 04/26/2024 R Jey Reddy Renal colic N23 and Hematuria R31.9 [facility] [address] [facility] [address] [place], [place] [id number] 07/02/2024 Kartik Cadogan Left flank pain R10. 9 ; Gross hematuria R31.0 and Acute UTI N39.0 [facility] [address] [facility] [address] [place], [place] [id number] 07/13/2024 Lisa Crowdy Left flank pain R10. 9 ; Gross hematuria R31.0 ; Acute UTI N39.0 and Renal stone N20.0 [facility] [address] [facility] [address] [place], [place] [id number] 07/19/2024 Lisa Crowdy Left flank pain R10. 9 ; Gross hematuria R31.0 ; Acute UTI N39.0 and Renal stone N20.0 [facility] [address] [facility] [address] [place], [place] [id number] 07/26/2024 Lisa Crowdy Left flank pain R10. 9 ; Renal stone N20.0 ; Status post cystoscopy Z98.890 ; Hydronephrosis, left N13.30 and Renal insufficiency N28.9 [facility] [address] [facility] [address] [place], [place] [id number] 08/01/2024 Lisa Crowdy Left flank pain R10. 9 ; Renal stone N20.0 ; Status post cystoscopy Z98.890 ; Hydronephrosis, left N13.30 ; Renal insufficiency N28.9 and Elevated LFTs R79.89 [facility] [address] [facility] [address] [place], [place] [id number] 10/31/2024 Lisa Crowdy Gastroenteritis K52. 9 [facility] [address] [facility] [address] [place], [place] [id number] 02/20/2025 Kartik Cadogan Acute URI J06.9 ; 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 ; Vitamin D deficiency E55.9 and Acquired hypothyroidism E03.9 [facility] [address] [facility] [address] [place], [place] [id number] 02/26/2025 Harleen Collazo Acute pansinusitis, unspecified J01.40 and Thyroid nodule E04.1 [facility] [address] [facility] [address] [place], [place] [id number] 07/03/2024 Kartik Cadogan [facility] [address] [facility] [address] [place], [place] [id number] 09/17/2024 Kartik Cadogan [facility] [address] [facility] [address] [place], [place] [id number] 02/22/2025 Kartik Cadogan Assessments Encounter Date Diagnosis (ICD Code) Assessment Notes Treatment Notes Treatment Clinical Notes Section Notes 04/26/2024 Hematuria (ICD-10 - R31.9) 04/26/2024 Renal colic (ICD-10 - N23) Call for fever or worsening pain 07/02/2024 Gross hematuria (ICD-10 - R31.0) 07/02/2024 Left flank pain (ICD-10 - R10.9) 07/13/2024 Gross hematuria (ICD-10 - R31.0) 07/13/2024 Left flank pain (ICD-10 - R10.9) 07/19/2024 Gross hematuria (ICD-10 - R31.0) 07/19/2024 Left flank pain (ICD-10 - R10.9) 07/26/2024 Left flank pain (ICD-10 - R10.9) I spoke with the urology office today. They state the patient still has a stent in place. The patient was unaware of this. They are going to see her tomorrow. Her renal function as well as her LFT's were elevated. She will f/u next Tue and we will recheck these labs. Awaiting records from [facility]. 07/26/2024 Renal stone (ICD-10 - N20.0) Will have surgery tomorrow for kidney stones. May need a stent after procedure to pass remaining stones. Will need to continue to remain off work and will f/u next Tuesday. Will keep surgery date with urology tomorrow. 08/01/2024 Left flank pain (ICD-10 - R10.9) Patient saw urology and was told everything was normal. There was no stent left in place. She is now feeling better. There is still blood in the urine. Will recheck in a few weeks. Okay to return to work. 08/01/2024 Renal stone (ICD-10 - N20.0) 02/20/2025 Acute URI (ICD-10 - J06.9) 02/20/2025 Neoplasm of uncertain behavior of soft tissues of axilla (ICD-10 - D48.19) 02/26/2025 Acute pansinusitis, unspecified (ICD-10 - J01.40) [...] another thyroid ultrasound to monitor the nodule. 10/31/2024 Gastroenteritis (ICD-10 - K52.9) Nausea and vomiting are a little better today. Will orally rehydrate. Diarrhea has resolved. 02/20/2025 Vitamin D deficiency (ICD-10 - E55.9) 08/01/2024 Status post cystoscopy (ICD-10 - Z98.890) 07/26/2024 Status post cystoscopy (ICD-10 - Z98.890) 07/19/2024 Acute UTI (ICD-10 - N39.0) Resolved. A U/A was checked at the urology office yesterday and patient states it was normal. 07/13/2024 Acute UTI (ICD-10 - N39.0) U/A does look better. Will culture before starting more abx. 07/02/2024 Acute UTI (ICD-10 - N39.0) 07/13/2024 Renal stone (ICD-10 - N20.0) Needs to be off work from 07/05/24 - 07/20/24. Will keep f/u with urology. 07/19/2024 Renal stone (ICD-10 - N20.0) Will have surgery tomorrow for kidney stones. May need a stent after procedure to pass remaining stones. Will need to continue to remain off work and will f/u next Tuesday. Will keep surgery date with urology tomorrow. 07/26/2024 Hydronephrosis, left (ICD-10 - N13.30) 08/01/2024 Hydronephrosis, left (ICD-10 - N13.30) Resolved. 02/20/2025 Acquired hypothyroidism (ICD-10 - E03.9) 08/01/2024 Renal insufficiency (ICD-10 - N28.9) 07/26/2024 Renal insufficiency (ICD-10 - N28.9) 08/01/2024 Elevated LFTs (ICD-10 - R79.89) Plan Of Treatment Pending Test Test Name Order Date CT Scan : Abd & Pelvis stone protocol (w ithout contrast) 07/02/2024 ultrasound : thyroid 02/26/2025 Insurance Providers Payer Name Payer Address Payer Phone Subscriber Number Group Number Insured Name Patient Relationship to Insured Coverage Start Date Coverage End Date [employer] [address] [place] [address] [id number] Manisha Gallagher Self - patient is the insured Medications Administered Medication Instructions Date of Administration Dosage Notes Zofran 05/08/2020 4 mg Medical (General) History Medical History History ICD Code Irritable Bowel Syndrome DVT, s/p bilateral compartme nt syndrome due to intraoperatine aortic injury during cholecystectomy LT Leg DVT, 10/2014 kidney stones Esophageal reflux Vitamin D deficiency Surgical History Surgery Date(Month/Year) Cholecystecomy 2002 Intra Operative Aorta Injury 2002 Fasciotmy Both Legs 2002 08/11/2009 06/29/2012 Kidney Stone Removal - Maikol 02/2018 EGD and Esopogeal Stretching 03/06/2024 Hospitalization History Reason Date(Month/Year) [facility] - Hematuria 07/01/2024 LT Knee Abcess- [facility] 08/25-08/26 RT Leg Pain- [facility] 11/03/2014 Shoulder 02/03/2011 Appendicitis Pneumonia
--- OUTSIDE RECORDS SUMMARY | 2025-03-08 08:42 | XMS_ITS | Encounter Summary ---
Author Organization [facility] Address [address] [place] [address] Care Team Providers Care Cabinetmaker Maintenance Name Role Phone Kartik Russo MD Primary Care Provider + [phone] Reason for Referral * Consultation (Routine) - Closed Specialty Diagnoses / Procedures Referred By Kieran mota Referred To Contact Dentist / Pain Medicine Diagnoses Obstructive sleep apnea (adult) (pediatric) Minerva Parr APRN [address] [place] [address] Phone: tel: fax: [place] [facility] [address] [place] [address] Phone: tel: fax: Referral ID Status Reason Start Date Expiration Date Visits Re quested Visits Authorized [id number] Closed 06/23/2023 12/22/2024 1 1 Encounter Details Date Type Department Care Team (Late st Contact Info) Description 06/23/2023 Community [facility] [address] [place] [address] Minerva Parr APRN [address] [place] [id number] Obstructive sleep apnea (adult) (pediatric) (Primary Dx) Social History Tobacco Use Types Packs/Day Years [...] on file Sexual Orientation Not on file documented as of this encounter Plan of Treatment Scheduled Referrals Name Type Priority Associated Diagnoses Order Schedule Ambulatory Referral to [facility] Outpatient Referral Routine Obstructive sleep apnea (adult) (pediatric) Expected: 06/23/2023 (Approximate), Expires: 12/21/2024 documented as of this encounter Visit Diagnoses Diagnosis Obstructive sleep apnea (adult) (pediatric)- Primary documented in this encounter Additional Health Concerns Infection Onset Date Last Indicated Resolved Time MRSA 02/14/2021 02/14/2021 Assessment Noted Time A fall risk assessment has been complete d for the patient 12/03/2022 7:34 AM EST A Body Mass Index follow-up plan has been documented for the patient 12/03/2022 12:30 PM EST documented as of this encounter Care Teams Cabinetmaker Maintenance Relationship Specialty Start Date End Date Kartik Russo MD [facility] [place] [address] PCP - General 02/06/21 documented as of this encounter
--- NOTE | 2025-03-08 08:43 | US_ITS ---
FINAL REPORT TECHNIQUE: Real-time grayscale and color ultrasound of the thyroid was performed. CLINICAL HISTORY: NODULE; hypothyroidism COMPARISON: 02/14/2024 FINDINGS: The thyroid gland measures 49 x 12 x 10 mm on the right and 51 x 8 x 14 mm on the left. The isthmus measures 3 mm. The parenchyma is unremarkable . Nodules: Again noted is a solid hypoechoic TR 4 nodule on the right measuring 8 mm. IMPRESSION: Right TR 4 nodule measuring less than 1 cm. Per TI-RADS criteria, no follow-up required. Reviewed, Interpreted and Dictated by Woody Hernandez MD Transcribed by Merry Branham Authenticated and [facility]
--- OUTSIDE RECORDS SUMMARY | 2025-03-08 08:43 | XMS_ITS | Data Portability ---
Author Organization [facility] [employer] [place] [facility] Address [address] [place] [address] Assessment No assessment recorded. Plan of Treatment Reminders Order Date Submit Date Provider Last Modified By Organization Details Last Modified Time Details Appointments None recorded. Lab rapid flu (A+B) [address], [address], 4 17:40:59 rapid SARS CoV 2 Ag, QL, [place], upper respiratory specimen [address], [address], 4 17:40:59 rapid flu (A+B) [address], [address], 2 10:19:15 rapid SARS CoV 2 Ag, QL, [place], upper respiratory specimen [address], [address], 2 10:19:15 Referral museum specialist referral - Needs a early or late Tuesday appt. 2024 025 [facility], [address], [address], [place], [address], 5 19:04:22 Procedures None recorded. Surgeries None recorded. Imaging None recorded. Medication Orders Bromfed DM 2 mg-30 mg-10 mg/5 mL oral syrup 2021 022 [email or web address] 1 [facility], [address] [place], [address], 4 14:39:36 Patient TargetsNo targets recorded. Patient InstructionsNo instructions recorded. 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 Referring Physician: Chelsey Mendoza, Family Medicine, Encounter Date: 10/26/2024 Results Created Date Observation Date Name Description Value Unit Range Abnormal Flag Note LastModifiedBy Organization Detail LastModifiedTime 09/06/20 22 09/06/2022 rapid SARS CoV 2 Ag, QL, [place], upper respi rator y speci men SARS CoV Ag positi ve Not Available [address], [address], 09/06/2022 09:59:08 09/06/20 22 09/06/2022 rapid flu (A+B) Flu A negati ve Not Available [address], [address], 09/06/2022 09:59:06 09/06/20 22 09/06/2022 rapid flu (A+B) Flu B negati ve Not Available [address], [address], 09/06/2022 09:59:06 10/11/19 24 10/11/2023 rapid flu (A+B) Flu A negati ve Not Available [address], [address], 10/11/2023 10:35:48 10/11/19 24 10/11/2023 rapid flu (A+B) Flu B positi ve Not Available [address], [address], 10/11/2023 10:35:48 10/11/19 24 10/11/2023 rapid SARS CoV 2 Ag, QL, [place], upper respi rator y speci men SARS CoV Ag negati ve Not Available [address], [address], 10/11/2023 10:35:49 Result Notes None recorded. Problems Name Problem SNOMED Code Status Onset Date Resolution Date Notes Provider Name and Address Organization Details Recorded Time Cough 21135421 Completed 202009/06/2022 Problem Code: R05; Problem Code Type: ICD-10; HEIDI MARTELL null, [employer] 09:57:13 Pyrexia of unknown origin 2377514 Active 2020 Problem Code: R50.9; Problem Code Type: ICD-10; Not Available [facility] 22:24:44 Myositis 00648170 Active 2020 Problem Code: M60.9; Problem Code Type: ICD-10; Not Available [facility] 22:24:44 COVID-19 814549590 Completed 202009/06/2022 Problem Code: U07.1; Problem Code Type: ICD-10; HEIDI MARTELL null, [employer] 09:57:13 Problem Notes None recorded. Procedures Surgical History Date Name Laterality Status Provider Name and Address Organization Details Recorded Time 08/26/20 24 Most Recent Mammogram completed HEIDI MARTELL [employer] 10/26/2024 16:22:50 04/30/20 21 section completed Not Available [facility] 06/01/2022 22:56:15 04/30/20 21 cholecystectomy completed Not Available [facility] 06/01/2022 22:56:16 04/30/20 21 appendectomy completed Not Available [facility] 06/01/2022 22:56:18 Incise thigh tendon & fascia completed Chelsey Mendoza APRN [address] [place], [address], [facility] [employer] 10/28/2024 14:17:06 Imaging Results None recorded. Procedure Notes None recorded. Medical Equipment None Reported. Allergies Allergen ID Allergen Name Allergen Category Reaction Reaction Severity Criticality Documentation Date Start Date Code Code System Note Provider Name and Address Organization Details Recorded Time 83197 Product containin g penicilli n (product) medicatio n Not available Not available Not available 06/01/2022 94958 8001 SNOMED Aller gyCod e: ''; Aller gyNam e: 'Peni cilli ns'; Aller gyCon ceptT ype: ''; Not Available [facility] 2 22:55:00 66469 Rocephin medicatio n Not available Not available Not available 06/01/2022 9449 RxNorm Not Available [facility] 2 22:55:09 Medications Name Sig Start Date Stop Date Status Note LastModified by Organization Details LastModified Time Bromfed DM 2 mg-30 mg-10 mg/5 mL oral syrup Take 10 mL every 4 hours by oral route as needed. 10/11 completed Not Available Not Available Not Available azithromyci n 250 mg tablet TAKE 2 TABLETS BY MOUTH ON DAY 1, THEN TAKE 1 TABLET DAILY ON DAYS 2-5 10/11 completed Not Available Not Available Not Available fluconazole 150 mg tablet TAKE ONE TABLET BY MOUTH EVERY 3 DAYS FOR 2 doses 10/11 completed Not Available Not Available Not Available hydrocodone 5 mg-acetamin ophen 325 mg tablet TAKE 1 TABLET BY MOUTH EVERY 6 HOURS NEEDED FOR PAIN 10/26 completed Not Available Not Available Not Available ondansetron HCl 4 mg tablet 10/11 completed Not Available Not Available Not Available terconazole 0.8 % vaginal cream INSERT ONE APPLICATO RFUL VAGINALLY EVERY DAY AT BEDTIME FOR 3 DAYS 10/11 completed Not Available Not Available Not Available ciprofloxac in 500 mg tablet TAKE 1 TABLET BY MOUTH TWICE DAILY FOR 7 DAYS 10/26 completed Not Available Not Available Not Available sulfamethox azole 800 mg-trimetho prim 160 mg tablet TAKE 1 TABLET BY MOUTH TWICE DAILY 10/26 completed Not Available Not Available Not Available tramadol 50 mg tablet TAKE 1 TABLET BY MOUTH EVERY 6 HOURS NEEDED FOR MODERATE PAIN (4-6) 10/26 completed Not Available Not Available Not Available levothyroxi ne 25 mcg tablet TAKE ONE TABLET BY MOUTH EVERY DAY 10/26 completed Not Available Not Available Not Available ketorolac 10 mg tablet TAKE 1 TABLET BY MOUTH EVERY 4 HOURS NEEDED NOT TO EXCEED 4 TABLETS IN 24 HOURS FOR UP TO 5 DAYS TOTAL USE 10/26 completed Not Available Not Available Not Available oxycodone-a cetaminophe n 5 mg-325 mg tablet TAKE 1 TABLET BY MOUTH EVERY 4 HOURS NEEDED FOR PAIN 10/26 completed Not Available Not Available Not Available propranolol 40 mg tablet TAKE ONE TABLET BY MOUTH TWICE DAILY 10/11 completed Not Available Not Available Not Available amitriptyli ne 25 mg tablet TAKE ONE TABLET BY MOUTH AT BEDTIME active Not Available Not Available No t Available tamsulosin 0.4 mg capsule TAKE ONE CAPSULE BY MOUTH EVERY DAY 10/26 completed Not Available Not Available Not Available amitriptyli ne 10 mg tablet TAKE TWO TABLETS BY MOUTH EVERY DAY AT BEDTIME FOR chronic migraine 10/26 completed Not Available Not Available Not Available doxycycline monohydrate 100 mg capsule TAKE ONE CAPSULE BY MOUTH TWICE DAILY FOR 7 DAYS -- FINISH ALL MEDICINE -- 10/11 completed Not Available Not Available Not Available levothyroxi ne 50 mcg tablet TAKE ONE TABLET BY MOUTH EVERY DAY IN THE MORNING ON EMPTY STOMACH active Not Available Not Available No t Available pantoprazol e 40 mg tablet,fidel yed release TAKE 1 TABLET BY MOUTH ONCE DAILY active Not Available Not Available No t Available neomycin-po lymyxin-dex ameth 3.5 mg/mL-10,00 0 unit/mL-0.1 % eye drops INSTILL ONE DROP IN THE LEFT EYE FOUR TIMES DAILY FOR FOUR DAYS 10/26 completed Not Available Not Available Not Available promethazin e 25 mg tablet take 1/2 - 1 tablet (25 mg) by oral route every 6 hours as needed prn N/V 09/06 completed Not Available Not Available Not Available hydroxychlo roquine 200 mg tablet TAKE ONE TABLET BY MOUTH TWICE DAILY --TAKE WITH FOOD-- 10/11 completed Not Available Not Available Not Available methylpredn isolone 4 mg tablets in a dose pack TAKE ACCORDING TO PACKAGE INSTRUCTI ONS --TAKE WITH FOOD-- -- FINISH ALL MEDICINE -- 10/26 completed Not Available Not Available Not Available ondansetron 4 mg disintegrat ing tablet DISSOLVE 1 TABLET IN MOUTH EVERY 6 TO 8 HOURS NEEDED 10/26 completed Not Available Not Available Not Available [employer] Thyroid 30 mg tablet TAKE ONE TABLET BY MOUTH EVERY DAY 10/11 completed Not Available Not Available Not Available Xarelto 20 mg tablet TAKE ONE TABLET BY MOUTH ONCE DAILY IN THE EVENING active Not Available Not Available No t Available Ubrelvy 100 mg tablet FOR MIGRAINE; TAKE 1 TABLET BY MOUTH AT ONSET OF SYMPTOMS. MAY REPEAT AFTER TWO HOURS IF SYMPTOMS PERSIST. MAX 2 TABLETS IN 24 HOURS. MAX 4 TABLETS PER WEEK. 10/11 completed Not Available Not Available Not Available [facility] ODT 75 mg disintegrat ing tablet DISSOLVE ONE TABLET UNDER THE TONGUE NEEDED FOR MIGRAINE HEADACHE; MAX DOSE 75MG IN 24 HOURS active Not Available Not Available No t Available Wegovy 1.7 mg/0.75 mL subcutaneou s pen injector INJECT 1 SYRINGE SUBCUTANE OUSLY ONCE A WEEK 10/26 completed Not Available Not Available Not Available Vitals Date Recorded Body weight Body mass index (BMI) Body height Body temperature Heart rate Oxygen saturation Oxygen saturation in Arterial blood by Pulse oximetry Systolic blood pressure Diastolic blood pressure Provider Name and Address Organization Details Last Updated DateTime 4 37353.3 3 g 28.5 kg/m2 175.26 cm 97.5 [degF] 83 /min 99 % 99 % 95 mm[Hg] 64 mm[Hg] Cass R[facility] LOC&ALL [facility]. 4 14:41:58 Date Recorded Body height Body mass index (BMI) Body weight Body temperature Heart rate Oxygen saturation Oxygen saturation in Arterial blood by Pulse oximetry Systolic blood pressure Diastolic blood pressure Provider Name and Address Organization Details Last Updated DateTime 5 175.26 cm 32.4 kg/m2 36679.1 7 g 98 [degF] 101 /min 99 % 99 % 125 mm[Hg] 76 mm[Hg] [employer]IDI [employer] 5 16:20:37 Date Recorded Body weight Body temperature Heart rate Oxygen saturation Oxygen saturation in Arterial blood by Pulse oximetry Provider Name and Address Organization Details Last Updated DateTime 2 927520. 17 g 100 [degF] 106 /min 98 % 98 % HEIDI [employer]. 2 09:56:32 Social History Question Answer Notes LastModified by Organizat ion Details LastModified Time Tobacco Smoking Status Never Smoker [employer] ion: 'Tobacco/ Alcohol/S upplement s'; SocialHis toryRespo nse: 'Never Smoker'; Not Available [facility] 06/01/2022 22:55:35 Do You Have An Advance Directive? No Information not available 09/06/2022 Is Your Home Air Conditioned? Yes Information not available 09/06/2022 In The 14 Days Before Symptom Onset, Have You Had Close Contact With A Laboratory-confir med COVID-19 While That Case Was Ill? No Information not available 09/06/2022 In The 14 Days Before Symptom Onset, Have You Had Close Contact With A Person Who Is Under Investigation For COVID-19 While That Person Was Ill? No Information not available 09/06/2022 Have You Been To An Area Known To Be High Risk For COVID-19? No Information not available 09/06/2022 What Type Of Diet Are You Following? REGULAR Information not available 09/06/2022 Who Is Your Employer? [employer] Information not available 09/06/2022 Have There Been Any Changes To Your Family Or Social Situation? No Information no t available 09/06/2022 Are There Any Guns Present In Your Home? No Information not available 09/06/2022 Do You Have A Medical Power Of Electrician Manager? No Information not available 09/06/2022 What Was The Date Of Your Most Recent Tobacco Screening? 10/11/2023 [email or web address] Information not available 10/11/2023 What Is Your Relationship Status? Information not available 09/06/2022 Do You Use Your Seat Belt Or Car Seat Routinely? Yes Information not available 09/06/2022 Do You Have Smoke And Carbon Monoxide Detectors In Your Home? Yes Information not available 09/06/2022 Are You Passively Exposed To Smoke? No Information no t available 09/06/2022 Are There Any Smokers In Your House? No Information not available 09/06/2022 Do You Use Sunscreen Routinely? No Information not available 09/06/2022 Has Tobacco Cessation Counseling Been Provided? No Information not available 09/06/2022 Have You Recently Traveled Abroad? No Information not available 09/06/2022 Are You Currently In School? No Information not available 09/06/2022 Do You Have Any Dietary Restrictions? No Information not available 09/06/2022 Sex: Female Functional Status Question Answer Note LastModified by [employer] Details LastModified Time Do you use any illicit or recreational drugs? No Information not available 09/06/2022 Do you or have you ever used any other forms of tobacco or nicotine? No Information not available 09/06/2022 What is your level of alcohol consumption? None Information not available 09/06/2022 Are you currently employed? Yes Information not available 09/06/2022 Do you have transportation difficulties? No Information not available 09/06/2022 Are you able to care for yourself? Yes Information not available 09/06/2022 Mental Status None recorded. Family History Relationship Description Onset Age of this Age Resolved Age Notes LastModified by Organization Details LastModified Time Unspecified Relation Family history of Hypertension Relati ve: ''; [email or web address] Not available 06/01/2022 22:56:56 Unspecified Relation Family history of breast cancer Relati ve: ''; [email or web address] Not available 06/01/2022 22:56:56 Notes:*Procedure Description : Documented family medical history in mother*Relative: Mother *Procedure Description: Documented family medical history in father*Relative: Father Medical History Condition Response Hypothyroidism Y Gynecological History Statement/Question Response Most Recent Mammogram 08/26/2024 Obstetrics History GPAL:G 0 P 0 0 0 0 Past Encounters Encounter ID Performer Location Encounter Start Date Encounter Closed Date Diagnosis/Indication Diagnosis SNOMED-CT Code Diagnosis ICD10 Code Diagnosis Note [id number] Chelsey Mendoza[address] [address] 09/06/2022 09:42:40 09/06/2022 10:26:46 Acute upper respiratory infection 66042304 J06.9 COVID-19 265198774 U07.1 Patient presented with symptoms of upper respirator y infection. Advised to drink plenty of fluids, run a cool-mist humidifier in room at night, gargle salt water for sore throat, and get plenty of rest. Patient should avoid over-exert ion and reduce exposure to irritants such as smoke, cold, dry air, and dust. Treatment currently involves symptomati c relief. Patient may take acetaminop hen or ibuprofen as directed to reduce fever and body aches. Antihistam ine and decongesta nt usage was discussed and recommenda tions made. Patient understood these instructio ns and will follow up in the office in 10 days to 2 weeks if symptoms not improving. [id number] Desiree Arceo [place] [phone] 10/11/2023 14:11:23 10/11/2023 15:08:22 Cough 72263287 R05.9 Influenza caused by Influenza B virus 73965325 J10.1 Body mass index 25-29 - overweight 556918457 Z68.28 [id number] Chel[address] Mendoza[address] [address] 10/26/2024 16:09:12 10/26/2024 16:54:46 Call[place] - lesion [id number] L84 We will refer Manisha to podiatry for treatment of her corns, considerat ion of new custom molded orthotics, possibly an ASO. Acquired p es planus of left foot [id number] 52213 M21.42 Body mass index 30+ - obesity 786256981 Z68.32 Health Concerns Section Related Observation LastModified by Organization Detai ls LastModified Time None Recorded Concern Status LastModified by Organization Details LastModified Time None Recorded Advance Directives Directive N: Payers Insurance Date Sequence Insurance Name Policy Number Policy Lamar Covered Member ID Lamar Member ID Guarantor Name 12/08/2023 1 [employer] (PPO) [id number] Manisha Gallagher [id number] Manisha Gallagher 10/29/2024 1 [place] [id number] John Gallagher [id number] Manisha Gallagher Notes Date Note Type Note Provider Name and Address Organization Details Recorded Time 09/06/2022 text/html Upper Respirator y SymptomsReported bypatient.Location:hea d; throat; nasal Quality:congested;dry cough Severity:mild Duration:symptoms lasting less than 2 weeks Onset/Timing:date of onset:; 09/04/22 Context:sick contact; Spouse has covid, she is unvaccinated Alleviating Factors:analgesics; decongestant Associated Symptoms:no chest pain; no sputum production; no shortness of breath; no wheezing; no cyanosis; no change in number of pillows needed to sleep at night; no sweats; no diarrhea; no rash; no nausea; no conjunctivitis;fatigue ;fever;morning cough;sore throat;headache;chills ;malaise Chelsey Mendoza APRN [address] [place], [address], [employer] 09/06/2022 10:37:57 10/11/2023 text/html pt here today wi th c/o cough and fatigue x5 days with worsening symptoms today. rapid flu b positive. pt to rest x3 days, increase fluids, tylenol/ibuprofen for pain/fever. return for worsening symptoms. Desiree Arceo APRN [address] [place], [address], [employer] 10/11/2023 17:30:10 10/26/2024 text/html Manisha has hx bilateral fasciotomy bilateral lower legs. She has chronic muscle atrophy and weakness in both legs. Complains of two painful corns on sole of left foot for 2 months. She is wearing a custom orthotic but it is old. She has poor arch in left foot. Pressure distribution of left foot is uneven. Chelsey Mendoza APRN [address] [facility]3], [place], [address], [facility] [employer] 10/28/2024 14:17:46 OBGyn Episode No OBEpisode recorded.
== END 2025-03-08 23:59 | disposition home or self-care (01) ==
LOC: RAD 08:40
PROVIDERS: PCP Family Medicine; Visit Provider Nurse Practitioner Family
DX: E04.1 Nontoxic single thyroid nodule (principal); E03.9 Hypothyroidism, unspecified
CPT/HCPCS: 76536

== ENCOUNTER 2025-03-23 11:30 | Outpatient (CLI) | payer BC, SELFPAY ==
--- OUTSIDE RECORDS SUMMARY | 2024-10-31 10:15 | XMS_ITS ---
Author Organization [facility] Address [address] [place] [id number] Care Team Providers Care Angiography Nurse Name Role Phone RafaelaKartik Primary Care Provider [phone] Titus Virgen Unavailable [phone] Lisa Wagner Unavailable [phone] Allergies Allergen (clinical drug ingredient) Drug/Non Drug [...] 10/31/2024 Encounters Encounter Location Date Provider Diagnosis [facility] [address] [place], [place] [address] [id number] 10/31/2024 Lisa Wagner Gastroenteritis K52. 9 Assessments [...] * Manisha ARROYO RDOB:[birth year] (40 yo F)Acc No.[id number]:10/31/2024 Progress Notes Patient: Manisha MANDUJANO Provider: RASHAAD Mccullough :1985 A ge:39 Y S ex:Female Date:10/31/2024 Address:[address] [place], [place] [id number] Pcp:Kartik Russo Subjective: * Chief Complaints: * [...] 2001, 08/11/2009, 06/29/2012, Kidney Stone Removal - [place] 02/2018, EGD and Esopogeal Stretching 03/06/2024. * Hospitalization/Major Diagno stic Procedure: P neumonia , Appendicitis , Shoulder 02/03/2011, RT Leg Pain- [facility] ER 11/03/2014, LT Knee Abcess- [facility] 08/25-08/26, [facility] ER - Hematuria 07/01/2024. * Family [...] Procedure Codes: 3 6416 CAPILLARY BLOOD DRAW, 43819 CBC WITH AUTO DIFF, 84121 Flu Test- Nasal Swab, Modifiers: QW , 3074F SYST BP LT 130 MM HG, 3078F DIAST BP < 80 MM HG * Follow Up: p rn * Images: Billing Information: * Visit Code: 39562 Office Visit, Est Pt., Level 3. * Procedure Codes: 00267 CAPILLARY BLOOD DRAW. 42315 CBC WITH AUTO DIFF. 34197 Flu Test- Nasal Swab. Modifiers: QW 3074F SYST BP LT 130 MM HG. 3078F DIAST BP < 80 MM HG. * Electronic signature of RASHAAD Mosley on 03/23/2025 at 11:32 AM EDT Sign off status: Pending * Provider: RASHAAD Mccullough Date: 0 10/31/2024 Generated for Helene quispe/Simran/eTransmitting on: 0 03/23/2025 11:32 AM EDT History and Physical Notes * [...]
--- OUTSIDE RECORDS SUMMARY | 2025-02-20 12:00 | XMS_ITS ---
Author Organization [facility] Address [address] [facility] [address] [place] [phone] Care Team Providers Care Geology Professor Name Role Phone Kartik Russo Primary Care Provider Titus Virgen Unavailable [phone] Allergies Allergen (clinical drug ingredient) Drug/Non Drug Allergy documented on EMR Reaction Allergy Type Onset Date Status Medicinal cephalosporin and acting as antibacterial agent (FN) Cephalosporins Unknown Drug Allergy Active Substance with penicillin structure and antibacterial mechanism of action (substance) Penicillins Unknown Drug Allergy Active Tape Unknown Allergy Active vancomycin Vancomycin Unknown Drug Allergy Activ e Results Component Value Reference Range Notes CBC Venipuncture (in house) Reviewed date:02/20/2025 05:05:13 PM Interpretation: Performing Lab: Notes/Report: wbc 7.9 3.5 - 10 lymph 24.8% 15 - 50 mid 6.2% 2 - 15 gran 69.0% 35 - 80 rbc 4.19 3.5 - 5.5 hgb 12.2 11.5 - 16.5 hct 35.7 35 - 55 mcv 85.2 75 - 100 mch 29.1 25 - 35 mchc 34.1 31 - 38 platlet 312 100 - 400 P-T4 Free (thyroxine) Reviewed date:02/22/2025 09:46:57 AM Interpretation: Normal Performing Lab: Notes/Report: Test performed by [facility] [address] [place] [address] , [address], [place] [address] Mohit Hendrix MD, Broadcast Operations Technician CLIA: [id number] Thyroxine Free (free T4) 1.27 0.86-1.76 ng/dL P-TSH Reviewed date:02/22/2025 09:46:57 AM Interpretation: Normal Performing Lab: Notes/Report: Test performed by [facility] [address] [place] [address] , [address], [place] [address] Mohit Hendrix MD, Broadcast Operations Technician CLIA: [id number] TSH 0.86 0.43-5.25 mU/L P-Vitamin D 25-Hydroxy Reviewed date:02/22/2025 09:46:57 AM Interpretation:25.8 Performing Lab: Notes/Report: Test performed by [facility] [address] [place] [address] , [address], [place] [address] Mohit Hendrix MD, Broadcast Operations Technician CLIA: [id number] Vitamin D 25-Hydroxy 25.8 30.0-100.0 ng/mL Interpretation of Vitamin D 25 OH: < 20 ng/mL - Deficiency 20 - 29 ng/mL - Insufficiency 30 - 100 ng/mL - Sufficiency > 100 ng/mL - Super-therapeutic- toxicity may occur above this level. Clinical correlation required. REASON FOR VISIT knot under left armpit Medications Medication SIG (Take, Route, Frequency, Duration) Notes Start Date End Date Status Xarelto 20 mg TAKE ONE TABLET BY M OUTH ONCE DAILY IN THE EVENING; Duration: 90 Active Zithromax Z-Jose Antonio 250 MG as directed Orall y once daily; Duration: 5 days 02/20/2025 Active Clindamycin HCl 300 MG 1 capsule Orally every 12 hrs; Duration: 7 days 02/20/2025 Active Amitriptyline HCl 25 mg TAKE ONE TABLET BY MOUTH EVERY DAY AT BEDTIME; Duration: 30 Active Levothyroxine Sodium 50 mcg TAKE ONE TAB LET BY MOUTH EVERY MORNING ON an EMPTY stomach; Duration: 30 Active Vital Signs Blood pressure systolic 120 mm Hg 02/21/20 25 Blood pressure diastolic 82 mm Hg 025 Heart Rate 105 /min 02/20/2025 Height 68 in 02/20/2025 Weight 207 lbs 02/20/2025 BMI 31.47 kg/m2 02/20/2025 Encounters Encounter Location Date Provider Diagnosis [facility] [address] [place], [place] [phone] 02/20/2025 Kartik Russo Acute URI J06.9 ; 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 ; Vitamin D deficiency E55.9 and Acquired hypothyroidism E03.9 Assessments Encounter Date Diagnosis (ICD Code) Assessment Notes Treatment Notes Treatment Clinical Notes Section Notes 02/20/2025 Acute URI (ICD-10 - J06.9) 02/20/2025 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 :1985 A ge:40 Y S ex:Female Date:02/20/2025 Address:[address] [place] [address] [id number] Subjective: * Chief Complaints: * 1 . Knot under left armpit. * HPI: D ermatology: 40 year old female presents with c/o knot P t complains of knot in lt axilla that she noticed on Tuesday. Pt states she does not any pain, redness or drainage in the area of the knot . * ROS: C ARDIOLOGY: no D izziness. n o C hest pain. G ASTROENTEROLOGY: no N ausea. n o V omiting. U ROLOGY: no D ifficulty urinating. n o B lood in urine. * Medical History: I rritable Bowel Syndrome, DVT, s/p bilateral compartment syndrome due to intraoperatine aortic injury during cholecystectomy, LT Leg DVT, 10/2014, Kidney stones, Esophageal reflux, Vitamin D deficiency. * Surgical History: C holecystecomy 2001, Intra Operative Aorta Injury 2001, Fasciotmy Both Legs 2001, 08/11/2009, 06/29/2012, Kidney Stone Removal - [place] 02/2018, EGD and Esopogeal Stretching 03/06/2024. * Hospitalization/Major Diagno stic Procedure: P neumonia , Appendicitis , Shoulder 02/03/2011, RT Leg Pain- [facility] ER 11/03/2014, LT Knee Abcess- [facility] 08/25-08/26, [facility] ER - Hematuria 07/01/2024. * Family History: [...] no. Alcohol: no. * Medications: T aking Xarelto 20 mg Tablet TAKE ONE TABLET BY MOUTH ONCE DAILY IN THE EVENING , Taking Amitriptyline HCl 25 mg Tablet TAKE ONE TABLET BY MOUTH EVERY DAY AT BEDTIME , Taking Levothyroxine Sodium 50 mcg Tablet TAKE ONE TABLET BY MOUTH EVERY MORNING ON an EMPTY stomach , Discontinued Pantoprazole Sodium 40 MG Tablet Delayed Release 1 tablet Orally Once a day , Discontinued Promethazine HCl 25 MG Tablet 1 tablet Orally every 6 hrs, prn , Discontinued Wegovy 1.7 MG/0.75ML Solution Auto-injector 0.75 mL Subcutaneous , Discontinued Vitamin D3 50 MCG (2000 UT) Tablet as directed orally once a day , Discontinued Tamsulosin HCl 0.4 mg Capsule TAKE ONE CAPSULE BY MOUTH EVERY DAY * Allergies: P enicillins, Tape, Cephalosporins, Vancomycin. Objective: * Vitals: W t: 207, Temp: 98.2, BP: 120/82, HR: 105, Nurse: clemente, Ht: 68, BMI:31.47. * Examination: E NT/Respiratory: General Appearance: N AD. O ral cavity : e rythema without exudate on pharynx. N leroy : S hotty, nontender adenopathy. H eart : R RR, normal S1 S2. L ungs: c lear to auscultation bilaterally. S kin : l eft axilla has a 3 cm wide indurated area of skin, no fluctuance or overlying skin changes. Assessment: * Assessment: 1. A cute URI - J06.9 (Primary) 2 . N eoplasm of uncertain behavior of soft tissues of axilla - D48.19 3 . V itamin D deficiency - E55.9 4 . A cquired hypothyroidism - E03.9 Plan: * Treatment: Value Reference Range w bc 7.9 3.5 - 10 * l ymph 24.8% 15 - 50 * m id 6.2% 2 - 15 * g ran 69.0% 35 - 80 * r bc 4.19 3.5 - 5.5 * h gb 12.2 11.5 - 16.5 * h ct 35.7 35 - 55 * m cv 85.2 75 - 100 * m ch 29.1 25 - 35 * m chc 34.1 31 - 38 * p latlet 312 100 - 400 * Rochelle Piedra 02/20/2025 04:38: 54 PM > Provider reviewed results while patient in office. 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 Start Clindamycin HCl Capsule, 300 MG, 1 capsule, Orally, every 12 hrs, 7 days, 14, Refills 0.??3.?Vitamin D deficiency?LAB: P-Vitamin D 25-Hydroxy (Collection Date & Time - 02/20/2025 03:35 PM)? 25.8* Value Reference Range V itamin D 25-Hydroxy 25.8 L 30.0-100.0 - ng/mL * Tamiko Guerra 02/22/2025 09:4 6:52 AM > See phone encounter 4.?Acquired hypothyroidism?LAB: P-T4 Free (thyroxine) (Collection Date & Time - 02/20/2025 03:35 PM)? Normal* Value Reference Range T hyroxine Free (free T4) 1.27 0.86-1.76 - ng/d L * Tamiko Guerra 02/22/2025 09:4 6:52 AM > See phone encounter ?LAB: P-TSH (Collection Date & Time - 02/20/2025 03:35 PM)?Normal* Value Reference Range T SH 0.86 0.43-5.25 - mU/L * Tamiko Guerra 02/22/2025 09:4 6:52 AM > See phone encounter * Procedure Codes: 8 5025 CBC WITH AUTO DIFF, G8950 PREHTN/HTN BP DOC INDCD F/U DOC, G8752 MOST RECENT SYSTOLIC BP < 140MM HG, G8754 MOST RECENT DIASTOLIC BP < 90MM HG * Follow Up: v ia phone to report progress * Images: Billing Information: * Visit Code: 00571 Office Visit, Est Pt., Level 4. * Procedure Codes: 64713 CBC WITH AUTO DIFF. G8950 PREHTN/HTN BP DOC INDCD F/U DOC. G8752 MOST RECENT SYSTOLIC BP < 140MM HG. G8754 MOST RECENT DIASTOLIC BP < 90MM HG. * Electronic signature of Yudy Russo MD on 03/23/2025 at 11:32 AM EDT Sign off status: Pending * Provider: Neisha Russo M.D. Date: 0 02/20/2025 Generated for Helnee quispe/Simran/eTransmitting on: 0 03/23/2025 11:32 AM EDT History and Physical Notes * HPI (History of Present Illness) Category Sub-Category Detail Notes Category Not es Dermatology knot Pt complains of knot in lt axilla that she noticed on Tuesday. Pt states she does not any pain, redness or drainage in the area of the knot Examination Category Sub-Category Detail Notes Category Not es ENT/Respiratory Oral cavity : erythema without exudate on pharynx Neck : Shotty, nontender ad enopathy Heart : RRR, normal S1 S2 Lungs: clear to auscultatio n bilaterally General Appearance: NAD Skin : left axilla has a 3 cm wide indurated area of skin, no fluctuance or overlying skin changes
--- OUTSIDE RECORDS SUMMARY | 2025-02-26 06:30 | XMS_ITS ---
Author Organization [facility] Address [address] [place] [id number] Care Team Providers Care Information Systems Supervisor Name Role Phone RafaelaKartik Primary Care Provider [phone] Titus Virgen Unavailable [phone] Harleen Collazo Unavailable [phone] Allergies Allergen (clinical drug ingredient) Drug/Non Drug [...] - 38 plat 264 100 - 400 ultrasound : thyroid (Not ye t reviewed by provider) Interpretation: Performing Lab: Notes/Report: REASON FOR VISIT still not any better Medications Medication SIG (Take, Route, Frequency, Duration) Notes Start Date End Date Status Amitriptyline HCl 25 mg TAKE ONE TABLET BY MOUTH EVERY DAY AT BEDTIME; Duration: 30 Active Levothyroxine Sodium 50 mcg TAKE ONE TAB LET BY MOUTH EVERY MORNING ON an EMPTY stomach; Duration: 30 Active Doxycycline Hyclate 100 MG 1 tablet Oral ly twice a day; Duration: 10 days 02/26/2025 Active Clindamycin HCl 300 MG 1 capsule Orally every 12 hrs; Duration: 7 days 02/20/2025 Active Xarelto 20 mg TAKE ONE TABLET BY M OUTH ONCE DAILY IN THE EVENING; Duration: 90 Active Problems Problem Type SNOMED Code ICD Code Onset Dates Problem Status W/U Status Risk Notes Problem Thyroid nodule (070648396) Thyroid nodule (E04.1) Active confirmed Vital Signs Blood pressure systolic 102 mm Hg 02/27/20 25 Blood pressure diastolic 80 mm Hg 025 Heart Rate 93 /min 02/26/2025 Height 68 in 02/26/2025 Weight 199.2 lbs 02/26/2025 BMI 30.28 kg/m2 02/26/2025 Encounters Encounter Location Date Provider Diagnosis [facility] [address] [place] [id number] 02/26/2025 Harleen Partidaond Acute pansinusitis, unspecified J01.40 and Thyroid nodule [...] MG 1 tablet Oral ly twice a day; Duration: 10 days 02/26/2025 Treatment Notes Assessment Notes [...] * Manisha ARROYO RDOB:[birth year] (40 yo F)Acc No.[id number]:02/26/2025 Progress Notes Patient: Manisha MANDUJANO Provider: JACI Strong :1985 A ge:40 Y S ex:Female Date:02/26/2025 Address:[address] [place] [address], [place], [id number] Pcp:Kartik Russo Subjective: * Chief Complaints: * 1 . Still not any better. * HPI: E NT/respiratory: 40 year old female presents with c/o sore throat. c/o cough T he pt is here today with c/o continued cough, sore throat, sinus drainage and pressure. Pt states she saw Dr Russo on Tuesday and has finshed th Zpak and will finish the clindamycin tomorrow. Pt [...] 2001, 08/11/2009, 06/29/2012, Kidney Stone Removal - [place] 02/2018, EGD and Esopogeal Stretching 03/06/2024. * Hospitalization/Major Diagno stic Procedure: P neumonia , Appendicitis , Shoulder 02/03/2011, RT Leg Pain- [facility] 11/03/2014, LT Knee Abcess- [facility] 08/25-08/26, [facility] - Hematuria 07/01/2024. * Family [...] E NT/Respiratory: General Appearance: a lert, NAD. E yes: P ERRLA, sclera clear. E ars: L TM red. N ose : c ongested. S inuses : t oleg maxillary sinuses bilaterally, frontal sinuses tender. O ral cavity : e rythema. N leroy : n o cervical lymphadenopathy. G eneral Examination: General Appearance: a lert, pleasant. H eart: R RR.?Lungs: c lear to auscultation, normal. N eurologic Exam: a lert and oriented. P eripheral pulses: n ormal (2+) bilaterally. E ndocrinology: Neck, Thyroid : n o lymphadenopathy. T hyroid exam:?no enlargement. n odule Left axilla, pt notes it is smaller than before. Assessment: * Assessment: 1. A cute pansinusitis, unspecified - J01.40 (Primary) 2 . T hyroid nodule - E04.1 Plan: * Treatment: 2. T hyroid nodule I maging: ultrasound : thyroid (Performed Date - 03/08/2025) Notes: scheduling another thyroid ultrasound to monitor [...] Procedure Codes: 3 6416 CAPILLARY BLOOD DRAW, 03056 CBC WITH AUTO DIFF, 1036F TOBACCO NON-USER, G8783 BP SCR PRFRM RCMDD DEFIND SCR INTVL, G8752 MOST RECENT SYSTOLIC BP < 140MM HG, G8754 MOST RECENT DIASTOLIC BP < 90MM HG * Follow Up: p rn * Images: Billing Information: * Visit Code: 50519 Office Visit, Est Pt., Level 3. * Procedure Codes: 11861 CAPILLARY BLOOD DRAW. 03438 CBC WITH AUTO DIFF. 1036F TOBACCO NON-USER. G8783 BP SCR PRFRM RCMDD DEFIND SCR INTVL. G8752 MOST RECENT SYSTOLIC BP < 140MM HG. G8754 MOST RECENT DIASTOLIC BP < 90MM HG. * Electronic signature of Bijal Collazo APRN on 03/23/2025 at 11:33 AM EDT Sign off status: Pending * Provider: JACI Strong Date: 0 02/26/2025 Generated for Helene quispe/Simran/Latonya on: 0 03/23/2025 11:33 AM EDT History and Physical Notes * HPI (History of Present Illness) Category Sub-Category Detail Notes Category Not es ENT/respiratory sore throat facial pain/pressure cough The pt is here today with c/o continued cough, sore throat, sinus drainage and pressure. Pt states she saw Dr Russo on Tuesday and has finshed k and will finish the clindamycin tomorrow. Pt [...]
--- OUTSIDE RECORDS SUMMARY | 2025-03-23 11:33 | XMS_ITS | Patient Health Record ---
[facility] Address [address] [facility] [address] [place] [id number] Care Team Providers Care Chemist Organic Name Role Phone Kartik Russo Primary Care Provider Titus Virgen Unavailable [phone] Sofi Reddy Unavailable [phone] Harleen Collazo Unavailable [phone] Lisa Wagner Unavailable [phone] Allergies Allergen (clinical drug ingredient) Drug/Non Drug [...] Normal Performing Lab: Notes/Report: Test performed by [facility] [address] [place] [address] , [address], [place] [address] Mohit Hendrix MD, Planner Intern[employer] CLIA: [id number] Thyroxine Free (free T4) 1.27 0.86-1.76 ng/dL P-TSH Reviewed date:02/22/2025 09:46:57 AM Interpretation: Normal Performing Lab: Notes/Report: Test performed by [facility] [address] , [address], [place] [address] Mohit Hendrix MD, Planner Internship CLIA: [id number] TSH 0.86 0.43-5.25 mU/L P-Vitamin D 25-Hydroxy Reviewed date:02/22/2025 09:46:57 AM Interpretation:25.8 Performing Lab: Notes/Report: Test performed by [facility] [address] [place] [address] , [facility] [address], [place] [address] Mohit Hendrix MD, [employer] CLIA: [id number] Vitamin D 25-Hydroxy 25.8 30.0-100.0 ng/mL Interpretation of Vitamin D 25 OH: < 20 ng/mL - Deficiency 20 - 29 ng/mL - Insufficiency 30 - 100 ng/mL - Sufficiency > 100 ng/mL - Super-therapeutic- toxicity may occur above this level. Clinical correlation required. Mammogram Reviewed date:09/28/2024 07:55:55 AM Interpretation: Performing Lab: Notes/Report: ultrasound : thyroid (Not ye t reviewed by provider) Interpretation: Performing Lab: Notes/Report: CBC Fingerstick (in house) Reviewed date:02/27/2025 07:01:52 [...] - 38 plat 264 100 - 400 P-Culture, Urine Reviewed date:08/03/2024 10:06:52 AM Interpretation: Performing Lab: Notes/Report: Test performed by [facility] [address] [place] [address] , [address], [place] [address] Mohit Hendrix MD, [employer] CLIA: [id number] Specimen Source Urine - Void Culture, Urine See Below Final Report : No growth P-Comprehensive Metabolic Pa veronica (CMP) Reviewed date:08/09/2024 09:07:30 AM Interpretation: Performing Lab: Notes/Report: Test performed by [facility] [address] [place] [address] , [address], [place] [address] Mohit Hendrix MD, [employer] CLIA: [id number] Sodium 138 135-145 mmol/L Potassium 4.3 3.5-5.3 [...] 0.4 <0.2-1.2 mg/dL A/G Ratio 1.8 1.1-2.5 CBC Venipuncture (in house) Reviewed date:08/01/2024 12:56:38 [...] - 38 platlet 354 100 - 400 Urinalysis - Inhouse Reviewed date:08/01/2024 12:56:24 PM Interpretation: Performing Lab: Notes/Report: Color/Clarity malika/cloudy Leuk Neg Nitrite Neg Urobili 3.2 Protein Trace pH 6.0 Blood Trace-intact Sp. Gr. 1.025 Ketone Trace Bili 1+ Gluc Neg Urinalysis - Inhouse Reviewed date:07/26/2024 02:47:48 PM Interpretation: Performing Lab: Notes/Report: Color/Clarity yellow Leuk neg Nitrite neg Urobili 3.2 Protein neg pH 7 Blood neg Sp. Gr. 1.015 Ketone neg Bili neg Gluc neg P-Culture, Urine Reviewed date:07/16/2024 10:26:27 AM Interpretation:No growth Performing Lab: Notes/Report: Test performed by [facility] [address] [place] [address] , [address], [place] [address] Mohit Hendrix MD, [employer] CLIA: [id number] Specimen Source Urine - Void Culture, Urine See Below Final Report : No growth Urinalysis - Inhouse Reviewed date:04/26/2024 04:45:41 PM Interpretation: Performing Lab: Notes/Report: Color/Clarity straw Leuk neg Nitrite neg Urobili 16 Protein neg pH 6.0 Blood 3+ Sp. Gr. >=1.030 Ketone neg Bili 1+ Gluc neg Urinalysis - Inhouse Reviewed date:07/13/2024 04:38:53 PM Interpretation: Performing Lab: Notes/Report: Leuk neg Nitrite neg Urobili 3.2 Protein 1+ pH 7.0 Blood 3+ Sp. Gr. 1.025 Ketone neg Bili neg Gluc neg TEN-UTI panel Reviewed date:05/03/2024 12:15:10 PM Interpretation:Negative Performing Lab: Notes/Report: Negative Medications Medication SIG (Take, Route, Frequency, Duration) Notes Start Date End Date Status Amitriptyline HCl 25 mg TAKE ONE TABLET BY MOUTH EVERY DAY AT BEDTIME; Duration: 30 Active Levothyroxine Sodium 50 mcg TAKE ONE TAB LET BY MOUTH EVERY MORNING ON an EMPTY stomach; Duration: 30 Active Xarelto 20 mg 1 tablet orally once a day in the evening; Duration: 90 days Active Doxycycline Hyclate 100 MG 1 tablet Oral ly twice a day; Duration: 10 days 02/26/2025 Active Clindamycin HCl 300 MG 1 capsule Orally every 12 hrs; Duration: 7 days 02/20/2025 Active Immunizations Vaccine Route Administration Date Status Comme nts Hepatitis A (adult) IM Intramuscular 09/15/2018 Administer ed Problems Problem Type SNOMED Code ICD Code Onset Dates Problem Status W/U Status Risk Notes Problem Vitamin D deficiency (05721909) Vitamin D deficiency (E55.9) Active confirmed Problem Dysphagia (21515641) Dysphagia (R13.10) Active confirmed Problem Thyroid nodule (998670706) Thyroid nodule (E04.1) Active confirmed Problem Acquired hypothyroidism (125313295) Acquired hypothyroidism (E03.9) Active confirmed Problem Obesity (973385076) Non morbid obesity, unspecified obesity type (E66.9) Active confirmed Problem Kidney stone (08434792) Kidney stone on right side (N20.0) Active confirmed Problem Renal stone (49544754) Renal stone (N20.0) Active confirmed Problem History of methicillin resistant Staphylococcus aureus infection (978861432) 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) Active confirmed Problem Refractory migraine (183689467) Intractable migraine without status migrainosus, unspecified migraine type (G43.919) Active confirmed Problem History of thromboembolism of vein (123513795) History of deep vein thrombosis (DVT) of lower extremity (Z86.718) Active confirmed Problem Facial paresthesia (88578593) Facial paresthesia (R20.2) Active confirmed Vital Signs Heart Rate 93 /min 02/26/2025 Blood pressure diastolic 80 mm Hg 02/26/2025 Height 68 in 02/26/2025 Blood pressure systolic 102 mm Hg 02/26/2025 Weight 199.2 lbs 02/26/2025 BMI 30.28 kg/m2 02/26/2025 Encounters Encounter Location Date Provider Diagnosis [facility] [address] [facility] [address] [facility] [address] [place] [id number] 04/26/2024 R Jey Reddy Renal colic N23 and Hematuria R31.9 [facility] [address] [facility] [address] [facility] [address] [place] [id number] 07/02/2024 Kartik Bath Left flank pain R10. 9 ; Gross hematuria R31.0 and Acute UTI N39.0 [facility] [address] [facility] [address] [place] [id number] 07/13/2024 Lisa Crowdy Left flank pain R10. 9 ; Gross hematuria R31.0 ; Acute UTI N39.0 and Renal stone N20.0 [facility] [address] [facility] [address] [place] [id number] 07/19/2024 Lisa Crowdy Left flank pain R10. 9 ; Gross hematuria R31.0 ; Acute UTI N39.0 and Renal stone N20.0 [facility] [address] [facility] [address] [place] [id number] 07/26/2024 Lisa Crowdy Left flank pain R10. 9 ; Renal stone N20.0 ; Status post cystoscopy Z98.890 ; Hydronephrosis, left N13.30 and Renal insufficiency N28.[address] [facility] [address] [facility] [address] [place], [place] [id number] 08/01/2024 Lisa Crowdy Left flank pain R10. 9 ; Renal stone N20.0 ; Status post cystoscopy Z98.890 ; Hydronephrosis, left N13.30 ; Renal insufficiency N28.9 and Elevated LFTs R79.89 [facility] [address] [facility], [place] [id number] 10/31/2024 Lisa Crowdy Gastroenteritis K52. [address] [facility] [address] [facility] [address] [place], [place] [id number] 02/20/2025 Kartik Bath Acute URI J06.9 ; 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 ; Vitamin D deficiency E55.9 and Acquired hypothyroidism E03.[address] [facility] [address] [facility] [address] [place], [place] [id number] 02/26/2025 Harleen Collazo Acute pansinusitis, unspecified J01.40 and Thyroid nodule E04.[address] [facility] [address] [facility] [address] [place] [id number] 07/03/2024 Kartik Russo [facility] [address] [facility] [address] [place] [id number] 09/17/2024 Kartik Russo [facility] [address] [facility] [address] [place] [id number] 02/22/2025 Kartki Russo Assessments Encounter Date Diagnosis (ICD Code) Assessment [...] will recheck these labs. Awaiting records from [facility]. 07/26/2024 Renal stone (ICD-10 - N20.0) Will [...] Insured Coverage Start Date Coverage End Date [employer] [address] [place] [address] [id number] Manisha Gallagher Self - patient is the [...] Date(Month/Year) Cholecystecomy 2002 Intra Operative Aorta Injury 2001 Fasciotmy Both Legs 2002 08/11/2009 06/29/2012 Kidney Stone Removal - [place] 02/2018 EGD and Esopogeal Stretching 03/06/2024 Hospitalization History Reason Date(Month/Year) [facility] ER - Hematuria 07/01/2024 LT Knee Abcess- [facility] 08/25-08/26 RT Leg Pain- [facility] ER 11/03/2014 Shoulder 02/03/2011 Appendicitis Pneumonia
--- OUTSIDE RECORDS SUMMARY | 2025-03-23 11:33 | XMS_ITS | Clinical Summary ---
Author Organization [facility] Address [address] [place] [address] Care Team Providers Care Salon Manager Name Role Phone Kartik Russo MD Primary Care Provider + [phone] Allergies Active Allergy Reactions Criticality Noted Date Comments Ceftriaxone Unknown - Patient st ates they do not know rxn details,Hives Medium 03/22/2018 Penicillins Unknown - Patient st ates they do not know rxn details,Hives Medium 03/22/2018 Medications rivaroxaban (Xarelto) 20 MG tablet Xarelto 20 mg tablet 07/06/2018 Active thyroid ([place]) 30 MG tablet Take 30 mg by mouth 1 (one) time each day. Active cholecalciferol (Vitamin D-3) 25 MCG (1000 UT) capsule Take 2,000 Units by mouth. Active thyroid ([employer] Thyroid) 30 MG tablet Take 30 mg [...] C Screening 1983 [facility]-/Child/Adol SDOH Screenings 1983 [id number] Vaccine (#1) 01/31/1988 [facility]-Varicella Vaccines (1 of 2 - 13+ 2-dose series) 01/31/1996 HPV Vaccines (1 - 3-dose series) 1998 [facility]- SDOH Screenings 2001 [facility]-Adult SDOH Screenings 2001 [facility]-DTaP,Tdap,and Td Vaccines (1 - Tdap) 2002 [facility]-Hepatitis B Vaccines (1 of 3 - 19+ 3-dose series) 2002 [facility]-Pap Smear 01/31/2004 [facility]-Cervical Cancer Screening 2013 [facility]-HPV/Cotest 2013 [facility]-Depression Screening 12/04/2023 12/03/2022 [facility]-Influenza Vaccine (Season Ended) 2025 [facility]-Zoster Vaccines [...] MRSA 02/14/2021 02/14/2021 Insurance ANTHEM Care Teams Salon Manager Relationship Specialty Start Date End Date Kartik Russo MD [address] [place] [address] PCP - General 02/06/21
--- OUTSIDE RECORDS SUMMARY | 2025-03-23 11:33 | XMS_ITS | Data Portability ---
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 Her symptoms resolved with dilation and initiation of a daily PPI. -Continue PPI. Plan for repeat dilation as needed. f/u 6 months. [email or web address] Not available 03/23/2024 14:00:16 Plan of Treatment Reminders Order Date Submit Date Provider Last Modified By Organization Details Last Modified Time Details Appointments None recorded. Lab urinalysis, dipstick [address] [facility], [address], [place], [address], 11:34:55 CMP, serum or plasma 2023 024 [facility] (Registration ), [address] [facility], [place], [address], 4 12:03:56 urinalysis, dipstick [address] [facility], [address], [place], [address], 09:07:25 culture, urine 2023 024 [email or web address] [facility], [address] [facility], [place], [address], 09:17:00 culture, urine + sensitivity 2023 024 [email or web address] Not available 08:49:47 urinalysis, dipstick 2023 024 [email or web address] [facility], [address] [facility] [address], [place], [address], 13:43:43 culture, urine 2023 024 [email or web address] [facility], [address] [facility] [address], [place], [address], 08:49:47 Referral None recorded. Procedures None recorded. Surgeries ureteroscop y with stone basket extraction, holmium laser fragmentati on (SURG) 2023 024 [email or web address] Not available 09:30:12 cystoscopy, with insertion of ureteral stent (SURG) 2023 024 [email or web address] Not available 14:14:41 Imaging US, renal 2023 024 [email or web address] [facility], [address] [facility], [place], [address], 14:38:34 Medication Orders None recorded. Patient TargetsNo targets recorded. Patient InstructionsNo instructions recorded. Reason for Referral None Reported. Results Created Date Observation Date Name Description Value Unit Range Abnormal Flag Note LastModifiedBy Organization Detail LastModifiedTime 03/06/2003/15/2024 PATHO LOGY SPECI MEN pathology specimen SEE SINDY LEE Not Available [facility] ([facility]) [address] [facility], [place], [address], 03/15/2024 16:25:45 07/05/2007/05/2024 urina lysis , dipst ick Leukocytes (reference range) large Not Available [place] [address] [address] [facility] [address], [place], [address], 07/05/2024 13:30:27 07/05/20 24 07/05/2024 urina lysis , dipst ick Nitrite (reference range:) positi ve Not Available [place] [address] [address] [facility] [address], [place], [address], 07/05/2024 13:30:27 07/05/20 24 07/05/2024 urina lysis , dipst ick Protein (reference range) 300 Not Available [place] [address] [address] [facility] [address], [place], [address], 07/05/2024 13:30:27 07/05/20 24 07/05/2024 urina lysis , dipst ick pH (reference range 5-8.5) 5.0 Not Available [facility] [place] [address] [address] [facility] [address], [place], [address], 07/05/2024 13:30:27 07/05/20 24 07/05/2024 urina lysis , dipst ick Blood (reference range:) large Not Available [place] [address] [address] [facility] [address], [place], [address], 07/05/2024 13:30:27 07/05/20 24 07/05/2024 urina lysis , dipst ick Specific [place] (reference range) 1.020 Not Available [place] [address] [address] [facility] [address], [place], [address], 07/05/2024 13:30:27 07/05/20 24 07/05/2024 urina lysis , dipst ick Ketone (reference range) trace Not Available [place] [address] [address] [facility] [address], [place], [address], 07/05/2024 13:30:27 07/05/2007/05/2024 urina lysis , dipst ick Glucose (reference range) 250 Not Available [place] [address] [address] [facility] [address], [place], [address], 07/05/2024 13:30:27 07/05/2007/05/2024 urina lysis , dipst ick Color (reference range: yellow-brown ) Red Not Available [place] [address] [address] [facility] [address], [place], [address], 07/05/2024 13:30:27 07/19/2007/19/2024 urina lysis , dipst ick Leukocytes (reference range) negati ve Not Available [place] [address] [address] [facility] [address], [place], [address], 07/19/2024 08:59:55 07/19/2007/19/2024 urina lysis , dipst ick Nitrite (reference range:) negati ve Not Available [place] [address] [address] [facility] [address], [place], [address], 07/19/2024 08:59:55 07/19/2007/19/2024 urina lysis , dipst ick Protein (reference range) 30 Not Available [place] [address] [address] [facility] [address], [place], [address], 07/19/2024 08:59:55 07/19/2007/19/2024 urina lysis , dipst ick pH (reference range 5-8.5) 6.0 Not Available [place] [address] [address] [facility] [address], [place], [address], 07/19/2024 08:59:55 07/19/2007/19/2024 urina lysis , dipst ick Blood (reference range:) large Not Available [place] [address] [address] [facility] [address], [place], [address], 07/19/2024 08:59:55 07/19/2007/19/2024 urina lysis , dipst ick Specific [place] (reference range) 1.030 Not Available [place] [address] [address] [facility] [address], [place], [address], 07/19/2024 08:59:55 07/19/2007/19/2024 urina lysis , dipst ick Ketone (reference range) negati ve Not Available [place] [address] [address] [facility] [address], [place], [address], 07/19/2024 08:59:55 07/19/2007/19/2024 urina lysis , dipst ick Glucose (reference range) negati ve Not Available [place] [address] [address] [facility] [address], [place], [address], 07/19/2024 08:59:55 07/19/2007/19/2024 urina lysis , dipst ick Color (reference range: yellow-brown ) Brown Not Available [place] [address] [address] [facility] [address], [place], [address], 07/19/2024 08:59:55 07/20/2007/26/2024 CALCU JESSICA UR (STON E LIGIA SIS) source Commen t . Left Urete r Not Available [facility] ([facility]) [address] [facility], [place], [address], 07/26/2024 17:11:18 07/20/2007/26/2024 CALCU JESSICA UR (STON E LIGIA SIS) color Brown Not Available [facility] ([facility]) [address] [facility], [place], [address], 07/26/2024 17:11:18 07/20/2007/26/2024 CALCU LI, UR (STON E LIGIA SIS) size 3x3 mm Multi ple piece s recei darien. Elaine richter of the large st piece repor alli. Not Available [facility] ([facility]) [address] [facility], [place], [address], 07/26/2024 17:11:18 07/20/20 24 07/26/2024 CALCU LI, UR (STON E LIGIA SIS) weight 16 mg Not Available [facility] ([facility]) [address] [facility], [place], [address], 07/26/2024 17:11:18 07/20/2007/26/2024 CALCU LI, UR (STON E LIGIA SIS) composition Commkerri t . Perce ntage (Repr esent s the % compo sitio n) Not Available [facility] ([facility]) [address] [facility], [place], [address], 07/26/2024 17:11:18 07/20/20 24 07/26/2024 CALCU LI, UR (STON E LIGIA SIS) Ca oxalate dihydrate 20 % Not Available [facility] ([facility]) [address] [facility], [place], [address], 07/26/2024 17:11:18 07/20/20 24 07/26/2024 CALCU LI, UR (STON E LIGIA SIS) Ca oxalate monohydrate 80 % Not Available [facility] ([facility]) [address] [facility], [place], [address], 07/26/2024 17:11:18 07/20/20 24 07/26/2024 CALCU LI, UR (STON E LIGIA SIS) comment: Commkerri t . Physi prachi quest ions regar ding Calcu li Ligia sis conta ct [facility] rp at: [phone]. Not Available [facility] ([facility]) [address], [place], [address], 07/26/2024 17:11:18 07/20/2007/26/2024 SULTANA LOPEZ UR (STON E LIGIA SIS) please note: Cristiane mota . Sultana caro t will follo w via compu ter, mail or couri er suleiman aguilar. Not Available [facility] ([facility]) [address], [place], [address], 07/26/2024 17:11:18 07/20/2007/26/2024 SULTANA LOPEZ UR (STON E LIGIA SIS) photo Cristiane mota . Photo graph will follo w under a separ ate cover Not Available [facility] ([facility]) [address], [place], [address], 07/26/2024 17:11:18 07/20/2007/26/2024 SULTANA LOPEZ UR (STON E LIGIA SIS) pdf image . Perfo rmed at: [facility] [address] [place] [address] 209 Lab Direc tor: Anayeli valerio PhD, Phone : [phone] Not Available [facility] ([facility]) [address], [place], [address], 07/26/2024 17:11:18 07/20/2007/26/2024 CALCNacho LOPEZ UR (STON E LIGIA SIS) disclaimer: Cristiane Aviles This test was devnirali mendozaed and its perfo rmanc e agustina cteri stics deter mined by [facility] rp. It has not been clear ed or appro darien by the Food and Drug Admin istra tion. Not Available [facility] ([facility]) [address], [place], [address], 07/26/2024 17:11:18 07/27/20 24 07/27/2024 COMP METAB OLIC PANEL sodium 141 mmol/ L 136-14 5 Not Available [facility] ([facility]) [address] , [place], [address], 07/27/2024 12:03:56 07/27/20 24 07/27/2024 COMP METAB OLIC PANEL potassium 4.5 mmol/ L 3.6-5. 0 Not Available [facility] ([facility]) [address] , [place], [address], 07/27/2024 12:03:56 07/27/2007/27/2024 COMP METAB OLIC PANEL chloride 104 mmol/ L 98-107 Not Available [facility] ([facility]) [address] , [place], [address], 07/27/2024 12:03:56 07/27/20 24 07/27/2024 COMP METAB OLIC PANEL carbon dioxide 29.6 mmol/ L 21.0-3 2.0 Not Available [facility] ([facility]) [address] , [place], [address], 07/27/2024 12:03:56 07/27/20 24 07/27/2024 COMP METAB OLIC PANEL anion gap 11.9 Not Available [facility] ([facility]) [address] , [place], [address], 07/27/2024 12:03:56 07/27/2007/27/2024 COMP METAB OLIC PANEL glucose 106 mg/dL 70-120 Not Available [facility] ([facility]) [address] [place], [address], 07/27/2024 12:03:56 07/27/20 24 07/27/2024 COMP METAB OLIC PANEL BUN 12 mg/dL 7-18 Not Available [facility] ([facility]) [address] [place], [address], 07/27/2024 12:03:56 07/27/20 24 07/27/2024 COMP METAB OLIC PANEL creatinine 0.9 mg/dL 0.6-1. 3 Not Available [facility] ([facility]) [address], [place], [address], 07/27/2024 12:03:56 07/27/20 24 07/27/2024 COMP METAB [...] sumner ing kiney funct ion. Not Available [facility] ([facility]) [address] , [place], [address], 07/27/2024 12:03:56 07/27/2007/27/2024 COMP METAB OLIC PANEL total protein 7.8 g/dL 6.4-8. 2 Not Available [facility] ([facility]) [address] , [place], [address], 07/27/2024 12:03:56 07/27/20 24 07/27/2024 COMP METAB OLIC PANEL albumin 3.7 g/dL 3.4-5. 0 Not Available [facility] ([facility]) [address], [place], [address], 07/27/2024 12:03:56 07/27/20 24 07/27/2024 COMP METAB OLIC PANEL globulin 4.1 Not Available [facility] ([facility]) [address] , [place], [address], 07/27/2024 12:03:56 07/27/2007/27/2024 COMP METAB OLIC PANEL alb/glob ratio 0.9 0.7-2 Not Available [facility] ([facility]) [address] , [place], [address], 07/27/2024 12:03:56 07/27/20 24 07/27/2024 COMP METAB OLIC PANEL calcium 9.6 mg/dL 8.5-10 .5 Not Available [facility] ([facility]) [address] , [place], [address], 07/27/2024 12:03:56 07/27/20 24 07/27/2024 COMP METAB OLIC PANEL bilirubin total 0.50 mg/dL 0.10-1 .00 Not Available [facility] ([facility]) [address], [place], [address], 07/27/2024 12:03:56 07/27/20 24 07/27/2024 COMP METAB OLIC PANEL AST (SGOT) 34 U/L 0-37 Not Available [facility] ([facility]) [address], [place], [address], 07/27/2024 12:03:56 07/27/20 24 07/27/2024 COMP METAB OLIC PANEL ALT (SGPT) 114 U/L 0-65 high Not Available [facility] ([facility]) [address] , [place], [address], 07/27/2024 12:03:56 07/27/20 24 07/27/2024 COMP METAB OLIC PANEL alk phosphatase 111 U/L 46-116 Not Available [facility] ([facility]) [address] , [place], [address], 07/27/2024 12:03:56 07/27/20 24 07/27/2024 urina lysis , dipst ick Leukocytes (reference range) negati ve Not Available [facility], [place], [address], 07/27/2024 10:17:05 07/27/20 24 07/27/2024 urina lysis , dipst ick Nitrite (reference range:) negati ve Not Available [place] [address] [address], [place], [address], 07/27/2024 10:17:05 07/27/20 24 07/27/2024 urina lysis , dipst ick Protein (reference range) negati ve Not Available [place] [address] [address], [place], [address], 07/27/2024 10:17:05 07/27/20 24 07/27/2024 urina lysis , dipst ick pH (reference range 5-8.5) 5.0 Not Available [place] [address], [place], [address], 07/27/2024 10:17:05 07/27/20 24 07/27/2024 urina lysis , dipst ick Blood (reference range:) negati ve Not Available [place] [address], [place], [address], 07/27/2024 10:17:05 07/27/20 24 07/27/2024 urina lysis , dipst ick Specific [place] (reference range) 1.000 Not Available [facility] [place] [address] [address], [place], [address], 07/27/2024 10:17:05 07/27/20 24 07/27/2024 urina lysis , dipst ick Ketone (reference range) negati ve Not Available [place] [address] [address], [place], [address], 07/27/2024 10:17:05 07/27/20 24 07/27/2024 urina lysis , dipst ick Bilirubin (reference range) negati ve Not Available [facility] [place] [address] [address] [facility] [address], [place], [address], 07/27/2024 10:17:05 07/27/20 24 07/27/2024 urina lysis , dipst ick Glucose (reference range) negati ve Not Available [facility] [place] [address] [address] [facility] [address], [place], [address], 07/27/2024 10:17:05 07/27/20 24 07/27/2024 urina lysis , dipst ick Color (reference range: yellow-brown ) Yellow Not Available [place] [address] [address] [facility] [address], [place], [address], 07/27/2024 10:17:05 07/09/20 24 07/06/2024 fluor o less than 1 HR [facility] [address] [place] [address] Phone: Fax: Name: ROSITA VALDOVINOS Exam Date: 2023 : [birth year] Age 39 years Gender : F Access ion: [id number] 1562 Physic jagjit: WILLIAM JOHNSON Facili ty: [facility] Facili ty HSV: Outpat ient Exam: [...] 02:36 AM EDT RP Workst ation: [id number] Dictat ed By: Shahab Duke rd Transc ribed By: Transc ribed On: 2023 3:04 PM Electr onical ly signed by: Shahab Duke rd 2023 Thank you for referr umair PAT ON, ROSITA R to [facility] al. Legall y authen ticate d by MAMIE MANNING RD S 2023-09 15:04: 36 CC'ed Logic: Orderi ng Provid er: ART WILLIAM Attend ing Provid er: ART WILLIAM Admitt ing Provid er: ART WILLIAM [email or web address] [facility] [address] [facility], [place], [address], 07/09/2024 08:54:48 07/23/20 24 07/20/2024 fluor o less than 1 HR [facility] [address] [place] [address] Phone: Fax: Name: ROSITA VALDOVINOS Exam Date: 2023 : [birth year] Age 39 years Gender : F Access ion: [id number] 1562 Physic jagjit: WILLIAM JOHNSON Facili ty: [facility] Facili ty HSV: Outpat ient Exam: [...] Thank you for referr umair PAT ON, [facility] Legall y authen ticate d by DEBBIE Etienne 2023-09 17:08: 54 CC'ed Logic: Orderi ng Provid er: ALEX THOMAS Attend ing Provid er: ALEX THOMAS Admitt ing Provid er: ALEX THOMAS [email or web address] [facility] [address] [facility], [place], [address], 07/23/2024 16:38:53 07/27/20 24 07/27/2024 renal ,bila teral [facility] [address] [place] [address] Phone: Fax: Name: ROSITA VALDOVINOS R Exam Date: 024 : [birth year] Age 39 years Gender : F Access ion: [id number] 1562 Physic jagjit: WILLIAM JOHNSON Facili ty: [facility] Facili ty HSV: Outpat ient Exam: [...] referr umair PAT ON, HEATHE R to [facility] Legall y authen ticate d by LAYLA LUCAS 2023-09 13:31: 56 CC'ed Logic: Orderi ng Provid er: ALEX THOMAS Attend ing Provid er: ART WILLIAM Referr ing Provid er: ALEX THOMAS Admitt ing Provid er: ALEX THOMAS [email or web address] [facility] [address] , [place], [address], 07/30/2024 10:08:31 Result Notes None recorded. Problems Name Problem SNOMED Code Status Onset Date Resolution Date Notes Provider Name and Address Organization Details Recorded Time Left flank pain 653418744 Active 2023 WILLIAM JOHNSON MD [address], [place], [address] , [place] [facility] [place] [facility] [place] 4 11:08:49 Abdominal pain 58795192 Active 2023 WILLIAM JOHNSON MD [address], [place], [address] , [place] [facility] [place] 4 11:09:01 Liver enzymes level above reference range 125146007 Active 2023 WILLIAM JOHNSON MD [address], [place], [address] , [place] [facility] [place] 4 11:34:54 Stricture of esophagus 67136675 Active 2023 Mundo Sánchez PA-C [address], [place], [address] , [place] [facility] [place] 4 09:21:55 Gastroesophag eal reflux disease without esophagitis 116667092 Active 2023 Mundo Sánchez PA-C [address], [place], [address] , [place] [facility] [place] 4 09:21:59 Dysphagia 06835401 Active 2023 Mundo Sánchez PA-C [address], [place], [address] , [place] [facility] [place] 4 09:23:54 Ureteric stone 31178960 Active 2023 WILLIAM JOHNSON MD [address], [place], [address] , [place] [facility] [place] 4 13:29:25 Abnormal urinalysis 594525574 Active 2023 WILLIAM JOHNSON MD [address], [place], [address] , [place] [facility] [place] 13:29:35 Problem Notes None recorded. Procedures Surgical History None recorded. Imaging Results None recorded. Procedure Notes Documentation Provider Name and Address Organization Details Recorded Time Operative/Procedure Note [facility] Name Manisha Gallagher Date of Service 1453 [id number] (F) Attending ALEX aPyton BEATRICEY Admitted [id number] Discharged Primary MULBERRY AMBER - Pre-Procedure Diagnosis Left ureteral stone, UTI Post- Procedure Diagnosis same Procedure / Surgery None 1. Cystoscopy ( CPT 77581) 2. Left ureteral stent placement ( CPT 51685) 3. Fluoroscopy time less than 1 hour with intraoperative interpretation ( CPT 37607) Anesthesia Type General anesthesia Estimated Blood Loss [...] inspection of the entire bladder mucosa (CPT 14527). No abnormalities were noted. At this time we identified the left ureteral orifice. A sensor tip guidewire was then advanced in a retrograde fashion under fluoroscopic guidance to the left kidney ( CPT 23531). Once the wire was then position, we advanced a 6 Lithuanian by 24 cm double-J ureteral stent over the wire ( CPT 24368). The wire was then withdrawn and we [...] to PACU 1 of 2 Operative/Procedure Note [facility] Name Manisha Gallagher Date of Service 145 [id number] (F) Attending ALEX RADER Admitted [id number] Discharged Primary MIRA CLARK - Electronically signed by ALEX RADER on 1455 2 of 2 CC'ed Logic: Ordering Provider: ALEX THOMAS Attending Provider: ALEX THOMAS Admitting Provider: PETER Robertson [facility] [place] 07/12/2024 13:42:16 Medical Equipment None Reported. Allergies Allergen ID Allergen Name Allergen Category Reaction Reaction Severity Criticality Documentation Date Start Date Code Code System Note Provider Name and Address Organization Details Recorded Time 883173 Product containin g penicilli n (product) medicatio n Not available Not available Not available 03/22/2024 58428 8001 SNOMED Tracey PETER Roca [facility] [place] 08:35:46 Medications Name Sig Start Date Stop [...] Take 1 tablet by mouth once daily 2024 active Not Available Not Available Not Avai lable ondansetron 4 mg disintegrati ng tablet DISSOLVE 1 TABLET IN MOUTH EVERY 6 TO 8 HOURS NEEDED active Not Available Not Available No t Available Xarelto 20 mg tablet TAKE ONE TABLET BY MOUTH ONCE DAILY IN THE EVENING active Not Available Not Available Not Available [facility] ODT 75 mg disintegrati ng tablet DISSOLVE [...] Address Organization Details Last Updated DateTime 4 16314.4 g 29.5 kg/m2 175.26 cm 97.9 [degF] 98 % 98 % 84 /min 76 /min 122 mm[Hg] 62 mm[Hg] [facility] [place] 4 08:35:52 Date Recorded Body height Body mass index (BMI) Body weight Oxygen saturation Oxygen saturation in Arterial blood by Pulse oximetry Heart rate Systolic blood pressure Diastolic blood pressure Provider Name and Address Organization Details Last Updated DateTime 4 175.26 cm 29.3 kg/m2 98021.7 3 g 98 % 98 % 97 /min 130 mm[Hg] 71 mm[Hg] Liz [facility]ree [facility] [place] [facility] [place] 4 13:30:12 Date Recorded Body height Body mass index (BMI) Body weight Oxygen saturation Oxygen saturation in Arterial blood by Pulse oximetry Heart rate Systolic blood pressure Diastolic blood pressure Provider Name and Address Organization Details Last Updated DateTime 4 175.26 cm 29.4 kg/m2 90045.8 8 g 96.98 % 96.98 % 116 /min 135 mm[Hg] 75 mm[Hg] [facility] [place] 4 08:59:43 Date Recorded Body height Body mass index (BMI) Body weight Oxygen saturation Oxygen saturation in Arterial blood by Pulse oximetry Heart rate Systolic blood pressure Diastolic blood pressure Provider Name and Address Organization Details Last Updated DateTime 4 175.26 cm 29.4 kg/m2 65825.8 8 g 99 % 99 % 75 /min 105 mm[Hg] 75 mm[Hg] Liz [facility] [place] [facility] [place] 4 10:16:33 Social History None recorded. Functional [...] SNOMED-CT Code Diagnosis ICD10 Code Diagnosis Note [id number] Mundo Sánchez PA-C [facility] [address] [place] [address] 03/22/2024 08:15:29 03/22/2024 11:05:00 Stricture of esophagus 23324651 K22.2 Gastroesop hageal reflux disease without esophagitis [id number] K21.9 Dysphagia [id number] R13.1 0 [id number] WILLIAM JOHNSON MD [facility]-1 00 [address] [facility] [address] [place] [address] 07/05/2024 13:04:46 07/05/2024 13:47:43 Ureteric stone [id number] N20.1 In the setting of nitrite positive [...] laser lithotrips y and stent placement) in [facility] Abnormal urinalysis [id number] R82.90 patient is currently on Cipro but urine remains nitrite positive with leukocytes and blood. We will check culture today, Though this may be false negative due to current antibiotic therapy. [id number] WILLIAM JOHNSON MD [facility]-1 00 [address] [facility] [address] [place] [address] 07/19/2024 08:21:09 07/19/2024 09:09:33 Ureteric stone [id number] N20.1 I reviewed the procedure in depth [...] injury, loss of kidney, and even . [id number] WILLIAM JOHNSON MD [facility]-1 00 [address] [facility] [address] [place] [address] 07/27/2024 09:49:21 07/27/2024 11:10:19 Left flank pain [id number] R10.9 Hydronephr osis noted in the ER [...] Liver enzy mes level above reference range [id number] R74.01 Patient had notable creatinine of 1.5 [...] Member ID Guarantor Name 09/08/2024 1 [id number] [id number] John Gallagher [id number] Manisha Gallagher Notes Date Note Type Note [...] reports resolution of dysphagia. Mundo Sánchez PA-C [address], [place], [address], [facility] - [place] - [place] & [place] 03/23/2024 14:00:32 4 text/html 07/05/24 39-year-old female [...] [address] Cornejo in [place] approximately 5 years ago. Patient has not had a metabolic evaluation that she is aware of. Finally, patient is on chronicXarelto therapy for history of DVTs. 07/03/24 CT ([facility]): IMPRESSION:1. 5 mm obstructing calculus at the left vesicoureteral junction resulting in moderate left hydroureteronephrosis.2. Nonobstructive left renal stones measuring up to 2 mm.3. Asymmetrically enlarged appearance of the right ovary with multiple internal cystic lesions which may representfollicular activity. Recommend further evaluation with pelvic ultrasound for better characterization. WILLIAM JOHNSON MD [address] [facility], [place], [address], [facility] [place] [facility] [place] 07/05/2024 13:44:29 4 text/html 07/19/24 Patient returns [...] [address] Cornejo in [place] approximately 5 years ago. 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 07/06/24 L stent igdlowjan37/08/24 CT ([facility]): IMPRESSION:1. 5 mm obstructing calculus at the left vesicoureteral junction resulting in moderate left hydroureteronephrosis.2. Nonobstructive left renal stones measuring up to 2 mm.3. Asymmetrically enlarged appearance of the right ovary with multiple internal cystic lesions which may representfollicular activity. Recommend further evaluation with pelvic ultrasound for better characterization. WILLIAM JOHNSON MD [address] [facility], [place], [address], [facility] & [place] 07/19/2024 09:07:43 4 text/plai n Operative/Procedure Note [facility] Name Manisha Gallagher Date of Service 1327 [id number] ([id number]) Attending ALEX Payton BEATRICEY Admitted [id number] Discharged Primary MIRA CLARK - Pre-Procedure Diagnosis Ureteric stone Post- Procedure Diagnosis Ureteric stone Procedure / Surgery None 1. Cystoscopy with left stent removal ( CPT 22265) 2. Left ureteroscopy with stone basket ( CPT 59651) 3. Fluoroscopy time less than 1 hour with intraoperative interpretation ( CPT 73809) Anesthesia Type General anesthesia Estimated Blood Loss [...] fully intact under fluoroscopic guidance ( CPT 13775, CPT 39375). We then advanced a sensor tip guidewire [...] and passed off the field ( CPT 25994). At this time, we switched out the [...] Implants None 1 of 2 Operative/Procedure Note [facility] Name Manisha Gallagher Date of Service 1327 [id number] ([id number]) Attending ALEX RADER Admitted [id number] Discharged Primary MIRA CLARK - Disposition of Patient stable to PACU Electronically signed by ALEX RADER on 1330 2 of 2 CC'ed Logic: Ordering Provider: ALEX THOMAS Attending Provider: ALEX THOMAS Admitting Provider: ALEX Durant NP, [address], [place], [address], [place] - [facility] - [place] & [place] 07/23/2024 16:41:55 4 text/html 07/27/24 Patient returns [...] that she returned to the ER at [facility] on 07/25/2024 and states that they did [...] stent. ---------[birth year]05/[age]-year -old female referred by Dr. Abmer Black for gross hematuria and left flank [...] [address] Cornejo in [place] approximately 5 years ago. 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 07/20/24:lactate 3.7, Cr 1.5, GFR 45, WBC 10.7, UA nitrite negative, AST 117, ALT 172, Alk phos [id number]/20/24 CT ([facility]): Previously described calculus at the left ureterovesical junction is no longer seen. However, there is no significant change in the moderate left hydronephrosis and hydroureter. No new ureteral calculus. No new intra-abdominal abnormality. 07/20/24 L URS, laser, stent oetvnzz71/11/24 L stent zyxpdspqv94/08/24 CT ([facility]): IMPRESSION:1. 5 mm obstructing calculus at the left vesicoureteral junction resulting in moderate left hydroureteronephrosis.2. Nonobstructive left renal stones measuring up to 2 mm.3. Asymmetrically enlarged appearance of the right ovary with multiple internal cystic lesions which may representfollicular activity. Recommend further evaluation with pelvic ultrasound for better characterization. WILLIAM JOHNSON MD [address] [facility], [place], [address], [place] - [place] - [place] & [place] 07/27/2024 11:35:28 OBGyn Episode No OBEpisode recorded.
--- OUTSIDE RECORDS SUMMARY | 2025-03-23 11:33 | XMS_ITS | Data Portability ---
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 Her first stone episode occurred in 2008 shortly after giving to her son. She had another stone episode in 2017. She underwent left ureteroscopy and stone extraction [...] Plan: Check KUB. Follow-up in one year. pankaj Not available 09/23/2022 11:01:40 Plan of Treatment Reminders Order Date Submit Date Provider Last Modified By Organization Details Last Modified Time Details Appointments DERM VISIT 2024 02:40P Jethro HUANG MD Not available Not available Not available Lab urinalysi s, microscop ic 2021 022 [facility], [address] [place] [address], [address], 09/23/2022 14:48:53 urinalysi s, dipstick 2021 022 evickers Not available 09/23/2022 10:59:41 culture, urine 2017 018 [facility], [address] [place], [address], 04/29/2018 08:51:18 urinalysi s panel, auto 2017 018 [facility], [address] [facility], [place], [address], 04/28/2018 12:53:16 urinalysi s, dipstick, auto 2017 018 [facility], [facility] [facility], [place], [address], 03/27/2018 12:55:42 urinalysi s, dipstick, auto 2017 018 [facility], [facility], [place], [address], 03/21/2018 12:54:48 Referral None recorded. Procedures None recorded. Surgeries None recorded. Imaging XR, abdomen, 1 view 2021 022 [email or web address] [facility], [address] [place], [address], 09/23/2022 16:29:19 XR, abdomen, 1 view 2017 018 [facility], [address] [facility], [place], [address], 04/28/2018 12:10:09 Medication Orders Bactrim DS 800 mg-160 mg tablet [address] [facility], [address] [place] [address] [place], [id number], 04/28/2018 11:35:18 Percocet 5 mg-325 mg tablet 2017 018 [facility], [address] [place] [address] [address] [place], [id number], 04/28/2018 10:17:09 Patient TargetsNo targets recorded. Patient Instructions Encounter Date Encounter Id Patient Instructions Last Modified By Organization Details Last Modified Time 03/21/2018 [id number] kidney stone: care instructions Not available 03/21/2018 12:54:48 I offered both MET and operative extraction via ureteroscopy with basket or laser and stent insertion . She understands and agrees to proceed. Not available 03/21/2018 12:54:19 03/27/2018 [id number] kidney stone: care instructions Not available 03/27/2018 12:55:42 04/28/2018 [id number] eating healthy foods: care instructions Not available [...] Clean Catch Not Available [facility] [address], [place], [address], 04/28/2018 10:19:36 04/28/20 18 04/28/2018 urina lysis panel , auto Unknown Analyte Yellow Not Available [facility] [address] [facility], [place], [address], 04/28/2018 10:19:36 04/28/20 18 04/28/2018 urina lysis panel , auto Unknown Analyte Slight ly Hazy Not Available [facility] [address] [place], [address], 04/28/2018 10:19:36 04/28/20 18 04/28/2018 urina lysis panel , auto Unknown Analyte 1.005 Not Available [facility] [address] [place], [address], 04/28/2018 10:19:36 04/28/20 18 04/28/2018 urina lysis panel , auto Unknown Analyte 6.0 Not Available [facility] [address] [place], [address], 04/28/2018 10:19:36 04/28/20 18 04/28/2018 urina lysis panel , auto Unknown Analyte 75 Omayra/ul (+) Not Available [facility] [address] [place], [address], 04/28/2018 10:19:36 04/28/20 18 04/28/2018 urina lysis panel , auto Unknown Analyte Negati ve Not Available [facility] [address] [place], [address], 04/28/2018 10:19:36 04/28/20 18 04/28/2018 urina lysis panel , auto Unknown Analyte Negati ve Not Available [facility] [address] [place], [address], 04/28/2018 10:19:36 04/28/20 18 04/28/2018 urina lysis panel , auto Unknown Analyte Normal Not Available [facility] [address] [place], [address], 04/28/2018 10:19:36 04/28/20 18 04/28/2018 urina lysis panel , auto Unknown Analyte Negati ve Not Available [facility] [address] [facility], [place], [address], 04/28/2018 10:19:36 04/28/20 18 04/28/2018 urina lysis panel , auto Unknown Analyte Normal Not Available [facility] [address] [facility], [place], [address], 04/28/2018 10:19:36 04/28/20 18 04/28/2018 urina lysis panel , auto Unknown Analyte Negati ve Not Available [facility] [address] [facility], [place], [address], 04/28/2018 10:19:36 04/28/20 18 04/28/2018 urina lysis panel , auto Unknown Analyte 250 Daniel/ul Not Available [facility] [address] [facility], [place], [address], 04/28/2018 10:19:36 04/28/20 18 04/28/2018 urina lysis panel , auto Unknown Analyte Automa alli Not Available [facility] [address] [place], [address], 04/28/2018 10:19:36 04/28/20 18 04/28/2018 urina lysis panel , auto Unknown Analyte Occ Not Available [facility] [address] [facility], [place], [address], 04/28/2018 10:19:36 04/28/20 18 04/28/2018 urina lysis panel , auto Unknown Analyte TNTC Not Available [facility] [address] [place], [address], 04/28/2018 10:19:36 04/28/20 18 04/28/2018 urina lysis panel , auto Unknown Analyte 0 - 5 Not Available [facility] [address] [place], [address], 04/28/2018 10:19:36 04/28/20 18 04/28/2018 urina lysis panel , auto Unknown Analyte 1+ Not Available [facility] [address], [place], [address], 04/28/2018 10:19:36 03/27/20 18 03/27/2018 urina lysis , dipst ick, auto Unknown Analyte Yellow Not Available [facility] [address], [address], 03/27/2018 09:59:04 03/27/20 18 03/27/2018 urina lysis , dipst ick, auto Unknown Analyte Clear Not Available [facility] [address], [address], 03/27/2018 09:59:04 03/27/20 18 03/27/2018 urina lysis , dipst ick, auto Unknown Analyte 1.020 Not Available [facility] [address], [address], 03/27/2018 09:59:04 03/27/20 18 03/27/2018 urina lysis , dipst ick, auto Unknown Analyte 5.0 Not Available [facility] [address], [address], 03/27/2018 09:59:04 03/27/20 18 03/27/2018 urina lysis , dipst ick, auto Unknown Analyte 75 Omayra/ul (+) Not Available [facility] [address], [address], 03/27/2018 09:59:04 03/27/20 18 03/27/2018 urina lysis , dipst ick, auto Unknown Analyte Negati ve Not Available [facility] [address] [facility], [place], [address], 03/27/2018 09:59:04 03/27/20 18 03/27/2018 urina lysis , dipst ick, auto Unknown Analyte 100 mg/dl (++) Not Available [facility] [address] [facility], [place], [address], 03/27/2018 09:59:04 03/27/20 18 03/27/2018 urina lysis , dipst ick, auto Unknown Analyte Normal Not Available [facility] [address] [facility], [place], [address], 03/27/2018 09:59:04 03/27/20 18 03/27/2018 urina lysis , dipst ick, auto Unknown Analyte Negati ve Not Available [facility] [address] [facility], [place], [address], 03/27/2018 09:59:04 03/27/20 18 03/27/2018 urina lysis , dipst ick, auto Unknown Analyte Normal Not Available [facility] [address] [place], [address], 03/27/2018 09:59:04 03/27/20 18 03/27/2018 urina lysis , dipst ick, auto Unknown Analyte Negati ve Not Available [facility] [address] [place], [address], 03/27/2018 09:59:04 03/27/20 18 03/27/2018 urina lysis , dipst ick, auto Unknown Analyte 250 Daniel/ul Not Available [facility] [address] [facility], [place], [address], 03/27/2018 09:59:04 03/27/20 18 03/27/2018 urina lysis , dipst ick, auto Unknown Analyte Clean Catch Not Available [facility] [address] [facility], [place], [address], 03/27/2018 09:59:04 03/27/20 18 03/27/2018 urina lysis , dipst ick, auto Unknown Analyte Automa alli Not Available [facility] [address] [facility], [place], [address], 03/27/2018 09:59:04 03/21/20 18 03/21/2018 urina lysis , dipst ick, auto Unknown Analyte Yellow Not Available [facility] [address] [place], [address], 03/21/2018 09:54:32 03/21/20 18 03/21/2018 urina lysis , dipst ick, auto Unknown Analyte Clear Not Available [facility] [address] [place], [address], 03/21/2018 09:54:32 03/21/20 18 03/21/2018 urina lysis , dipst ick, auto Unknown Analyte 1.020 Not Available [facility] [address] [place], [address], 03/21/2018 09:54:32 03/21/20 18 03/21/2018 urina lysis , dipst ick, auto Unknown Analyte 5.0 Not Available [facility] [address] [place], [address], 03/21/2018 09:54:32 03/21/20 18 03/21/2018 urina lysis , dipst ick, auto Unknown Analyte Negati ve Not Available [facility] [address] [facility], [place], [address], 03/21/2018 09:54:32 03/21/20 18 03/21/2018 urina lysis , dipst ick, auto Unknown Analyte Negati ve Not Available [facility] [address] [facility], [place], [address], 03/21/2018 09:54:32 03/21/20 18 03/21/2018 urina lysis , dipst ick, auto Unknown Analyte Negtiv e Not Available [facility] [address] [facility], [place], [address], 03/21/2018 09:54:32 03/21/20 18 03/21/2018 urina lysis , dipst ick, auto Unknown Analyte Normal Not Available [facility] [address] [facility], [place], [address], 03/21/2018 09:54:32 03/21/20 18 03/21/2018 urina lysis , dipst ick, auto Unknown Analyte Negati ve Not Available [facility] [address] [facility], [place], [address], 03/21/2018 09:54:32 03/21/20 18 03/21/2018 urina lysis , dipst ick, auto Unknown Analyte Normal Not Available [facility] [address] [place], [address], 03/21/2018 09:54:32 03/21/20 18 03/21/2018 urina lysis , dipst ick, auto Unknown Analyte 1 mg/dl (+) Not Available [facility] [address] [place], [address], 03/21/2018 09:54:32 03/21/20 18 03/21/2018 urina lysis , dipst ick, auto Unknown Analyte 50 Daniel/ul Not Available [facility] [address] [facility], [place], [address], 03/21/2018 09:54:32 03/21/20 18 03/21/2018 urina lysis , dipst ick, auto Unknown Analyte Clean Catch Not Available [facility] [address] [place], [address], 03/21/2018 09:54:32 03/21/20 18 03/21/2018 urina lysis , dipst ick, auto Unknown Analyte Automa alli Not Available [facility] [address] [facility], [place], [address], 03/21/2018 09:54:32 04/28/20 18 04/28/2018 cultu re, urine results [facility] e: CCUR Colle cted: 04/28 12:30 Site: [...] SERGO AND SENSI TIVIT Y RESUL TS [place] te 01 Yeast speci es Not Available [facility] [address] [place] [address], [address], 05/01/2018 11:20:52 09/23/20 22 09/23/2022 UA MICRO SCOPI C, CULTU RE IF INDIC ATED WBC, urine 5-10 0-5/hp f abnormal Not Available [facility] [place], [address], 09/23/2022 14:48:53 09/23/20 22 09/23/2022 UA MICRO SCOPI C, CULTU RE IF INDIC ATED squamous epi. cells 0-5 0-5/hp f normal Not Available [facility] [address] [place] [address], [address], 09/23/2022 14:48:53 09/23/20 22 09/23/2022 UA MICRO SCOPI C, CULTU RE IF INDIC ATED bacteria 1+ /hpf abnormal Not Available [facility] [address] [place], [address], 09/23/2022 14:48:53 09/23/20 22 09/23/2022 UA MICRO SCOPI C, CULTU RE IF INDIC ATED crystals Trace negati ve normal Calci um [place] te Not Available [facility] [address] [place] [address], [address], 09/23/2022 14:48:53 09/23/20 22 09/23/2022 UA MICRO SCOPI C, CULTU RE IF INDIC ATED reflex culture see below normal UA resul ts do not meet cultu re crite dimitri. Not Available [facility] [address] [place] [address], [address], 09/23/2022 14:48:53 09/23/20 22 09/23/2022 urina lysis , dipst ick Unknown Analyte Yellow Not Available [facility] [place], [address], 09/23/2022 10:25:05 09/23/20 22 09/23/2022 urina lysis , dipst ick Unknown Analyte Clear Not Available [facility] [address] [place], [address], 09/23/2022 10:25:05 09/23/20 22 09/23/2022 urina lysis , dipst ick Unknown Analyte 1.020 Not Available [facility] [address] [place], [address], 09/23/2022 10:25:05 09/23/20 22 09/23/2022 urina lysis , dipst ick Unknown Analyte 5.0 Not Available [facility] [address] [place], [address], 09/23/2022 10:25:05 09/23/20 22 09/23/2022 urina lysis , dipst ick Unknown Analyte 500 Omayra/ul (++) Not Available [facility] [address] [place] [address], [address], 09/23/2022 10:25:05 09/23/20 22 09/23/2022 urina lysis , dipst ick Unknown Analyte Negati ve Not Available [facility] [address], [address], 09/23/2022 10:25:05 09/23/20 22 09/23/2022 urina lysis , dipst ick Unknown Analyte Trace Not Available [facility] [address] [place] [address], [address], 09/23/2022 10:25:05 09/23/20 22 09/23/2022 urina lysis , dipst ick Unknown Analyte Normal Not Available [facility] [address], [address], 09/23/2022 10:25:05 09/23/20 22 09/23/2022 urina lysis , dipst ick Unknown Analyte Negati ve Not Available [facility] [address], [address], 09/23/2022 10:25:05 09/23/20 22 09/23/2022 urina lysis , dipst ick Unknown Analyte Normal Not Available [facility] [address] [place] [address], [address], 09/23/2022 10:25:05 09/23/20 22 09/23/2022 urina lysis , dipst ick Unknown Analyte Negati ve Not Available [facility] [address] [place] [address], [address], 09/23/2022 10:25:05 09/23/20 22 09/23/2022 urina lysis , dipst ick Unknown Analyte 50 Daniel/ul Not Available [facility] [address], [address], 09/23/2022 10:25:05 09/23/20 22 09/23/2022 urina lysis , dipst ick Unknown Analyte Clean Catch Not Available [facility] [address], [address], 09/23/2022 10:25:05 09/23/20 22 09/23/2022 urina lysis , dipst ick Unknown Analyte Visual Not Available [facility] [address], [address], 09/23/2022 10:25:05 03/22/20 18 03/22/2018 fluor oscop y (PROC ) No observ ation record ed. [email or web address] Alma Mihcael MD [address] [facility], [place], [address], 03/23/2018 08:35:30 03/23/20 18 03/18/2018 CT, abdom en + pelvi s, w/o contr ast No observ ation record ed. BARCODE Not Available 2017 11:45:34 03/25/20 18 03/24/2018 XR, abdom en No observ ation record ed. [email or web address] Not Available 2017 06:46:28 04/28/20 18 04/28/2018 XR, abdom en [facility] [place] [address] Patien t Name: ROSITA SAEZ Patikerri t : [birth year] Patien t Orderi [...] Vazquez MD on 04/28/20 18 12:05 PM [facility] [employer] [address] [place] [address], [address], 04/28/2018 17:45:05 09/23/20 22 09/23/2022 XR, abdom en, [address] [address] Patien t Name: ROSITA PAT ON Patien t : [birth year] Patien t Orderi ng Provid er: SHERLY MCKINNEY S EXAM DATE: 2021 EXAM: XR ABDOME N [...] Alvarenga MD on 2021 12:20 PM [email or web address] [facility] [address] [place] [address], [address], 09/24/2022 17:10:45 Result Notes Documentation Provider Name and Address Organization Details Recorded Time Xr, Abdomen : [facility] [address] [place] [address] Patient Name: PADMA GALLAGHER Patient : 1985 [...] Interpreted By: Brian Vazquez MD MICHAEL MD [address] [place] [address], [address], [facility] 04/28/2018 17:45:05 Xr, Abdomen, 1 View : [place] [address] Patient Name: PADMA GALLAGHER Patient : 1985 [...] abnormality. Interpreted By: Vince Alvarenga MD Kira graff [facility] 09/24/2022 17:10:45 Problems No Known Problems Procedures Surgical History Date Name Laterality Status Provider Name and Address Organization Details Recorded Time 03/22/20 18 Other completed ALMA MICHAEL MD [address] [place] [address], [address], [facility] 03/27/2018 12:54:47 Cholecystectomy completed Jojotova Liz [facility] 03/21/2018 09:56:03 Appendectomy completed Jojo Liz [facility] 03/21/2018 09:56:07 Heart Surgery completed Jojo Liz [facility] 03/21/2018 09:56:20 delivery completed CARINA MICHAEL MD [address] [place] [address], [address], [facility] 03/21/2018 12:51:52 Imaging Results None recorded. Procedure Notes None recorded. Medical Equipment None Reported. Allergies Allergen ID Allergen Name Allergen Category Reaction Reaction Severity Criticality Documentation Date Start Date Code Code System Note Provider Name and Address Organization Details Recorded Time 969848 Rocephin medicatio n Not available Not available Not available 03/21/2018 9449 [facility] 09:[facility]33 485278 Product containin g penicilli n (product) medicatio n Not available Not available Not available 03/21/2018 71428 8001 SNOMED [facility] 09:54:38 Medications Name Sig Start Date [...] Updated DateTime 03/21/2018 175.26 cm 32.9 kg/m2 815248.1 g Jojo Liz [facility] 03/21/2018 09:54:13 Date Recorded Body height Body mass index (BMI) Body weight Systolic blood pressure Diastolic blood pressure Provider Name and Address Organization Details Last Updated DateTime 03/27/2018 175.26 cm 32.9 kg/m2 378034.1 g 120 mm[Hg] 82 mm[Hg] Alvin Denny [facility] 8 09:54:06 Date Recorded Body height Body mass index (BMI) Body weight Systolic blood pressure Diastolic blood pressure Provider Name and Address Organization Details Last Updated DateTime 04/28/2018 175.26 cm 32.5 kg/m2 47972.32 g 110 mm[Hg] 85 mm[Hg] Eunice Olivares [facility] 8 10:16:53 Social History Question Answer Notes LastModified by Organizat ion Details LastModified Time Tobacco Smoking Status Never Smoker Jojo Liz [facility] 03/21/2018 09:55:38 Marital Status loly Informatio n not available 03/21/2018 What Was The Date Of Your Most Recent Tobacco Screening? 04/28/2018 Information n ot available 11/13/2019 Sex: Unknown Functional Status Question Answer Note LastModified by Organizat ion Details LastModified Time What is your level of alcohol consumption? 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 Family History Relationship Description Onset Age of this Age Resolved Age Notes LastModified by Organization Details LastModified Time Mother Diabetes mellitus Not available 2017 09:55:27 Medical History Condition Response Allergies/Hayfever Y Anemia Y Kidney Stones Y Heart Arrhythmia Gynecological HistoryNo gynecological history recorded. Obstetrics History GPAL:G 2 P 2 0 0 0 Type Value Full Term 2 Total 2 Past Encounters Encounter ID Performer Location Encounter Start Date Encounter Closed Date Diagnosis/Indication Diagnosis SNOMED-CT Code Diagnosis ICD10 Code Diagnosis Note [id number] ALMA MICHAEL MD UROLOGY [facility] [address] [place] [id number] 03/21/2018 09:16:04 03/21/2018 15:04:44 Ureteric stone 73752687 N20.1 [id number] ALMA MICHAEL MD UROLOGY [facility] [address] [id number] 03/27/2018 09:25:17 03/27/2018 14:05:17 Ureteric stone 17923617 N20.1 doing well post-op [id number] ALMA MICHAEL MD UROLOGY [facility] [address] [id number] 04/28/2018 09:10:48 04/30/2018 17:44:54 Kidney stone 73383889 N20.0 tiny. Acute urin avinash tract infection 964210223 N39.0 [id number] BERNARDINO BLACKMON APRN UROLOGY [address] [place] [address] 09/23/2022 09:37:37 09/23/2022 16:29:19 Kidney stone 85838641 N20.0 History of urinary tract infection 1146497049 107 Z87.440 Leukocytes in urine 2757 78434 R82.79 Health Concerns Section Related Observation LastModified by Organization Detai ls LastModified Time None Recorded Concern Status LastModified by Organization Details LastModified Time None Recorded Advance Directives Directive None Recorded Payers Insurance Date Sequence Insurance Name Policy Number Policy Lamar Covered Member ID Lamar Member ID Guarantor Name 03/23/2025 1 [place] [id number] John Gallagher [id number] Padma Gallagher 09/22/2022 1 [place] [id number] Padma Gallagher [id number] Padma Gallagher 09/22/2022 1 [facility] [id number] Padma Gallagher [id number] Padma Gallagher Notes Date Note Type Note Provider Name and Address Organization Details Recorded Time 03/21/2018 text/html Padma is a 33 yo new female who presents today s/p ER visit at [facility] for kidney stones. Her pain started 6 days ago, last Tuesday in the left flank , hematuria, n/v, and fever. 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 Then 3 days ago her pain increased and she trini to the [facility] ER, where a CT scan showed 5mm stone in the distal UVJ with high grade obstruction. She continues with pain and discomfort. She has no other complaints or concerns today. ALMA MICHAEL MD [address] [place] [address] [place], [address], [facility] 03/21/2018 12:55:03 03/27/2018 text/html 33 y/o female he re today for a f/u after having cystoscopy with left ureteroscopy, laser lithotripsy, basket stone extraction, and stent insertion 03/22/18. She denies any current gross hematuria. She did mention she has had an intermittent low grade fever. She denies any other urinary complaints/concerns today. MD Meagan [place], [address], [facility] 03/27/2018 12:56:11 04/28/2018 text/html Padma is a [...] has intermittent gross hematuria. ALMA MICHAEL MD [address] [place], [address], [facility] 04/28/2018 16:49:50 09/23/2022 text/html 37 year old [...] pain. She went to the ER at [facility] on 08/24/22. A CT scan showed [...] She has never been a smoker. BERNARDINO BLACKMON APRN [address] [place], [address], [facility] 09/23/2022 11:02:41 OBGyn Episode No OBEpisode recorded.
--- OUTSIDE RECORDS SUMMARY | 2025-03-23 11:33 | XMS_ITS | Encounter Summary ---
Author Organization [facility] Address [address] [place] [address] Care Team Providers Care Ice Crusher Name Role Phone Kartik Russo MD Primary Care Provider + [phone] Reason for Referral * Consultation (Routine) - Closed Specialty Diagnoses / Procedures Referred By Kieran mota Referred To Contact Dentist / Pain Medicine Diagnoses Obstructive sleep apnea (adult) (pediatric) Minerva Parr APRN [address] [place] [address] Phone: tel: fax: [facility] Room [address] [place] [address] Phone: tel: fax: Referral ID Status Reason Start Date Expiration Date Visits Re quested Visits Authorized [id number] Closed 06/23/2023 12/22/2024 1 1 Encounter Details Date Type Department Care Team (Late st Contact Info) Description 06/23/2023 Community [facility] [address] [place] [address] Minerva Parr APRN [address] [place] [address] Obstructive sleep apnea (adult) (pediatric) (Primary [...] documented as of this encounter Care Teams Ice Crusher Relationship Specialty Start Date End Date Kartik Russo MD [facility] [place] [address] PCP - General 02/06/21 documented as of this encounter
--- OUTSIDE RECORDS SUMMARY | 2025-03-23 11:34 | XMS_ITS | Data Portability ---
Author Organization [facility] [employer], [employer] [facility] Address [address] [place] [address] Assessment No assessment recorded. Plan of Treatment Reminders Order Date Submit Date Provider Last Modified By Organization Details Last Modified Time Details Appointments None recorded. Lab rapid flu (A+B) [address], [address], 4 17:40:59 rapid SARS CoV 2 Ag, QL, [place], upper respiratory specimen [address], [address], 4 17:40:59 rapid flu (A+B) [address], [address], 2 10:19:15 rapid SARS CoV 2 Ag, QL, [place], upper respiratory specimen [address], [address], 2 10:19:15 Referral websphere administrator referral - Needs a early or late Tuesday appt. 2024 025 [facility], [address], [address], [place], [address], 5 19:04:22 Procedures None recorded. Surgeries None recorded. Imaging None recorded. Medication Orders Bromfed DM 2 mg-30 mg-10 mg/5 mL oral syrup 2021 022 [email or web address], [address] [place], [address], 4 14:39:36 Patient TargetsNo targets recorded. Patient InstructionsNo instructions recorded. Reason for Referral Mail Processing Associate Referral for Johnson - lesion Needs a early or late Tuesday appt. Referring Physician: Chelsey Mendoza, Family Medicine, Encounter Date: 10/26/2024 Results Created Date Observation Date Name Description Value Unit Range Abnormal Flag Note LastModifiedBy Organization Detail LastModifiedTime 09/06/20 22 09/06/2022 rapid SARS CoV 2 Ag, QL, IA, upper respi rator y speci men SARS CoV Ag positi ve Not Available [address], [address], 09/06/2022 09:59:08 09/06/20 22 09/06/2022 rapid flu (A+B) Flu A negati ve Not Available [address], [address], 09/06/2022 09:59:06 09/06/20 22 09/06/2022 rapid flu (A+B) Flu B negati ve Not Available [address], [address], 09/06/2022 09:59:06 10/11/19 24 10/11/2023 rapid flu (A+B) Flu A negati ve Not Available [address], [address], 10/11/2023 10:35:48 10/11/19 24 10/11/2023 rapid flu (A+B) Flu B positi ve Not Available [address], [address], 10/11/2023 10:35:48 10/11/19 24 10/11/2023 rapid SARS CoV 2 Ag, QL, IA, upper respi rator y speci men SARS CoV Ag negati ve Not Available [address], [address], 10/11/2023 10:35:49 Result Notes None recorded. Problems Name Problem SNOMED Code Status Onset Date Resolution Date Notes Provider Name and Address Organization Details Recorded Time Cough 56634534 Completed 202009/06/2022 Problem Code: R05; Problem Code Type: ICD-10; HEIDI graff, [employer]. 09:57:13 Pyrexia of unknown origin 7953357 Active 2020 Problem Code: R50.9; Problem Code Type: ICD-10; Not Available [facility] 22:24:44 Myositis 14727369 Active 2020 Problem Code: M60.9; Problem Code Type: ICD-10; Not Available [facility] 22:24:44 COVID-19 683508109 Completed 202009/06/2022 Problem Code: U07.1; Problem Code Type: ICD-10; HEIDI graff, [employer] 09:57:13 Problem Notes None recorded. Procedures Surgical History Date Name Laterality Status Provider Name and Address Organization Details Recorded Time 08/26/20 24 Most Recent Mammogram completed HEIDI MARTELL [employer] 10/26/2024 16:22:50 04/30/20 section completed Not Available [facility] 06/01/2022 22:56:15 04/30/20 21 cholecystectomy completed Not Available [facility] 06/01/2022 22:56:16 04/30/20 21 appendectomy completed Not Available [facility] 06/01/2022 22:56:18 Incise thigh tendon & fascia completed Chelsey Mendoza APRN [address] [place], [address], [facility] [employer] 10/28/2024 14:17:06 Imaging Results None recorded. Procedure Notes None recorded. Medical Equipment None Reported. Allergies Allergen ID Allergen Name Allergen Category Reaction Reaction Severity Criticality Documentation Date Start Date Code Code System Note Provider Name and Address Organization Details Recorded Time 06640 Product containin g penicilli n (product) medicatio n Not available Not available Not available 06/01/2022 25262 8001 SNOMED Aller gyCod e: ''; Aller gyNam e: 'Peni cilli ns'; Aller gyCon ceptT ype: ''; Not Available [facility] 2 22:55:00 53877 Rocephin medicatio n Not available Not available Not available 06/01/2022 9449 RxNorm Not Available [facility] 2 22:55:09 Medications Name Sig Start Date [...] completed Not Available Not Available Not Available TRANSMISSION INSPECTOR Thyroid 30 mg tablet TAKE ONE TABLET [...] completed Not Available Not Available Not Available Nurtec ODT 75 mg disintegrat ing tablet DISSOLVE [...] Address Organization Details Last Updated DateTime 4 44528.3 3 g 28.5 kg/m2 175.26 cm 97.5 [degF] 83 /min 99 % 99 % 95 mm[Hg] 64 mm[Hg] Cass Rizvi [facility] [employer]. 4 14:41:58 Date Recorded Body height Body mass index (BMI) Body weight Body temperature Heart rate Oxygen saturation Oxygen saturation in Arterial blood by Pulse oximetry Systolic blood pressure Diastolic blood pressure Provider Name and Address Organization Details Last Updated DateTime 5 175.26 cm 32.4 kg/m2 83473.1 7 g 98 [degF] 101 /min 99 % 99 % 125 mm[Hg] 76 mm[Hg] HEIDI [employer] 5 16:20:37 Date Recorded Body weight Body temperature Heart rate Oxygen saturation Oxygen saturation in Arterial blood by Pulse oximetry Provider Name and Address Organization Details Last Updated DateTime 2 207285. 17 g 100 [degF] 106 /min 98 % 98 % HEIDI [employer] 2 09:56:32 Social History Question Answer Notes LastModified by Organizat ion Details LastModified Time Tobacco Smoking Status Never Smoker SocialHis toryQuest ion: 'Tobacco/ Alcohol/S upplement s'; SocialHis toryRespo nse: 'Never Smoker'; Not Available [facility] 06/01/2022 22:55:35 Do You Have An Advance [...] not available 09/06/2022 Who Is Your Employer? [employer] Information not available 09/06/2022 Have There Been Any Changes To Your Family Or Social Situation? No Information no t available 09/06/2022 Are There Any Guns Present In Your Home? No Information not available 09/06/2022 Do You Have A Medical Power Of Machine Tool Rebuilder? No Information not available 09/06/2022 What Was [...] Functional Status Question Answer Note LastModified by [employer] ion Details LastModified Time Do you use [...] SNOMED-CT Code Diagnosis ICD10 Code Diagnosis Note [id number] [place] [id number] 0 09/06/2022 09:42:40 09/06/2022 10:26:46 Acute upper respiratory infection 08576696 J06.9 COVID-19 681373259 U07.1 Patient presented with symptoms of upper [...] to 2 weeks if symptoms not improving. [id number] Desiree Adis [place] [address] 0 10/11/2023 14:11:23 10/11/2023 15:08:22 Cough 72142256 R05.9 Influenza caused by Influenza B virus 72845202 J10.1 Body mass index 25-29 - overweight 422097290 Z68.28 [id number] Chelsey Mendoza [place] [phone] 10/26/2024 16:09:12 10/26/2024 16:54:46 Johnson - lesion 148681901 L84 We will refer Manisha to podiatry for treatment of her corns, considerat ion of new custom molded orthotics, possibly an ASO. Acquired p es planus of left foot [id number] 64644 M21.42 Body mass index 30+ - obesity 760040439 Z68.32 Health Concerns Section Related Observation LastModified by Organization Detai ls LastModified Time None Recorded Concern Status LastModified by Organization Details LastModified Time None Recorded Advance Directives Directive N: Payers Insurance Date Sequence Insurance Name Policy Number Policy Lamar Covered Member ID Lamar Member ID Guarantor Name 12/08/2023 1 [employer] (PPO) [id number] Manisha Gallagher [id number] Manisha Gallagher 10/29/2024 1 [place] [id number] John Gallagher [id number] Manisha Gallagher Notes Date Note Type Note [...] cough;sore throat;headache;chills ;malaise Chelsey Mendoza APRN [address] [place], [address], [employer] 09/06/2022 10:37:57 10/11/2023 text/html pt here today wi th c/o cough and fatigue x5 days with worsening symptoms today. rapid flu b positive. pt to rest x3 days, increase fluids, tylenol/ibuprofen for pain/fever. return for worsening symptoms. Desiree Arceo APRN [address] [place], [address], [employer] 10/11/2023 17:30:10 10/26/2024 text/html Manisha has hx bilateral fasciotomy bilateral lower legs. She has chronic muscle atrophy and weakness in both legs. Complains of two painful corns on sole of left foot for 2 months. She is wearing a custom orthotic but it is old. She has poor arch in left foot. Pressure distribution of left foot is uneven. Chelsey Mendoza APRN [address] [place] [address], [place], [address], [facility] [employer] 10/28/2024 14:17:46 OBGyn Episode No OBEpisode recorded.
[2025-03-23 11:47] LABS: Microscopic, Urine URINE MICROSCOPIC (MICROSCOPIC)
[2025-03-23 12:48] LABS: Appearance,Urine CLEAR (Clear); Bilirubin,Urine Negative (Negative); Blood, Urine 2+ (Negative); Color,Urine YELLOW (Yellow); Glucose,Urine (UA) Negative (Negative); Ketones,Urine Negative (Negative); Leukocyte Esterase,Urine Negative (Negative); Nitrate,Urine Negative (Negative); Protein,Urine Negative (Negative); Specific Gravity, Urine 1.025 (1.005-1.030); Urobilinogen,Urine 0.2 EU/dl (0.2)
[2025-03-23 12:55] LABS: Bacteria,Urine 1+ /lpf; RBC,Urine Occasional #/hpf (0-3)
[2025-03-23 13:11] LABS: Uric Acid 4.9 mg/dl (2.5-6.2)
[2025-03-23 13:16] LABS: C-Reactive Protein 1.4 mg/L (0-4)
[2025-03-23 13:29] LABS: 25-OH Vitamin D, Total 46.6 ng/mL (30-100)
[2025-03-23 13:30] LABS: T4 (Thyroxine) 6.9 ug/dl (5.53-11.0)
[2025-03-23 13:44] LABS: Thyroid Stimulating Hormone 0.65 uIU/mL (0.465-4.68)
[2025-03-23 14:00] LABS: Hepatitis C Ab Qual. W/ RFX NEGATIVE (Negative)
[2025-03-23 14:03] LABS: Vitamin B12 812 pg/mL (239-931)
[2025-03-23 14:27] LABS: Erythrocyte Sedimentation Rate 13 mm/hr (0-20)
[2025-03-24 07:01] LABS: Estradiol 51.7 pg/mL (.); FSH 12.6 mIU/mL (.); LH 5.9 mIU/mL (.); Testosterone,Total 17 ng/dL (4-50); Thyroid Peroxidase Antibodies 9 IU/mL (0-34); Triiodothyronine (T3) Free 2.6 pg/mL (2.0-4.4)
[2025-03-25 13:57] LABS: Miscellaneous Test SCANNED IMAGE
[2025-03-25 18:49] LABS: Antinuclear Antibodies, IFA Positive (.)
[2025-03-27 00:04] LABS: QuantiFERON-TB Gold Plus Negative (Negative)
[2025-04-03 12:19] LABS: HLA-B27 Negative (.)
[2025-04-05 20:14] LABS: Anti-Cardiolipin Antibody IgG <10 GPL (.); Anti-Cardiolipin Antibody IgM <10 MPL (.); Beta-2 Glycoprotein I Ab, IgA <10 SAU (.); Beta-2 Glycoprotein I Ab, IgG <10 SGU (.); Beta-2 Glycoprotein I Ab, IgM <10 SMU (.); Hexagonal Phase Phospholipid 5 sec (.); INR 1.2 ratio (.); Prothrombin Time 13.5 sec (.); Thrombin Time 23.1 sec (.)
== END 2025-03-23 23:59 | disposition home or self-care (01) ==
LOC: LAB 11:31
PROVIDERS: PCP Family Medicine; Visit Provider Nurse Practitioner
DX: M25.50 Pain in unspecified joint (principal); M65.90 Unspecified synovitis and tenosynovitis, unspecified site; D51.0 Vitamin B12 deficiency anemia due to intrinsic factor deficiency; E55.9 Vitamin D deficiency, unspecified
CPT/HCPCS: 36415; 81001; 82306; 82607; 82670; 82746; 83001; 83002; 84403; 84436; 84443; 84481; 84550; 85597; 85598; 85610; 85613; 85651; 85670; 85730; 86038; 86140; 86146; 86147; 86376; 86480; 86644; 86704; 86706; 86803; 86812; 87340

== ENCOUNTER 2025-04-19 15:01 | Outpatient (CLI) | payer BC, SELFPAY ==
--- OUTSIDE RECORDS SUMMARY | 2024-10-31 10:15 | XMS_ITS ---
Author [facility] Address [address] [place] [id number] Care Team Providers Care Sales Agent Fire Insurance Name Role Phone RafaelaKartik Primary Care Provider Titus Virgen Unavailable [phone] Lisa Wagner Unavailable [phone] Allergies Allergen (clinical drug ingredient) Drug/Non Drug Allergy documented on EMR Reaction Allergy Type Onset Date Status Medicinal cephalosporin and acting as antibacterial agent (FN) Cephalosporins Unknown Drug Allergy Active Substance with penicillin structure and antibacterial mechanism of action (substance) Penicillins Unknown Drug Allergy Active Tape Unknown Allergy Active vancomycin Vancomycin Unknown Drug Allergy Activ e Results Component Value Reference Range Notes Influenza Screen (in house) Reviewed date:11/01/2024 10:17:32 AM Interpretation: Performing Lab: Notes/Report: results Neg CBC Fingerstick (in house) Reviewed date:10/31/2024 03:51:23 PM Interpretation: Performing Lab: Notes/Report: wbc 8.3 3.5 - 10 lym 21.2% 15 - 50 mid 5.0% 2 - 15 gran 73.8% 35 - 80 rbc 5.18 3.5 - 5.5 hgb 14.9 11.5 - 16.5 hct 45.4 35 - 55 mcv 87.6 75 - 100 mch 28.9 25 - 35 mchc 32.9 31 - 38 plat 266 100 - 400 REASON FOR VISIT nausea, vomiting 3 days Medications Medication SIG (Take, Route, Frequency, Duration) Notes Start Date End Date Status Amitriptyline HCl 25 mg TAKE ONE TABLET BY MOUTH AT BEDTIME; Duration: 30 Active Vitamin D3 50 MCG (1999 UT) as directed orally once a day; Duration: 30 day(s) Not-Taking Pantoprazole Sodium 40 MG 1 tablet Orall y Once a day; Duration: 30 day(s) Active Promethazine HCl 25 MG 1 tablet Orally e very 6 hrs, prn 10/31/2024 Active Tamsulosin HCl 0.4 mg TAKE ONE CAPSULE B Y MOUTH EVERY DAY; Duration: 30 Not-Taking Wegovy 1.7 MG/0.75ML 0.75 mL Subcutaneou s; Duration: 30 day(s) Not-Taking Xarelto 20 mg TAKE ONE TABLET BY MOUTH ONCE DAILY IN THE EVENING; Duration: 90 Active Levothyroxine Sodium 50 mcg TAKE ONE TABLET BY MOUTH EVERY DAY IN THE MORNING ON EMPTY STOMACH; Duration: 90 days Active Vital Signs Blood pressure systolic 120 mm Hg 10/31/19 25 Blood pressure diastolic 80 mm Hg 025 Heart Rate 85 /min 10/31/2024 Height 68 in 10/31/2024 Weight 208.2 lbs 10/31/2024 BMI 31.65 kg/m2 10/31/2024 Encounters Encounter Location Date Provider Diagnosis [facility] [address] [place], [place] [address] [id number] 10/31/2024 Lisa Wagner Gastroenteritis K52. 9 Assessments Encounter Date Diagnosis (ICD Code) Assessment Notes Treatment Notes Treatment Clinical Notes Section Notes 10/31/2024 Gastroenteritis (ICD-10 - K52.9) Nausea and vomiting are a little better today. Will orally rehydrate. Diarrhea has resolved. Plan Of Treatment Medication Medication Name Sig Start Date Stop Date Notes Promethazine HCl 25 MG 1 tablet Orally every 6 hrs, prn Treatment Notes Assessment Notes Gastroenteritis Nausea and vomiting are a little better today. Will orally rehydrate. Diarrhea has resolved. Next Appt Details Follow Up: prn, Reason: Progress Notes * Manisha ARROYO RDOB:[birth year] (40 yo F)Acc No.[id number]:10/31/2024 Progress Notes Patient: Manisha MANDUJANO Provider: RASHAAD Mccullough :1985 A ge:39 Y S ex:Female Date:10/31/2024 Address:[address] [place], [place] [id number] Pcp:Kartik Russo Subjective: * Chief Complaints: * 1 . Nausea, vomiting 3 days. * HPI: G astroenterology: The pt states she started on Tuesday with c/o nausea and vomiting. Pt denies any fever or diarrhea. 39 year old female presents with c/o Nausea. c/o Vomiting. Denies : Abdominal Pain. D enies : Diarrhea. D enies : Fever. * ROS: D ERMATOLOGY: no R jules. n o H nolan. G ASTROENTEROLOGY: no N ausea. n o V omiting. n o D iarrhea.? U ROLOGY: no D ifficulty urinating. n o B lood in urine. * Medical History: I rritable Bowel Syndrome, DVT, s/p bilateral compartment syndrome due to intraoperatine aortic injury during cholecystectomy, LT Leg DVT, 10/2014, Kidney stones, Esophageal reflux, Vitamin D deficiency. * Surgical History: C holecystecomy 2001, Intra Operative Aorta Injury 2001, Fasciotmy Both Legs 2001, 08/11/2009, 06/29/2012, Kidney Stone Removal - [place] 02/2018, EGD and Esopogeal Stretching 03/06/2024. * Hospitalization/Major Diagno stic Procedure: P neumonia , Appendicitis , Shoulder 02/03/2011, RT Leg Pain- [facility] 11/03/2014, LT Knee Abcess- [facility] 08/25-08/26, [facility] - Hematuria 07/01/2024. * Family History: F ather: alive. M other: alive. P aternal Grand Father: alive. P aternal Grand Mother: alive. M aternal Grand Father: alive. M aternal Grand Mother: alive. 1 brother(s) , 1 sister(s) . 1 son(s) , 1 daughter(s) . . * Social History: C URRENT TOBACCO USE S moking Status: Patient does NOT smoke. C affeine: yes, frequency:. Marital Status: . Past smoking status: no. Alcohol: no. * Medications: T aking Pantoprazole Sodium 40 MG Tablet Delayed Release 1 tablet Orally Once a day , Taking Amitriptyline HCl 25 mg Tablet TAKE ONE TABLET BY MOUTH AT BEDTIME , Taking Levothyroxine Sodium 50 mcg Tablet TAKE ONE TABLET BY MOUTH EVERY DAY IN THE MORNING ON EMPTY STOMACH , Taking Xarelto 20 mg Tablet TAKE ONE TABLET BY MOUTH ONCE DAILY IN THE EVENING , Not-Taking Wegovy 1.7 MG/0.75ML Solution Auto-injector 0.75 mL Subcutaneous , Not-Taking Vitamin D3 50 MCG (1999 UT) Tablet as directed orally once a day , Not-Taking Tamsulosin HCl 0.4 mg Capsule TAKE ONE CAPSULE BY MOUTH EVERY DAY , Medication List reviewed and reconciled with the patient * Allergies: P enicillins, Tape, Cephalosporins, Vancomycin. Objective: * Vitals: W t:208.2, Temp:98.6, BP:120/80, HR:85, Nurse:BANDAR, Ht: 68, BMI:31.65. * Examination: G astroenterology: General Appearance: p leasant, NAD. O ral cavity: mucous membranes dry. H eart sounds: r egular, normal S1 S2, no murmurs. L ungs: c lear, no rales or wheezes. A bdomen: B S present, soft, nontender, no guarding or rigidity, no masses felt. Assessment: * Assessment: 1. G astroenteritis - K52.9 (Primary) Plan: * Treatment: Value Reference Range r esults Neg * Celia Rizvi 11/01/2024 9:37 :05 AM > , Provider reviewed results while patient in office.Lisa Wagner 11/01/2024 10:17:28 AM > ?LAB: CBC Fingerstick (in house) (Collection Date & Time - 10/31/2024)* Value Reference Range w bc 8.3 3.5 - 10 * l ym 21.2% 15 - 50 * m id 5.0% 2 - 15 * g ran 73.8% 35 - 80 * r bc 5.18 3.5 - 5.5 * h gb 14.9 11.5 - 16.5 * h ct 45.4 35 - 55 * m cv 87.6 75 - 100 * m ch 28.9 25 - 35 * m chc 32.9 31 - 38 * p lat 266 100 - 400 * Rochelle Piedra 10/31/2024 2:46:48 PM > , Provider reviewed results while patient in office.Lisa Wagner 10/31/2024 3:51:19 PM > Notes: Nausea and vomiting are a little better today. Will orally rehydrate. Diarrhea has resolved. ? * Procedure Codes: 3 6416 CAPILLARY BLOOD DRAW, 62130 CBC WITH AUTO DIFF, 21032 Flu Test- Nasal Swab, Modifiers: QW , 3074F SYST BP LT 130 MM HG, 3078F DIAST BP < 80 MM HG * Follow Up: p rn * Images: Billing Information: * Visit Code: 54239 Office Visit, Est Pt., Level 3. * Procedure Codes: 01334 CAPILLARY BLOOD DRAW. 24965 CBC WITH AUTO DIFF. 90471 Flu Test- Nasal Swab. Modifiers: QW 3074F SYST BP LT 130 MM HG. 3078F DIAST BP < 80 MM HG. * Electronic signature of RASHAAD Mosley on 04/19/2025 at 03:04 PM EDT Sign off status: Pending * Provider: RASHAAD Mccullough Date: 0 10/31/2024 Generated for Helene quispe/Simran/eTransmitting on: 0 04/19/2025 03:04 PM EDT History and Physical Notes * HPI (History of Present Illness) Category Sub-Category Detail Notes Category Not es Gastroenterology Fever Vomiting Abdominal Pain Diarrhea Nausea Examination Category Sub-Category Detail Notes Category Not es Gastroenterology Oral cavity: mucous membranes dry Heart sounds: regular, normal S1 S 2, no murmurs Lungs: clear, no rales or w heezes Abdomen: BS present, soft, no ntender, no guarding or rigidity, no masses felt General Appearance: pleasant, NAD
--- OUTSIDE RECORDS SUMMARY | 2025-02-20 12:00 | XMS_ITS ---
Author Organization [facility] Address [address] [facility] [address] [place] [id number] Care Team Providers Care Fitness Coach Name Role Phone Kartik Russo Primary Care Provider Titus Virgen Unavailable [phone] Allergies Allergen (clinical drug ingredient) Drug/Non Drug [...] Normal Performing Lab: Notes/Report: Test performed by [facility] [address] [place] [address] , [address], [place] [address] Mohit Hendrix MD, Electronics Repair Technician CLIA: [id number] Thyroxine Free (free T4) 1.27 0.86-1.76 ng/dL P-TSH Reviewed date:02/22/2025 09:46:57 AM Interpretation: Normal Performing Lab: Notes/Report: Test performed by [facility] [address] [place] [address] , [address], [place] [address] Mohit Hendrix MD, Electronics Repair Technician CLIA: [id number] TSH 0.86 0.43-5.25 mU/L P-Vitamin D 25-Hydroxy Reviewed date:02/22/2025 09:46:57 AM Interpretation:25.8 Performing Lab: Notes/Report: Test performed by [facility] [address] [place] [address] , [address], [place] [address] Mohit Hendrix MD, Electronics Repair Technician CLIA: [id number] Vitamin D 25-Hydroxy 25.8 30.0-100.0 ng/mL Interpretation [...] 02/20/2025 Encounters Encounter Location Date Provider Diagnosis [facility] [address] [place], [place] [phone] 02/20/2025 Kartik Russo Acute URI J06.9 ; [...] * Manisha ARROYO RDOB:[birth year] (40 yo F)Acc No.[id number]:02/20/2025 Progress Notes Patient: Manisha MANDUJANO Provider: eNisha Russo M.D. :1985 A ge:40 Y S ex:Female Date:02/20/2025 Address:[address] [place] [address] [id number] Subjective: * Chief Complaints: * 1 . [...] 2001, 08/11/2009, 06/29/2012, Kidney Stone Removal - [place] 02/2018, EGD and Esopogeal Stretching 03/06/2024. * Hospitalization/Major Diagno stic Procedure: P neumonia , Appendicitis , Shoulder 02/03/2011, RT Leg Pain- [facility] ER 11/03/2014, LT Knee Abcess- [facility] 08/25-08/26, [facility] ER - Hematuria 07/01/2024. * Family [...] * Images: Billing Information: * Visit Code: 45040 Office Visit, Est Pt., Level 4. * Procedure Codes: 92813 CBC WITH AUTO DIFF. G8950 PREHTN/HTN BP DOC INDCD F/U DOC. G8752 MOST RECENT SYSTOLIC BP < 140MM HG. G8754 MOST RECENT DIASTOLIC BP < 90MM HG. * Electronic signature of Yudy Russo MD on 04/19/2025 at 03:04 PM EDT Sign off status: Pending * Provider: Neisha Russo M.D. Date: 0 02/20/2025 Generated for Helene quispe/Simran/eTransmitting on: 0 04/19/2025 [...]
--- OUTSIDE RECORDS SUMMARY | 2025-02-26 06:30 | XMS_ITS ---
Author Organization [facility] Address [address] [place] [id number] Care Team Providers Care Hand Coremaker Name Role Phone RafaelaKartik Primary Care Provider [phone] Titus Virgen Unavailable [phone] Harleen Collazo Unavailable [phone] Allergies Allergen (clinical drug ingredient) Drug/Non Drug [...] 264 100 - 400 ultrasound : thyroid Reviewed date:03/25/2025 12:12:12 PM Interpretation: Performing Lab: Notes/Report: REASON FOR VISIT [...] W/U Status Risk Notes Problem Thyroid nodule ([id number]) Thyroid nodule (E04.1) Active confirmed Vital Signs Blood pressure systolic 102 mm Hg 02/27/20 25 Blood pressure diastolic 80 mm Hg 025 Heart Rate 93 /min 02/26/2025 Height 68 in 02/26/2025 Weight 199.2 lbs 02/26/2025 BMI 30.28 kg/m2 02/26/2025 Encounters Encounter Location Date Provider Diagnosis [facility] [address] [facility] [address] [place] [id number] 02/26/2025 Harleen Zay Acute pansinusitis, unspecified J01.40 and Thyroid nodule [...] t hyroid ultrasound to monitor the nodule. Next Appt Details Follow Up: prn, Reason: Progress Notes * Manisha ARROYO RDOB:[birth year] (40 yo F)Acc No.[id number]:02/26/2025 Progress Notes Patient: Manisha MANDUJANO Provider: JACI Strong :1985 A ge:40 Y S ex:Female Date:02/26/2025 Address:[address] [place] [address] [place], [id number] Pcp:Kartik Russo Subjective: * Chief Complaints: * [...] 2001, 08/11/2009, 06/29/2012, Kidney Stone Removal - [place] 02/2018, EGD and Esopogeal Stretching 03/06/2024. * Hospitalization/Major Diagno stic Procedure: P neumonia , Appendicitis , Shoulder 02/03/2011, RT Leg Pain- [facility] 11/03/2014, LT Knee Abcess- [facility] 08/25-08/26, [facility] - Hematuria 07/01/2024. * Family [...] Procedure Codes: 3 6416 CAPILLARY BLOOD DRAW, 56784 CBC WITH AUTO DIFF, 1036F TOBACCO NON-USER, G8783 BP SCR PRFRM RCMDD DEFIND SCR INTVL, G8752 MOST RECENT SYSTOLIC BP < 140MM HG, G8754 MOST RECENT DIASTOLIC BP < 90MM HG * Follow Up: p rn * Images: Billing Information: * Visit Code: 47322 Office Visit, Est Pt., Level 3. * Procedure Codes: 06912 CAPILLARY BLOOD DRAW. 87821 CBC WITH AUTO DIFF. 1036F TOBACCO NON-USER. G8783 BP SCR PRFRM RCMDD DEFIND SCR INTVL. G8752 MOST RECENT SYSTOLIC BP < 140MM HG. G8754 MOST RECENT DIASTOLIC BP < 90MM HG. * Electronic signature of Bijal Collazo APRN on 04/19/2025 at 03:05 PM EDT Sign off status: Pending * Provider: JACI Strong Date: 0 02/26/2025 Generated for Helene quispe/Simran/Latonya on: 0 04/19/2025 03:05 PM EDT History and Physical Notes * HPI (History of Present Illness) Category Sub-Category Detail Notes Category Not es ENT/respiratory sore throat facial pain/pressure cough The pt is here today with c/o continued cough, sore throat, sinus drainage and pressure. Pt states she saw Dr Russo on Tuesday and has finshed Zpak and will finish the clindamycin tomorrow. [...]
--- OUTSIDE RECORDS SUMMARY | 2025-04-19 15:04 | XMS_ITS | Encounter Summary ---
Author Organization [facility] Address [address] [place] [address] Care Team Providers Care Fire Lookout Name Role Phone Kartik Russo MD Primary Care Provider + [phone] Reason for Referral * Consultation (Routine) - Closed Specialty Diagnoses / Procedures Referred By Kieran mota Referred To Contact Dentist / Pain Medicine Diagnoses Obstructive sleep apnea (adult) (pediatric) Minerva Parr APRN [address] [place] [address] Phone: tel: fax: [facility] Room [address]214 [address] [place] [address] Phone: tel: fax: Referral ID Status Reason Start Date Expiration Date Visits Re quested Visits Authorized [id number] Closed 06/23/2023 12/22/2024 1 1 Encounter Details Date Type Department Care Team (Late st Contact Info) Description 06/23/2023 Community [facility] [address] [place] [address] Minerva Parr APRN [address] [place] [address] Obstructive sleep apnea (adult) (pediatric) (Primary [...] documented as of this encounter Care Teams Fire Lookout Relationship Specialty Start Date End Date Kartik Russo MD [facility] [place] [address] PCP - General 02/06/21 documented as of this encounter
--- OUTSIDE RECORDS SUMMARY | 2025-04-19 15:04 | XMS_ITS | Clinical Summary ---
Author Organization [facility] Address [address] [place] [address] Care Team Providers Care Cafe Site Attendant Name Role Phone Kartik Russo MD Primary Care Provider + [phone] Allergies Active Allergy Reactions Criticality Noted Date Comments Ceftriaxone Unknown - Patient st ates they do not know rxn details,Hives Medium 03/22/2018 Penicillins Unknown - Patient st ates they do not know rxn details,Hives Medium 03/22/2018 Medications rivaroxaban (Xarelto) 20 MG tablet Xarelto 20 mg tablet 07/06/2018 Active thyroid ([place]) 30 MG tablet Take 30 mg by mouth 1 (one) time each day. Active cholecalciferol (Vitamin D-3) 25 MCG (1000 UT) capsule Take 2,000 Units by mouth. Active thyroid (RENT CONTROL OFFICE MANAGER Thyroid) 30 MG tablet Take 30 mg [...] C Screening 1983 [facility]-/Child/Adol SDOH Screenings 1983 [id number] Vaccine (#1) 01/31/1988 [facility]-Varicella Vaccines (1 of 2 - 13+ 2-dose series) 01/31/1996 HPV Vaccines (1 - 3-dose series) 1998 [facility]- SDOH Screenings 2001 [facility]-Adult SDOH Screenings 2001 [facility]-DTaP,Tdap,and Td Vaccines (1 - Tdap) 2002 [facility]-Hepatitis B Vaccines (1 of 3 - 19+ 3-dose series) 2002 [facility]-Pap Smear 01/31/2004 [facility]-Cervical Cancer Screening 2013 [facility]-HPV/Cotest 2013 [facility]-Depression Screening 12/04/2023 12/03/2022 [facility]-Influenza Vaccine (#1) 2025 [facility]-Zoster Vaccines (1 of 2) 2033 [...] MRSA 02/14/2021 02/14/2021 Insurance ANTHEM Care Teams Cafe Site Attendant Relationship Specialty Start Date End Date Kartik Russo MD [address] [place] [address] PCP - General 02/06/21
--- OUTSIDE RECORDS SUMMARY | 2025-04-19 15:04 | XMS_ITS | Continuity of Care Document ---
Author Organization [facility] [address] Address [address] [place] [address] Care Team Providers Care Bed Placement Coordinator Name Role Phone AMBER MEYERS Primary Care Provider JAYCEE COLLAZO Referring Provider [phone] Assessment No assessment recorded. Plan of Treatment Reminders Order Date Submit Date Provider Last Modified By Organization Details Last Modified Time Details Appointments None record ed. Lab None record ed. Referral None record ed. Procedures None record ed. Surgeries None record ed. Imaging None record ed. Medication Orders None record ed. Patient TargetsNo targets recorded. Patient Instructions Encounter Date Encounter Id Patient Instructions Last Modified By Organization Details Last Modified Time 04/09/2025 [id number] 1. Ultrasound report reviewed in office today. Results discussed with patient. 2. Recommend repeat US annually 3. F/u 12 months [email or web address] Not available 04/09/2025 08:38:19 Does not require fine-needle aspiration or surgical excision today. They reviewed labs and thyroid ultrasound were unremarkable today. Certainly would defer any surgical intervention at this point as this is not indicated. Repeat ultrasound in 1 year would be reasonable [email or web address] Not available 04/09/2025 14:24:34 Reason for Referral None Reported. Results Created Date Observation Date Name Description Value Unit Range Abnormal Flag Note LastModifiedBy Organization Detail LastModifiedTime 04/09/2003/08/2025 US, thyro id No observ ation record ed. BARCODE Not Available 2024 11:05:46 Result Notes None recorded. Problems No Known Problems Procedures Surgical History Date Name Laterality Status Provider Name and Address Organization Details Recorded Time 03/22/20 18 Other completed ALMA MICHAEL MD [address] [place], [address], [facility] 03/27/2018 12:54:47 Cholecystectomy completed Jojotova Liz [facility] 03/21/2018 09:56:03 Appendectomy completed Jojo Liz [facility] 03/21/2018 09:56:07 Heart Surgery completed [facility] 03/21/2018 09:56:20 delivery completed CARINA MICHAEL MD [address] [place], [address], [facility] 03/21/2018 12:51:52 Imaging Results None recorded. Procedure Notes None recorded. Medical Equipment None Reported. Allergies Allergen ID Allergen Name Allergen Category Reaction Reaction Severity Criticality Documentation Date Start Date Code Code System Note Provider Name and Address Organization Details Recorded Time 912211 Rocephin medicatio n Not available Not available Not available 03/21/2018 9449 RxNorm [place] Agusto [facility] 8 09:54:33 246836 Product containin g penicilli n (product) medicatio n Not available Not available Not available 03/21/2018 32421 8001 SNOMED [place] Agusto [facility] 8 09:54:38 Medications Name Sig Start Date Stop Date Status Note LastModified by Organization Details LastModified Time doxycycline hyclate 100 mg capsule TAKE ONE CAPSULE BY MOUTH TWICE DAILY FOR 10 DAYS -- FINISH ALL MEDICINE -- active Not Available Not Available No t Available clindamycin HCl 300 mg capsule TAKE ONE CAPSULE BY MOUTH EVERY TWELVE HOURS FOR 7 DAYS active Not Available Not Available No t Available azithromyci n 250 mg tablet TAKE 2 TABLETS BY MOUTH ON DAY 1, THEN TAKE 1 TABLET DAILY ON DAYS 2-5 active Not Available Not Available No t Available hydrocodone 5 mg-acetamin ophen 325 mg tablet TAKE 1 TABLET BY MOUTH EVERY 6 HOURS NEEDED FOR PAIN active Not Available Not Available No t Available phenazopyri dine 200 mg tablet TAKE ONE TABLET BY MOUTH THREE TIMES DAILY NEEDED FOR urinary pain active Not Available Not Available No t Available ondansetron HCl 4 mg tablet TAKE 1 TABLET BY MOUTH EVERY 8 HOURS NEEDED FOR NAUSEA AND VOMITING active Not Available Not Available No t Available prednisone 5 mg tablet TAKE 1 TABLET BY MOUTH THREE TIMES DAILY FOR 7 DAYS, THEN 1 TWICE DAILY FOR 7 DAYS, THEN 1 ONCE DAILY UNTIL GONE active Not Available Not Available No t Available phentermine 37.5 mg tablet TAKE 1 TABLET BY MOUTH ONCE DAILY 30 MINUTES BEFORE BREAKFAST active Not Available Not Available No t Available levofloxaci n 250 mg tablet 04/28 completed Not Available Not Available Not Available ciprofloxac in 500 mg tablet TAKE 1 TABLET BY MOUTH TWICE DAILY FOR 7 DAYS active Not Available Not Available No t Available sulfamethox azole 800 mg-trimetho prim 160 mg tablet TAKE 1 TABLET BY MOUTH TWICE DAILY active Not Available Not Available No t Available tramadol 50 mg tablet TAKE 1 TABLET BY MOUTH EVERY 6 HOURS NEEDED FOR MODERATE PAIN (4-6) active Not Available Not Available No t Available ketorolac 10 mg tablet TAKE 1 TABLET BY MOUTH EVERY 4 HOURS NEEDED NOT TO EXCEED 4 TABLETS IN 24 HOURS FOR UP TO 5 DAYS TOTAL USE active Not Available Not Available No t Available oxycodone-a cetaminophe n 5 mg-325 mg tablet TAKE 1 TABLET BY MOUTH EVERY 4 HOURS NEEDED FOR PAIN active Not Available Not Available No t Available amitriptyli ne 25 mg tablet TAKE ONE TABLET BY MOUTH EVERY DAY AT BEDTIME active Not Available Not Available No t Available tamsulosin 0.4 mg capsule TAKE ONE CAPSULE BY MOUTH EVERY DAY active Not Available Not Available No t Available imiquimod 5 % topical cream packet APPLY TOPICALLY TO THE AFFECTED AREA(S) 3 NIGHTS WEEKLY DIRECTED active Not Available Not Available No t Available phenazopyri dine 100 mg tablet TAKE ONE TABLET BY MOUTH THREE TIMES DAILY NEEDED FOR PAIN active Not Available Not Available No t Available levothyroxi ne 50 mcg tablet TAKE ONE TABLET BY MOUTH EVERY MORNING ON an EMPTY stomach active Not Available Not Available No t Available pantoprazol e 40 mg tablet,fidel yed release TAKE 1 TABLET BY MOUTH ONCE DAILY active Not Available Not Available No t Available promethazin e 25 mg tablet TAKE ONE TABLET BY MOUTH EVERY 6 HOURS NEEDED active Not Available Not Available [...] Not Available Not Available No t Available fluticasone propionate 50 mcg/actuati on nasal spray,suspe nsion 03/21 completed Not Available Not Available Not Available nitrofurant oin monohydrate /macrocryst als 100 mg capsule TAKE ONE CAPSULE BY MOUTH TWICE DAILY -- FINISH ALL MEDICINE -- active Not Available Not Available No t Available Xarelto 20 mg tablet TAKE ONE TABLET BY MOUTH EVERY EVENING active Not Available Not Available No t Available Linzess 290 mcg capsule active Not Available Not Available Not Available Nurtec ODT 75 mg disintegrat ing tablet DISSOLVE ONE TABLET BY MOUTH ONCE NEEDED FOR migraine HEADACHE DIRECTED active Not Available Not Available No t Available Wegovy 1.7 mg/0.75 mL subcutaneou s pen injector INJECT 1 SYRINGE SUBCUTANE OUSLY ONCE A WEEK active Not Available Not Available No t Available Zepbound 5 mg/0.5 mL subcutaneou s pen injector INJECT 1 SYRINGE SUBCUTANE OUSLY ONCE A WEEK active Not Available Not Available No t Available Zepbound 2.5 mg/0.5 mL subcutaneou s pen injector INJECT 1 SYRINGE SUBCUTANE OUSLY ONCE A WEEK active Not Available Not Available No t Available Zepbound 7.5 mg/0.5 mL subcutaneou s pen injector INJECT 1 SYRINGE UNDER THE SKIN ONCE A WEEK active Not Available Not Available No t Available Vitals Date Recorded Body height Body mass index (BMI) Body weight Body temperature Heart rate Systolic And Diastolic Provider Name and Address Organization Details Last Updated DateTime 5 175.26 cm 28.8 kg/m2 01448.5 1 g 97.5 [degF] 91 /min 108/75 mm[Hg] Jael [facility] 5 08:20:05 Social History Question Answer Notes LastModified by Organizat ion Details LastModified Time Tobacco Smoking Status Never Smoker Jojo Liz [facility] 03/21/2018 09:55:38 Marital Status arigg Informatio n not available 03/21/2018 What Was The Date Of Your Most Recent Tobacco Screening? 04/28/2018 Information n ot available 11/13/2019 Sex: Unknown Functional Status Question Answer Note LastModified by Organizat ion Details LastModified Time What is your level of alcohol consumption? 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 Information not available 03/21/2018 Mental Status None [...] SNOMED-CT Code Diagnosis ICD10 Code Diagnosis Note [id number] CHRIS MAN MD [facility] [address] [place] [address] 04/09/2025 08:02:15 04/09/2025 08:41:08 Thyroid nodule 053966991 E04.1 US Results from [facility]: - 9mm lesion on the right side TiRAD - 8 mm right thyroid lobe lesion TiRAD 4 History of dysphagia 147 9204922 9582741 Z87.898 Autoimmune disease 11632 009 M35.9 Possible currently under the care of rheumatolo gist to explore wide range of symptoms Lethargy 827130029 R53.8 3 Idiopathic Health Concerns Section Related Observation LastModified by Organization Detai ls LastModified Time None Recorded Concern Status LastModified by Organization Details LastModified Time None Recorded Payers Encounter Date Sequence Insurance Name Policy Number Policy Lamar Covered Member ID Lamar Member ID Guarantor Name 04/09/2025 1 [place] [id number] John Elliott [id number] Manisha Elliott Notes Date Note Type Note Provider Name and Address Organization Details Recorded Time 04/09/2025 text/html Manisha comes in today for consultation at the request of Sue Collazo APRN for a thyroid evaluation. Pt has been on thyroid medicine for a long time. She had a US 1 year ago that came back abnormal. When she was sick a few weeks ago, her PCP wanted to repeat the US. During this illness, she would sleep for 12-14 hours and not feel rested as well as severe fatigue and sore joints. 1.5 years ago, she had trouble swallowing and had her esophagus lengthened. US Results from [facility]:03/08/25- 8 mm subcentimeter lesion TiRAD - 9mm lesion on the right side TiRAD 4 CHRIS MAN MD [address] [place] [address], [address], [place] [facility] 04/09/2025 16:10:38 OBGyn Episode No OBEpisode recorded.
--- OUTSIDE RECORDS SUMMARY | 2025-04-19 15:04 | XMS_ITS | Clinical Summary ---
Author Organization [facility] Address [address] [place] [address] Care Team Providers Care Tugboat Dispatcher Name Role Phone Kartik Russo MD Primary Care Provider [phone] Allergies Active Allergy Reactions Criticality Noted Date Comments Penicillins Hives Medium 03/22/2018 Ceftriaxone Hives Medium 03/22/2018 Medications rivaroxaban (Xarelto) 20 MG tablet Active VITAMIN D, CHOLECALCIFEROL, PO Take 2,000 Units by mouth. Active METAL COATER Thyroid 30 MG tablet Take 1 tablet by mouth Daily. 30 tablet 11 09/02/2020 Active Active Problems Problem Noted Date Diagnosed Date Hypothyroidism, adult 01/17/2020 Chronic fatigue 01/17/2020 Positive DOM (antinuclear antibody) 01/17/2020 Vitamin D deficiency Family History Medical History Relation Name Comments Breast cancer Maternal Grandmother Psoriasis Sister Ovarian cancer Neg Hx Relation Name Status Comments Maternal Grandmother Sister Social History Tobacco Use Types Packs/Day Years Used Date Smoking Tobacco: Never Smokeless Tobacco: Never Alcohol Use Standard Drinks/Week Comments No 0 (1 standard drink = 0.6 oz pur e alcohol) Comments No Sex and Gender Information Value Date Recorded Sex Assigned at Not on file Legal Sex Female 12:56 PM EDT Gender Identity Not on file Sexual Orientation Not on file Last Filed Vital Signs Vital Sign Reading Time Taken Comments Blood Pressure 110/70 04/24/2020 11:57 AM EDT Pulse 74 04/24/2020 11:57 AM EDT Temperature 37.1 C (98.8 F) 03/22/2018 2:45 PM EDT Respiratory Rate 18 03/22/2018 2:45 PM EDT Oxygen Saturation 99% 04/24/2020 11:57 AM EDT Inhaled Oxygen Concentration - - Weight 107 kg (235 lb 3.2 oz) 09/02/2020 8:53 AM EST Height 175.3 cm (5' 9 ) 09/02/2020 8:53 AM EST Body Mass Index 34.73 09/02/2020 8:53 AM EST Plan of Treatment Health Maintenance Due Date Last Done Comments Annual Gynecologic Pelvic and Breast Exam 1983 TDAP/TD VACCINES (1 - Tdap) 2002 ANNUAL PHYSICAL 01/16/2020 HEPATITIS C SCREENING 01/16/2020 COVID-19 Vaccine ( - 2023- season) 2024 INFLUENZA VACCINE 06/26/2025 MAMMOGRAM 09/22/2026 09/22/2024, 08/27, 09/15/2022, Additional history exists Pneumococcal Vaccine 0-49 Aged Out No longer eligible based on patient's age to complete this topic Medical Devices Implanted Type Area [employer] Device Identifier Shelf Expiration Date Model / Serial / Lot Stent Percuflx No Gw 4.8x24 - [id number] Implanted:Qty: 1 on 03/22/2018 by Tanvir Cornejo MD at [facility] Implant [employer] [id number] / / [id number] Procedures Procedure Name Priority Date/Time Associated Diagnosis Comments MAMMO SCREENING DIGITAL TOMOSYNTHESIS BILATERAL W CAD Routine 09/22/2024 10:05 AM EST Encounter for screening mammogram for breast cancer from Last 3 Months or Most Recently Relevant to Health Maintenance Results * Mammo Screening Digital Tomosynthesis Bilateral With CAD (09/22/2024 10:05 AM EST) Anatomical Region Laterality Modality Breast N/A Mammography 09/27/2024 4:43 PM EST Impressions 09/27/2024 4:46 PM EST No mammographic findings suspicious for malignancy. RECOMMENDATION: Continue annual screening mammography. BI-RADS CATEGORY 1, NEGATIVE. CAD was utilized. The standard false-negative rate of mammography is between 10% and 25%. Complex patterns or increased breast density will markedly elevate the false-negative rate of mammography. A letter, in lay terminology, with the results of this exam will be mailed to the patient. This report was finalized on 09/27/2024 4:[address] Bri Pacheco MD. Narrative 09/27/2024 4:46 PM EST BILATERAL SCREENING MAMMOGRAM WITH TOMOSYNTHESIS: HISTORY: The patient has no personal history or significant family history of breast cancer and no focal breast complaints at the time of screening mammography. Her maternal grandmother was diagnosed with breast cancer. TECHNIQUE: Bilateral CC and MLO low dose, full field digital mammographic images were obtained with tomosynthesis. COMPARISON: 09/21/2023, 09/15/2022, 01/29/2022, 10/13/2021, 07/20/2021, and 06/25/2021 FINDINGS: The breast tissue is almost entirely fatty in density. The fibroglandular pattern is stable. There are no suspicious masses, worrisome calcifications, nonsurgical areas of architectural distortion, or other secondary signs of malignancy. Kartik Russo MD IMG MAMMOGRAPHY ORDERABLES F inal Result from Last 3 Months or Most Recently Relevant to Health Maintenance Insurance PPO Member Subscriber Plan / Payer (Ef fective 2021-Present) Name:Manisha Gallagher Relation to Subscriber:Spouse Name:DINAJOHN Date of :1980 (Home) Address: [address] [place] [address] Payer ID:[id number] (NAIC) Type:Not on file Address: [facility] [id number] [place] [id number] Care Teams Tugboat Dispatcher Relationship Specialty Start Date End Date Kartik Russo MD [address] [facility] [address] [place] [address] PCP - General Family Medicine 03/22/18
--- OUTSIDE RECORDS SUMMARY | 2025-04-19 15:04 | XMS_ITS | Data Portability ---
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 Her symptoms resolved with dilation and initiation of a daily PPI. -Continue PPI. Plan for repeat dilation as needed. f/u 6 months. [email or web address] Not available 03/23/2024 14:00:16 Plan of Treatment Reminders Order Date Submit Date Provider Last Modified By Organization Details Last Modified Time Details Appointments None recorded. Lab urinalysis, dipstick [address] [facility], [address], [place], [address], 4 11:34:55 CMP, serum or plasma 2023 024 [facility] (Registration ), [address] [facility], [place], [address], 4 12:03:56 urinalysis, dipstick [address] [facility], [address], [place], [address], 09:07:25 culture, urine 2023 024 [email or web address] [facility], [address] [facility], [place], [address], 09:17:00 culture, urine + sensitivity 2023 024 [email or web address] Not available 08:49:47 urinalysis, dipstick 2023 024 [email or web address] [facility], [address] [facility] [address], [place], [address], 13:43:43 culture, urine 2023 024 [email or web address] [facility], [address] [facility] [address], [place], [address], 08:49:47 Referral None recorded. Procedures None recorded. Surgeries ureteroscop y with stone basket extraction, holmium laser fragmentati on (SURG) 2023 024 [email or web address] Not available 09:30:12 cystoscopy, with insertion of ureteral stent (SURG) 2023 024 [email or web address] Not available 14:14:41 Imaging US, renal 2023 024 [email or web address] [facility], [address] [facility], [place], [address], 14:38:34 Medication Orders None recorded. Patient TargetsNo targets recorded. Patient InstructionsNo instructions recorded. Reason for Referral None Reported. Results Created Date Observation Date Name Description Value Unit Range Abnormal Flag Note LastModifiedBy Organization Detail LastModifiedTime 03/06/2003/15/2024 PATHO LOGY SPECI MEN pathology specimen SEE SINDY LEE Not Available [facility] ([facility]) [address] [facility], [place], [address], 03/15/2024 16:25:45 07/05/2007/05/2024 urina lysis , dipst ick Leukocytes (reference range) large Not Available [place] [address] [address] [facility] [address], [place], [address], 07/05/2024 13:30:27 07/05/20 24 07/05/2024 urina lysis , dipst ick Nitrite (reference range:) positi ve Not Available [place] [address] [address] [facility] [address], [place], [address], 07/05/2024 13:30:27 07/05/20 24 07/05/2024 urina lysis , dipst ick Protein (reference range) 300 Not Available [place] [address] [address] [facility] [address], [place], [address], 07/05/2024 13:30:27 07/05/20 24 07/05/2024 urina lysis , dipst ick pH (reference range 5-8.5) 5.0 Not Available [facility] [place] [address] [address] [facility] [address], [place], [address], 07/05/2024 13:30:27 07/05/20 24 07/05/2024 urina lysis , dipst ick Blood (reference range:) large Not Available [place] [address] [address] [facility] [address], [place], [address], 07/05/2024 13:30:27 07/05/20 24 07/05/2024 urina lysis , dipst ick Specific [place] (reference range) 1.020 Not Available [place] [address] [address] [facility] [address], [place], [address], 07/05/2024 13:30:27 07/05/20 24 07/05/2024 urina lysis , dipst ick Ketone (reference range) trace Not Available [place] [address] [address] [facility] [address], [place], [address], 07/05/2024 13:30:27 07/05/2007/05/2024 urina lysis , dipst ick Glucose (reference range) 250 Not Available [place] [address] [address] [facility] [address], [place], [address], 07/05/2024 13:30:27 07/05/2007/05/2024 urina lysis , dipst ick Color (reference range: yellow-brown ) Red Not Available [place] [address] [address] [facility] [address], [place], [address], 07/05/2024 13:30:27 07/19/2007/19/2024 urina lysis , dipst ick Leukocytes (reference range) negati ve Not Available [place] [address] [address] [facility] [address], [place], [address], 07/19/2024 08:59:55 07/19/2007/19/2024 urina lysis , dipst ick Nitrite (reference range:) negati ve Not Available [place] [address] [address] [facility] [address], [place], [address], 07/19/2024 08:59:55 07/19/2007/19/2024 urina lysis , dipst ick Protein (reference range) 30 Not Available [place] [address] [address] [facility] [address], [place], [address], 07/19/2024 08:59:55 07/19/2007/19/2024 urina lysis , dipst ick pH (reference range 5-8.5) 6.0 Not Available [place] [address] [address] [facility] [address], [place], [address], 07/19/2024 08:59:55 07/19/2007/19/2024 urina lysis , dipst ick Blood (reference range:) large Not Available [place] [address] [address] [facility] [address], [place], [address], 07/19/2024 08:59:55 07/19/2007/19/2024 urina lysis , dipst ick Specific [place] (reference range) 1.030 Not Available [place] [address] [address] [facility] [address], [place], [address], 07/19/2024 08:59:55 07/19/2007/19/2024 urina lysis , dipst ick Ketone (reference range) negati ve Not Available [place] [address] [address] [facility] [address], [place], [address], 07/19/2024 08:59:55 07/19/2007/19/2024 urina lysis , dipst ick Glucose (reference range) negati ve Not Available [place] [address] [address] [facility] [address], [place], [address], 07/19/2024 08:59:55 07/19/2007/19/2024 urina lysis , dipst ick Color (reference range: yellow-brown ) Brown Not Available [place] [address] [address] [facility] [address], [place], [address], 07/19/2024 08:59:55 07/20/2007/26/2024 CALCU JESSICA UR (STON E LIGIA SIS) source Commen t . Left Urete r Not Available [facility] ([facility]) [address] [facility], [place], [address], 07/26/2024 17:11:18 07/20/2007/26/2024 CALCU JESSICA UR (STON E LIGIA SIS) color Brown Not Available [facility] ([facility]) [address] [facility], [place], [address], 07/26/2024 17:11:18 07/20/2007/26/2024 CALCU LI, UR (STON E LIGIA SIS) size 3x3 mm Multi ple piece s recei darien. Elaine richter of the large st piece repor alli. Not Available [facility] ([facility]) [address] [facility], [place], [address], 07/26/2024 17:11:18 07/20/20 24 07/26/2024 CALCU LI, UR (STON E LIGIA SIS) weight 16 mg Not Available [facility] ([facility]) [address] [facility], [place], [address], 07/26/2024 17:11:18 07/20/2007/26/2024 CALCU LI, UR (STON E LIGIA SIS) composition Commkerri t . Perce ntage (Repr esent s the % compo sitio n) Not Available [facility] ([facility]) [address] [facility], [place], [address], 07/26/2024 17:11:18 07/20/20 24 07/26/2024 CALCU LI, UR (STON E LIGIA SIS) Ca oxalate dihydrate 20 % Not Available [facility] ([facility]) [address] [facility], [place], [address], 07/26/2024 17:11:18 07/20/20 24 07/26/2024 CALCU LI, UR (STON E LIGIA SIS) Ca oxalate monohydrate 80 % Not Available [facility] ([facility]) [address] [facility], [place], [address], 07/26/2024 17:11:18 07/20/20 24 07/26/2024 CALCU LI, UR (STON E LIGIA SIS) comment: Commkerri t . Physi prachi quest ions regar ding Calcu li Ligia sis conta ct [facility] at: [phone]. Not Available [facility] ([facility]) [address], [place], [address], 07/26/2024 17:11:18 07/20/2007/26/2024 SULTANA LOPEZ UR (STON E LIGIA SIS) please note: Cristiane mota . Sultana caro t will follo w via compu ter, mail or couri er suleiman aguilar. Not Available [facility] ([facility]) [address], [place], [address], 07/26/2024 17:11:18 07/20/2007/26/2024 SULTANA LOPEZ UR (STON E LIGIA SIS) photo Cristiane mota . Photo graph will follo w under a separ ate cover Not Available [facility] ([facility]) [address], [place], [address], 07/26/2024 17:11:18 07/20/2007/26/2024 SULTANA LOPEZ UR (STON E LIGIA SIS) pdf image . Perfo rmed at: [facility] [employer] [facility] a [address] [place] [address] 209 Lab Direc tor: Anayeli vaelrio PhD, Phone : [phone] Not Available [facility] ([facility]) [address], [place], [address], 07/26/2024 17:11:18 07/20/2007/26/2024 CALCNacho LOPEZ UR (STON E LIGIA SIS) disclaimer: Cristiane Aviles This test was devnirali mendozaed and its perfo rmanc e agustina cteri stics deter mined by [facility]. It has not been clear ed or appro darien by the Food and Drug Admin istra tion. Not Available [facility] ([facility]) [address], [place], [address], 07/26/2024 17:11:18 07/27/20 24 07/27/2024 COMP METAB OLIC PANEL sodium 141 mmol/ L 136-14 5 Not Available [facility] ([facility]) [address] , [place], [address], 07/27/2024 12:03:56 07/27/20 24 07/27/2024 COMP METAB OLIC PANEL potassium 4.5 mmol/ L 3.6-5. 0 Not Available [facility] ([facility]) [address] , [place], [address], 07/27/2024 12:03:56 07/27/2007/27/2024 COMP METAB OLIC PANEL chloride 104 mmol/ L 98-107 Not Available [facility] ([facility]) [address] , [place], [address], 07/27/2024 12:03:56 07/27/20 24 07/27/2024 COMP METAB OLIC PANEL carbon dioxide 29.6 mmol/ L 21.0-3 2.0 Not Available [facility] ([facility]) [address] , [place], [address], 07/27/2024 12:03:56 07/27/20 24 07/27/2024 COMP METAB OLIC PANEL anion gap 11.9 Not Available [facility] ([facility]) [address] , [place], [address], 07/27/2024 12:03:56 07/27/2007/27/2024 COMP METAB OLIC PANEL glucose 106 mg/dL 70-120 Not Available [facility] ([facility]) [address] [place], [address], 07/27/2024 12:03:56 07/27/20 24 07/27/2024 COMP METAB OLIC PANEL BUN 12 mg/dL 7-18 Not Available [facility] ([facility]) [address] [place], [address], 07/27/2024 12:03:56 07/27/20 24 07/27/2024 COMP METAB OLIC PANEL creatinine 0.9 mg/dL 0.6-1. 3 Not Available [facility] ([facility]) [address], [place], [address], 07/27/2024 12:03:56 07/27/20 24 07/27/2024 COMP METAB [...] sumner ing kiney funct ion. Not Available [facility] ([facility]) [address] , [place], [address], 07/27/2024 12:03:56 07/27/2007/27/2024 COMP METAB OLIC PANEL total protein 7.8 g/dL 6.4-8. 2 Not Available [facility] ([facility]) [address] , [place], [address], 07/27/2024 12:03:56 07/27/20 24 07/27/2024 COMP METAB OLIC PANEL albumin 3.7 g/dL 3.4-5. 0 Not Available [facility] ([facility]) [address], [place], [address], 07/27/2024 12:03:56 07/27/20 24 07/27/2024 COMP METAB OLIC PANEL globulin 4.1 Not Available [facility] ([facility]) [address] , [place], [address], 07/27/2024 12:03:56 07/27/2007/27/2024 COMP METAB OLIC PANEL alb/glob ratio 0.9 0.7-2 Not Available [facility] ([facility]) [address] , [place], [address], 07/27/2024 12:03:56 07/27/20 24 07/27/2024 COMP METAB OLIC PANEL calcium 9.6 mg/dL 8.5-10 .5 Not Available [facility] ([facility]) [address] , [place], [address], 07/27/2024 12:03:56 07/27/20 24 07/27/2024 COMP METAB OLIC PANEL bilirubin total 0.50 mg/dL 0.10-1 .00 Not Available [facility] ([facility]) [address], [place], [address], 07/27/2024 12:03:56 07/27/20 24 07/27/2024 COMP METAB OLIC PANEL AST (SGOT) 34 U/L 0-37 Not Available [facility] ([facility]) [address], [place], [address], 07/27/2024 12:03:56 07/27/20 24 07/27/2024 COMP METAB OLIC PANEL ALT (SGPT) 114 U/L 0-65 high Not Available [facility] ([facility]) [address] , [place], [address], 07/27/2024 12:03:56 07/27/20 24 07/27/2024 COMP METAB OLIC PANEL alk phosphatase 111 U/L 46-116 Not Available [facility] ([facility]) [address] , [place], [address], 07/27/2024 12:03:56 07/27/20 24 07/27/2024 urina lysis , dipst ick Leukocytes (reference range) negati ve Not Available [facility] [address], [place], [address], 07/27/2024 10:17:05 07/27/20 24 07/27/2024 urina lysis , dipst ick Nitrite (reference range:) negati ve Not Available [place] [address] [address], [place], [address], 07/27/2024 10:17:05 07/27/20 24 07/27/2024 urina lysis , dipst ick Protein (reference range) negati ve Not Available [place] [address] [address], [place], [address], 07/27/2024 10:17:05 07/27/20 24 07/27/2024 urina lysis , dipst ick pH (reference range 5-8.5) 5.0 Not Available [facility] [address] [address], [place], [address], 07/27/2024 10:17:05 07/27/20 24 07/27/2024 urina lysis , dipst ick Blood (reference range:) negati ve Not Available [place] [address] [address], [place], [address], 07/27/2024 10:17:05 07/27/20 24 07/27/2024 urina lysis , dipst ick Specific [place] (reference range) 1.000 Not Available [facility] [place] [address] [address], [place], [address], 07/27/2024 10:17:05 07/27/20 24 07/27/2024 urina lysis , dipst ick Ketone (reference range) negati ve Not Available [place] [address] [address], [place], [address], 07/27/2024 10:17:05 07/27/20 24 07/27/2024 urina lysis , dipst ick Bilirubin (reference range) negati ve Not Available [facility] [place] [address] [address] [facility] [address], [place], [address], 07/27/2024 10:17:05 07/27/20 24 07/27/2024 urina lysis , dipst ick Glucose (reference range) negati ve Not Available [facility] [place] [address] [address] [facility] [address], [place], [address], 07/27/2024 10:17:05 07/27/20 24 07/27/2024 urina lysis , dipst ick Color (reference range: yellow-brown ) Yellow Not Available [place] [address] [address] [facility] [address], [place], [address], 07/27/2024 10:17:05 07/09/20 24 07/06/2024 fluor o less than 1 HR [facility] [address] [place] [address] Phone: Fax: Name: ROSITA VALDOVINOS Exam Date: 2023 : [birth year] Age 39 years Gender : F Access ion: [id number] 1562 Physic jagjit: WILLIAM JOHNSON Facili ty: [facility] Facili ty HSV: Outpat ient Exam: [...] 02:36 AM EDT RP Workst ation: [id number] Dictat ed By: Shahab Duke rd Transc ribed By: Transc ribed On: 2023 3:04 PM Electr onical ly signed by: Shahab Duke rd 2023 Thank you for referr umair PAT ON, ROSITA R to [facility] al. Legall y authen ticate d by MAMIE MANNING RD S 2023-09 15:04: 36 CC'ed Logic: Orderi ng Provid er: ART WILLIAM Attend ing Provid er: ART WILLIAM Admitt ing Provid er: ART WILLIAM [email or web address] [facility] [address] [facility], [place], [address], 07/09/2024 08:54:48 07/23/20 24 07/20/2024 fluor o less than 1 HR [facility] [address] [place] [address] Phone: Fax: Name: ROSITA VALDOVINOS Exam Date: 2023 : [birth year] Age 39 years Gender : F Access ion: [id number] 1562 Physic jagjit: WILLIAM JOHNSON Facili ty: [facility] Facili ty HSV: Outpat ient Exam: [...] referr umair PAT ON, [facility] Legall y authen ticate d by DEBBIE Etienne 2023-09 17:08: 54 CC'ed Logic: Orderi ng Provid er: ALEX THOMAS Attend ing Provid er: ALEX THOMAS Admitt ing Provid er: ALEX THOMAS [email or web address] [facility] [address] [facility], [place], [address], 07/23/2024 16:38:53 07/27/20 24 07/27/2024 renal ,bila [facility]eral [facility] [address] [place] [address] Phone: Fax: Name: ROSITA VALDOVINOS R Exam Date: 024 : [birth year] Age 39 years Gender : F Access ion: [id number] 1562 Physic jagjit: WILLIAM JOHNSON Facili ty: [facility] Facili ty HSV: Outpat ient Exam: RENAL, [...] referr umair PAT ON, HEATHE [facility] Legall y authen ticate d by LYALA LUCAS 2023-09 13:31: 56 CC'ed Logic: Orderi ng Provid er: ALEX THOMAS Attend ing Provid er: ALEX THOMAS Referr ing Provid er: ALEX THOMAS Admitt ing Provid er: ALEX THOMAS [email or web address] [facility] [address] [facility], [place], [address], 07/30/2024 10:08:31 Result Notes None recorded. Problems Name Problem SNOMED Code Status Onset Date Resolution Date Notes Provider Name and Address Organization Details Recorded Time Stricture of esophagus 01901047 Active 2023 Mundo Sánchez PA-C [address], [place], [address] , [place] - [facility] - [place] & [place] 4 09:21:55 Gastroesophag eal reflux disease without esophagitis 458074758 Active 2023 Mundo Sánchez PA-C [address] , [place], [address] , [place] [facility] - [place] & [place] 4 09:21:59 Dysphagia 93871996 Active 2023 Mundo Sánchez PA-C [address], [place], [address] , [place] [facility] - [place] & [place] 4 09:23:54 Ureteric stone 75187941 Active 2023 WILLIAM JOHNSON MD [address], [place], [address] , [place] [facility] [place] & [place] 4 13:29:25 Abnormal urinalysis 077706560 Active 2023 WILLIAM JOHNSON MD [address], [place], [address] , [place] & [place] 4 13:29:35 Left flank pain 091846762 Active [address], [place], [address] , [place] - [place] & [place] 4 11:08:49 Abdominal pain 69830347 Active [address], [place], [address] , [place] 4 11:09:01 Liver enzymes level above reference range 469137629 Active [address], [place], [address] , [place] - [place] & [place] 4 11:34:54 Problem Notes None recorded. Procedures Surgical History None recorded. Imaging Results None recorded. Procedure Notes Documentation Provider Name and Address Organization Details Recorded Time Operative/Procedure Note [facility] Name Manisha Gallagher Date of Service 1453 [id number] (F) Attending ALEX Payton PRASANTH Admitted [id number] Discharged Primary AMANDABERRY AMBER - Pre-Procedure Diagnosis Left ureteral stone, UTI Post- Procedure Diagnosis same Procedure / Surgery None 1. Cystoscopy ( CPT 66917) 2. Left ureteral stent placement ( CPT 01956) 3. Fluoroscopy time less than 1 hour with intraoperative interpretation ( CPT 26111) Anesthesia Type General anesthesia Estimated Blood Loss [...] inspection of the entire bladder mucosa (CPT 92955). No abnormalities were noted. At this time we identified the left ureteral orifice. A sensor tip guidewire was then advanced in a retrograde fashion under fluoroscopic guidance to the left kidney ( CPT 68780). Once the wire was then position, we advanced a 6 [place] by 24 cm double-J ureteral stent over the wire ( CPT 66501). The wire was then withdrawn and we [...] to PACU 1 of 2 Operative/Procedure Note [facility] Name Manisha Gallagher Date of Service 145 [id number] (F) Attending ALEX RADER Admitted [id number] Discharged Primary MIRA CLARK - Electronically signed by ALEX RADER on 1455 2 of 2 CC'ed Logic: Ordering Provider: ALEX THOMAS Attending Provider: ALEX THOMAS Admitting Provider: PETER Robertson [facility] & [place] 07/12/2024 13:42:16 Medical Equipment None Reported. Allergies Allergen ID Allergen Name Allergen Category Reaction Reaction Severity Criticality Documentation Date Start Date Code Code System Note Provider Name and Address Organization Details Recorded Time 436255 Product containin g penicilli n (product) medicatio n Not available Not available Not available 03/22/2024 42549 8001 SNOMED Tracey PETER Roca [facility] & [place] 08:35:46 Medications Name Sig Start Date Stop [...] active Not Available Not Available Not Available [facility] ODT 75 mg disintegrati ng tablet DISSOLVE [...] Pulse oximetry Heart rate Heart rate Systolic And Diastolic Provider Name and Address Organization Details Last Updated DateTime 4 32683.4 g 29.5 kg/m2 175.26 cm 97.9 [degF] 98 % 98 % 84 /min 76 /min 122/62 mm[Hg] Tracey GREEN - [facility] & [place] 4 08:35:52 Date Recorded Body height Body mass index (BMI) Body weight Oxygen saturation Oxygen saturation in Arterial blood by Pulse oximetry Heart rate Systolic And Diastolic Provider Name and Address Organization Details Last Updated DateTime 4 175.26 cm 29.3 kg/m2 99967.7 3 g 98 % 98 % 97 /min 130/71 mm[Hg] [facility] [place] 4 13:30:12 Date Recorded Body height Body mass index (BMI) Body weight Oxygen saturation Oxygen saturation in Arterial blood by Pulse oximetry Heart rate Systolic And Diastolic Provider Name and Address Organization Details Last Updated DateTime 4 175.26 cm 29.4 kg/m2 15309.8 8 g 96.98 % 96.98 % 116 /min 135/75 mm[Hg] Liz Bree [facility] & [place] 4 08:59:43 Date Recorded Body height Body mass index (BMI) Body weight Oxygen saturation Oxygen saturation in Arterial blood by Pulse oximetry Heart rate Systolic And Diastolic Provider Name and Address Organization Details Last Updated DateTime 4 175.26 cm 29.4 kg/m2 31141.8 8 g 99 % 99 % 75 /min 105/75 mm[Hg] [facility] [place] 4 10:16:33 Social History None recorded. Functional [...] SNOMED-CT Code Diagnosis ICD10 Code Diagnosis Note [id number] Mundo Sánchez PA-C [facility] [address] [address] 03/22/2024 08:15:29 03/22/2024 11:05:00 Stricture of esophagus 50751345 K22.2 Gastroesop hageal reflux disease without esophagitis 107853586 K21.9 Dysphagia 76879151 R13.1 0 [id number] WILLIAM JOHNSON MD [facility]1 [address] [facility] [address] [place] [address] 07/05/2024 13:04:46 07/05/2024 13:47:43 Ureteric stone 78177727 N20.1 In the setting of nitrite positive [...] laser lithotrips y and [facility] Ab[facility] urinalysis 1672 73449 R82.90 patient is currently on Cipro but urine remains nitrite positive with leukocytes and blood. We will check culture today, Though this may be false negative due to current antibiotic therapy. [id number] WILLIAM JOHNSON MD [facility]-[address] [address] 07/19/2024 08:21:09 07/19/2024 09:09:33 Ureteric stone 83489947 N20.1 I reviewed the procedure in depth [...] injury, loss of kidney, and even . [id number] [facility] [address] [facility] [address] [place], [place] [id number] 07/27/2024 09:49:21 07/27/2024 11:10:19 Left flank pain [id number] R10.9 Hydronephr osis noted in the ER [...] Liver enzy mes level above reference range [id number] R74.01 Patient had notable creatinine of 1.5 [...] ID Guarantor Name 09/08/2024 1 [place] [id number] John Gallagher [id number] Manisha Gallagher Notes Date Note Type Note Provider Name and Address Organization Details Recorded Time 4 text/plai n Operative/Procedure Note [facility] Name Manisha Gallagher Date of Service 1327 [id number] (F) Attending ALEX THOMAS Tata RADER Admitted [id number] Discharged Primary MULBERRY AMBER - Pre-Procedure Diagnosis Ureteric stone Post- Procedure Diagnosis Ureteric stone Procedure / Surgery None 1. Cystoscopy with left stent removal ( CPT 37800) 2. Left ureteroscopy with stone basket ( CPT 21494) 3. Fluoroscopy time less than 1 hour with intraoperative interpretation ( CPT 68831) Anesthesia Type General anesthesia Estimated Blood Loss [...] fully intact under fluoroscopic guidance ( CPT 57000, CPT 20768). We then advanced a sensor tip guidewire [...] and passed off the field ( CPT 38302). At this time, we switched out the [...] Implants None 1 of 2 Operative/Procedure Note [facility] Name Manisha Gallagher Date of Service 1327 [id number] (F) Attending ALEX RADER Admitted [id number] Discharged Primary [facility] - Disposition of Patient stable to PACU Electronically signed by ALEX RADER on 1330 2 of 2 CC'ed Logic: Ordering Provider: ALEX THOMAS Attending Provider: ALEX THOMAS Admitting Provider: ALEX Durant NP, [address] [facility], [place], [address], [facility] - [place] & [place] 07/23/2024 16:41:55 4 text/html Ms. Gallagher presents to the [...] reports resolution of dysphagia. Mundo Sánchez PA-C [address], [place], [address], [facility] & [place] 03/23/2024 14:00:32 4 text/html ROS as noted in the HPI 07/05/24 39-year-old female referred by Dr. Amber [...] [address] Cornejo in [place] approximately 5 years ago. Patient has not had a metabolic evaluation that she is aware of. Finally, patient is on chronicXarelto therapy for history of DVTs. 07/03/24 CT ([facility]): IMPRESSION:1. 5 mm obstructing calculus at the left vesicoureteral junction resulting in moderate left hydroureteronephrosis.2. Nonobstructive left renal stones measuring up to 2 mm.3. Asymmetrically enlarged appearance of the right ovary with multiple internal cystic lesions which may representfollicular activity. Recommend further evaluation with pelvic ultrasound for better characterization. WILLIAM JOHNSON MD [address], [place], [address], [facility] & [place] 07/05/2024 13:44:29 4 text/html ROS as noted in the HPI 07/19/24 Patient returns for follow up. She [...] [address] Cornejo in [place] approximately 5 years ago. 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 07/06/24 L stent ajbasrgut15/08/24 CT ([facility]): IMPRESSION:1. 5 mm obstructing calculus at the left vesicoureteral junction resulting in moderate left hydroureteronephrosis.2. Nonobstructive left renal stones measuring up to 2 mm.3. Asymmetrically enlarged appearance of the right ovary with multiple internal cystic lesions which may representfollicular activity. Recommend further evaluation with pelvic ultrasound for better characterization. WILLIAM JOHNSON MD [address] [place] [address], [place], [address], [facility] [place] - [place] & [place] 07/19/2024 09:07:43 4 text/html ROS as noted in the HPI 07/27/24 Patient returns for follow up. She [...] returned to the ER at [facility] on 07/25/2024 and states that they [...] [address] Cornejo in [place] approximately 5 years ago. 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 07/20/24:lactate 3.7, Cr 1.5, GFR 45, WBC 10.7, UA nitrite negative, AST 117, ALT 172, Alk phos 5176207/20/24 CT ([facility] ED): Previously described calculus at the left ureterovesical junction is no longer seen. However, there is no significant change in the moderate left hydronephrosis and hydroureter. No new ureteral calculus. No new intra-abdominal abnormality. 07/20/24 L URS, laser, stent iyynnql96/11/24 L stent ndaddbgqk04/08/24 CT ([facility]): IMPRESSION:1. 5 mm obstructing calculus at the left vesicoureteral junction resulting in moderate left hydroureteronephrosis.2. Nonobstructive left renal stones measuring up to 2 mm.3. Asymmetrically enlarged appearance of the right ovary with multiple internal cystic lesions which may representfollicular activity. Recommend further evaluation with pelvic ultrasound for better characterization. WILLIAM JOHNSON MD [address], [place], [address], [facility] - [place] & [place] 07/27/2024 11:35:28 OBGyn Episode No OBEpisode recorded.
--- OUTSIDE RECORDS SUMMARY | 2025-04-19 15:04 | XMS_ITS | Patient Health Record ---
Author Organization [facility] Address [address] [facility] [facility] [place] [address] Care Team Providers Care Compilation Clerk Name Role Phone Bia Arias Unavailable [phone] Allergies Allergen (clinical drug ingredient) Drug/Non Drug Allergy documented on EMR Reaction Allergy Type Onset Date Status ROCEPHINE (uncoded) Unspecified Allergy 10/17/19 20 Active PENICILLIN V POTASSIUM (PENICILLIN V POTASSIUM TAB Unspecified Drug Allergy 10/17/2019 Active Reason For Referral No Information Problems Problem Type SNOMED Code ICD Code Onset Dates Problem Status W/U Status Risk Notes Problem Body mass index 30.00 to 34.99 ([id number] 4107) Adult BMI 33.0-33.9 kg/sq m (Z68.33) 11/21/2019 Active confirmed Body mass index (BMI) 33.0-33.99 , adult Plan Of Treatment No Information Medical (General) History Medical History History ICD Code SOCIAL HX: Patient has never smoked.; Patient has never used smokeless tobacco.; Passive Smoke: N; Alcohol Use: N; Drug Use: N; HIV/High Risk: N; SOCIAL HX: Patient has never smoked.; Patient has never used smokeless tobacco.; Passive Smoke: N; Alcohol Use: N; Drug Use: N; HIV/High Risk: N; DVT Endometriosis hypothyroid IBS PHENTERMINE HCL 37.5 MG ORAL TABLET, ORA L LEVOTHYROXINE SODIUM 75 MCG ORAL TABLET, ORAL XARELTO TABLET PHENTERMINE HCL 15 MG ORAL CAPSULE, ORAL Surgical History Surgery Date(Month/Year) appendectomy, kidney stones, x2, aortic repair 2001, gallbladder, faciaotomy
--- OUTSIDE RECORDS SUMMARY | 2025-04-19 15:05 | XMS_ITS | Patient Health Record ---
[facility] Address [address] [facility] [address] [id number] Care Team Providers Care Warp Drawer Name Role Phone Kartik Russo Primary Care Provider Titus Virgen Unavailable [phone] Sofi Reddy Unavailable [phone] Harleen Collazo Unavailable [phone] Lisa Wagner Unavailable [phone] Allergies Allergen (clinical drug ingredient) Drug/Non Drug [...] Normal Performing Lab: Notes/Report: Test performed by [facility] [address] , [address], [place] [address] Mohit Hendrix MD, Petroleum Production Engineer CLIA: [id number] Thyroxine Free (free T4) 1.27 0.86-1.76 ng/dL P-TSH Reviewed date:02/22/2025 09:46:57 AM Interpretation: Normal Performing Lab: Notes/Report: Test performed by [facility] [address] , [address], [place] [address] Mohit Hendrix MD, Petroleum Production Engineer CLIA: [id number] TSH 0.86 0.43-5.25 mU/L P-Vitamin D 25-Hydroxy Reviewed date:02/22/2025 09:46:57 AM Interpretation:25.8 Performing Lab: Notes/Report: Test performed by [facility] [address] , [address], [place] [address] Mohit Hendrix MD, Petroleum Production Engineer CLIA: [id number] Vitamin D 25-Hydroxy 25.8 30.0-100.0 ng/mL Interpretation of Vitamin D 25 OH: < 20 ng/mL - Deficiency 20 - 29 ng/mL - Insufficiency 30 - 100 ng/mL - Sufficiency > 100 ng/mL - Super-therapeutic- toxicity may occur above this level. Clinical correlation required. P-Culture, Urine Reviewed date:08/03/2024 10:06:52 AM Interpretation: Performing Lab: Notes/Report: Test performed by [facility] [address] , [address], [place] [address] Mohit Hendrix MD, Petroleum Production Engineer CLIA: [id number] Specimen Source Urine - Void Culture, Urine See Below Final Report : No growth P-Comprehensive Metabolic Pa veronica (CMP) Reviewed date:08/09/2024 09:07:30 AM Interpretation: Performing Lab: Notes/Report: Test performed by [facility], [address] [facility] [facility] , [address], [place] [address] Mohit Hendrix MD, Petroleum Production Engineer CLIA: [id number] Sodium 138 135-145 mmol/L Potassium 4.3 3.5-5.3 [...] 1.025 Ketone Trace Bili 1+ Gluc Neg TEN-UTI panel Reviewed date:05/03/2024 12:15:10 PM Interpretation:Negative Performing Lab: Notes/Report: Negative Urinalysis - Inhouse Reviewed date:04/26/2024 04:45:41 PM Interpretation: Performing Lab: Notes/Report: Color/Clarity straw Leuk neg Nitrite neg Urobili 16 Protein neg pH 6.0 Blood 3+ Sp. Gr. >=1.030 Ketone neg Bili 1+ Gluc neg ultrasound : thyroid Reviewed date:03/25/2025 12:12:12 PM Interpretation: Performing Lab: Notes/Report: CBC Fingerstick (in [...] - 38 plat 264 100 - 400 Urinalysis - Inhouse Reviewed date:07/26/2024 02:47:48 PM Interpretation: Performing Lab: Notes/Report: Color/Clarity yellow Leuk neg Nitrite neg Urobili 3.2 Protein neg pH 7 Blood neg Sp. Gr. 1.015 Ketone neg Bili neg Gluc neg P-Culture, Urine Reviewed date:07/16/2024 10:26:27 AM Interpretation:No growth Performing Lab: Notes/Report: Test performed by [facility], [address] , [address], [place] [address] Mohit Hendrix MD, Petroleum Production Engineer CLIA: [id number] Specimen Source Urine - Void Culture, Urine See Below Final Report : No growth Urinalysis - Inhouse Reviewed date:07/13/2024 04:38:53 PM Interpretation: Performing Lab: Notes/Report: Leuk neg Nitrite neg Urobili 3.2 Protein 1+ pH 7.0 Blood 3+ Sp. Gr. 1.025 Ketone neg Bili neg Gluc neg Mammogram Reviewed date:09/28/2024 07:55:55 AM Interpretation: Performing Lab: Notes/Report: Medications Medication SIG (Take, Route, Frequency, Duration) Notes Start Date End Date Status Xarelto 20 mg 1 tablet orally once a day in the evening; Duration: 90 days Active Doxycycline Hyclate 100 MG 1 tablet Oral ly twice a day; Duration: 10 days 02/26/2025 Active Levothyroxine Sodium 50 mcg 1 tablet peter ry morning orally once day; Duration: 30 days Active Amitriptyline HCl 25 mg 1 tablet at bedt slade orally once a day; Duration: 30 days Active Clindamycin HCl 300 MG 1 capsule Orally every 12 hrs; Duration: 7 days 02/20/2025 Active Immunizations Vaccine Route Administration Date Status Comme nts Hepatitis A (adult) IM Intramuscular 09/15/2018 Administer ed Problems Problem Type SNOMED Code ICD Code Onset Dates Problem Status W/U Status Risk Notes Problem Vitamin D deficiency (45636132) Vitamin D deficiency (E55.9) Active confirmed Problem Dysphagia (25885211) Dysphagia (R13.10) Active confirmed Problem Thyroid nodule (052281572) Thyroid nodule (E04.1) Active confirmed Problem Acquired hypothyroidism (896399804) Acquired hypothyroidism (E03.9) Active confirmed Problem Obesity (315473458) Non morbid obesity, unspecified obesity type (E66.9) Active confirmed Problem Kidney stone (35104951) Kidney stone on right side (N20.0) Active confirmed Problem Renal stone (53800216) Renal stone (N20.0) Active confirmed Problem History of methicillin resistant Staphylococcus aureus infection (883994452) 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) Active confirmed Problem Refractory migraine (209838648) Intractable migraine without status migrainosus, unspecified migraine type (G43.919) Active confirmed Problem History of thromboembolism of vein (285299772) History of deep vein thrombosis (DVT) of lower extremity (Z86.718) Active confirmed Problem Facial paresthesia (83563871) Facial paresthesia (R20.2) Active confirmed Vital Signs Heart Rate 93 /min 02/26/2025 Blood pressure diastolic 80 mm Hg 02/26/2025 Height 68 in 02/26/2025 Blood pressure systolic 102 mm Hg 02/26/2025 Weight 199.2 lbs 02/26/2025 BMI 30.28 kg/m2 02/26/2025 Encounters Encounter Location Date Provider Diagnosis [facility] [address] [facility] [address] [facility] [place] [facility] [address] [place] [id number] 04/26/2024 R Jey Reddy Renal colic N23 and Hematuria R31.9 [facility] [address] [facility] [address] [place] [id number] 07/02/2024 Kartik Hixton Left flank pain R10. 9 ; Gross hematuria R31.0 and Acute UTI N39.0 [facility] [address] [facility] [address] [place], [place] [id number] 07/13/2024 Lisa Crowdy Left flank pain R10. 9 ; Gross hematuria R31.0 ; Acute UTI N39.0 and Renal stone N20.0 [facility] [address] [place], [place] [id number] 07/19/2024 Lisa Crowdy Left flank pain R10. 9 ; Gross hematuria R31.0 ; Acute UTI N39.0 and Renal stone N20.0 [facility] [address] [place], [place] [id number] 07/26/2024 Lisa Crowdy Left flank pain R10. 9 ; Renal stone N20.0 ; Status post cystoscopy Z98.890 ; Hydronephrosis, left N13.30 and Renal insufficiency N28.9 [facility] [address] [place], [place] [id number] 08/01/2024 Lisa Crowdy Left flank pain R10. 9 ; Renal stone N20.0 ; Status post cystoscopy Z98.890 ; Hydronephrosis, left N13.30 ; Renal insufficiency N28.9 and Elevated LFTs R79.89 [facility] [address] [place], [place] [id number] 10/31/2024 Lisa Crowdy Gastroenteritis K52. 9 [facility] [address] [place], [place] [id number] 02/20/2025 Kartik Hixton Acute URI J06.9 ; 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 ; Vitamin D deficiency E55.9 and Acquired hypothyroidism E03.9 [facility] [address] [place], [place] [id number] 02/26/2025 Harleen Collazo Acute pansinusitis, unspecified J01.40 and Thyroid nodule E04.1 [facility] [address] [place], [place] [id number] 07/03/2024 Kartik Castroberry [facility] [address] [facility] [address] [place], [place] [id number] 09/17/2024 Kartikjagjit CastroHixton [facility] [address] [facility] [address] [place], [place] [id number] 02/22/2025 Kartik Russo [facility] [address] [facility] [address] [place], [place] [id number] 03/25/2025 Harleen Collazo Assessments Encounter Date Diagnosis (ICD Code) Assessment [...] will recheck these labs. Awaiting records from [facility]. 07/26/2024 Renal stone (ICD-10 - N20.0) Will [...] Pelvis stone protocol (w ithout contrast) 07/02/2024 Insurance Providers Payer Name Payer Address Payer Phone Subscriber Number Group Number Insured Name Patient Relationship to Insured Coverage Start Date Coverage End Date [employer] [address] [place] [address] [id number] Manisha Gallagher Self - patient is the [...] 2002 08/11/2009 06/29/2012 Kidney Stone Removal - [place] 02/2018 EGD and Esopogeal Stretching 03/06/2024 Hospitalization History Reason Date(Month/Year) [facility] ER - Hematuria 07/01/2024 LT Knee Abcess- [facility] 08/25-08/26 RT Leg Pain- [facility] ER 11/03/2014 Shoulder 02/03/2011 Appendicitis Pneumonia
--- OUTSIDE RECORDS SUMMARY | 2025-04-19 15:05 | XMS_ITS | Data Portability ---
Author Organization [facility] GABRIELA Go ANCHORAGE CLOSED Address [address] [address] [place] [address] Care Team Providers Care Core Winder Name Role Phone AMBER MEYERS Primary Care Provider JAYCEE COLLAZO Referring Provider [phone] Assessment Encounter Date Assessment Date Assessment LastModified [...] None recorded. Lab urinalysis, microscopic 2021 022 [facility], [address] [place] [address], [address], 2 14:48:53 urinalysis, dipstick 2021 022 evickers Not available 10:59:41 culture, urine 2017 018 [facility], [address] [place] [address], [address], 8 08:51:18 urinalysis panel, auto 2017 018 [facility], [address] [facility], [place], [address], 8 12:53:16 urinalysis, dipstick, auto 2017 018 [facility], [facility], [place], [address], 8 12:55:42 urinalysis, dipstick, auto 2017 018 [facility], [address] [facility], [place], [address], 8 12:54:48 Referral None recorded. Procedures None recorded. Surgeries None recorded. Imaging XR, abdomen, 1 view 2021 022 [email or web address] 3 [facility]iology [facility], [address] [place] [address], [address], 2 16:29:19 XR, abdomen, 1 view 2017 018 [facility], [facility], [place], [address], 8 12:10:09 Medication Orders Bactrim DS 800 mg-160 mg tablet 2017 018 [facility], [address] [place] [address] [address] [place], [id number], 8 11:35:18 Percocet 5 mg-325 mg tablet 2017 018 [facility], [address] [facility] [address] [place], [id number], 8 10:17:09 Patient TargetsNo targets recorded. Patient Instructions Encounter Date Encounter Id Patient Instructions Last Modified By Organization Details Last Modified Time 03/21/2018 [id number] kidney stone: care instructions Not available 03/21/2018 12:54:48 I offered both MET and operative extraction via ureteroscopy with basket or laser and stent insertion . She understands and agrees to proceed. Not available 03/21/2018 12:54:19 03/27/2018 [id number] kidney stone: care instructions Not available 03/27/2018 12:55:42 04/28/2018 [id number] eating healthy foods: care instructions Not available 04/28/2018 12:53:16 kidney stone: care instructions Not available 04/28/2018 12:53:16 learning about diet for kidney stone prevention Not available 04/28/2018 12:53:16 high blood pressure: care instructions Not available 04/28/2018 12:53:16 Not available 2017 16:49:18 Possibly her symptoms are from a mild UTI. Not available 04/28/2018 16:49:30 04/09/2025 [id number] 1. Ultrasound report reviewed in office today. [...] ultrasound in 1 year would be reasonable nikki Not available 04/09/2025 14:24:34 Reason for Referral None Reported. Results Created Date Observation Date Name Description Value Unit Range Abnormal Flag Note LastModifiedBy Organization Detail LastModifiedTime 04/28/20 18 04/28/2018 urina lysis panel , auto Unknown Analyte Clean Catch Not Available [facility] [address] [facility], [place], [address], 04/28/2018 10:19:36 04/28/20 18 04/28/2018 urina lysis panel , auto Unknown Analyte Yellow Not Available [facility] [address] [place], [address], 04/28/2018 10:19:36 04/28/20 18 04/28/2018 urina lysis panel , auto Unknown Analyte Slight ly Hazy Not Available [facility] [place], [address], 04/28/2018 10:19:36 04/28/20 18 04/28/2018 urina lysis panel , auto Unknown Analyte 1.005 Not Available [facility] [address] [place], [address], 04/28/2018 10:19:36 04/28/20 18 04/28/2018 urina lysis panel , auto Unknown Analyte 6.0 Not Available [facility] [address] [place], [address], 04/28/2018 10:19:36 04/28/20 18 04/28/2018 urina lysis panel , auto Unknown Analyte 75 Omayra/ul (+) Not Available [facility] [address] [place], [address], 04/28/2018 10:19:36 04/28/20 18 04/28/2018 urina lysis panel , auto Unknown Analyte Negati ve Not Available [facility] [place], [address], 04/28/2018 10:19:36 04/28/20 18 04/28/2018 urina lysis panel , auto Unknown Analyte Negati ve Not Available [facility] [address] [facility], [place], [address], 04/28/2018 10:19:36 04/28/20 18 04/28/2018 urina lysis panel , auto Unknown Analyte Normal Not Available [facility] [address] [facility], [place], [address], 04/28/2018 10:19:36 04/28/20 18 04/28/2018 urina lysis panel , auto Unknown Analyte Negati ve Not Available [facility] [address] [facility], [place], [address], 04/28/2018 10:19:36 04/28/20 18 04/28/2018 urina lysis panel , auto Unknown Analyte Normal Not Available [facility] [address] [facility], [place], [address], 04/28/2018 10:19:36 04/28/20 18 04/28/2018 urina lysis panel , auto Unknown Analyte Negati ve Not Available [facility] [address] [facility], [place], [address], 04/28/2018 10:19:36 04/28/20 18 04/28/2018 urina lysis panel , auto Unknown Analyte 250 Daniel/ul Not Available [facility] [address] [place], [address], 04/28/2018 10:19:36 04/28/20 18 04/28/2018 urina lysis panel , auto Unknown Analyte Automa alli Not Available [facility] [address] [place], [address], 04/28/2018 10:19:36 04/28/20 18 04/28/2018 urina lysis panel , auto Unknown Analyte Occ Not Available [facility] [address] [facility], [place], [address], 04/28/2018 10:19:36 04/28/20 18 04/28/2018 urina lysis panel , auto Unknown Analyte TNTC Not Available [facility] [address], [address], 04/28/2018 10:19:36 04/28/20 18 04/28/2018 urina lysis panel , auto Unknown Analyte 0 - 5 Not Available [facility] [address], [address], 04/28/2018 10:19:36 04/28/20 18 04/28/2018 urina lysis panel , auto Unknown Analyte 1+ Not Available [facility] [address], [address], 04/28/2018 10:19:36 03/27/20 18 03/27/2018 urina lysis , dipst ick, auto Unknown Analyte Yellow Not Available [facility] [address], [address], 03/27/2018 09:59:04 03/27/20 18 03/27/2018 urina lysis , dipst ick, auto Unknown Analyte Clear Not Available [facility] [address], [address], 03/27/2018 09:59:04 03/27/20 18 03/27/2018 urina lysis , dipst ick, auto Unknown Analyte 1.020 Not Available [facility] [address], [address], 03/27/2018 09:59:04 03/27/20 18 03/27/2018 urina lysis , dipst ick, auto Unknown Analyte 5.0 Not Available [facility] [address] [facility], [place], [address], 03/27/2018 09:59:04 03/27/20 18 03/27/2018 urina lysis , dipst ick, auto Unknown Analyte 75 Omayra/ul (+) Not Available [facility] [address] [facility], [place], [address], 03/27/2018 09:59:04 03/27/20 18 03/27/2018 urina lysis , dipst ick, auto Unknown Analyte Negati ve Not Available [facility] [address] [facility], [place], [address], 03/27/2018 09:59:04 03/27/20 18 03/27/2018 urina lysis , dipst ick, auto Unknown Analyte 100 mg/dl (++) Not Available [facility] [address] [facility], [place], [address], 03/27/2018 09:59:04 03/27/20 18 03/27/2018 urina lysis , dipst ick, auto Unknown Analyte Normal Not Available [facility] [address] [place], [address], 03/27/2018 09:59:04 03/27/20 18 03/27/2018 urina lysis , dipst ick, auto Unknown Analyte Negati ve Not Available [facility] [address] [place], [address], 03/27/2018 09:59:04 03/27/20 18 03/27/2018 urina lysis , dipst ick, auto Unknown Analyte Normal Not Available [facility] [address] [place], [address], 03/27/2018 09:59:04 03/27/20 18 03/27/2018 urina lysis , dipst ick, auto Unknown Analyte Negati ve Not Available [facility] [address] [place], [address], 03/27/2018 09:59:04 03/27/20 18 03/27/2018 urina lysis , dipst ick, auto Unknown Analyte 250 Daniel/ul Not Available [facility] [address] [place], [address], 03/27/2018 09:59:04 03/27/20 18 03/27/2018 urina lysis , dipst ick, auto Unknown Analyte Clean Catch Not Available [facility] [address] [place], [address], 03/27/2018 09:59:04 03/27/20 18 03/27/2018 urina lysis , dipst ick, auto Unknown Analyte Automa alli Not Available [facility] [address] [place], [address], 03/27/2018 09:59:04 03/21/20 18 03/21/2018 urina lysis , dipst ick, auto Unknown Analyte Yellow Not Available [facility] [address] [place], [address], 03/21/2018 09:54:32 03/21/20 18 03/21/2018 urina lysis , dipst ick, auto Unknown Analyte Clear Not Available [facility] [address] [place], [address], 03/21/2018 09:54:32 03/21/20 18 03/21/2018 urina lysis , dipst ick, auto Unknown Analyte 1.020 Not Available [facility] [address] [place], [address], 03/21/2018 09:54:32 03/21/20 18 03/21/2018 urina lysis , dipst ick, auto Unknown Analyte 5.0 Not Available [facility] [address] [facility], [place], [address], 03/21/2018 09:54:32 03/21/20 18 03/21/2018 urina lysis , dipst ick, auto Unknown Analyte Negati ve Not Available [facility] [address] [facility], [place], [address], 03/21/2018 09:54:32 03/21/20 18 03/21/2018 urina lysis , dipst ick, auto Unknown Analyte Negati ve Not Available [facility] [address] [place], [address], 03/21/2018 09:54:32 03/21/20 18 03/21/2018 urina lysis , dipst ick, auto Unknown Analyte Negtiv e Not Available [facility] [address] [facility], [place], [address], 03/21/2018 09:54:32 03/21/20 18 03/21/2018 urina lysis , dipst ick, auto Unknown Analyte Normal Not Available [facility] [address] [place], [address], 03/21/2018 09:54:32 03/21/20 18 03/21/2018 urina lysis , dipst ick, auto Unknown Analyte Negati ve Not Available [facility] [address] [place], [address], 03/21/2018 09:54:32 03/21/20 18 03/21/2018 urina lysis , dipst ick, auto Unknown Analyte Normal Not Available [facility] [address] [place], [address], 03/21/2018 09:54:32 03/21/20 18 03/21/2018 urina lysis , dipst ick, auto Unknown Analyte 1 mg/dl (+) Not Available [facility] [address] [place], [address], 03/21/2018 09:54:32 03/21/20 18 03/21/2018 urina lysis , dipst ick, auto Unknown Analyte 50 Daniel/ul Not Available [facility] [address] [place], [address], 03/21/2018 09:54:32 03/21/20 18 03/21/2018 urina lysis , dipst ick, auto Unknown Analyte Clean Catch Not Available [facility] [address] [place], [address], 03/21/2018 09:54:32 03/21/20 18 03/21/2018 urina lysis , dipst ick, auto Unknown Analyte Automa alli Not Available [facility] [place], [address], 03/21/2018 09:54:32 04/28/20 18 04/28/2018 cultu re, urine results [facility] e: CCUR Colle cted: 04/28 12:30 Site: [...] SERGO AND SENSI TIVIT Y RESUL TS [place] te 01 Yeast speci es Not Available [facility] [address] [facility], [place], [address], 05/01/2018 11:20:52 09/23/20 22 09/23/2022 UA MICRO SCOPI C, CULTU RE IF INDIC ATED WBC, urine 5-10 0-5/hp f abnormal Not Available [facility] [address] [place] [address], [address], 09/23/2022 14:48:53 09/23/20 22 09/23/2022 UA MICRO SCOPI C, CULTU RE IF INDIC ATED squamous epi. cells 0-5 0-5/hp f normal Not Available [facility] [address] [place] [address], [address], 09/23/2022 14:48:53 09/23/20 22 09/23/2022 UA MICRO SCOPI C, CULTU RE IF INDIC ATED bacteria 1+ /hpf abnormal Not Available [facility] [address] [place] [address], [address], 09/23/2022 14:48:53 09/23/20 22 09/23/2022 UA MICRO SCOPI C, CULTU RE IF INDIC ATED crystals Trace negati ve normal Calci um [place] te Not Available [facility] [address] [place] [address], [address], 09/23/2022 14:48:53 09/23/20 22 09/23/2022 UA MICRO SCOPI C, CULTU RE IF INDIC ATED reflex culture see below normal UA resul ts do not meet cultu re crite dimitri. Not Available [facility] [address] [place], [address], 09/23/2022 14:48:53 09/23/20 22 09/23/2022 urina lysis , dipst ick Unknown Analyte Yellow Not Available [facility] [address] [place] [address], [address], 09/23/2022 10:25:05 09/23/20 22 09/23/2022 urina lysis , dipst ick Unknown Analyte Clear Not Available [facility] [address] [place], [address], 09/23/2022 10:25:05 09/23/20 22 09/23/2022 urina lysis , dipst ick Unknown Analyte 1.020 Not Available [facility] [address] [place] [address], [address], 09/23/2022 10:25:05 09/23/20 22 09/23/2022 urina lysis , dipst ick Unknown Analyte 5.0 Not Available [facility] [address], [address], 09/23/2022 10:25:05 09/23/20 22 09/23/2022 urina lysis , dipst ick Unknown Analyte 500 Omayra/ul (++) Not Available [address], [address], 09/23/2022 10:25:05 09/23/20 22 09/23/2022 urina lysis , dipst ick Unknown Analyte Negati ve Not Available [address], [address], 09/23/2022 10:25:05 09/23/20 22 09/23/2022 urina lysis , dipst ick Unknown Analyte Trace Not Available [facility] [address], [address], 09/23/2022 10:25:05 09/23/20 22 09/23/2022 urina lysis , dipst ick Unknown Analyte Normal Not Available [facility] [address], [address], 09/23/2022 10:25:05 09/23/20 22 09/23/2022 urina lysis , dipst ick Unknown Analyte Negati ve Not Available [facility] [address], [address], 09/23/2022 10:25:05 09/23/20 22 09/23/2022 urina lysis , dipst ick Unknown Analyte Normal Not Available [facility] [address] [place], [address], 09/23/2022 10:25:05 09/23/20 22 09/23/2022 urina lysis , dipst ick Unknown Analyte Negati ve Not Available [facility] [address] [place], [address], 09/23/2022 10:25:05 09/23/20 22 09/23/2022 urina lysis , dipst ick Unknown Analyte 50 Daniel/ul Not Available [facility] [address] [place] [address], [address], 09/23/2022 10:25:05 09/23/20 22 09/23/2022 urina lysis , dipst ick Unknown Analyte Clean Catch Not Available [facility] [address] [place], [address], 09/23/2022 10:25:05 09/23/20 22 09/23/2022 urina lysis , dipst ick Unknown Analyte Visual Not Available [facility] [address], [address], 09/23/2022 10:25:05 03/22/20 18 03/22/2018 fluor oscop y (PROC ) No observ ation record ed. [email or web address] Alma Michael MD [address], [place], [address], 03/23/2018 08:35:30 03/23/20 18 03/18/2018 CT, abdom en + pelvi s, w/o contr ast No observ ation record ed. BARCODE Not Available 2017 11:45:34 03/25/20 18 03/24/2018 XR, abdom en No observ ation record ed. [email or web address] Not Available 2017 06:46:28 04/28/20 18 04/28/2018 XR, abdom en [facility] [address] [place] [address] Patikerri t Name: ROSITA Albright t : [birth year] Patikerri t Orderi ng Provid er: TERREN LEX R FERNANDA EXAM DATE: 2017 EXAM: XR CU ABDOME [...] Vazquez MD on 04/28/20 18 12:05 PM [facility] [employer] [address] [place] [address], [address], 04/28/2018 17:45:05 09/23/20 22 09/23/2022 XR, abdom en, [address] [address] Patikerri t Name: ROSITA Albright t : [birth year] Patikerri t Orderi ng Provid er: SHERLY Payton [...] Alvarenga MD on 2021 12:20 PM [email or web address] [facility] [address], [address], 09/24/2022 17:10:45 04/09/20 25 03/08/2025 US, thyro id No observ ation record ed. BARCODE Not Available 2024 11:05:46 Result Notes Documentation Provider Name and Address Organization Details Recorded Time Xr, Abdomen : [facility] [address] [place] [address] Patient Name: PADMA GALLAGHER Patient : 1985 [...] Interpreted By: Brian Vazquez MD MICHAEL MD [address] [place] [address], [address], [facility] 04/28/2018 17:45:05 Xr, Abdomen, 1 View : [address] [address] Patient Name: PADMA GALLAGHER Patient : 1985 [...] abnormality. Interpreted By: Vince Alvarenga MD [facility] 09/24/2022 17:10:45 Problems No Known Problems Procedures Surgical History Date Name Laterality Status Provider Name and Address Organization Details Recorded Time 03/22/20 18 Other completed ALMA MICHAEL MD [address] [place] [address], [address], [facility] 03/27/2018 12:54:47 [facility] 03/21/2018 09:56:03 [facility] 03/21/2018 09:56:07 Heart [facility] 03/21/2018 09:56:20 delivery completed CARINA MICHAEL MD [address] [place] [address], [address], [facility] 03/21/2018 12:51:52 Imaging Results None recorded. Procedure Notes None recorded. Medical Equipment None Reported. Allergies Allergen ID Allergen Name Allergen Category Reaction Reaction Severity Criticality Documentation Date Start Date Code Code System Note Provider Name and Address Organization Details Recorded Time 517413 Rocephin medicatio n Not available Not available Not available 03/21/2018 9449 RxNorm [facility] 8 09:54:33 831933 Product containin g penicilli n (product) medicatio n Not available Not available Not available 03/21/2018 01708 8001 [facility]ED [place] [facility] 8 09:54:38 Medications Name Sig Start Date [...] Updated DateTime 03/21/2018 175.26 cm 32.9 kg/m2 126767.1 g Jojo Liz [facility] 03/21/2018 09:54:13 Date Recorded Body height Body mass index (BMI) Body weight Systolic And Diastolic Provider Name and Address Organization Details Last Updated DateTime 03/27/2018 175.26 cm 32.9 kg/m2 434562.1 g 120/82 mm[Hg] Alvin Denny [facility] 03/27/2018 09:54:06 Date Recorded Body height Body mass index (BMI) Body weight Body temperature Heart rate Systolic And Diastolic Provider Name and Address Organization Details Last Updated DateTime 5 175.26 cm 28.8 kg/m2 95749.5 1 g 97.5 [degF] 91 /min 108/75 mm[Hg] Jael Haas [facility] 5 08:20:05 Date Recorded Body height Body mass index (BMI) Body weight Systolic And Diastolic Provider Name and Address Organization Details Last Updated DateTime 04/28/2018 175.26 cm 32.5 kg/m2 37232.32 g 110/85 mm[Hg] Eunice Olivares [facility] 04/28/2018 10:16:53 Social History Question Answer Notes LastModified by Welzoo Details LastModified Time Tobacco Smoking Status Never Smoker [facility] 03/21/2018 09:55:38 Marital Status Informatio n not available 03/21/2018 What Was The Date Of Your Most Recent Tobacco Screening? 04/28/2018 Information n ot available 11/13/2019 Sex: Unknown Functional Status Question Answer Note LastModified by [employer] Details LastModified Time What is your level of alcohol consumption? 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 Information not available 03/21/2018 Mental Status None [...] SNOMED-CT Code Diagnosis ICD10 Code Diagnosis Note [id number] ALMA MICHAEL MD UROLOGY [address] [place] [address] 03/21/2018 09:16:04 03/21/2018 15:04:44 Ureteric stone 11714817 N20.1 [id number] ALMA MICHAEL MD UROLOGY [facility] [address] [place] [address] 03/27/2018 09:25:17 03/27/2018 14:05:17 Ureteric stone 13783343 N20.1 doing well post-op [id number] ALMA MICHAEL MD UROLOGY [facility] [address] [place] [address] 04/28/2018 09:10:48 04/30/2018 17:44:54 Kidney stone 32782175 N20.0 tiny. Acute urin avinash tract infection 374392844 N39.0 [id number] BERNARDINO BLACKMON APRN UROLOGY [address] [place] [address] 09/23/2022 09:37:37 09/23/2022 16:29:19 Kidney stone 83396052 N20.0 History of urinary tract infection 0695217069 107 Z87.440 Leukocytes in urine 2757 60555 R82.79 [id number] CHRIS MAN MD [place] [facility] [address] [place] [address] 04/09/2025 08:02:15 04/09/2025 08:41:08 Thyroid nodule 502250657 E04.1 US Results from [facility]: - 9mm lesion on the right side TiRAD - 8 mm right thyroid lobe lesion TiRAD 4 History of dysphagia 693 8905882 4484982 Z87.898 Autoimmune disease 85576 009 M35.9 Possible currently under the care of rheumatolo gist to explore wide range of symptoms Lethargy 922280110 R53.8 3 Idiopathic Health Concerns Section Related Observation LastModified by Organization Detai ls LastModified Time None Recorded Concern Status LastModified by Organization Details LastModified Time None Recorded Advance Directives Directive None Recorded Payers Insurance Date Sequence Insurance Name Policy Number Policy Lamar Covered Member ID Lamar Member ID Guarantor Name 04/09/2025 2 [employer] (PPO) [id number] John Gallagher [id number] Padma Gallagher 04/04/2025 1 [place] [id number] Padma Gallagher [id number] Padma Gallagher 04/16/2025 1 [place] [id number] John Gallagher [id number] Padma Gallagher 04/04/2025 1 [facility] [id number] Padma Gallagher [id number] Padma Gallagher Notes Date Note Type Note Provider Name and Address Organization Details Recorded Time 03/21/2018 text/html Padma is a 33 yo new female who presents today s/p ER visit at [facility] for kidney stones. Her pain started 6 days ago, last Tuesday in the left flank , hematuria, n/v, and fever. She initially was seen by her a class lineman who prescribed macrobid. Then 3 days ago her pain increased and she trini to the [facility] ER, where a CT scan showed 5mm stone in the distal UVJ with high grade obstruction. She continues with pain and discomfort. She has no other complaints or concerns today. ALMA MICHAEL MD [address] [place] [address] [place], [address], [facility] 03/21/2018 12:55:03 03/27/2018 text/html 33 y/o female here today for a f/u after having cystoscopy with left ureteroscopy, laser lithotripsy, basket stone extraction, and stent insertion 03/22/18. She denies any current gross hematuria. She did mention she has had an intermittent low grade fever. She denies any other urinary complaints/concerns today. ALMA MICHAEL MD [facility] [place], [address], [facility] 03/27/2018 12:56:11 04/28/2018 text/html Padma is [...] intermittent gross hematuria. ALMA MICHAEL MD [address] [place], [address], [facility] 04/28/2018 16:49:50 09/23/2022 text/html 37 year old female with history of kidney stones. She has a history of urolithiasis. She passed her first stone in 2008 after giving . She was seen by Dr. Michael in 2017 and underwent a left ureteroscopy and stone extraction. In 07/2022, she had 2 weeks of gross hematuria and right flank pain. She went to the ER at [facility] on 08/24/22. A CT scan showed a [...] been a smoker. BERNARDINO BLACKMON APRN [address] [place], [address], [facility] 09/23/2022 11:02:41 04/09/2025 text/html Padma comes in today for consultation at the [...] had her esophagus lengthened. US Results from [facility]:03/08/25- 8 mm subcentimeter lesion TiRAD - 9mm lesion on the right side TiRAD 4 CHRIS MAN MD [address] [place], [address], [facility] 04/09/2025 16:10:38 OBGyn Episode No OBEpisode recorded.
--- OUTSIDE RECORDS SUMMARY | 2025-04-19 15:06 | XMS_ITS | Data Portability ---
Author Organization [facility] [employer] [place] [facility] [place] Address [address] [place] [address] Assessment No assessment recorded. Plan of Treatment Reminders Order Date Submit Date Provider Last Modified By Organization Details Last Modified Time Details Appointments None recorded. 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 2024 025 [facility], [address], [address], [place], [address], 5 19:04:22 Procedures None recorded. Surgeries None recorded. Imaging None recorded. Medication Orders Bromfed DM 2 mg-30 mg-10 mg/5 mL oral syrup 2021 022 [email or web address] [facility], [address] [place], [address], 4 14:39:36 Patient TargetsNo targets recorded. Patient InstructionsNo instructions recorded. 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 Referring Physician: Chelsey Mendoza, Family Medicine, Encounter Date: 10/26/2024 Results Created Date Observation Date Name Description Value Unit Range Abnormal Flag Note LastModifiedBy Organization Detail LastModifiedTime 09/06/20 22 09/06/2022 rapid SARS CoV 2 Ag, QL, [place], upper respi rator y speci men SARS CoV Ag positi ve Not Available [address], [address], 09/06/2022 09:59:08 09/06/20 22 09/06/2022 rapid flu (A+B) Flu A negati ve Not Available [address], [address], 09/06/2022 09:59:06 09/06/20 22 09/06/2022 rapid flu (A+B) Flu B negati ve Not Available [address], [address], 09/06/2022 09:59:06 10/11/19 24 10/11/2023 rapid flu (A+B) Flu A negati ve Not Available [address], [address], 10/11/2023 10:35:48 10/11/19 24 10/11/2023 rapid flu (A+B) Flu B positi ve Not Available [address], [address], 10/11/2023 10:35:48 10/11/19 24 10/11/2023 rapid SARS CoV 2 Ag, QL, [place], upper respi rator y speci men SARS CoV Ag negati ve Not Available [address], [address], 10/11/2023 10:35:49 Result Notes None recorded. Problems Name Problem SNOMED Code Status Onset Date Resolution Date Notes Provider Name and Address Organization Details Recorded Time Cough 54910655 Completed 202009/06/2022 Problem Code: R05; Problem Code Type: ICD-10; HEIDI graff, [employer]. 09:57:13 Pyrexia of unknown origin 5022191 Active 2020 Problem Code: R50.9; Problem Code Type: ICD-10; Not Available [facility] 22:24:44 Myositis 79265664 Active 2020 Problem Code: M60.9; Problem Code Type: ICD-10; Not Available [facility] 22:24:44 COVID-19 781339550 Completed 202009/06/2022 Problem Code: U07.1; Problem Code Type: ICD-10; HEIDI graff, [employer] 09:57:13 Problem Notes None recorded. Procedures Surgical History Date Name Laterality Status Provider Name and Address Organization Details Recorded Time 08/26/20 24 Most Recent Mammogram completed HEIDI MARTELL [employer] 10/26/2024 16:22:50 04/30/20 section completed Not Available [facility] 06/01/2022 22:56:15 04/30/20 21 cholecystectomy completed Not Available [facility] 06/01/2022 22:56:16 04/30/20 21 appendectomy completed Not Available [facility] 06/01/2022 22:56:18 Incise thigh tendon & fascia completed Chelsey Mendoza APRN [address] [place], [address], [facility] [employer] 10/28/2024 14:17:06 Imaging Results None recorded. Procedure Notes None recorded. Medical Equipment None Reported. Allergies Allergen ID Allergen Name Allergen Category Reaction Reaction Severity Criticality Documentation Date Start Date Code Code System Note Provider Name and Address Organization Details Recorded Time 99065 Product containin g penicilli n (product) medicatio n Not available Not available Not available 06/01/2022 14032 8001 SNOMED Aller gyCod e: ''; Aller gyNam e: 'Peni cilli ns'; Aller gyCon ceptT ype: ''; Not Available [facility] 2 22:55:00 76758 Rocephin medicatio n Not available Not available Not available 06/01/2022 9449 RxNorm Not Available [facility] 2 22:55:09 Medications Name Sig Start Date [...] completed Not Available Not Available Not Available [employer] Thyroid 30 mg tablet TAKE ONE TABLET [...] in Arterial blood by Pulse oximetry Systolic And Diastolic Provider Name and Address Organization Details Last Updated DateTime 4 54467.3 3 g 28.5 kg/m2 175.26 cm 97.5 [degF] 83 /min 99 % 99 % 95/64 mm[Hg] Cass Rizvi [facility] [employer] [facility]. 4 14:41:58 Date Recorded Body height Body mass index (BMI) Body weight Body temperature Heart rate Oxygen saturation Oxygen saturation in Arterial blood by Pulse oximetry Systolic And Diastolic Provider Name and Address Organization Details Last Updated DateTime 5 175.26 cm 32.4 kg/m2 12293.1 7 g 98 [degF] 101 /min 99 % 99 % 125/76 mm[Hg] [employer]I [employer] 5 16:20:37 Date Recorded Body weight Body temperature Heart rate Oxygen saturation Oxygen saturation in Arterial blood by Pulse oximetry Provider Name and Address Organization Details Last Updated DateTime 2 700058. 17 g 100 [degF] 106 /min 98 % 98 % HEIDI [employer] 2 09:56:32 Social History Question Answer Notes LastModified by Organizat ion Details LastModified Time Tobacco Smoking Status Never Smoker SocialHis toryQuest ion: 'Tobacco/ Alcohol/S upplement s'; SocialHis toryRespo nse: 'Never Smoker'; Not Available [facility] 06/01/2022 22:55:35 Do You Have [...] not available 09/06/2022 Who Is Your Employer? [employer] Information not available 09/06/2022 Have There Been Any Changes To Your Family Or Social Situation? No Information no t available 09/06/2022 Are There Any Guns Present In Your Home? No Information not available 09/06/2022 Do You Have A Medical Power Of Kennel Manager? No Information not available 09/06/2022 What [...] LastModified by Organizat ion Details LastModified Time Do you use [...] 09/06/2022 Are you able to care for yourself independently? Yes Information not available 09/06/2022 Mental Status [...] SNOMED-CT Code Diagnosis ICD10 Code Diagnosis Note [id number] [place] [address]11[address] 09/06/2022 09:42:40 09/06/2022 10:26:46 Acute upper respiratory infection 23097677 J06.9 COVID-19 174678209 U07.1 Patient presented with symptoms of upper [...] to 2 weeks if symptoms not improving. [id number] Desiree Adis [place] [phone] 10/11/2023 14:11:23 10/11/2023 15:08:22 Cough 96068733 R05.9 Influenza caused by Influenza B virus 92685301 J10.1 Body mass index 25-29 - overweight 177905955 Z68.28 [id number] Chelsey Mendoza [address] [address] 10/26/2024 16:09:12 10/26/2024 16:54:46 [place] - lesion 711880467 L84 We will refer Manisha to podiatry for treatment of her corns, considerat ion of new custom molded orthotics, possibly an ASO. Acquired p es planus of left foot [id number] 69084 M21.42 Body mass index 30+ - obesity 954716030 Z68.32 Health Concerns Section Related Observation LastModified by Organization Detai ls LastModified Time None Recorded Concern Status LastModified by Organization Details LastModified Time None Recorded Advance Directives Directive N: Payers Insurance Date Sequence Insurance Name Policy Number Policy Lamar Covered Member ID Lamar Member ID Guarantor Name 12/08/2023 1 [employer] (PPO) [id number] Manisha Gallagher [id number] Manisha Gallagher 10/29/2024 1 [place] [id number] John Gallagher [id number] Manisha Gallagher Notes Date Note Type Note Provider Name and Address Organization Details Recorded Time 2 text/html Upper Respiratory SymptomsReported by PatientUpper Respiratory SymptomsFor quality, patient reportscongestedanddry cough. For context, patient reportssick contact(spouse has covid, she is unvaccinated). For associated symptoms, patient reportsfatigue,fever,mornin g cough,sore throat,headache,chills, andmalaisebut reportsno chest pain,no sputum production,no shortness of breath,no wheezing,no cyanosis,no change in number of pillows needed to sleep at night,no sweats,no diarrhea,no rash,no nausea, andno conjunctivitis. For location, patient reportshead,throat, andnasal. For severity, patient reportsmild. For duration, patient reportssymptoms lasting less than 2 weeks. For onset/timing, patient reportsdate of onset:(09/04/22). For alleviating factors, patient reportsanalgesicsanddeconge stant.ROS as noted in the HPI Chelsey Mendoza APRN [address] [place], [address], [employer] 09/06/2022 10:37:57 4 text/html CoughReported by Patient pt here today with c/o cough and fatigue x5 days with worsening symptoms today. rapid flu b positive. pt to rest x3 days, increase fluids, tylenol/ibuprofen for pain/fever. return for worsening symptoms. Desiree Arceo APRN [address] [place], [address], [employer] 10/11/2023 17:30:10 5 text/html ROS as noted in the HPI Manisha has hx bilateral fasciotomy bilateral lower legs. She has chronic muscle atrophy and weakness in both legs. Complains of two painful corns on sole of left foot for 2 months. She is wearing a custom orthotic but it is old. She has poor arch in left foot. Pressure distribution of left foot is uneven. Chelsey Mendoza, NAUTICAL INSTRUMENT MECHANIC [address] [facility], [place], [address], [facility] [employer] 10/28/2024 14:17:46 OBGyn Episode No OBEpisode recorded.
[2025-04-22 14:11] LABS: RA Latex Turbid. <10.0 IU/mL (<14.0)
== END 2025-04-19 23:59 | disposition home or self-care (01) ==
LOC: LAB 15:02
PROVIDERS: PCP Family Medicine; Visit Provider Nurse Practitioner
DX: R76.0 Raised antibody titer (principal)
CPT/HCPCS: 36415; 86225; 86235; 86431